=== PATIENT | male | born 1940 | race Caucasian/White ===

== ENCOUNTER 2019-06-08 08:28 | Inpatient (IN) ==
[2019-06-08] MEDS ORDERED: OPTIRAY 320 125ml IV PRN (08:52)
[2019-06-08 08:56] LABS: Basophils # (auto) 0.09 K/uL (0-0.2); Basophils % (auto) 1.2 %; Eosinophils # (auto) 0.44 K/uL (0-0.5); Eosinophils % (auto) 5.9 %; Hematocrit (blood only) 41.9 % (42-52); Hemoglobin 15.2 g/dL (14.0-18.0); Immature Granulocytes # (auto) 0.06 K/uL (0.00-0.02); Immature Granulocytes % (auto) 0.8 %; Lymphocytes # (auto) 2.32 K/uL (1.2-3.4); Lymphocytes % (auto) 30.9 %; Mean Corpuscular Hemoglobin 33.4 pg (25-34); Mean Corpuscular Hgb Conc 36.3 g/dL (32-36); Mean Corpuscular Volume 92.1 fL (80-100); Mean Platelet Volume 10.2 fL (7.4-10.4); Monocytes # (auto) 0.63 K/uL (0.11-0.59); Monocytes % (auto) 8.4 %; Neutrophils # (auto) 3.97 K/uL (1.4-6.5); Neutrophils % (auto) 52.8 %; Platelet Count 286 K/uL (130-400); RDW Coefficient of Variation 12.9 % (11.5-14.5); RDW Standard Deviation 43.8 fL (36.4-46.3); Red Blood Count 4.55 M/uL (4.7-6.1); White Blood Count 7.51 K/uL (4.8-10.8)
--- NOTE | 2019-06-08 08:58 | CT Scan Report ---
CT head/brain wo con CLINICAL HISTORY: Stroke evaluation COMPARISON STUDY: 06/07/2014 TECHNIQUE: Axial CT of the brain is performed from the vertex to the skull base. IV contrast was not administered for this examination. A dose lowering technique was utilized adhering to the principles of ALARA. CT DOSE: FINDINGS: No intra or extra-axial mass lesions are visualized. There is no CT evidence of acute cortical infarc tion. There is no evidence of midline shift. There is no acute hemorrhage. No calvarial fractures ar e visualized. There are patchy white matter hypodensities likely on a small vessel basis. There is no evidence of pathologic ventricular dilatation. There is no evidence of acute sinusitis IMPRESSION: No acute intracranial findings Electronically signed by: Lalo Contreras M.D. 06/08/2019 8:57 AM
[2019-06-08 09:08] LABS: INR 1.1 (0.9-1.1); Partial Thromboplastin Ratio 0.9; Partial Thromboplastin Time 24.5 Seconds (21.0-31.0); Prothrombin Time 10.9 Seconds (9.0-12.0)
[2019-06-08 09:12] LABS: iSTAT Creatinine 1.1 mg/dl (0.6-1.3); iSTAT Ionized Calcium 1.19 mmol/l (1.12-1.32); iSTAT Potassium 3.5 mEq/L (3.3-5.0)
[2019-06-08 09:15] LABS: Alanine Aminotransferase 22 U/L (12-78); Albumin Level 3.8 gm/dl (3.4-5.0); Aspartate Aminotransferase 13 U/L (15-37); BUN Creatinine Ratio 16.1 (10-20); Blood Urea Nitrogen 18 mg/dl (7-18); Calcium 9.3 mg/dl (8.5-10.1); Carbon Dioxide 26 mmol/L (21-32); Chloride 100 mmol/L (98-107); Est GFR (Non-African American) 61.3; Glucose 207 mg/dl (70-99); Potassium 3.4 mmol/L (3.5-5.1); Sodium 134 mmol/L (136-145)
--- NOTE | 2019-06-08 09:16 | CT Scan Report ---
CT ANGIOGRAM OF THE BRAIN; CT ANGIOGRAM OF THE NECK CLINICAL HISTORY: Generalized weakness. COMPARISON STUDY: Unenhanced CT of the brain performed the same day 06/08/2019. CT angiogram of the head and neck dated 06/06/2014. TECHNIQUE: Following the IV administration of 120 of Optiray 320, CT angiogram of the head and neck w as performed from the aortic arch to the vertex. Images are reviewed in the axial, sagittal, and cali nal planes. 3-D MIPS images are created and assessed. IV contrast was administered without complicati on. All measurements were calculated based on NASCET criteria. A dose lowering technique was utilize d adhering to the principles of ALARA. FINDINGS: Brain parenchyma: There is age-related involutional change noting mild to moderate subcortical and pe riventricular microangiopathic disease. There is no hemorrhage, mass effect, or evidence of acute ter ritorial ischemia by CT criteria. There is no evidence of enhancing mass lesion on the angiogram phas e images. The ventricles, sulci, and cisterns are prominent secondary to involutional change. Bansal-wh ite matter differentiation is preserved. No extra-axial fluid collection is seen. Thoracic aorta: There is mild atherosclerotic calcification of the thoracic aorta. Visualized portion s of the thoracic aorta are normal in caliber. The aortic arch demonstrates standard 3-vessel anatomy . Right carotid arterial system: The right common carotid artery is widely patent, as is the right inte rnal carotid artery. Atherosclerotic plaque is noted in the carotid bulb. There is mild stenosis the origin of the right external carotid artery. Left carotid arterial system: The left common carotid artery is widely patent, as are the left compensation intern al and external carotid arteries. There is atherosclerotic calcification of the carotid bulb and the proximal left internal carotid artery. Vertebral arteries: The vertebral arteries are patent bilaterally and codominant. There is mild (less than 50%) stenosis of the proximal left vertebral artery seen on image #111. Subclavian arteries: Widely patent bilaterally. Intracranial vasculature: There is atherosclerotic calcification of the cavernous carotid and vertebr al arteries. The [place] is developmentally complete. The internal carotid arteries are prabhakar nt at the skull base, as are the anterior and middle cerebral arteries bilaterally. The vertebrobasil ar system and posterior cerebral arteries are widely patent. The vertebral arteries are codominant. T here is minimal ectasia of the supraclinoid left internal carotid artery with no aneurysm seen. No de finite aneurysm, high-grade stenosis, or focal vessel cut off seen throughout the intracranial circul ation. Jugular veins: Patent bilaterally. Dural sinuses: Patent. Lung apices: There is biapical scarring. Peribronchial thickening is noted in the upper lobes. Soft tissues: The visualized pharyngeal soft tissues are normal in appearance noting angiographic pha se technique. The oropharyngeal airway appears widely patent. The salivary and thyroid glands are nor mal in appearance. No cervical lymphadenopathy is seen. Skeletal structures: The skeletal structures are osteopenic. The calvarium appears intact. The cervic al spine is maintained noting multilevel spondylosis. No lytic or blastic lesion is seen. Sinuses and mastoids: Osteoma with surrounding mucosal thickening is noted in the right frontal sinus . The remaining paranasal sinuses are clear. The mastoid air cells are well pneumatized. An impacted left maxillary tooth is unchanged from previous. IMPRESSION: 1. There is no hemorrhage, mass effect, or evidence of acute territorial ischemia by CT criteria noti ng angiographic phase technique. 2. Unremarkable CT angiogram of the brain. 3. There is no evidence of significant carotid artery stenosis identified in the neck. 4. 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 Electronically signed by: Dakota Hall M.D. 06/08/2019 9:15 AM
[2019-06-08 09:20] LABS: Alkaline Phosphatase 103 U/L (45-117); Bilirubin,Total 0.7 mg/dl (0.2-1); Globulin 3.8 gm/dl (2.5-4.0); Total Protein 7.6 gm/dl (6.4-8.2); Troponin I < 0.015 ng/ml (0-0.045)
--- NOTE | 2019-06-08 09:27 | XRay Report ---
XR chest 1V portable CLINICAL HISTORY: Acute stroke COMPARISON STUDY: 01/17/2018 FINDINGS: The cardiac and mediastinal contours are normal. There is no evidence of focal pulmonary co nsolidation. There is no evidence of failure. No pleural effusions are visualized.[ IMPRESSION: No active disease in the chest. Electronically signed by: Lalo Contreras M.D. 06/08/2019 9:26 AM
[2019-06-08] MEDS ORDERED: SODIUM CHLORIDE 0.9% 1000ML 1,000 ML IV ONE (09:28)
[2019-06-08] MEDS ORDERED: ASPIRIN 81 MG ECTAB PO STA (10:50)
--- NOTE | 2019-06-08 11:13 | History & Physical Report ---
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 In ED patient was mildly hypertensive with BP 153/91, otherwise hemodynamically stable. He underwent CT scan of head which revealed patchy white matter densities consistent with small vessel disease, but no acute abnormality. CTA of head neck was negative for any hemodynamically significant stenosis. CBC, CMP relatively unremarkable except for mildly low sodium 134, K3.4, hyperglycemia 207 his magnesium, troponin were WNL. Chest x-ray revealed no active disease. Sx mostly resolved except for RUE/RLE weakness observed on exam admit to PCU consult neurology Dr. Vogel obtain MRI w/o contrast echocardiogram fasting lipid panel, A1C PT/OT/ST continue ASA, plavix, Statin - will await neurology recommendations due to ? reema vix failure Stop omeprazole due to contraindication with plavix (2) T2DM (type 2 diabetes mellitus): last A1C 8.5, poor control recommend stricter control due to hx of CVA on lantus 18u at HS implement Lantus/Novolog per protocol allergy to januvia - has been on metformin in past but d/c for unknown reason repeat A1C hospital educator consulted consider re- adding metformin to regimen to obtain stricter control or AC coverage with novolog (3) HTN (hypertension): blood pressure mildly hypertensive in ED hold oral antihypertensives due to stroke work up and permissive HTN hold coreg, losartan (4) HLD (hyperlipidemia): continue statin lipid panel in a.m. (5) History of CVA (cerebrovascular accident): hx of CVA in 01/2013 and 05/2018, R internal capsule no residual deficit except for short term memory loss on ASA, plavix, statin plan as above (6) DVT prophylaxis: SCD/TEDS Disposition: admit to PCU Follow up: PCP Dr. Hooper upon discharge Pt was seen and examined in collaboration with Dr. Sanchez, please see addendum History of Present Illness Chief Complaint: AMS, LUE paresthesias and weakness prior to arrival. 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 and daughter are at bedside. He elicits he woke up around 5 AM and got out of bed and was very confused, "I did not even know the name of my or daughter." He also complained of left upper extremity paresthesias and weakness with associated difficulty with fine motor movements. Symptoms persisted and he proceeded to take trash out to the end of the driveway. He then elicited feeling right upper extremity paresthesias and weakness. Due to symptoms he opted to present to ED. denies any dysarthria or facial droop. He denies any lower extremity weakness. Of significance he was seen recently by PCP on 06/02 secondary to "flulike symptoms," x2 to 3 weeks. He was placed on azithromycin and prednisone taper which he completed. His respiratory symptoms have since resolved. Also mentions recently placed on omeprazole 20mg daily and ranitidine 150mg bid due ot hiccups consistently x 3 days which have now resolved. He denies any fever, chills, sweats, lightheadedness, dizziness, syncope, change in vision, change in hearing, diplopia, chest pain, shortness of breath and palpitations, nausea, vomiting, abdominal pain, change in bowel or urinary habits. In ED patient was mildly hypertensive with BP 153/91, otherwise hemodynamically stable. He underwent CT scan of head which revealed patchy white matter densities consistent with small vessel disease, but no acute abnormality. CTA of head neck was negative for any hemodynamically significant stenosis. CBC, CMP relatively unremarkable except for mildly low sodium 134, K3.4, hyp erglycemia 207 his magnesium, troponin were WNL. Chest x-ray revealed no active disease. Allergies Allergy/AdvReac Type Severity Reaction Status Date / Time cat dander Allergy Intermediate itchy Unverified 06/08/19 09:46 watery eyes horse dander Allergy Intermediate itchy Unverified 06/08/19 09:46 watery eyes latex Allergy Intermediate SKIN PEELS Verified 06/08/19 09:46 adhesive Allergy Unknown "TAKES THE Verified 06/08/19 09:46 SKIN OFF" diazepam [From Valium] AdvReac Severe can't stay Unverified 06/08/19 09:46 awake diphenhydramine AdvReac Intermediate anxiety Verified 06/08/19 09:46 enalapril AdvReac Unknown "MADE ME Verified 06/08/19 09:46 MEAN" SUCRETS Allergy Intermediate "numb all Uncoded 06/08/19 09:46 over" Home Medications Home Medications Medication Instructions Recorded Confirmed Type acetaminophen [Tylenol Extra 500 mg PO Q6H PRN 06/08/19 06/08/19 History Strength] aspirin 81 mg PO QDD 06/08/19 06/08/19 History atorvastatin 40 mg PO QDD 06/08/19 06/08/19 History carvedilol 3.125 mg PO BID 06/08/19 06/08/19 History clopidogrel 75 mg PO QAM 06/08/19 06/08/19 History insulin glargine [Lantus Solostar 18 unit SUBCUT HS 06/08/19 06/08/19 History U-100 Insulin] losartan 25 mg PO QAM 06/08/19 06/08/19 History omeprazole 20 mg PO QAM 06/08/19 06/08/19 History ranitidine HCl 150 mg PO BID 06/08/19 06/08/19 History tamsulosin 0.4 mg PO QAM 06/08/19 06/08/19 History Past Med/Surg History Medical History (Updated 06/08/19 @ 11:11 by Rosa Mcgarry PA-C) Generalized osteoarthrosis History of CVA (cerebrovascular accident) History of kidney stones HLD (hyperlipidemia) HTN (hypertension) Lumbar degenerative disc disease RLS (restless legs syndrome) T2DM (type 2 diabetes mellitus) Surgical History (Updated 06/08/19 @ 11:05 by Rosa Mcgarry PA-C) History of colonoscopy with polypectomy History of cystoscopy History of laryngoscopy Hx of bursectomy Family History Father Myocardial infarction Heart disease Mother Breast cancer Sister Lupus Brother Diabetes Myocardial infarction Coronary heart disease Social History Preferred Language: Azeri Communication Ability: Effective marital status: Current Living Situation: Spouse current occupational status: retired Feels Safe at Home: Yes Smoking Status: Former smoker Hx Alcohol Use: No Hx Substance Use: No Review of Systems Review of Systems: All systems reviewed & are unremarkable except as noted in HPI & below Physical Exam Physical Exam: Constitutional: WD/WN, elderly, male, vitals as above, NAD, sitting up in bed, pleasant but apprehensive, conversing easily Head: Normocephalic, Atraumatic Eyes: PERRL, conjunctivae normal, anicteric sclerae ENMT: external ear and nose normal, oropharynx normal Neck: trachea midline, no thyromegaly normal visual inspection Respiratory: normal respiratory effort, lungs clear to auscultation, no wheeze, rales, rhonchi. Normal insp/exp effort, no accessory muscle use Cardiovascular: RRR, no murmur, no edema Vessels: no JVD or carotid bruit Chest: normal inspection of chest Abdomen: normal bowel sounds, soft, nontender, no hepatosplenomegaly Musculoskeletal: no cyanosis or clubbing, extremities motor strength 5/5 , except RUE 4/5, RLE 4/5 R upper weakness > R lower weakness Skin: no rashes, warm and dry normal turgor Neurologic: PERRL, EOMI, accommodation nl, no face palsy, no dysarthria CN's II-XI intact bilaterally and moves all extremities Psychiatric: A+Ox3, euthymic affect Lymphatic: no cervical or axillary lymphadenopathy : deferred Results & Data Vital Signs (Past 12 Hours) Vital Signs Temp Pulse Pulse Resp BP BP Pulse Ox 06/08/19 09:38 68 16 123/85 96 06/08/19 09:20 73 97 06/08/19 09:15 66 144/87 H 95 06/08/19 09:10 68 95 06/08/19 09:05 69 68 20 152/91 H 152/91 H 95 06/08/19 09:03 72 97 06/08/19 08:30 36.4 C L 84 20 153/91 H 96 Laboratory Results Short CBC 06/08/19 Range/Units 08:47 WBC 7.51 (4.8-10.8) K/uL Hgb 15.2 (14.0-18.0) g/dL Hct 41.9 L (42-52) % Plt Count 286 (130-400) K/uL BMP 06/08/19 08:47 Sodium 134 L Potassium 3.4 L Chloride 100 Carbon Dioxide 26 BUN 18 Creatinine 1.14 Glucose 207 H Calcium 9.3 Cardiac Enzymes 06/08/19 Range/Units 08:47 Troponin I < 0.015 (0-0.045) ng/ml Liver Function 06/08/19 Range/Units 08:47 Total Bilirubin 0.7 (0.2-1) mg/dl AST 13 L (15-37) U/L ALT 22 (12-78) U/L Alkaline Phosphatase 103 (45-117) U/L Albumin 3.8 (3.4-5.0) gm/dl Diagnostic Findings CXR: IMPRESSION: No active disease in the chest. Head CT: FINDINGS: No intra or extra-axial mass lesions are visualized. There is no CT evidence of acute cortical infarction. There is no evidence of midline shift. There is no acute hemorrhage. No calvarial fractures are visualized. There are patchy white matter hypodensities likely on a small vessel basis. There is no evidence of pathologic ventricular dilatation. There is no evidence of acute sinusitis IMPRESSION: No acute intracranial findings Head/Neck CTA: IMPRESSION: 1. There is no hemorrhage, mass effect, or evidence of acute territorial ische nupur by CT criteria noting angiographic phase technique. 2. Unremarkable CT angiogram of the brain. 3. There is no evidence of significant carotid artery stenosis identified in the neck. 4. 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 Code Status & VTE Plan Code Status DNR VTE Prophylaxis Plan VTE Prophylaxis will be ordered: Yes Supervising Physician Co-Signing Physician Notes Patient is a 78-year-old male with history of CVA, diabetes, hyperlipidemia, hypertension and other problems presents with history of sudden onset of right upper extremity numbness associated with weakness which started this morning at 5 AM. Patient states that the right upper extremity numbness and weakness later progressed to left upper extremity as well. He admits to having transient mem ory loss this morning as well. His mentions that he was mumbling words which she could not understand initially. He denies any change in vision, facial deformity, bowel bladder incontinence, headache. He recently completed a course of azithromycin and prednisone for URI. He is currently on aspirin and Plavix for prior CVA. He was started on omeprazole by his PCP for indigestion associated with hiccups. Symptoms completely resolved while in ED. CT head, CTA head and neck showed no significant acute findings. On exam patient is moderately built and nourished, no apparent distress, normocephalic atraumatic, lungs are clear to auscultation, S1-S2, no murmur, abdomen soft nontender, no pedal edema, right upper extremity4/5, Right lower extremity 4/5 weakness. I personally reviewed the labs, imaging studies,EKG. patient is admitted for management of strokelike symptoms. Plan to get MRI brain, echo. Continue aspirin, Plavix, Lipitor. Plan to discontinue omeprazole secondary to possible interaction with Plavix. Recent LDL 71. Last A1c 8.5. Will replace potassium with IV fluids. Agree with holding hypertension medications for now. Neurology consulted. Check Lyme screen. I personally reviewed the record. Patient is interviewed and examined at bedside. Patient's care is coordinated with Rosa Mcgarry PA-C. Please refer to the documentation above for details of patient's presentation and for discussion of other issues.
[2019-06-08 11:53] LABS: Appearance Urine Clear (Clear); Bilirubin Urine Negative (Negative); Blood Urine Negative (Negative); Color Urine Yellow; Glucose Urine UA Negative (Negative); Ketones Urine Negative (Negative); Leukocyte Esterase Urine Negative (Negative); Nitrite Urine Negative (Negative); Protein Urine Negative (Negative); Specific Gravity Urine <= 1.005 (1.000-1.030); Urobilinogen Urine Negative (Negative); pH Urine 5.5 (4.5-7.5)
[2019-06-08 12:32] LABS: Lyme Ab IgG w/WB Rflx Negative (Negative)
[2019-06-08] MEDS ORDERED: ALUMINUM/MAGNESIUM SUSP 30 ML UDC PO PRN (12:42)
[2019-06-08] MEDS ORDERED: ACETAMINOPHEN 325 MG TAB PO PRN (12:42)
[2019-06-08] MEDS ORDERED: ONDANSETRON INJ 2 MG/ML 2 ML VIAL IV PRN (12:42)
[2019-06-08] MEDS ORDERED: MAGNESIUM HYDROXIDE SUSP 30 ML UDC PO PRN (12:42)
[2019-06-08] MEDS ORDERED: DEXTROSE 50% 50 ML SYRINGE IV PRN ×2 (12:42)
[2019-06-08] MEDS ORDERED: GLUCOSE 10 TABS/TUBE PO PRN ×2 (12:42)
[2019-06-08] MEDS ORDERED: GLUCOSE 40% GEL 15 GM TUBE PO PRN ×2 (12:42)
[2019-06-08] MEDS ORDERED: PHARMACIST DISCHARGE MED REC CONSULT PRN (12:42)
[2019-06-08] MEDS ORDERED: POLYETHYLENE (MIRALAX) 17 GM PACK PO PRN (12:42)
[2019-06-08] MEDS ORDERED: CARBOHYDRATES FOR HYPOGLYCEMIA PO PRN ×2 (12:42)
[2019-06-08] MEDS ORDERED: GLUCAGON FOR INJ 1 MG VIAL SQ PRN ×2 (12:42)
[2019-06-08 12:46] LABS: Lyme Ab IgM w/WB Rflx Equivocal (Negative)
[2019-06-08] MEDS ORDERED: LORazepam 0.5 MG TAB PO ONE (13:17)
--- NOTE | 2019-06-08 13:23 | Neurology Consultation ---
Date of Consultation June 08, 2019 Assessment & Plan (1) Encephalopathy: A 78 year old male with Hx of TIA and stroke on dual antiplaltlet therapy, HTN, and IDDM admitted with transient encephalopathy with reported transient B/L upper extremity weakness and difficulty speaking. Symptoms resolved. Neuro examine non focal. SPeech is clear. No aphasia. No weakness noted on my examine. Unclear etiology of spell. Does not sound like a TIA or stroke and hard to localize. Agree with MRI brain w/wo contrast. Would continue home dual antiplatlet therapy. Permissive HTN for now until for now. Other DDx includes TGA although this would not explain his reported upper extremity weakness. 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 LKN was last evening. He woke this morning at 5 AM confused. Stated "I did not even know the name of my or daughter." He also complained of left upper extremity paresthesias and weakness with associated difficulty with fine motor movements. He then elicited feeling right upper extremity paresthesias and weakness. Due to symptoms he opted to present to ED. denies any dysarthria or facial droop. He denies any lower extremity weakness. Patietn reports he was asymptomatic when he went to bed. Denies pain or headache. States he woke confused and could not remember anything. He states his right arm was weak which then went to left arm. He states his speech was garbled. states he heard him talking but could not understand him. Took BP at home and SBP was in the 160's. Denies EtOH. Has had similar symptoms in the past. NO LOC or seizure activity per . He is now back to baseline. Symptoms last for several hours per patient. In ED patient was mildly hypertensive with BP 153/91, otherwise hemodynamically stable. He underwent CT scan of head which revealed patchy white matter densities consistent with small vessel disease, but no acute abnormality. CTA of head neck was negative for any hemodynamically significant stenosis. Allergies Allergy/AdvReac Type Severity Reaction Status Date / Time cat dander Allergy Intermediate itchy Unverified 06/08/19 09:46 watery eyes horse dander Allergy Intermediate itchy Unverified 06/08/19 09:46 watery eyes latex Allergy Intermediate SKIN PEELS Verified 06/08/19 09:46 adhesive Allergy Unknown "TAKES THE Verified 06/08/19 09:46 SKIN OFF" diazepam [From Valium] AdvReac Severe can't stay Unverified 06/08/19 09:46 awake diphenhydramine AdvReac Intermediate anxiety Verified 06/08/19 09:46 enalapril AdvReac Unknown "MADE ME Verified 06/08/19 09:46 MEAN" SUCRETS Allergy Intermediate "numb all Uncoded 06/08/19 09:46 over" Home Medications Home Medications Medication Instructions Recorded Confirmed Type acetaminophen [Tylenol Extra 500 mg PO Q6H PRN 06/08/19 06/08/19 History Strength] aspirin 81 mg PO QDD 06/08/19 06/08/19 History atorvastatin 40 mg PO QDD 06/08/19 06/08/19 History carvedilol 3.125 mg PO BID 06/08/19 06/08/19 History clopidogrel 75 mg PO QAM 06/08/19 06/08/19 History insulin glargine [Lantus Solostar 18 unit SUBCUT HS 06/08/19 06/08/19 History U-100 Insulin] losartan 25 mg PO QAM 06/08/19 06/08/19 History omeprazole 20 mg PO QAM 06/08/19 06/08/19 History ranitidine HCl 150 mg PO BID 06/08/19 06/08/19 History tamsulosin 0.4 mg PO QAM 06/08/19 06/08/19 History Patient History Medical History (Updated 06/08/19 @ 15:43 by Bear Vogel DO) Generalized osteoarthrosis History of CVA (cerebrovascular accident) History of kidney stones HLD (hyperlipidemia) HTN (hypertension) Lumbar degenerative disc disease RLS (restless legs syndrome) T2DM (type 2 diabetes mellitus) Surgical History (Updated 06/08/19 @ 11:05 by Rosa Mcgarry PA-C) History of colonoscopy with polypectomy History of cystoscopy History of laryngoscopy Hx of bursectomy Family History Father Myocardial infarction Heart disease Mother Breast cancer Sister Lupus Brother Diabetes Myocardial infarction Coronary heart disease Social History Preferred Language: Estonian Communication Ability: Effective Club Car Attendant Required: No Beliefs That Will Affect Care: Congregation, Spiritual and Cultural marital status: Current Living Situation: Spouse current occupational status: retired Other Information That Helps Us Care for You: No Feels Safe at Home: Yes Safety Concerns: Feels Safe At This Time Smoking Status: Former smoker Hx Alcohol Use: No Hx Substance Use: No Physical Exam Physical Exam: EXAM: Constitutional: appearance normally developed, well nourished and non-obese Head and Face: normocephalic and atraumatic Eyes: normal lids, normal conjunctiva appearance Neck: supple Respiratory: normal effort Cardiovascular: regular rhythm and normal pulses Abdomen: non distended Skin: no rashes, lesions, or ulcers noted Psychiatric: normal mood and normal affect NEUROLOGIC EXAMINATION: Appearance: no acute distress Orientation: awake, alert and oriented x 3 Mental Status: alert Memory: registration 3/3 and recall 3/3 Attention: normal Knowledge: appropriate Language: no aphasia Speech: no dysarthria Cranial Nerves: CN 2 - no visual defect on confrontation and pupils round, equal, reactive to light CN 3, 4, 6 - extra-ocular movements intact and no nystagmus CN 5 - facial sensation intact CN 7 - no facial asymmetry CN 8 - intact hearing CN 9, 10 - palate symmetric CN 11 - good shoulder shrug CN 12 - tongue midline Gait: stable, no ataxia and can perform tandem walking Coordination: no ataxia with finger to nose testing and heel to soriano testing Sensory: intact and symmetric to pinprick, light touch, vibration and joint position Muscle Tone: normal Muscle exam: Reflexes: 2+ at the knees, no clonus Results & Data Vital Signs (Past 12 Hours) Vital Signs Temp Pulse Pulse Resp BP BP Pulse Ox 06/08/19 12:28 36.7 C 69 16 171/98 H 95 06/08/19 12:01 71 22 96 06/08/19 12:00 68 20 124/73 94 06/08/19 11:50 67 19 95 06/08/19 11:40 67 22 95 06/08/19 11:31 65 20 95 06/08/19 11:30 66 20 134/82 95 06/08/19 11:20 68 25 H 95 06/08/19 11:10 69 18 97 06/08/19 11:00 64 21 119/71 96 06/08/19 10:50 64 20 96 06/08/19 10:40 65 19 06/08/19 10:31 66 17 142/90 H 97 06/08/19 10:30 65 19 96 06/08/19 10:20 63 19 97 06/08/19 10:11 63 23 98 06/08/19 10:01 63 22 97 06/08/19 10:00 63 21 132/89 97 06/08/19 09:50 65 23 98 06/08/19 09:40 63 22 96 06/08/19 09:38 64 68 13 123/85 123/85 98 06/08/19 09:35 66 19 95 06/08/19 09:20 73 97 06/08/19 09:15 66 144/87 H 95 06/08/19 09:10 68 95 06/08/19 09:05 69 68 20 152/91 H 152/91 H 95 06/08/19 09:03 72 97 06/08/19 08:30 36.4 C L 84 20 153/91 H 96 Diagnostic Findings CTA head and neck: 1. There is no hemorrhage, mass effect, or evidence of acute territorial ischemia by CT criteria noting angiographic phase technique.2. Unremarkable CT angiogram of the brain.3. There is no evidence of significant carotid artery stenosis identified in the neck.4. 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
[2019-06-08] MEDS: INSULIN ASPART 100 UNITS/ML 3 ML PEN SC SCH ×3 (13:59→21:06)
--- NOTE | 2019-06-08 14:21 | Emergency Department Note ---
Entered by Mary Jo Onofre acting as a scribe for Yanick Prieto DO History of Present Illness General Chief complaint: Stroke/CVA Symptoms Stated complaint: DIFFICULTY SPEAKING/THINKING Source: patient and family Mode of arrival: wheelchair Limitations: no limitations History of Present Illness Onset (ago): hour(s) 3 Location: head Radiation: non-radiation Pain Consistency: + constant Relieved By: + none Exacerbated By: + none Associated symptoms: + weakness (in right arm and hand) and + other (-change in vision); no chest pain, no headaches, no nausea/vomiting and no shortness of breath Treatments prior to arrival: none The patient is a 78 year old male who presents to the ED with complaints of possible stroke symptoms. He is accompanied by his and daughter. He reports this morning upon waking around 0530, he noticed he had "no memory from the past week". He went to bed around 2100 last night with no issues. He complains of weakness and numbness in his right arm and the fingers on his right hand. The patient admits to a history of DM, HTN and high cholesterol. He did experience a previous stroke that also affected his right side. His family states this morning he "could not get his words out right" and was "mixing up words" and could not remember his daughters names. His states his speech was normal except for mixing up words. The patient denies any headache, change in vision, chest pain, shortness of breath, nausea or vomiting. Home Medications Home Medications Medication Instructions Recorded Confirmed Type acetaminophen [Tylenol Extra 500 mg PO Q6H PRN 06/08/19 06/08/19 History Strength] aspirin 81 mg PO QDD 06/08/19 06/08/19 History atorvastatin 40 mg PO QDD 06/08/19 06/08/19 History carvedilol 3.125 mg PO BID 06/08/19 06/08/19 History clopidogrel 75 mg PO QAM 06/08/19 06/08/19 History insulin glargine [Lantus Solostar 18 unit SUBCUT HS 06/08/19 06/08/19 History U-100 Insulin] losartan 25 mg PO QAM 06/08/19 06/08/19 History omeprazole 20 mg PO QAM 06/08/19 06/08/19 History ranitidine HCl 150 mg PO BID 06/08/19 06/08/19 History tamsulosin 0.4 mg PO QAM 06/08/19 06/08/19 History Allergies Allergy/AdvReac Type Severity Reaction Status Date / Time cat dander Allergy Intermediate itchy Unverified 06/08/19 09:46 watery eyes horse dander Allergy Intermediate itchy Unverified 06/08/19 09:46 watery eyes latex Allergy Intermediate SKIN PEELS Verified 06/08/19 09:46 adhesive Allergy Unknown "TAKES THE Verified 06/08/19 09:46 SKIN OFF" diazepam [From Valium] AdvReac Severe can't stay Unverified 06/08/19 09:46 awake diphenhydramine AdvReac Intermediate anxiety Verified 06/08/19 09:46 enalapril AdvReac Unknown "MADE ME Verified 06/08/19 09:46 MEAN" SUCRETS Allergy Intermediate "numb all Uncoded 06/08/19 09:46 over" Past Med/Surg History Medical History (Updated 06/08/19 @ 11:11 by Rosa Mcgarry PA-C) Generalized osteoarthrosis History of CVA (cerebrovascular accident) History of kidney stones HLD (hyperlipidemia) HTN (hypertension) Lumbar degenerative disc disease RLS (restless legs syndrome) T2DM (type 2 diabetes mellitus) Surgical History (Updated 06/08/19 @ 11:05 by Rosa Mcgarry PA-C) History of colonoscopy with polypectomy History of cystoscopy History of laryngoscopy Hx of bursectomy Family History Father Myocardial infarction Heart disease Mother Breast cancer Sister Lupus Brother Diabetes Myocardial infarction Coronary heart disease Social History Preferred Language: Estonian Communication Ability: Effective Pet Sitter Required: No Beliefs That Will Affect Care: Congregation, Spiritual and Cultural marital status: Current Living Situation: Spouse current occupational status: retired Other Information That Helps Us Care for You: No Feels Safe at Home: Yes Safety Concerns: Feels Safe At This Time Smoking Status: Former smoker Hx Alcohol Use: No Hx Substance Use: No Review of Systems See HPI for pertinent positives & negatives. and A total of 10 systems reviewed and were otherwise negative Physical Exam Vital Signs Vital Signs - 24 hr 06/08/19 08:30 06/08/19 09:03 06/08/19 09:05 Temperature 36.4 C L Temperature Source Oral Pulse Rate 84 72 69 Pulse Rate [Left Finger] 68 Pulse Rate from SpO2 Sensor 72 68 Pulse Rhythm [Left Finger] Regular Pulse Strength [Left Finger] Normal Respiratory Rate 20 20 Respiratory Effort / Characteristics Non-Labored Spontaneous Respiratory Depth Normal Respiratory Pattern Regular Blood Pressure 153/91 H 152/91 H Blood Pressure [Right Arm] 152/91 H Blood Pressure Mean 111 114 Blood Pressure Mean [Right Arm] 111 Blood Pressure Position [Right Arm] Sitting Pulse Oximetry 96 97 95 Oxygen Delivery Method Room Air Room Air Sepsis Recent Fever Within 48 Hours No Sepsis New/Unexplained Change in Mental Status No Sepsis Action Taken by Nursing No Action Required 06/08/19 09:10 06/08/19 09:15 06/08/19 09:20 Temperature Temperature Source Pulse Rate 68 66 73 Pulse Rate [Left Finger] Pulse Rate from SpO2 Sensor 68 67 73 Pulse Rhythm [Left Finger] Pulse Strength [Left Finger] Respiratory Rate Respiratory Effort / Characteristics Respiratory Depth Respiratory Pattern Blood Pressure 144/87 H Blood Pressure [Right Arm] Blood Pressure Mean 112 Blood Pressure Mean [Right Arm] Blood Pressure Position [Right Arm] Pulse Oximetry 95 95 97 Oxygen Delivery Method Sepsis Recent Fever Within 48 Hours Sepsis New/Unexplained Change in Mental Status Sepsis Action Taken by Nursing 06/08/19 09:35 06/08/19 09:38 06/08/19 09:40 Temperature Temperature Source Pulse Rate 66 64 63 Pulse Rate [Left Finger] 68 Pulse Rate from SpO2 Sensor 66 64 63 Pulse Rhythm [Left Finger] Pulse Strength [Left Finger] Respiratory Rate 19 13 22 Respiratory Effort / Characteristics Respiratory Depth Respiratory Pattern Blood Pressure 123/85 Blood Pressure [Right Arm] 123/85 Blood Pressure Mean 91 Blood Pressure Mean [Right Arm] 97 Blood Pressure Position [Right Arm] Pulse Oximetry 95 98 96 Oxygen Delivery Method Room Air Sepsis Recent Fever Within 48 Hours Sepsis New/Unexplained Change in Mental Status Sepsis Action Taken by Nursing 06/08/19 09:50 06/08/19 10:00 06/08/19 10:01 Temperature Temperature Source Pulse Rate 65 63 63 Pulse Rate [Left Finger] Pulse Rate from SpO2 Sensor 65 62 63 Pulse Rhythm [Left Finger] Pulse Strength [Left Finger] Respiratory Rate 23 21 22 Respiratory Effort / Characteristics Respiratory Depth Respiratory Pattern Blood Pressure 132/89 Blood Pressure [Right Arm] Blood Pressure Mean 109 Blood Pressure Mean [Right Arm] Blood Pressure Position [Right Arm] Pulse Oximetry 98 97 97 Oxygen Delivery Method Sepsis Recent Fever Within 48 Hours Sepsis New/Unexplained Change in Mental Status Sepsis Action Taken by Nursing 06/08/19 10:11 06/08/19 10:20 Temperature Temperature Source Pulse Rate 63 63 Pulse Rate [Left Finger] Pulse Rate from SpO2 Sensor 63 63 Pulse Rhythm [Left Finger] Pulse Strength [Left Finger] Respiratory Rate 23 19 Respiratory Effort / Characteristics Respiratory Depth Respiratory Pattern Blood Pressure Blood Pressure [Right Arm] Blood Pressure Mean Blood Pressure Mean [Right Arm] Blood Pressure Position [Right Arm] Pulse Oximetry 98 97 Oxygen Delivery Method Sepsis Recent Fever Within 48 Hours Sepsis New/Unexplained Change in Mental Status Sepsis Action Taken by Nursing GENERAL: Patient is alert, sitting up in bed, anxious, disheveled, non-toxic EYE EXAM: normal conjunctiva, PERRL and EOM's intact OROPHARYNX: no exudate, no erythema, lips, buccal mucosa, and tongue normal and mucous membranes are moist NECK: supple, no nuchal rigidity, no adenopathy, non-tender LUNGS: Clear to auscultation. Normal chest wall mechanics HEART: no murmurs, S1 normal and S2 normal ABDOMEN: abdomen soft, non-tender, normo-active bowel sounds, no masses, no rebound or guarding. BACK: Back is symmetrical on inspection and there is no deformity, no midline tenderness, no CVA tenderness. SKIN: no rashes and no bruising UPPER EXTREMITIES: Left grasp is slightly weaker than right. LOWER EXTREMITIES: No pitting edema. NEURO EXAM: Normal sensorium, cranial nerves II-XII intact, normal speech, no weakness of arms, no weakness of legs. No drift. Finger to nose intact. Gross sensation intact. Course Course ED COURSE: Vital signs were reviewed and showed the patient is hypertensive The patients medical record was reviewed The above diagnostic studies were performed and reviewed. ED treatments and interventions as stated above. 0838: The patient was evaluated in room B12. A complete history and physical examination was performed. 918: I reevaluated the patient. His weakness has gone away. He does complain of some tingling in the left hand. 0921: I discussed the patients case with Dr. Singh, [facility]. The patient is not a TPA candidate. 1015: [facility] The patient will be further evaluated. 1025: Upon reevaluation, the patient is resting comfortably. I discussed my findings with the patient and he understands and agrees with the treatment plan. Based on the patients age, coexisting illnesses, exam and lab findings the decision to treat as an inpatient was made. The patient remained stable while under my care. The patient will be evaluated for further management. Consultations Consultation #1: I discussed the patients case with Dr. Singh, [facility]. The patient is not a TPA candidate. Time: 09:21 Administered Medications Insulin Aspart (Novolog Flexpen) 0 units SC ACHS RICH Stop: 07/08/19 12:41 Last Admin: 06/08/19 13:59 Dose: Not Given Documented by: [id number] Cosigned by: [id number] Discontinued Medications Sodium Chloride (Nss 1000ml) 1,000 mls @ 999 mls/hr IV .Q1H1M ONE Stop: 06/08/19 10:28 Last Infusion: 06/08/19 10:10 Dose: 0 mls/hr Documented by: [id number] Admin: 06/08/19 09:36 Dose: 999 mls/hr Documented by: [id number] Ioversol (Optiray 320 125ml) 120 ml IV ONCE PRN PRN Reason: Interaction Checking Stop: 06/12/19 08:51 Last Admin: 06/08/19 08:53 Dose: 120 ml Documented by: [id number] Medical Decision Making Differential Diagnosis Differential Diagnosis includes but is not limited to dehydration, stroke, anemia, hypoglycemia, hyponatremia, hypernatremia, urinary tract infection, pneumonia, bronchitis, sepsis, gastroenteritis, additional abdominal pathology, metabolic abnormalities and infections. Medical Records Attestation: I reviewed the patient's medical records. Home Medications Current Medication List: was personally reviewed by me Laboratory Data Attestation: I reviewed the patient's lab results. Result diagrams: 06/08/19 08:47 06/08/19 08:47 Lab Results 06/08/19 06/08/19 06/08/19 Range/Units 08:36 08:42 08:47 WBC 7.51 (4.8-10.8) K/uL RBC 4.55 L (4.7-6.1) M/uL Hgb 15.2 (14.0-18.0) g/dL POC Hgb (14.0-18.0) g/dl Hct 41.9 L (42-52) % POC Hct (42-52) % MCV 92.1 (80-100) fL MCH 33.4 (25-34) pg MCHC 36.3 H (32-36) g/dL RDW Std Deviation 43.8 (36.4-46.3) fL RDW Coeff of Catherine 12.9 (11.5-14.5) % Plt Count 286 (130-400) K/uL MPV 10.2 (7.4-10.4) fL Immature Gran % (Auto) 0.8 % Neut % (Auto) 52.8 % Lymph % (Auto) 30.9 % [place] % (Auto) 8.4 % Eos % (Auto) 5.9 % Baso % (Auto) 1.2 % Immature Gran # (Auto) 0.06 H (0.00-0.02) K/uL Neut # (Auto) 3.97 (1.4-6.5) K/uL Lymph # (Auto) 2.32 (1.2-3.4) K/uL [place] # (Auto) 0.63 H (0.11-0.59) K/uL Eos # (Auto) 0.44 (0-0.5) K/uL Baso # (Auto) 0.09 (0-0.2) K/uL PT (9.0-12.0) Seconds INR (0.9-1.1) APTT (21.0-31.0) Seconds PTT Ratio POC Sodium (135-144) mEq/L Sodium (136-145) mmol/L POC Potassium (3.3-5.0) mEq/L Potassium (3.5-5.1) mmol/L POC Chloride (101-112) mEq/L Chloride (98-107) mmol/L Carbon Dioxide (21-32) mmol/L POC Total CO2 (24-31) mEq/l Anion Gap (3-11) POC Anion Gap (16-25) mmol/L POC BUN (7-18) mg/dl BUN (7-18) mg/dl Creatinine (0.6-1.4) mg/dl POC Creatinine (0.6-1.3) mg/dl Est Cr Clr Drug Dosing Est GFR ( Amer) Est GFR (Non-Af Amer) BUN/Creatinine Ratio (10-20) Glucose (70-99) mg/dl POC Glucose 193 H (70-99) POC Glucose (other) (70-99) mg/dl Calcium (8.5-10.1) mg/dl POC Ioniz Calcium Aure (1.12-1.32) mmol/l Magnesium (1.8-2.4) mg/dl Total Bilirubin (0.2-1) mg/dl AST (15-37) U/L ALT (12-78) U/L Alkaline Phosphatase (45-117) U/L Troponin I (0-0.045) ng/ml Total Protein (6.4-8.2) gm/dl Albumin (3.4-5.0) gm/dl Globulin (2.5-4.0) gm/dl Albumin/Globulin Ratio (0.9-2) Urine Color Urine Appearance (Clear) Urine pH (4.5-7.5) Ur Specific [place] (1.000-1.030) Urine Protein (Negative) Urine Glucose (UA) (Negative) Urine Ketones (Negative) Urine Blood (Negative) Urine Nitrite (Negative) Urine Bilirubin (Negative) Urine Urobilinogen (Negative) Ur Leukocyte Esterase (Negative) Lyme Disease IgG Ab Negative (Negative) Lyme Disease IgM Ab Equivocal A (Negative) Blood Type Antibody Screen 06/08/19 06/08/19 06/08/19 Range/Units 08:47 08:47 08:50 WBC (4.8-10.8) K/uL RBC (4.7-6.1) M/uL Hgb (14.0-18.0) g/dL POC Hgb 15.0 (14.0-18.0) g/dl Hct (42-52) % POC Hct 44 (42-52) % MCV (80-100) fL MCH (25-34) pg MCHC (32-36) g/dL RDW Std Deviation (36.4-46.3) fL RDW Coeff of Catherine (11.5-14.5) % Plt Count (130-400) K/uL MPV (7.4-10.4) fL Immature Gran % (Auto) % Neut % (Auto) % Lymph % (Auto) % [place] % (Auto) % Eos % (Auto) % Baso % (Auto) % Immature Gran # (Auto) (0.00-0.02) K/uL Neut # (Auto) (1.4-6.5) K/uL Lymph # (Auto) (1.2-3.4) K/uL [place] # (Auto) (0.11-0.59) K/uL Eos # (Auto) (0-0.5) K/uL Baso # (Auto) (0-0.2) K/uL PT 10.9 (9.0-12.0) Seconds INR 1.1 (0.9-1.1) APTT 24.5 (21.0-31.0) Seconds PTT Ratio 0.9 POC Sodium 135 (135-144) mEq/L Sodium 134 L (136-145) mmol/L POC Potassium 3.5 (3.3-5.0) mEq/L Potassium 3.4 L (3.5-5.1) mmol/L POC Chloride 96 L (101-112) mEq/L Chloride 100 (98-107) mmol/L Carbon Dioxide 26 (21-32) mmol/L POC Total CO2 26 (24-31) mEq/l Anion Gap 8.0 (3-11) POC Anion Gap 18.0 (16-25) mmol/L POC BUN 19 H (7-18) mg/dl BUN 18 (7-18) mg/dl Creatinine 1.14 (0.6-1.4) mg/dl POC Creatinine 1.1 (0.6-1.3) mg/dl Est Cr Clr Drug Dosing Not Reportable Est GFR ( Amer) 71.0 Est GFR (Non-Af Amer) 61.3 BUN/Creatinine Ratio 16.1 (10-20) Glucose 207 H (70-99) mg/dl POC Glucose (70-99) POC Glucose (other) 202 H (70-99) mg/dl Calcium 9.3 (8.5-10.1) mg/dl POC Ioniz Calcium Aure 1.19 (1.12-1.32) mmol/l Magnesium 2.0 (1.8-2.4) mg/dl Total Bilirubin 0.7 (0.2-1) mg/dl AST 13 L (15-37) U/L ALT 22 (12-78) U/L Alkaline Phosphatase 103 (45-117) U/L Troponin I < 0.015 (0-0.045) ng/ml Total Protein 7.6 (6.4-8.2) gm/dl Albumin 3.8 (3.4-5.0) gm/dl Globulin 3.8 (2.5-4.0) gm/dl Albumin/Globulin Ratio 1.0 (0.9-2) Urine Color Urine Appearance (Clear) Urine pH (4.5-7.5) Ur Specific [place] (1.000-1.030) Urine Protein (Negative) Urine Glucose (UA) (Negative) Urine Ketones (Negative) Urine Blood (Negative) Urine Nitrite (Negative) Urine Bilirubin (Negative) Urine Urobilinogen (Negative) Ur Leukocyte Esterase (Negative) Lyme Disease IgG Ab (Negative) Lyme Disease IgM Ab (Negative) Blood Type Antibody Screen 06/08/19 06/08/19 Range/Units 09:02 10:10 WBC (4.8-10.8) K/uL RBC (4.7-6.1) M/uL Hgb (14.0-18.0) g/dL POC Hgb (14.0-18.0) g/dl Hct (42-52) % POC Hct (42-52) % MCV (80-100) fL MCH (25-34) pg MCHC (32-36) g/dL RDW Std Deviation (36.4-46.3) fL RDW Coeff of Catherine (11.5-14.5) % Plt Count (130-400) K/uL MPV (7.4-10.4) fL Immature Gran % (Auto) % Neut % (Auto) % Lymph % (Auto) % [place] % (Auto) % Eos % (Auto) % Baso % (Auto) % Immature Gran # (Auto) (0.00-0.02) K/uL Neut # (Auto) (1.4-6.5) K/uL Lymph # (Auto) (1.2-3.4) K/uL [place] # (Auto) (0.11-0.59) K/uL Eos # (Auto) (0-0.5) K/uL Baso # (Auto) (0-0.2) K/uL PT (9.0-12.0) Seconds INR (0.9-1.1) APTT (21.0-31.0) Seconds PTT Ratio POC Sodium (135-144) mEq/L Sodium (136-145) mmol/L POC Potassium (3.3-5.0) mEq/L Potassium (3.5-5.1) mmol/L POC Chloride (101-112) mEq/L Chloride (98-107) mmol/L Carbon Dioxide (21-32) mmol/L POC Total CO2 (24-31) mEq/l Anion Gap (3-11) POC Anion Gap (16-25) mmol/L POC BUN (7-18) mg/dl BUN (7-18) mg/dl Creatinine (0.6-1.4) mg/dl POC Creatinine (0.6-1.3) mg/dl Est Cr Clr Drug Dosing Est GFR ( Amer) Est GFR (Non-Af Amer) BUN/Creatinine Ratio (10-20) Glucose (70-99) mg/dl POC Glucose (70-99) POC Glucose (other) (70-99) mg/dl Calcium (8.5-10.1) mg/dl POC Ioniz Calcium Aure (1.12-1.32) mmol/l Magnesium (1.8-2.4) mg/dl Total Bilirubin (0.2-1) mg/dl AST (15-37) U/L ALT (12-78) U/L Alkaline Phosphatase (45-117) U/L Troponin I (0-0.045) ng/ml Total Protein (6.4-8.2) gm/dl Albumin (3.4-5.0) gm/dl Globulin (2.5-4.0) gm/dl Albumin/Globulin Ratio (0.9-2) Urine Color Yellow Urine Appearance Clear (Clear) Urine pH 5.5 (4.5-7.5) Ur Specific [place] <= 1.005 (1.000-1.030) Urine Protein Negative (Negative) Urine Glucose (UA) Negative (Negative) Urine Ketones Negative (Negative) Urine Blood Negative (Negative) Urine Nitrite Negative (Negative) Urine Bilirubin Negative (Negative) Urine Urobilinogen Negative (Negative) Ur Leukocyte Esterase Negative (Negative) Lyme Disease IgG Ab (Negative) Lyme Disease IgM Ab (Negative) Blood Type A Positive Antibody Screen NEGATIVE Imaging Data Radiologist's Impression: Radiology results as stated below per my review and the radiologist's interpretation: XR chest 1V portable CLINICAL HISTORY: Acute stroke COMPARISON STUDY: 01/17/2018 FINDINGS: The cardiac and mediastinal contours are normal. There is no evidence of focal pulmonary consolidation. There is no evidence of failure. No pleural effusions are visualized. IMPRESSION: No active disease in the chest. Electronically signed by: Lalo Contreras M.D. 06/08/2019 9:[address] head/brain wo con CLINICAL HISTORY: Stroke evaluation COMPARISON STUDY: 06/07/2014 TECHNIQUE: Axial CT of the brain is performed from the vertex to the skull base. IV contrast was not administered for this examination. A dose lowering technique was utilized adhering to the principles of ALARA. CT DOSE: FINDINGS: No intra or extra-axial mass lesions are visualized. There is no CT evidence of acute cortical infarction. There is no evidence of midline shift. There is no acute hemorrhage. No calvarial fractures are visualized. There are patchy white matter hypodensities likely on a small vessel basis. There is no evidence of pathologic ventricular dilatation. There is no evidence of acute sinusitis IMPRESSION: No acute intracranial findings Electronically signed by: Lalo Contreras M.D. 06/08/2019 8:[address] ANGIOGRAM OF THE BRAIN; CT ANGIOGRAM OF THE NECK CLINICAL HISTORY: Generalized weakness. COMPARISON STUDY: Unenhanced CT of the brain performed the same day 06/08/2019. CT angiogram of the head and neck dated 06/06/2014. TECHNIQUE: Following the IV administration of 120 of Optiray 320, CT angiogram of the head and neck was performed from the aortic arch to the vertex. Images are reviewed in the axial, sagittal, and coronal planes. 3-D MIPS images are created and assessed. IV contrast was administered without complication. All measurements were calculated based on NASCET criteria. A dose lowering technique was utilized adhering to the principles of ALARA. FINDINGS: Brain parenchyma: There is age-related involutional change noting mild to moderate subcortical and periventricular microangiopathic disease. There is no hemorrhage, mass effect, or evidence of acute territorial ischemia by CT criteria. There is no evidence of enhancing mass lesion on the angiogram phase images. The ventricles, sulci, and cisterns are prominent secondary to involutional change. Bansal-white matter differentiation is preserved. No extra- axial fluid collection is seen. Thoracic aorta: There is mild atherosclerotic calcification of the thoracic aorta. Visualized portions of the thoracic aorta are normal in caliber. The aortic arch demonstrates standard 3-vessel anatomy. Right carotid arterial system: The right common carotid artery is widely patent, as is the right internal carotid artery. Atherosclerotic plaque is noted in the carotid bulb. There is mild stenosis the origin of the right external carotid artery. Left carotid arterial system: The left common carotid artery is widely patent, as are the left internal and external carotid arteries. There is atherosclerotic calcification of the carotid bulb and the proximal left internal carotid artery. Vertebral arteries: The vertebral arteries are patent bilaterally and codominant. There is mild (less than 50%) stenosis of the proximal left vertebral artery seen on image #111. Subclavian arteries: Widely patent bilaterally. Intracranial vasculature: There is atherosclerotic calcification of the cavernous carotid and vertebral arteries. The [place] is developmentally complete. The internal carotid arteries are patent at the skull base, as are the anterior and middle cerebral arteries bilaterally. The vertebrobasilar system and posterior cerebral arteries are widely patent. The vertebral arteries are codominant. There is minimal ectasia of the supraclinoid left internal carotid artery with no aneurysm seen. No definite aneurysm, high- grade stenosis, or focal vessel cut off seen throughout the intracranial cir culation. Jugular veins: Patent bilaterally. Dural sinuses: Patent. Lung apices: There is biapical scarring. Peribronchial thickening is noted in the upper lobes. Soft tissues: The visualized pharyngeal soft tissues are normal in appearance noting angiographic phase technique. The oropharyngeal airway appears widely patent. The salivary and thyroid glands are normal in appearance. No cervical lymphadenopathy is seen. Skeletal structures: The skeletal structures are osteopenic. The calvarium appears intact. The cervical spine is maintained noting multilevel spondylosis. No lytic or blastic lesion is seen. Sinuses and mastoids: Osteoma with surrounding mucosal thickening is noted in the right frontal sinus. The remaining paranasal sinuses are clear. The mastoid air cells are well pneumatized. An impacted left maxillary tooth is unchanged from previous. IMPRESSION: 1. There is no hemorrhage, mass effect, or evidence of acute territorial ischemia by CT criteria noting angiographic phase technique. 2. Unremarkable CT angiogram of the brain. 3. There is no evidence of significant carotid artery stenosis identified in the neck. 4. 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 Electronically signed by: Dakota Hall M.D. 06/08/2019 9:[address] ANGIOGRAM OF THE BRAIN; CT ANGIOGRAM OF THE NECK CLINICAL HISTORY: Generalized weakness. COMPARISON STUDY: Unenhanced CT of the brain performed the same day 06/08/2019. CT angiogram of the head and neck dated 06/06/2014. TECHNIQUE: Following the IV administration of 120 of Optiray 320, CT angiogram of the head and neck was performed from the aortic arch to the vertex. Images are reviewed in the axial, sagittal, and coronal planes. 3-D MIPS images are created and assessed. IV contrast was administered without complication. All measurements were calculated based on NASCET criteria. A dose lowering technique was utilized adhering to the principles of ALARA. FINDINGS: Brain parenchyma: There is age-related involutional change noting mild to moderate subcortical and periventricular microangiopathic disease. There is no hemorrhage, mass effect, or evidence of acute territorial ischemia by CT criteria. There is no evidence of enhancing mass lesion on the angiogram phase images. The ventricles, sulci, and cisterns are prominent secondary to involutional change. Bansal-white matter differentiation is preserved. No extra- axial fluid collection is seen. Thoracic aorta: There is mild atherosclerotic calcification of the thoracic aorta. Visualized portions of the thoracic aorta are normal in caliber. The aortic arch demonstrates standard 3-vessel anatomy. Right carotid arterial system: The right common carotid artery is widely patent, as is the right internal carotid artery. Atherosclerotic plaque is noted in the carotid bulb. There is mild stenosis the origin of the right external carotid artery. Left carotid arterial system: The left common carotid artery is widely patent, as are the left internal and external carotid arteries. There is atherosclerotic calcification of the carotid bulb and the proximal left internal carotid artery. Vertebral arteries: The vertebral arteries are patent bilaterally and codominant. There is mild (less than 50%) stenosis of the proximal left vertebral artery seen on image #111. Subclavian arteries: Widely patent bilaterally. Intracranial vasculature: There is atherosclerotic calcification of the cavernous carotid and vertebral arteries. The [place] is developmentally complete. The internal carotid arteries are patent at the skull base, as are the anterior and middle cerebral arteries bilaterally. The vertebrobasilar system and posterior cerebral arteries are widely patent. The vertebral arteries are codominant. There is minimal ectasia of the supraclinoid left internal carotid artery with no aneurysm seen. No definite aneurysm, high- grade stenosis, or focal vessel cut off seen throughout the intracranial circulation. Jugular veins: Patent bilaterally. Dural sinuses: Patent. Lung apices: There is biapical scarring. Peribronchial thickening is noted in the upper lobes. Soft tissues: The visualized pharyngeal soft tissues are normal in appearance noting angiographic phase technique. The oropharyngeal airway appears widely p atent. The salivary and thyroid glands are normal in appearance. No cervical lymphadenopathy is seen. Skeletal structures: The skeletal structures are osteopenic. The calvarium appears intact. The cervical spine is maintained noting multilevel spondylosis. No lytic or blastic lesion is seen. Sinuses and mastoids: Osteoma with surrounding mucosal thickening is noted in the right frontal sinus. The remaining paranasal sinuses are clear. The mastoid air cells are well pneumatized. An impacted left maxillary tooth is unchanged from previous. IMPRESSION: 1. There is no hemorrhage, mass effect, or evidence of acute territorial ischemia by CT criteria noting angiographic phase technique. 2. Unremarkable CT angiogram of the brain. 3. There is no evidence of significant carotid artery stenosis identified in the neck. 4. 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 Electronically signed by: Dakota Hall M.D. 06/08/2019 9:15 AM ECG Data Attestation: I personally reviewed and interpreted this ECG as follows: Indication: + weakness Rate (beats per minute): 74 Rhythm: + sinus rhythm ECG [place]: + Normal ECG Findings: + Q waves (Inferior); no PVCs Blood Pressure Blood Pressure Findings: Elevated blood pressure Blood Pressure Disposition: further management by hospitalist KATELYNN Vickers Patient is a 78-year-old male who presents the ER for weakness of his right upper extremity associated with confusion. Patient went to bed last night at 9 PM and woke up this morning at 5 AM. On my evaluation he had may be faint weakness of his left upper extremity. IV was established blood work was obtained and patient was taken to CAT scan as a stroke alert was called. CTA of the head and neck along with CT of the head was negative. The weakness resolved when he returned back to the room and then he had paresthesias of the left upper extremity. Patient was hypertensive. Patient does take Plavix. Labs showed no significant leukocytosis or anemia. INR was unremarkable. BMP with mild hypokalemia. LFTs bilirubin was unremarkable. Glucose was slightly elevated. LFTs bilirubin and troponin was negative. UA was negative. Discussed with the tele-stroke notes that he is not interventional candidate and would not be a TPA candidate which I agreed with as well. Patient was discussed with the hospitalist and they were updated bedside and admitted for further work-up. Impression & Plan TIA (transient ischemic attack), Altered mental status, Paresthesia, Right arm weakness Discharge Plan Visit Data *Final* Discharge Date/Time: 06/08/19 12:04 Chief Complaint: Stroke/CVA Symptoms Stated Complaint: DIFFICULTY SPEAKING/THINKING ED Provider: Yanick Prieto Discharge Problem: TIA (transient ischemic attack), Altered mental status, Paresthesia, Right arm weakness Patient Disposition: Admitted As Inpatient Discharge Instructions Interventions: ED Discharge Assessment Last Done: 06/08/19 12:04 The scribe's documentation has been prepared under my direction and personally reviewed by me in its entirety. I confirm that the note above accurately reflects all work, treatment, procedures, and medical decision making performed by me.
[2019-06-08] MEDS: NSS + 20MEQ KCL 20 MEQ/1,000 ML BAG IV SCH (14:25)
[2019-06-08] MEDS ORDERED: ASPIRIN 81 MG ECTAB PO SCH (16:30)
[2019-06-08] MEDS ORDERED: ATORVASTATIN 40 MG TAB PO SCH (16:30)
[2019-06-08] MEDS ORDERED: LORazepam 0.5 MG TAB ONE (20:03)
--- NOTE | 2019-06-08 20:36 | Magnetic Resonance Report ---
MR brain wo con HISTORY: Mental status change CVA r/o TECHNIQUE: Multiplanar multisequence MRI of the brain was performed without the use of contrast. COMPARISON STUDY: None. FINDINGS: There are no areas of restricted diffusion to suggest acute infarction. The midline structu res are intact. The paranasal sinuses are clear. The mastoid air cells are clear. The ventricles and sulci are within normal limits for age. There is no mass, hematoma, midline shift. The major vascular flow-voids at the skull base are well maintained. There are age-related degenerative chronic small vessel change throughout both cerebral hemispheres a s well as generalized moderate atrophy. IMPRESSION: 1. No acute intracranial abnormality. 2. Moderate chronic small vessel change throughout both cerebral hemispheres with findings of moderat e generalized atrophy The above report was generated using voice recognition software. It may contain grammatical, syntax or spelling errors. Electronically signed by: Luke Carty M.D. 06/08/2019 8:35 PM
[2019-06-08] MEDS: INSULIN GLARGINE SOLOSTAR 100 UNITS/ML 3 ML PEN SC SCH (21:06)
[2019-06-09] MEDS: NSS + 20MEQ KCL 20 MEQ/1,000 ML BAG IV SCH (02:23)
[2019-06-09 07:22] LABS: Basophils # (auto) 0.07 K/uL (0-0.2); Basophils % (auto) 0.8 %; Eosinophils # (auto) 0.37 K/uL (0-0.5); Eosinophils % (auto) 4.4 %; Hematocrit (blood only) 35.8 % (42-52); Hemoglobin 12.4 g/dL (14.0-18.0); Immature Granulocytes # (auto) 0.02 K/uL (0.00-0.02); Immature Granulocytes % (auto) 0.2 %; Lymphocytes # (auto) 2.31 K/uL (1.2-3.4); Lymphocytes % (auto) 27.7 %; Mean Corpuscular Hemoglobin 32.5 pg (25-34); Mean Corpuscular Hgb Conc 34.6 g/dL (32-36); Mean Corpuscular Volume 93.7 fL (80-100); Mean Platelet Volume 9.9 fL (7.4-10.4); Monocytes # (auto) 0.72 K/uL (0.11-0.59); Monocytes % (auto) 8.6 %; Neutrophils # (auto) 4.84 K/uL (1.4-6.5); Neutrophils % (auto) 58.3 %; Platelet Count 249 K/uL (130-400); RDW Coefficient of Variation 12.8 % (11.5-14.5); RDW Standard Deviation 43.9 fL (36.4-46.3); Red Blood Count 3.82 M/uL (4.7-6.1); White Blood Count 8.33 K/uL (4.8-10.8)
[2019-06-09 07:55] LABS: BUN Creatinine Ratio 14.4 (10-20); Calcium 8.5 mg/dl (8.5-10.1); Creatinine Clr Calc Pharmacy 58.3 ml/min; Est GFR (African American) 82.2; Est GFR (Non-African American) 70.9; Potassium 3.7 mmol/L (3.5-5.1)
[2019-06-09] MEDS: INSULIN GLARGINE SOLOSTAR 100 UNITS/ML 3 ML PEN SC SCH (08:37)
[2019-06-09] MEDS: INSULIN ASPART 100 UNITS/ML 3 ML PEN SC SCH ×2 (08:38→13:29)
[2019-06-09] MEDS ORDERED: CLOPIDOGREL BISULFATE 75 MG TAB PO SCH (09:00)
[2019-06-09] MEDS ORDERED: TAMSULOSIN HCL 0.4 MG CAP PO SCH (09:00)
[2019-06-09] MEDS ORDERED: STROKE PATIENT DISCHARGE PRN (13:48)
--- NOTE | 2019-06-09 13:56 | Pharmacy Report ---
Pharmacist Stroke Counseling - Date of Service June 09, 2019 - Scope: Pharmacy has been consulted to provide medication discharge counseling for this patient admitted with transient ischemic attack as per the Pharmacist Discharge Counseling for Stroke Patients Protocol. - Medications on Discharge: Home Medications Medication Instructions Recorded Confirmed Lantus Solostar U-100 Insulin 18 unit SUBCUT HS 06/08/19 06/08/19 acetaminophen [Tylenol Extra 500 mg PO Q6H PRN 06/08/19 06/08/19 Strength] aspirin 81 mg PO QDD 06/08/19 06/08/19 atorvastatin 40 mg PO QDD 06/08/19 06/08/19 carvedilol 3.125 mg PO BID 06/08/19 06/08/19 clopidogrel 75 mg PO QAM 06/08/19 06/08/19 losartan 25 mg PO QAM 06/08/19 06/08/19 ranitidine HCl 150 mg PO BID 06/08/19 06/08/19 tamsulosin 0.4 mg PO QAM 06/08/19 06/08/19 New Rx's Medication Instructions Recorded doxycycline hyclate 100 mg PO BID 14 Days #28 cap 06/09/19 - Action: The above medications, specifically ones for stroke prophylaxis, have been reviewed in detail with the patient his prior to discharge. This includes indication, common adverse reactions, drug interactions, and medication administration. Medication counseling has been employed using the teach-back method to ensure understanding. - Outcome: The patient and his have demonstrated understanding of the medications. Please note, they are aware that the pharmacist will call them within 72 hours post-discharge to confirm that the appropriate medications are being taken and answer any further medication related questions the patient might have at that time. Contact information Individual to be contacted: keith Child Relationship to patient (if applicable): Phone number: [phone] Best time to call: anytime - okay to leave message Additional comments: -patient has been on Aspirin, Plavix, and Lipitor for long time. No problems. -reviewed reason for discontinuation of Prilosec; instructed that other med are available such as Zantac. -reviewed precautions with doxycycline. -notified patient we will call Thursday; ask for Danyell. Thank you for allowing pharmacy to be involved in the care of this patient. Please call [phone] or [phone] with any additional questions
--- NOTE | 2019-06-09 13:59 | Discharge Summary ---
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 and daughter are at bedside. He elicits he woke up around 5 AM and got out of bed and was very confused, "I did not even know the name of my or daughter." He also complained of left upper extremity paresthesias and weakness with associated difficulty with fine motor movements. Symptoms persisted and he proceeded to take trash out to the end of the driveway. He then elicited feeling right upper extremity paresthesias and weakness. Due to symptoms he opted to present to ED. denies any dysarthria or facial droop. He denies any lower extremity weakness. Of significance he was seen recently by PCP on 06/02 secondary to "flulike symptoms," x2 to 3 weeks. He was placed on azithromycin and prednisone taper which he completed. His respiratory symptoms have since resolved. Also mentions recently placed on omeprazole 20mg daily and ranitidine 150mg bid due ot hiccups consistently x 3 days which have now resolved. He denies any fever, chills, sweats, lightheadedness, dizziness, syncope, change in vision, change in hearing, diplopia, chest pain, shortness of breath and palpitations, nausea, vomiting, abdominal pain, change in bowel or urinary habits. In ED patient was mildly hypertensive with BP 153/91, otherwise hemodynamically stable. He underwent CT scan of head which revealed patchy white matter densities consistent with small vessel disease, but no acute abnormality. CTA of head neck was negative for any hemodynamically significant stenosis. CBC, CMP relatively unremarkable except for mildly low sodium 134, K3.4, hyperglycemia 207 his magnesium, troponin were WNL. Chest x-ray revealed no active disease. Admission Exam Per Admitting Provider Constitutional: WD/WN, elderly, male, vitals as above, NAD, sitting up in bed, pleasant but apprehensive, conversing easily Head: Normocephalic, Atraumatic Eyes: PERRL, conjunctivae normal, anicteric sclerae ENMT: external ear and nose normal, oropharynx normal Neck: trachea midline, no thyromegaly normal visual inspection Respiratory: normal respiratory effort, lungs clear to auscultation, no wheeze, rales, rhonchi. Normal insp/exp effort, no accessory muscle use Cardiovascular: RRR, no murmur, no edema Vessels: no JVD or carotid bruit Chest: normal inspection of chest Abdomen: normal bowel sounds, soft, nontender, no hepatosplenomegaly Musculoskeletal: no cyanosis or clubbing, extremities motor strength 5/5 , except RUE 4/5, RLE 4/5 R upper weakness > R lower weakness Skin: no rashes, warm and dry normal turgor Neurologic: PERRL, EOMI, accommodation nl, no face palsy, no dysarthria CN's II-XI intact bilaterally and moves all extremities Psychiatric: A+Ox3, euthymic affect Lymphatic: no cervical or axillary lymphadenopathy : deferred Principal Diagnosis Encephalopathy Stroke like symptoms Possible Lyme infection Discharge Exam General: Well nourished, well hydrated, average body habitus, no acute distress and not ill appearing Eyes: PERRL, conjunctivae normal, not pale, anicteric sclerae, EOM intact bilaterally ENMT: External ear and nose normal, oropharynx normal Neck: Normal visual inspection, no tracheal deviation, no swelling noted Respiratory: Normal respiratory effort, no respiratory distress, lungs clear to auscultation, no crackles and no wheezes Cardiovascular: Pulse is RRR. Heart Sounds: normal S1 and normal S2; no murmurs. Vessels: normal peripheral pulses Extremities: no pedal edema Chest (Breasts): Chest: normal inspection of chest Gastrointestinal (Abdomen): Abdomen is not distended, soft, non-tender to palpation, no guarding, no palpable hepatosplenomegaly, normal bowel sounds Musculoskeletal: No cyanosis or clubbing, all extremities motor strength 5/5 Skin: No rash noted on gross inspection, No ulcers noted Neurologic: Alert and oriented x 3, No focal weakness, sensation grossly intact Psychiatric: Alert and oriented x 3, euthymic affect, no depressed af fect Lymphatic: No cervical and axillary lymphadenopathy Discharge Data Allergies Allergy/AdvReac Type Severity Reaction Status Date / Time cat dander Allergy Intermediate itchy Unverified 06/08/19 09:46 watery eyes horse dander Allergy Intermediate itchy Unverified 06/08/19 09:46 watery eyes latex Allergy Intermediate SKIN PEELS Verified 06/08/19 09:46 adhesive Allergy Unknown "TAKES THE Verified 06/08/19 09:46 SKIN OFF" diazepam [From Valium] AdvReac Severe can't stay Unverified 06/08/19 09:46 awake diphenhydramine AdvReac Intermediate anxiety Verified 06/08/19 09:46 enalapril AdvReac Unknown "MADE ME Verified 06/08/19 09:46 MEAN" SUCRETS Allergy Intermediate "numb all Uncoded 06/08/19 09:46 over" Consultations 06/08/19 10:12 ED Decision to Admit Stat 06/08/19 10:35 Consult Neurology Routine 06/08/19 12:42 Consult Case Management - Discharge Planning Routine Ordered Studies 06/08/19 08:44 CT angio head w con Stat CT angio neck with con Stat 1. There is no hemorrhage, mass effect, or evidence of acute territorial ischemia by CT criteria noting angiographic phase technique. 2. Unremarkable CT angiogram of the brain. 3. There is no evidence of significant carotid artery stenosis identified in the neck. 4. There is mild stenosis of the proximal left vertebral artery CT head/brain wo con Stat No acute intracranial findings 06/08/19 10:35 MR brain wo con Routine 1. No acute intracranial abnormality. 2. 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 In ED patient was mildly hypertensive with BP 153/91, otherwise hemodynamically stable. CT, CTA and MRI unremarkable for acute stroke as reported above CBC, CMP relatively unremarkable except for mildly low sodium 134, K3.4, hyperglycemia 207 his magnesium, troponin were WNL. Chest x-ray revealed no active disease. Other work up was unremarkable including 2DEcho, except for Lyme IgM that resulted as equivocal. Patient does report history of lyme infection a while ago, tick bites over the past couple of months. Today, patient has no complaints and all symptoms had resolved. Discussed with patient, and children who were at bedside about all the findings. Will discharge patient on doxycycline for possible Lyme infection. Advised to follow up Western blot pending and antibiotic may be discontinued if negative. Patient is to follow up with his PCP and Neurologist Discussed plan with Bear Maharaj (3) T2DM (type 2 diabetes mellitus): Last A1C reported 8.5, poor control Per family blood glucose is usually 120-130 at home Will discharge on home dose of insulin regimen A1c ordered for today still pending. Advised patient to follow up result of that with PCP May need stricter glycemic control if A1c is still poorly controlled (4) HTN (hypertension): Blood pressure mildly hypertensive in ED. Now well controlled. Resume home antihypertensives on discharge (5) HLD (hyperlipidemia): Continue statin (6) History of CVA (cerebrovascular accident): Hx of CVA in 01/2013 and 05/2018, R internal capsule No residual deficit except for short term memory loss Continue ASA, plavix, statin Total Time Total Time Spent Total Time Spent (In Minutes): 35 Total Time Includes: Examination of the Patient, Discharge Planning, Medication Reconciliation and Communication With Other Providers Discharge Plan Discharge Items Patient Disposition: Home - Self-Care Reason For Visit: Stroke like symptoms Discharge Diagnosis: Encephalopathy Possible lyme infection Condition on Discharge: Good Activity: Resume your previous activity Non-emergency contact: Primary Care Provider and Neurologist Call non-emergency contact if: you have any medication questions and your symptoms worsen Follow-up/Referrals: Matt Hooper MD [Primary Care Provider] - Diet: Carb Consistent or DM2 and Heart Healthy Addtl Attending Provider Instructions: Mr. Welch. You came to the hospital with complaints of confusion, Weakness in right hand and numbness in both hands. You had extensive evaluation with CT scans and MRI which did not show any new stroke. Your symptoms completely resolved. You were also evaluated by the neurologist. Most of your blood work were grossly unremarkable except for equivocal result on the Lyme IgM antibody test. Due to your reported history of previous lyme disease in the past, reported tick bites and the equivocal result, will start treatment for possible lyme disease with doxycycline. The confirmatory results are still pending. Please follow up the results with your Primary doctor. Antibiotic may be discontinued if tests return negative. Please follow up with Neurologist outpatient. Continue to take your aspirin and plavix. It was a pleasure taking care of you Pending Studies at Discharge: Yes Studies:: Lyme panel Stand-Alone Forms: Medications to Prevent Stroke, My [facility], Smoking Cessation Medications and DC Order Prescriptions: New doxycycline hyclate 100 mg capsule 100 mg PO BID 14 Days Qty: 28 RF: 0 Continued atorvastatin 40 mg tablet 40 mg PO QDD RF: 0 clopidogrel 75 mg tablet 75 mg PO QAM RF: 0 aspirin 81 mg Tablet,Delayed Release (Dr/Ec) 81 mg PO QDD RF: 0 carvedilol 3.125 mg tablet 3.125 mg PO BID RF: 0 tamsulosin 0.4 mg capsule 0.4 mg PO QAM RF: 0 ranitidine HCl 150 mg tablet 150 mg PO BID RF: 0 losartan 25 mg tablet 25 mg PO QAM RF: 0 Lantus Solostar U-100 Insulin 100 unit/mL (3 mL) insulin pen 18 unit SUBCUT HS RF: 0 acetaminophen [Tylenol Extra Strength] 500 mg Tablet 500 mg PO Q6H PRN (Reason: Pain) RF: 0 Discontinued omeprazole 20 mg capsule,delayed release(DR/EC) 20 mg PO QAM RF: 0 Discharge Orders: Discharge Order (Routine); Ordered 06/09/19 Ordered By: Whitney Campbell Admission Data Admit Date/Time: 06/08/19 10:29 Attending Provider: Whitney Campbell I. Admit Provider: Artemio Sanchez Primary Care Provider: Matt Hooper Other Providers: Bear Vogel ; Artemio Sanchez Other Interventions: Discharge Summary Assessment (RN) Last Done: 06/09/19 13:41 DC Date/Time DO NOT enter until pt leaves facility: 06/09/19 14:15
[2019-06-09] MEDS ORDERED: ASPIRIN 81 MG ECTAB PO SCH (16:30)
[2019-06-10 07:01] LABS: Estimated Average Glucose 203 mg/dl; Hemoglobin A1C 8.7 % (4.5-5.6)
--- NOTE | 2019-06-13 10:50 | Pharmacy Report ---
Pharmacist Post D/C Phone Note - Phone Note: Date of phone call: June 13, 2019. Individual with whom pharmacist spoke to: MIAN Jose D CHOWDHURY The following questions were reviewed during the phone call with responses listed below each: Can you tell me the medications that you are currently taking as well as when and how you take each medication? -See Table Below When have you missed any doses of your medications? - No missed doses What side effects are you having from your medications, specifically, the new medications you were started on? - Upset stomach with AM dose of doxycycline - recommended taking with breakfast to decrease GI upset. What questions do you have about your medications? - None What problems are you having obtaining your medications? - None When is your next appointment with your primary care doctor? - 2 pm today Additional comments: - No other complaints or problems reported As per the Pharmacist Discharge Counseling for Stroke Patients Protocol, this phone call has been completed. Thank you for allowing us to be involved in the care of this patient. - Home Medications: Home Medications Medication Instructions Recorded Confirmed Lantus Solostar U-100 Insulin 18 unit SUBCUT HS 06/08/19 06/08/19 acetaminophen [Tylenol Extra 500 mg PO Q6H PRN 06/08/19 06/08/19 Strength] aspirin 81 mg PO QDD 06/08/19 06/08/19 atorvastatin 40 mg PO QDD 06/08/19 06/08/19 carvedilol 3.125 mg PO BID 06/08/19 06/08/19 clopidogrel 75 mg PO QAM 06/08/19 06/08/19 losartan 25 mg PO QAM 06/08/19 06/08/19 ranitidine HCl 150 mg PO BID 06/08/19 06/08/19 tamsulosin 0.4 mg PO QAM 06/08/19 06/08/19 New Rx's Medication Instructions Recorded doxycycline hyclate 100 mg PO BID 14 Days #28 cap 06/09/19
[2019-06-15 12:32] LABS: Lyme Antibodies, WB IgG NEGATIVE
[2019-06-15 12:33] LABS: 18KDIGG Band Non-Reactive; 23KDIGG Band Non-Reactive; 23KDIGM Band REACTIVE; 28KDIGG Band Non-Reactive; 30KDIGG Band Non-Reactive; 39KDIGG Band Non-Reactive; 39KDIGM Band Non-Reactive; 41KDIGG Band REACTIVE; 45KDIGG Band Non-Reactive; 58KDIGG Band REACTIVE; 66KDIGG Band Non-Reactive; 93KDIGG Band Non-Reactive; Lyme Antibodies, WB IgM NEGATIVE
[2019-06-15 12:34] LABS: 41KDIGM Band Non-Reactive
== END 2019-06-09 14:15 | disposition home or self-care (01) | DRG 71 ==
LOC: ED 08:28 → SUATTDRO 10:29 → 2E 10:29

== ENCOUNTER 2020-03-23 20:45 | Inpatient (IN) ==
[2020-03-23] MEDS ORDERED: ONDANSETRON INJ 2 MG/ML 2 ML VIAL IV STA (21:19)
--- NOTE | 2020-03-23 21:19 | Emergency Department Note ---
History of Present Illness General Chief complaint: TIA Symptoms Stated complaint: vomiting, trouble walking, slurred speech,weakness Time Seen by Provider: 03/23/20 20:57 Source: patient Mode of arrival: ambulatory Limitations: no limitations History of Present Illness Provider complaint: Confusion, vomiting Onset (ago): hour(s) 7 Maximum Pain Intensity: 0 Current Pain Intensity: 0 This is a 79-year-old male brought in from home by his after confusion that began around 2:00 this afternoon and persistent vomiting. She states patient seemed fine earlier in the day, and she began to notice around 2 that he seemed slightly confused when she would ask him questions. Patient then began to have multiple episodes of vomiting. She denied noticing any slurred speech, facial droop, or weakness of one side. She states he did check his blood sugar earlier in the day and it was 140. States her been no changes in his medications, and t hey have not been around anyone who has been sick. She states the only times he has previously been confused like this has been with his 2 prior TIAs as well as when he has been septic. Patient at bedside denies headaches, abdominal pain, does admit to feeling nauseated. Patient states he vomited 5-6 times. Patient denies any diarrhea or trouble urinating. Patient denies any potential food po isoning. Patient denies noting any blood in the vomit. Pt seen during a time of high acuity and national emergency pandemic while wearing PPE. Home Medications Home Medications Medication Instructions Recorded Confirmed Type acetaminophen [Tylenol Extra 500 mg PO Q6H PRN 06/08/19 03/23/20 History Strength] aspirin 81 mg PO QDD 06/08/19 03/23/20 History atorvastatin 40 mg PO QDD 06/08/19 03/23/20 History carvedilol 3.125 mg PO BID 06/08/19 03/23/20 History clopidogrel 75 mg PO QAM 06/08/19 03/23/20 History losartan 25 mg PO QAM 06/08/19 03/23/20 History tamsulosin 0.4 mg PO QAM 06/08/19 03/23/20 History blood sugar diagnostic #10 ea 08/08/19 01/10/20 History blood sugar diagnostic ea 08/08/19 01/10/20 History duloxetine 20 mg capsule,delayed 20 mg PO DAILY cap 08/08/19 03/23/20 History release lancets 33 gauge #100 ea 08/08/19 01/10/20 History pen needle, diabetic 32 gauge x #100 ea 09/15/19 01/10/20 Rx 5/32" Lantus Solostar U-100 Insulin 18 - 20 unit SUBCUT HS 03/23/20 03/23/20 History walker #1 ea 03/24/20 Rx Allergies Allergy/AdvReac Type Severity Reaction Status Date / Time cat dander Allergy Intermediate itchy Unverified 03/23/20 22:04 watery eyes horse dander Allergy Intermediate itchy Unverified 03/23/20 22:04 watery eyes latex Allergy Intermediate SKIN PEELS Verified 03/23/20 22:04 adhesive Allergy Unknown "TAKES THE Verified 03/23/20 22:04 SKIN OFF" enalaprilat [From Vasotec] Allergy Unknown Verified 03/23/20 22:04 sitagliptin [From Januvia] Allergy Unknown Verified 03/23/20 22:04 diazepam [From Valium] AdvReac Severe can't stay Unverified 03/23/20 22:04 awake diphenhydramine AdvReac Intermediate anxiety Verified 03/23/20 22:04 enalapril AdvReac Unknown "MADE ME Verified 03/23/20 22:04 MEAN" SUCRETS Allergy Intermediate "numb all Uncoded 03/23/20 22:04 over" meclizine AdvReac Unknown Unknown Uncoded 03/23/20 22:04 Multi-Vitamin Oral Tablet AdvReac Unknown Unknown Uncoded 03/23/20 22:04 Zocor TABS AdvReac Unknown Unknown Uncoded 03/23/20 22:04 Past Med/Surg History Medical History Generalized osteoarthrosis History of CVA (cerebrovascular accident) History of kidney stones HLD (hyperlipidemia) HTN (hypertension) Lumbar degenerative disc disease RLS (restless legs syndrome) T2DM (type 2 diabetes mellitus) Surgical History History of colonoscopy with polypectomy History of cystoscopy History of laryngoscopy Hx of bursectomy Family History Father Myocardial infarction Heart disease Mother Breast cancer Sister Lupus Brother Diabetes Myocardial infarction Coronary heart disease Social History Smoking Status: Former smoker Second Hand Exposure: No; Do You Dip or Chew Tobacco: No; Hx Alcohol Use: No Hx Substance Use: No Preferred Language: Egyptian 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 and A total of 10 systems reviewed and were otherwise negative Physical Exam Vital Signs Vital Signs - 24 hr 03/23/20 20:57 03/23/20 21:00 03/23/20 21:08 Temperature 38.0 C H Temperature Source Oral Pulse Rate 122 H 108 H 110 H Pulse Rate from SpO2 Sensor 109 H 110 H Pulse Rhythm Respiratory Rate 32 H 28 H 32 H Respiratory Effort / Characteristics Non-Labored Spontaneous Respiratory Depth Normal Respiratory Pattern Regular Blood Pressure 187/106 H 181/99 H Blood Pressure Mean 133 127 Pulse Oximetry 94 94 94 Oxygen Delivery Method Room Air Sepsis Recent Fever Within 48 Hours No Sepsis New/Unexplained Change in Mental Status N/A Sepsis Action Taken by Nursing Physician Notified 03/23/20 21:15 03/23/20 21:16 03/23/20 21:30 Temperature Temperature Source Pulse Rate 108 H 107 H 103 H Pulse Rate from SpO2 Sensor 109 H 108 H 109 H Pulse Rhythm Regular Respiratory Rate 19 22 20 Respiratory Effort / Characteristics Non-Labored Respiratory Depth Respiratory Pattern Blood Pressure 172/106 H Blood Pressure Mean 149 Pulse Oximetry 91 94 92 Oxygen Delivery Method Room Air Sepsis Recent Fever Within 48 Hours Sepsis New/Unexplained Change in Mental Status Sepsis Action Taken by Nursing 03/23/20 21:31 03/23/20 21:32 03/23/20 21:46 Temperature Temperature Source Pulse Rate 104 H 102 H Pulse Rate from SpO2 Sensor 104 H 101 H Pulse Rhythm Respiratory Rate 16 26 H 16 Respiratory Effort / Characteristics Non-Labored Respiratory Depth Respiratory Pattern Blood Pressure 119/105 H Blood Pressure Mean 109 Pulse Oximetry 93 93 94 Oxygen Delivery Method Room Air Sepsis Recent Fever Within 48 Hours Sepsis New/Unexplained Change in Mental Status Sepsis Action Taken by Nursing 03/23/20 22:01 03/23/20 22:08 03/23/20 22:15 Temperature Temperature Source Pulse Rate 98 H 96 H 96 H Pulse Rate from SpO2 Sensor 97 H 96 H 96 H Pulse Rhythm Respiratory Rate 22 22 23 Respiratory Effort / Characteristics Respiratory Depth Respiratory Pattern Blood Pressure 159/90 H 160/95 H Blood Pressure Mean 102 102 Pulse Oximetry 94 95 94 Oxygen Delivery Method Sepsis Recent Fever Within 48 Hours Sepsis New/Unexplained Change in Mental Status Sepsis Action Taken by Nursing 03/23/20 22:16 03/23/20 22:30 03/23/20 22:31 Temperature Temperature Source Pulse Rate 97 H 91 H 91 H Pulse Rate from SpO2 Sensor 96 H 91 H 91 H Pulse Rhythm Respiratory Rate 23 17 21 Respiratory Effort / Characteristics Non-Labored Non-Labored Respiratory Depth Respiratory Pattern Blood Pressure 146/86 H Blood Pressure Mean 111 Pulse Oximetry 93 95 94 Oxygen Delivery Method Room Air Room Air Sepsis Recent Fever Within 48 Hours Sepsis New/Unexplained Change in Mental Status Sepsis Action Taken by Nursing 03/23/20 22:41 Temperature 37.2 C Temperature Source Oral Pulse Rate Pulse Rate from SpO2 Sensor Pulse Rhythm Respiratory Rate Respiratory Effort / Characteristics Respiratory Depth Respiratory Pattern Blood Pressure Blood Pressure Mean Pulse Oximetry Oxygen Delivery Method Sepsis Recent Fever Within 48 Hours Sepsis New/Unexplained Change in Mental Status Sepsis Action Taken by Nursing GENERAL: alert, ill appearing, well nourished, mild distress, non-toxic EYE EXAM: normal conjunctiva, PERRL and EOM's grossly intact OROPHARYNX: no exudate, no erythema, lips, buccal mucosa, and tongue normal and mucous membranes are moist NECK: supple, no nuchal rigidity, no adenopathy, non-tender LUNGS: Clear to auscultation. Normal chest wall mechanics, no w/r/r HEART: no murmurs, S1 normal and S2 normal ABDOMEN: abdomen soft, non-tender, normo-active bowel sounds, no masses, no rebound or guarding. BACK: Back is symmetrical on inspection and there is no deformity, no midline tenderness, no CVA tenderness. SKIN: no rashes and no bruising UPPER EXTREMITIES: upper extremities are grossly normal. FROM, nml pulses b/l. LOWER EXTREMITIES: No pitting edema. FROM, nml pulses b/l. NEURO EXAM: Pt confused to place/date/time, cranial nerves II-XII grossly intact, normal speech, no facial droop, no gross weakness of arms, no gross weakness of legs. Gross sensation intact. No obvious ataxia, patient had did have some difficulty with [id number] testing. Course Course 2119: Vital signs stable, patient uncomfortable appearing. 5: Patient asking to sip water. If passes dysphagia screen, will allow. 2255: Patient and updated on all results at bedside. Patient's vitals are improved, patient now afebrile, no longer tachycardic or tachypneic. Discussed with them additional inpatient evaluation and they were in agreement. 230: Case discussed with Dr. Dumont. Administered Medications Discontinued Medications Aspirin (Aspirin 81 Mg Ectab) 81 mg PO QDD RICH Stop: 04/23/20 16:29 Last Admin: 03/24/20 16:43 Dose: 81 mg Documented by: [id number] Atorvastatin Calcium (Atorvastatin 40 Mg Tab) 40 mg PO QDD RICH Stop: 04/23/20 16:29 Last Admin: 03/24/20 16:43 Dose: 40 mg Documented by: [id number] Carvedilol (Carvedilol 3.125 Mg Tab) 3.125 mg PO BID RICH Stop: 04/23/20 08:59 Last Admin: 03/24/20 08:56 Dose: 3.125 mg Documented by: [id number] Clopidogrel Bisulfate (Clopidogrel Bisulfate 75 Mg Tab) 75 mg PO QAM RICH Stop: 04/23/20 08:59 Last Admin: 03/24/20 08:57 Dose: 75 mg Documented by: [id number] Doxycycline Hyclate (Doxycycline Hyclate 100 Mg Cap) 100 mg PO BID RICH Stop: 03/31/20 08:59 Last Admin: 03/24/20 08:57 Dose: 100 mg Documented by: [id number] Duloxetine HCl (Duloxetine Hcl 20 Mg Cap) 20 mg PO DAILY RICH Stop: 04/23/20 08:59 Last Admin: 03/24/20 08:57 Dose: 20 mg Documented by: [id number] Enoxaparin Sodium (Enoxaparin Inj 30 Mg/0.3 Ml Syr) 30 mg SQ QAM RICH Stop: 04/23/20 08:59 Last Admin: 03/24/20 08:55 Dose: 30 mg Documented by: [id number] Sodium Chloride (Nss 1000ml) 1,000 mls @ 999 mls/hr IV .Q1H1M RICH Stop: 03/23/20 22:30 Last Infusion: 03/23/20 22:36 Dose: 0 mls/hr Documented by: [id number] Admin: 03/23/20 21:25 Dose: 999 mls/hr Documented by: [id number] Acetaminophen (Ofirmev) 1,000 mg in 100 mls @ 400 mls/hr IV NOW STA Stop: 03/23/20 22:19 Last Infusion: 03/23/20 22:36 Dose: 0 mls/hr Documented by: [id number] Admin: 03/23/20 22:19 Dose: 400 mls/hr Documented by: [id number] Sodium Chloride (Nss 1000ml) 1,000 mls @ 999 mls/hr IV .Q1H1M ONE Stop: 03/23/20 23:05 Last Infusion: 03/24/20 00:05 Dose: 0 mls/hr Documented by: [id number] Admin: 03/23/20 23:06 Dose: 999 mls/hr Documented by: [id number] Piperacillin Sod/Tazobactam Sod (Zosyn) 4.5 gm in 120 mls @ 240 mls/hr IV NOW ONE Stop: 03/23/20 22:34 Last Infusion: 03/23/20 23:06 Dose: 0 mls/hr Documented by: [id number] Admin: 03/23/20 22:34 Dose: 240 mls/hr Documented by: [id number] Doxycycline Hyclate 100 mg/ (Dextrose) 110 mls @ 50 mls/hr IV NOW STA Stop: 03/24/20 02:06 Last Infusion: 03/24/20 02:30 Dose: 0 mls/hr Documented by: [id number] Admin: 03/24/20 00:21 Dose: 50 mls/hr Documented by: [id number] Sodium Chloride (Nss 1000ml) 1,000 mls @ 200 mls/hr IV .Q5H ONE Stop: 03/24/20 04:55 Last Infusion: 03/24/20 03:56 Dose: 0 mls/hr Documented by: [id number] Admin: 03/24/20 00:21 Dose: 200 mls/hr Documented by: [id number] Magnesium Sulfate/Dextrose (Magnesium Sulfate / D5w) 1 gm in 100 mls @ 50 mls/hr IV ONE ONE Stop: 03/24/20 03:45 Last Infusion: 03/24/20 03:55 Dose: 0 mls/hr Documented by: [id number] Admin: 03/24/20 02:07 Dose: 50 mls/hr Documented by: [id number] Sodium Chloride (Nss 1000ml) 1,000 mls @ 200 mls/hr IV .Q5H RICH Stop: 04/23/20 04:59 Last Infusion: 03/24/20 09:06 Dose: 0 mls/hr Documented by: [id number] Admin: 03/24/20 04:52 Dose: 200 mls/hr Documented by: [id number] Sodium Chloride (Nss 1000ml) 1,000 mls @ 80 mls/hr IV .[id number] ONE Stop: 03/24/20 19:59 Last Infusion: 03/24/20 13:09 Dose: 0 mls/hr Documented by: [id number] Admin: 03/24/20 09:05 Dose: 80 mls/hr Documented by: [id number] Insulin Aspart (Insulin Aspart 100 Units/Ml 3 Ml Pen) 0 units SC ACHS RICH Stop: 04/23/20 04:29 Last Admin: 03/24/20 17:00 Dose: 3 units Documented by: [id number] Cosigned by: [id number] Admin: 03/24/20 13:13 Dose: 2 units Documented by: [id number] Cosigned by: [id number] Admin: 03/24/20 08:38 Dose: Not Given Documented by: [id number] Cosigned by: [id number] Admin: 03/24/20 04:49 Dose: 1 units Documented by: [id number] Cosigned by: [id number] Insulin Glargine (Insulin Glargine Solostar 100 Units/Ml 3 Ml Pen) 5 units SC NOW STA Stop: 03/24/20 04:23 Last Admin: 03/24/20 04:50 Dose: 5 units Documented by: [id number] Cosigned by: [id number] Insulin Glargine (Insulin Glargine Solostar 100 Units/Ml 3 Ml Pen) 5 units SC BID RICH Stop: 04/23/20 08:59 Last Admin: 03/24/20 08:55 Dose: 5 units Documented by: [id number] Cosigned by: [id number] Ioversol (Optiray 320 125ml) 120 ml IV ONCE ONE Stop: 03/24/20 13:48 Last Admin: 03/24/20 13:48 Dose: 120 ml Documented by: [id number] Losartan Potassium (Losartan Potassium 25 Mg Tab) [facility] [place] Stop: 04/23/20 08:59 Last Admin: 03/24/20 08:56 Dose: 25 mg Documented by: [id number] Ondansetron HCl (Ondansetron Inj 2 Mg/Ml 2 Ml Vial) 4 mg IV NOW STA Stop: 03/23/20 21:20 Last Admin: 03/23/20 21:24 Dose: 4 mg Documented by: [id number] Tamsulosin HCl (Tamsulosin Hcl 0.4 Mg Cap) 0.4 mg PO [facility] Stop: 04/23/20 08:59 Last Admin: 03/24/20 08:57 Dose: 0.4 mg Documented by: [id number] Critical Care Time Critical Care Time: Yes Total Critical Care Time: 49 Critical care of 49 min performed to assess and manage high likelihood of life- threatening sepsis, involving labs and imaging performed with assessment to evaluate sepsis and altered mental status diagnosis with frequent reassessment. This time includes bedside time, treatment discussions with patient/family/consultants, documentation time and excludes procedure time. Medical Decision Making Differential Diagnosis Differential diagnoses includes but is not limited to toxic, metabolic, infectious, traumatic, cardiac, neurologic, hematologic, psychiatric and inflammatory etiologies. Medical Records Attestation: I reviewed the patient's medical records. Home Medications Current Medication List: was personally reviewed by me Laboratory Data Attestation: I reviewed the patient's lab results. Result diagrams: 03/24/20 06:09 03/24/20 06:09 Lab Results 03/23/20 03/23/20 03/23/20 Range/Units 21:00 21:00 21:00 WBC 17.00 H (4.8-10.8) K/uL RBC 4.39 L (4.7-6.1) M/uL Hgb 14.2 (14.0-18.0) g/dL Hct 41.0 L (42-52) % MCV 93.4 (80-100) fL MCH 32.3 (25-34) pg MCHC 34.6 (32-36) g/dL RDW Std Deviation 43.0 (36.4-46.3) fL RDW Coeff of Catherine 12.6 (11.5-14.5) % Plt Count 274 (130-400) K/uL MPV 10.3 (7.4-10.4) fL Immature Gran % (Auto) 0.2 % Neut % (Auto) 87.0 % Lymph % (Auto) 9.5 % [place] % (Auto) 2.9 % Eos % (Auto) 0.1 % Baso % (Auto) 0.3 % Neut # (Auto) 14.78 H (1.4-6.5) K/uL Lymph # (Auto) 1.61 (1.2-3.4) K/uL [place] # (Auto) 0.50 (0.11-0.59) K/uL Eos # (Auto) 0.02 (0-0.5) K/uL Baso # (Auto) 0.05 (0-0.2) K/uL Immature Gran # (Auto) 0.04 H (0.00-0.02) K/uL PT 11.4 (9.0-12.0) Seconds INR 1.1 (0.9-1.1) APTT 23.1 (21.0-31.0) Seconds PTT Ratio 0.8 ABG pH (7.35-7.45) ABG pCO2 (35-46) mmHg ABG pO2 (80-95) mmHg ABG HCO3 (19-24) mmol/L ABG O2 Saturation (90-95) % ABG Base Excess (-9-1.8) mEq/L Dany Test (Pos) Barometric Pressure mm/Hg Oxygen Given Sodium 136 (136-145) mmol/L Potassium 4.1 (3.5-5.1) mmol/L Chloride 101 (98-107) mmol/L Carbon Dioxide 24 (21-32) mmol/L Anion Gap 11.0 (3-11) BUN 15 (7-18) mg/dl Creatinine 1.23 (0.6-1.4) mg/dl Est Cr Clr Drug Dosing 45.5 ml/min Est GFR ( Amer) 64.3 Est GFR (Non-Af Amer) 55.5 BUN/Creatinine Ratio 12.0 (10-20) Glucose 204 H (70-99) mg/dl POC Glucose (70-99) mg/dl Lactate (0.4-2.0) mmol/L Calcium 9.9 (8.5-10.1) mg/dl Magnesium 1.8 (1.8-2.4) mg/dl Total Bilirubin 0.7 (0.2-1) mg/dl AST 16 (15-37) U/L ALT 23 (12-78) U/L Alkaline Phosphatase 89 (45-117) U/L Troponin I < 0.015 (0-0.045) ng/ml Total Protein 8.1 (6.4-8.2) gm/dl Albumin 4.4 (3.4-5.0) gm/dl Globulin 3.7 (2.5-4.0) gm/dl Albumin/Globulin Ratio 1.2 (0.9-2) Lipase 84 (73-393) U/L Procalcitonin (0-0.5) ng/ml COVID-19 Eval Order COVID-19 PCR (Negative) 03/23/20 03/23/20 03/23/20 Range/Units 21:00 21:07 21:25 WBC (4.8-10.8) K/uL RBC (4.7-6.1) M/uL Hgb (14.0-18.0) g/dL Hct (42-52) % MCV (80-100) fL MCH (25-34) pg MCHC (32-36) g/dL RDW Std Deviation (36.4-46.3) fL RDW Coeff of Catherine (11.5-14.5) % Plt Count (130-400) K/uL MPV (7.4-10.4) fL Immature Gran % (Auto) % Neut % (Auto) % Lymph % (Auto) % [place] % (Auto) % Eos % (Auto) % Baso % (Auto) % Neut # (Auto) (1.4-6.5) K/uL Lymph # (Auto) (1.2-3.4) K/uL [place] # (Auto) (0.11-0.59) K/uL Eos # (Auto) (0-0.5) K/uL Baso # (Auto) (0-0.2) K/uL Immature Gran # (Auto) (0.00-0.02) K/uL PT (9.0-12.0) Seconds INR (0.9-1.1) APTT (21.0-31.0) Seconds PTT Ratio ABG pH (7.35-7.45) ABG pCO2 (35-46) mmHg ABG pO2 (80-95) mmHg ABG HCO3 (19-24) mmol/L ABG O2 Saturation (90-95) % ABG Base Excess (-9-1.8) mEq/L Dany Test (Pos) Barometric Pressure mm/Hg Oxygen Given Sodium (136-145) mmol/L Potassium (3.5-5.1) mmol/L Chloride (98-107) mmol/L Carbon Dioxide (21-32) mmol/L Anion Gap (3-11) BUN (7-18) mg/dl Creatinine (0.6-1.4) mg/dl Est Cr Clr Drug Dosing ml/min Est GFR ( Amer) Est GFR (Non-Af Amer) BUN/Creatinine Ratio (10-20) Glucose (70-99) mg/dl POC Glucose 193 H (70-99) mg/dl Lactate 2.7 H* (0.4-2.0) mmol/L Calcium (8.5-10.1) mg/dl Magnesium (1.8-2.4) mg/dl Total Bilirubin (0.2-1) mg/dl AST (15-37) U/L ALT (12-78) U/L Alkaline Phosphatase (45-117) U/L Troponin I (0-0.045) ng/ml Total Protein (6.4-8.2) gm/dl Albumin (3.4-5.0) gm/dl Globulin (2.5-4.0) gm/dl Albumin/Globulin Ratio (0.9-2) Lipase (73-393) U/L Procalcitonin < 0.05 (0-0.5) ng/ml COVID-19 Eval Order COVID-19 PCR (Negative) 03/23/20 03/23/20 03/23/20 Range/Units 21:25 23:40 23:40 WBC (4.8-10.8) K/uL RBC (4.7-6.1) M/uL Hgb (14.0-18.0) g/dL Hct (42-52) % MCV (80-100) fL MCH (25-34) pg MCHC (32-36) g/dL RDW Std Deviation (36.4-46.3) fL RDW Coeff of Catherine (11.5-14.5) % Plt Count (130-400) K/uL MPV (7.4-10.4) fL Immature Gran % (Auto) % Neut % (Auto) % Lymph % (Auto) % [place] % (Auto) % Eos % (Auto) % Baso % (Auto) % Neut # (Auto) (1.4-6.5) K/uL Lymph # (Auto) (1.2-3.4) K/uL [place] # (Auto) (0.11-0.59) K/uL Eos # (Auto) (0-0.5) K/uL Baso # (Auto) (0-0.2) K/uL Immature Gran # (Auto) (0.00-0.02) K/uL PT (9.0-12.0) Seconds INR (0.9-1.1) APTT (21.0-31.0) Seconds PTT Ratio ABG pH 7.45 (7.35-7.45) ABG pCO2 34 L (35-46) mmHg ABG pO2 70 L (80-95) mmHg ABG HCO3 23 (19-24) mmol/L ABG O2 Saturation 94.2 (90-95) % ABG Base Excess -0.5 (-9-1.8) mEq/L Dany Test POS (Pos) Barometric Pressure 738.5 mm/Hg Oxygen Given ROOM AIR Sodium (136-145) mmol/L Potassium (3.5-5.1) mmol/L Chloride (98-107) mmol/L Carbon Dioxide (21-32) mmol/L Anion Gap (3-11) BUN (7-18) mg/dl Creatinine (0.6-1.4) mg/dl Est Cr Clr Drug Dosing ml/min Est GFR ( Amer) Est GFR (Non-Af Amer) BUN/Creatinine Ratio (10-20) Glucose (70-99) mg/dl POC Glucose (70-99) mg/dl Lactate (0.4-2.0) mmol/L Calcium (8.5-10.1) mg/dl Magnesium (1.8-2.4) mg/dl Total Bilirubin (0.2-1) mg/dl AST (15-37) U/L ALT (12-78) U/L Alkaline Phosphatase (45-117) U/L Troponin I (0-0.045) ng/ml Total Protein (6.4-8.2) gm/dl Albumin (3.4-5.0) gm/dl Globulin (2.5-4.0) gm/dl Albumin/Globulin Ratio (0.9-2) Lipase (73-393) U/L Procalcitonin (0-0.5) ng/ml COVID-19 Eval Order Covid19 Done at [facility] COVID-19 PCR NEGATIVE (Negative) Imaging Data My Impression: X-ray: I interpreted the following studies. Chest: A single view study of the chest was reviewed and was negative for cardiomegaly, focal infiltrate, effusion, pulmonary edema, or wide mediastinum. Radiologist's Impression: CT head: Compared to 06/08/2019. Motion artifact. No definite acute intracranial process. Radiologist: Lianne Sethi MD CT abdomen and pelvis without contrast: Moderate stool in the rectum. Scattered colonic diverticula. Areas of mild bowel wall thickening or underdistention. Correlate clinically regarding enterocolitis. Cholelithiasis. Left nephrolithiasis. No hydronephrosis or ur eteral stone. Small fat-containing umbilical hernia. Small hiatal hernia. Mild basilar atelectatic changes. Radiologist: Lianne Sethi MD ECG Data Attestation: I personally reviewed and interpreted this ECG as follows: Indication: + nausea Rate (beats per minute): 113 Rhythm: + normal sinus ECG Intervals/blocks: + Normal QRS and + Normal QT ECG A[place]: + Left axis deviation ECG Findings: + Q waves (III, aVF) Blood Pressure Blood Pressure Findings: Elevated blood pressure MDM Narrative Patient ill-appearing on presentation here and confused to recent events. P atient evaluated for possible sepsis given his temperature was 38, he was tachycardic and tachypneic. Labs are drawn and sent including blood cultures and lactic acid, IV fluids started, patient given medication for nausea. Patient had no focal neuro deficits, had slight difficulty with [id number] testing. Patient sent for CT imaging of the head as well as the abdomen and pelvis given the GI symptoms. was initially primary historian at bedside, and she was kept up-to-date on all results. Patient began to improve here slowly with treatment of the fever and rehydration. Given concern for occult evolving sepsis, case discussed with hospitalist for additional inpatient management. Patient is a diabetic, and was mildly hyperglycemic, no evidence of DKA or HHNK. No evidence of significant acidemia. Patient was found to have an elevated lactic acid level, although negative pro calcitonin. At time of my discussion with the hospitalist, patient's urinalysis was still pending. An order was placed for continuous cardiac monitoring. The monitor shows a rate of 112 with sinus tachycardia rhythm. Impression & Plan Sepsis, Nausea & vomiting, Altered mental status Discharge Plan Visit Data Chief Complaint: TIA Symptoms Stated Complaint: vomiting, trouble walking, slurred speech,weakness ED Provider: Daisy Maria Discharge Problem: Sepsis, Nausea & vomiting, Altered mental status Patient Disposition: Admitted As Inpatient Condition: Good Discharge Instructions Interventions: ED Discharge Assessment Last Done: 03/24/20 02:54 Discharge Problem: Sepsis Qualifiers: Sepsis type: sepsis due to unspecified organism Sepsis acute organ dysfunction status: with acute organ dysfunction Severe sepsis acute organ dysfunction type: encephalopathy Severe sepsis shock status: without septic shock Qualified Code(s): A41.9 - Sepsis, unspecified organism Nausea & vomiting Qualifiers: Vomiting type: unspecified Vomiting Intractability: non-intractable Qualified Code(s): R11.2 - Nausea with vomiting, unspecified Altered mental status Qualifiers: Altered mental status type: unspecified Qualified Code(s): R41.82 - Altered mental status, unspecified
[2020-03-23 21:25] LABS: Basophils # (auto) 0.05 K/uL (0-0.2); Basophils % (auto) 0.3 %; Eosinophils # (auto) 0.02 K/uL (0-0.5); Eosinophils % (auto) 0.1 %; Hemoglobin 14.2 g/dL (14.0-18.0); Immature Granulocytes # (auto) 0.04 K/uL (0.00-0.02); Immature Granulocytes % (auto) 0.2 %; Lymphocytes # (auto) 1.61 K/uL (1.2-3.4); Lymphocytes % (auto) 9.5 %; Mean Corpuscular Hemoglobin 32.3 pg (25-34); Mean Corpuscular Hgb Conc 34.6 g/dL (32-36); Mean Corpuscular Volume 93.4 fL (80-100); Mean Platelet Volume 10.3 fL (7.4-10.4); Monocytes % (auto) 2.9 %; Neutrophils # (auto) 14.78 K/uL (1.4-6.5); Platelet Count 274 K/uL (130-400); RDW Coefficient of Variation 12.6 % (11.5-14.5); Red Blood Count 4.39 M/uL (4.7-6.1)
[2020-03-23] MEDS ORDERED: SODIUM CHLORIDE 0.9% 1000ML 1,000 ML IV SCH (21:30)
[2020-03-23 21:33] LABS: Alanine Aminotransferase 23 U/L (12-78); Albumin Level 4.4 gm/dl (3.4-5.0); Aspartate Aminotransferase 16 U/L (15-37); Blood Urea Nitrogen 15 mg/dl (7-18); Calcium 9.9 mg/dl (8.5-10.1); Carbon Dioxide 24 mmol/L (21-32); Chloride 101 mmol/L (98-107); Creatinine Clr Calc Pharmacy 45.5 ml/min; Est GFR (African American) 64.3; Est GFR (Non-African American) 55.5; Glucose 204 mg/dl (70-99); Magnesium 1.8 mg/dl (1.8-2.4); Potassium 4.1 mmol/L (3.5-5.1); Sodium 136 mmol/L (136-145)
[2020-03-23 21:37] LABS: Albumin Globulin Ratio 1.2 (0.9-2); Alkaline Phosphatase 89 U/L (45-117); Bilirubin,Total 0.7 mg/dl (0.2-1); Globulin 3.7 gm/dl (2.5-4.0); Total Protein 8.1 gm/dl (6.4-8.2); Troponin I < 0.015 ng/ml (0-0.045)
[2020-03-23 21:39] LABS: INR 1.1 (0.9-1.1); Partial Thromboplastin Ratio 0.8; Partial Thromboplastin Time 23.1 Seconds (21.0-31.0); Prothrombin Time 11.4 Seconds (9.0-12.0)
[2020-03-23 21:42] LABS: Base Excess ABG -0.5 mEq/L (-9-1.8); HCO3 ABG 23 mmol/L (19-24); Oxygen Saturation ABG 94.2 % (90-95); PCO2 ABG 34 mmHg (35-46); PO2 ABG 70 mmHg (80-95); pH ABG 7.45 (7.35-7.45)
[2020-03-23 21:45] LABS: Allen Test POS (Pos)
[2020-03-23] MEDS ORDERED: ACETAMINOPHEN 1,000 MG/100 ML VIAL IV STA (22:05)
[2020-03-23] MEDS ORDERED: SODIUM CHLORIDE 0.9% 1000ML 1,000 ML IV ONE ×2 (22:05→23:56)
[2020-03-23] MEDS ORDERED: PIPERACILLIN/TAZOBACTAM 4.5 GM/120 ML BAG IV ONE (22:05)
[2020-03-23] MEDS ORDERED: PIPERACILL/TAZOBAC CONSULT ACTIVE PRN (22:05)
[2020-03-23] MEDS ORDERED: DOXYCYCLINE HYCLATE 100 MG in DEXTROSE 5% 100 ML IV STA (23:55)
--- NOTE | 2020-03-24 | History & Physical Report ---
Date of Service March 24, 2020 Assessment & Plan (1) Severe sepsis: SIRS plus lactic acid elevation plus encephalopathy Secondary to complicated bronchitis hx CVA as per records hypertension, slightly elevated hyperlipidemia, on statin Rx DM2 insulin requiring, suboptimal control as of recent outpatient hemoglobin A1c of 8.13 January 2020 past tobacco abuse Medical telemetry Cultures, Doxycycline IVF, follow lactic acid Basal insulin adjusted for clear liquid diet for now, ISS BG goal [id number], carb count coverage PT OT eval DVT prophylaxis. Lovenox subcu DNR as per patient's prior wishes as per /POA, Ms. Jennifer Welch. She requests updates from providers thru [id number] 03/20 [id number]. Text document was generated using [employer] voice recognition software. It may contain grammatical or spelling errors. Kindly contact undersigned for clarification of any documentation item in question. History of Present Illness Chief Complaint: Confusion, vomiting as per records Primary Care Provider: Matt Hooper MD History obtained from patient, family, and records. Patient is a fair historian. Medical history significant for CVA, hypertension, hyperlipidemia, DM2 insulin requiring, BPH, past tobacco abuse Last confinement May 2019 for encephalopathy and strokelike symptoms. 3 days ago patient noted cough symptoms productive of junky sputum without chest pain and S OB. No known recent COVID-19 contacts. Denies aspiration. Poor appetite. Yesterday, patient noted by to be confused. Patient subsequently had multiple episodes of vomiting without abdominal pain. No unusual bowel movement. Patient denies dysuria. At the ER, patient received Zosyn for sepsis. MEDICAL HISTORY: As above. SURGERIES: 1. Had bladder stone removal. 2. Laryngeal polyp removal. 3. Knee surgery. FAMILY HISTORY: Heart disease, stroke, SLE. PERSONAL SOCIAL HISTORY: Remote tobacco abuse. No EtOH intake, retired from [employer] work. Allergies Allergy/AdvReac Type Severity Reaction Status Date / Time cat dander Allergy Intermediate itchy Unverified 03/23/20 22:04 watery eyes horse dander Allergy Intermediate itchy Unverified 03/23/20 22:04 watery eyes latex Allergy Intermediate SKIN PEELS Verified 03/23/20 22:04 adhesive Allergy Unknown "TAKES THE Verified 03/23/20 22:04 SKIN OFF" enalaprilat [From Vasotec] Allergy Unknown Verified 03/23/20 22:04 sitagliptin [From Januvia] Allergy Unknown Verified 03/23/20 22:04 diazepam [From Valium] AdvReac Severe can't stay Unverified 03/23/20 22:04 awake diphenhydramine AdvReac Intermediate anxiety Verified 03/23/20 22:04 enalapril AdvReac Unknown "MADE ME Verified 03/23/20 22:04 MEAN" SUCRETS Allergy Intermediate "numb all Uncoded 03/23/20 22:04 over" meclizine AdvReac Unknown Unknown Uncoded 03/23/20 22:04 Multi-Vitamin Oral Tablet AdvReac Unknown Unknown Uncoded 03/23/20 22:04 Zocor TABS AdvReac Unknown Unknown Uncoded 03/23/20 22:04 Home Medications Home Medications Medication Instructions Recorded Confirmed Type acetaminophen [Tylenol Extra 500 mg PO Q6H PRN 06/08/19 03/23/20 History Strength] aspirin 81 mg PO QDD 06/08/19 03/23/20 History atorvastatin 40 mg PO QDD 06/08/19 03/23/20 History carvedilol 3.125 mg PO BID 06/08/19 03/23/20 History clopidogrel 75 mg PO QAM 06/08/19 03/23/20 History losartan 25 mg PO QAM 06/08/19 03/23/20 History tamsulosin 0.4 mg PO QAM 06/08/19 03/23/20 History blood sugar diagnostic #10 ea 08/08/19 01/10/20 History blood sugar diagnostic ea 08/08/19 01/10/20 History duloxetine 20 mg capsule,delayed 20 mg PO DAILY cap 08/08/19 03/23/20 History release lancets 33 gauge #100 ea 08/08/19 01/10/20 History pen needle, diabetic 32 gauge x #100 ea 09/15/19 01/10/20 Rx 5/32" insulin glargine [Lantus Solostar 18 - 20 unit SUBCUT HS 03/23/20 03/23/20 History U-100 Insulin] Past Med/Surg History Medical History Generalized osteoarthrosis History of CVA (cerebrovascular accident) History of kidney stones HLD (hyperlipidemia) HTN (hypertension) Lumbar degenerative disc disease RLS (restless legs syndrome) T2DM (type 2 diabetes mellitus) Surgical History History of colonoscopy with polypectomy History of cystoscopy History of laryngoscopy Hx of bursectomy Family History Father Myocardial infarction Heart disease Mother Breast cancer Sister Lupus Brother Diabetes Myocardial infarction Coronary heart disease Social History Smoking Status: Former smoker Second Hand Exposure: No; Do You Dip or Chew Tobacco: No; Hx Alcohol Use: No Hx Substance Use: No Preferred Language: Romanian Communication Ability: Effective Area Field Manager Required: No Beliefs That Will Affect Care: None marital status: Current Living Situation: Spouse current occupational status: retired Other Information That Helps Us Care for You: No Feels Safe at Home: Yes Safety Concerns: Feels Safe At This Time Review of Systems Review of Systems: As per HPI, all 10 systems reviewed, all other ROS negative Physical Exam Physical Exam: GENERAL: uncomfortable, oriented to year, no respiratory distress, covered in blankets SKIN: Normal color, warm HEENT: [place] palpebral conjunctivae, no ptosis, dry buccal mucosa NECK : Supple, no tenderness CHEST : Decreased breath sounds, occasional expiratory wheezes, no tenderness HEART : RRR, no obvious murmurs ABDOMEN: Some distention, nontender EXTREMITIES : No LE swelling/tenderness, no other conspicuous deformities noted NEUROLOGIC : Oriented to year, no facial asymmetry, no other gross focality Results & Data Results & Data ([facility]) Vital Signs (Past 12 Hours) Vital Signs Temp Pulse Pulse Resp BP BP Pulse Ox 03/23/20 23:26 86 20 121/62 95 03/23/20 22:41 37.2 C 03/23/20 22:31 91 H 21 94 03/23/20 22:30 91 H 17 146/86 H 95 03/23/20 22:16 97 H 23 93 03/23/20 22:15 96 H 23 160/95 H 94 03/23/20 22:08 96 H 22 159/90 H 95 03/23/20 22:01 98 H 22 94 03/23/20 21:46 16 94 03/23/20 21:32 102 H 26 H 93 03/23/20 21:31 104 H 16 119/105 H 93 03/23/20 21:30 103 H 20 92 03/23/20 21:16 107 H 22 94 03/23/20 21:15 108 H 19 172/106 H 91 03/23/20 21:08 110 H 32 H 94 03/23/20 21:00 108 H 28 H 181/99 H 94 03/23/20 20:57 38.0 C H 122 H 32 H 187/106 H 94 Laboratory Results Laboratory Results WBC 17.00 K/uL (4.8-10.8) H 03/23/20 21:00 RBC 4.39 M/uL (4.7-6.1) L 03/23/20 21:00 Hgb 14.2 g/dL (14.0-18.0) 03/23/20 21:00 Hct 41.0 % (42-52) L 03/23/20 21:00 MCV 93.4 fL (80-100) 03/23/20 21:00 MCH 32.3 pg (25-34) 03/23/20 21:00 MCHC 34.6 g/dL (32-36) 03/23/20 21:00 RDW Std Deviation 43.0 fL (36.4-46.3) 03/23/20 21:00 RDW Coeff of Catherine 12.6 % (11.5-14.5) 03/23/20 21:00 Plt Count 274 K/uL (130-400) 03/23/20 21:00 MPV 10.3 fL (7.4-10.4) 03/23/20 21:00 Immature Gran % (Auto) 0.2 % 03/23/20 21:00 Neut % (Auto) 87.0 % 03/23/20 21:00 Lymph % (Auto) 9.5 % 03/23/20 21:00 Wood % (Auto) 2.9 % 03/23/20 21:00 Eos % (Auto) 0.1 % 03/23/20 21:00 Baso % (Auto) 0.3 % 03/23/20 21:00 Neut # (Auto) 14.78 K/uL (1.4-6.5) H 03/23/20 21:00 Lymph # (Auto) 1.61 K/uL (1.2-3.4) 03/23/20 21:00 Wood # (Auto) 0.50 K/uL (0.11-0.59) 03/23/20 21:00 Eos # (Auto) 0.02 K/uL (0-0.5) 03/23/20 21:00 Baso # (Auto) 0.05 K/uL (0-0.2) 03/23/20 21:00 Immature Gran # (Auto) 0.04 K/uL (0.00-0.02) H 03/23/20 21:00 PT 11.4 Seconds (9.0-12.0) 03/23/20 21:00 INR 1.1 (0.9-1.1) 03/23/20 21:00 APTT 23.1 Seconds (21.0-31.0) 03/23/20 21:00 PTT Ratio 0.8 03/23/20 21:00 ABG pH 7.45 (7.35-7.45) 03/23/20 21:25 ABG pCO2 34 mmHg (35-46) L 03/23/20 21:25 ABG pO2 70 mmHg (80-95) L 03/23/20 21:25 ABG HCO3 23 mmol/L (19-24) 03/23/20 21:25 ABG O2 Saturation 94.2 % (90-95) 03/23/20 21:25 ABG Base Excess -0.5 mEq/L (-9-1.8) 03/23/20 21:25 Dany Test POS (Pos) 03/23/20 21:25 Barometric Pressure 738.5 mm/Hg 03/23/20 21:25 Oxygen Given ROOM AIR 03/23/20 21:25 Sodium 136 mmol/L (136-145) 03/23/20 21:00 Potassium 4.1 mmol/L (3.5-5.1) 03/23/20 21:00 Chloride 101 mmol/L (98-107) 03/23/20 21:00 Carbon Dioxide 24 mmol/L (21-32) 03/23/20 21:00 Anion Gap 11.0 (3-11) 03/23/20 21:00 BUN 15 mg/dl (7-18) 03/23/20 21:00 Creatinine 1.23 mg/dl (0.6-1.4) 03/23/20 21:00 Est Cr Clr Drug Dosing 45.5 ml/min 03/23/20 21:00 Est GFR ( Amer) 64.3 03/23/20 21:00 Est GFR (Non-Af Amer) 55.5 03/23/20 21:00 BUN/Creatinine Ratio 12.0 (10-20) 03/23/20 21:00 Glucose 204 mg/dl (70-99) H 03/23/20 21:00 POC Glucose 193 mg/dl (70-99) H 03/23/20 21:07 Lactate 2.7 mmol/L (0.4-2.0) H* 03/23/20 21:25 Calcium 9.9 mg/dl (8.5-10.1) 03/23/20 21:00 Magnesium 1.8 mg/dl (1.8-2.4) 03/23/20 21:00 Total Bilirubin 0.7 mg/dl (0.2-1) 03/23/20 21:00 AST 16 U/L (15-37) 03/23/20 21:00 ALT 23 U/L (12-78) 03/23/20 21:00 Alkaline Phosphatase 89 U/L (45-117) 03/23/20 21:00 Troponin I < 0.015 ng/ml (0-0.045) 03/23/20 21:00 Total Protein 8.1 gm/dl (6.4-8.2) 03/23/20 21:00 Albumin 4.4 gm/dl (3.4-5.0) 03/23/20 21:00 Globulin 3.7 gm/dl (2.5-4.0) 03/23/20 21:00 Albumin/Globulin Ratio 1.2 (0.9-2) 03/23/20 21:00 Procalcitonin < 0.05 ng/ml (0-0.5) 03/23/20 21:00 COVID-19 Eval Order Covid19 Done at [facility] 03/23/20 23:40 Diagnostic Findings Chest x-ray as per my interpretation no infiltrate CT head initial read: Motion artifact. No definite acute intracranial process CT abdomen pelvis initial read: Moderate stool in the rectum. Scattered colonic diverticula. Mild bowel wall thickening or underdistention. Correlate for enterocolitis. Cholelithiasis. Left nephrolithiasis. Ultrasound gallbladder initial read: Cholelithiasis without cholecystitis EKG as per my interpretation : Rate 115, sinus tachycardia, LAD, LAFB, inferior infarct
[2020-03-24 00:11] LABS: Lipase 84 U/L (73-393)
[2020-03-24] MEDS ORDERED: MAGNESIUM SULFATE / D5W 1 GM/100 ML BAG IV ONE (01:46)
[2020-03-24] MEDS ORDERED: ACETAMINOPHEN 325 MG TAB PO PRN (03:43)
[2020-03-24] MEDS ORDERED: GLUCOSE 10 TABS/TUBE PO PRN (03:43)
[2020-03-24] MEDS ORDERED: GLUCAGON FOR INJ 1 MG VIAL SQ PRN (03:43)
[2020-03-24] MEDS ORDERED: TRAMADOL HCL 50 MG TABLET PO PRN (03:43)
[2020-03-24] MEDS ORDERED: CARBOHYDRATES FOR HYPOGLYCEMIA PO PRN (03:43)
[2020-03-24] MEDS ORDERED: PROMETHAZINE HCL 12.5 MG in SODIUM CHLORIDE 0.9% 50 ML IV PRN (03:43)
[2020-03-24] MEDS ORDERED: DEXTROSE 50% 50 ML SYRINGE IV PRN (03:43)
[2020-03-24] MEDS ORDERED: GLUCOSE 40% GEL 15 GM TUBE PO PRN (03:43)
[2020-03-24] MEDS ORDERED: INSULIN GLARGINE SOLOSTAR 100 UNITS/ML 3 ML PEN SC STA (04:22)
[2020-03-24 04:45] LABS: Appearance Urine Cloudy (Clear); Bacteria Urine Automated Negative (Negative); Bilirubin Urine Negative (Negative); Blood Urine Negative (Negative); Color Urine Yellow; Epithelial Cell Urine Auto 0-5 /lpf (0-5); Glucose Urine UA 1+ (Negative); Ketones Urine Trace (Negative); Leukocyte Esterase Urine Negative (Negative); Nitrite Urine Negative (Negative); Protein Urine Negative (Negative); RBC Urine Automated 0-4 /hpf (0-4); Specific Gravity Urine 1.029 (1.000-1.030); Urobilinogen Urine Negative (Negative)
[2020-03-24] MEDS: INSULIN ASPART 100 UNITS/ML 3 ML PEN SC SCH ×4 (04:49→17:00)
[2020-03-24] MEDS ORDERED: SODIUM CHLORIDE 0.9% 1000ML 1,000 ML IV SCH (05:00)
[2020-03-24 06:17] LABS: Basophils # (auto) 0.03 K/uL (0-0.2); Basophils % (auto) 0.2 %; Eosinophils # (auto) 0.02 K/uL (0-0.5); Eosinophils % (auto) 0.2 %; Hematocrit (blood only) 33.3 % (42-52); Hemoglobin 11.5 g/dL (14.0-18.0); Immature Granulocytes # (auto) 0.01 K/uL (0.00-0.02); Immature Granulocytes % (auto) 0.1 %; Lymphocytes # (auto) 2.34 K/uL (1.2-3.4); Lymphocytes % (auto) 18.2 %; Mean Corpuscular Hemoglobin 32.5 pg (25-34); Mean Corpuscular Hgb Conc 34.5 g/dL (32-36); Mean Corpuscular Volume 94.1 fL (80-100); Mean Platelet Volume 9.9 fL (7.4-10.4); Monocytes # (auto) 0.94 K/uL (0.11-0.59); Monocytes % (auto) 7.3 %; Neutrophils # (auto) 9.55 K/uL (1.4-6.5); Platelet Count 218 K/uL (130-400); RDW Coefficient of Variation 12.7 % (11.5-14.5); RDW Standard Deviation 44.1 fL (36.4-46.3); Red Blood Count 3.54 M/uL (4.7-6.1); White Blood Count 12.89 K/uL (4.8-10.8)
[2020-03-24 06:45] LABS: BUN Creatinine Ratio 12.9 (10-20); Calcium 8.5 mg/dl (8.5-10.1); Creatinine Clr Calc Pharmacy 51.4 ml/min; Est GFR (African American) 74.4; Est GFR (Non-African American) 64.2
--- NOTE | 2020-03-24 07:18 | CT Scan Report ---
CT head/brain wo con CLINICAL HISTORY: Acute change in mental status COMPARISON STUDY: CT scan dated 06/08/2019, MRI the brain dated 06/08/2019 TECHNIQUE: Axial CT of the brain is performed from the vertex to the skull base. IV contrast was not administered for this examination. A dose lowering technique was utilized adhering to the principles of ALARA. CT DOSE: 537.48 mGy.cm FINDINGS: No intra or extra-axial mass lesions are visualized. There is no CT evidence of acute cortical infarc tion. There is no evidence of midline shift. There is no acute hemorrhage. No calvarial fractures ar e visualized. There are patchy white matter hypodensities likely on a small vessel basis. There is mild ventricular dilatation which is likely secondary to volume loss. There is no evidence of acute sinusitis IMPRESSION: No acute intracranial findings ACT 112: Negative or not required by law. Electronically signed by: Lalo Contreras M.D. 03/24/2020 7:17 AM
[2020-03-24] MEDS ORDERED: SODIUM CHLORIDE 0.9% 1000ML 1,000 ML IV ONE (07:30)
--- NOTE | 2020-03-24 07:30 | XRay Report ---
XR chest 1V portable CLINICAL HISTORY: SEPSIS COMPARISON STUDY: Chest radiograph June 08, 2019. FINDINGS: Lung volumes are normal. Lungs are clear. There is no pneumothorax or pleural effusion. Car diac size is normal. Mediastinal contours are normal. There is no evidence for pulmonary edema. IMPRESSION: No acute cardiopulmonary findings. ACT 112: Negative or not required by law. Electronically signed by: Twin Serna M.D. 03/24/2020 7:29 AM
--- NOTE | 2020-03-24 07:52 | CT Scan Report ---
CT OF THE ABDOMEN AND PELVIS WITHOUT CONTRAST CLINICAL HISTORY: Nausea and vomiting. COMPARISON STUDY: KUB July 31, 2019. TECHNIQUE: Axial images of the abdomen and pelvis were obtained without IV contrast. Images were revi ewed in the axial, sagittal, and coronal planes. Automated exposure control was utilized for the erika dy. A dose lowering technique was utilized adhering to the principles of ALARA. FINDINGS: No pneumatosis, free air or portal venous gas is present. Note is made of a 2 mm calculus w ithin the lower pole of the left kidney. There are no ureteral calculi. There is no hydronephrosis. T here are gallstones within the gallbladder. The gallbladder is not distended. Evaluation of the abdom en and pelvis is suboptimal on this unenhanced exam. The liver, spleen, adrenal glands and pancreas a re unremarkable. There is no peripancreatic infiltration. The appendix is unremarkable. A few colonic diverticula are noted without evidence for acute diverticulitis. There is no evidence for a bowel ob struction. There is no lymphadenopathy. There are no suspicious osseous lesions. IMPRESSION: 1. 2 mm left renal calculus. No ureteral calculi or hydronephrosis. 2. Cholelithiasis. No evidence for acute cholecystitis. 3. No bowel obstruction. ACT 112: Negative or not required by law. Electronically signed by: Twin Serna M.D. 03/24/2020 7:51 AM
--- NOTE | 2020-03-24 08:18 | Ultrasound Report ---
Biliary ultrasound CLINICAL HISTORY: vomiting COMPARISON STUDY: CT scan dated 03/23/2020 FINDINGS: The pancreas appears normal as visualized. No focal hepatic masses are visualized. There ar e multiple gallstones. There is no gallbladder wall thickening and no evidence of pericholecystic flu id. The technologist reports a negative sonographic Deras sign. There is no ductal dilatation. The c ommon bile duct measures 4 mm. There is no right-sided hydronephrosis. IMPRESSION: Cholelithiasis. No evidence of ductal dilatation. ACT 112: Negative or not required by law. Electronically signed by: Lalo Contreras M.D. 03/24/2020 8:17 AM
[2020-03-24] MEDS ORDERED: INSULIN GLARGINE SOLOSTAR 100 UNITS/ML 3 ML PEN SC SCH (09:00)
[2020-03-24] MEDS ORDERED: TAMSULOSIN HCL 0.4 MG CAP PO SCH (09:00)
[2020-03-24] MEDS ORDERED: carvediloL 3.125 MG TAB PO SCH (09:00)
[2020-03-24] MEDS ORDERED: DOXYCYCLINE HYCLATE 100 MG CAP PO SCH (09:00)
[2020-03-24] MEDS ORDERED: LOSARTAN POTASSIUM 25 MG TAB PO SCH (09:00)
[2020-03-24] MEDS ORDERED: ENOXAPARIN INJ 30 MG/0.3 ML SYR SQ SCH (09:00)
[2020-03-24] MEDS ORDERED: DULOXETINE HCL 20 MG CAP PO SCH (09:00)
[2020-03-24] MEDS ORDERED: CLOPIDOGREL BISULFATE 75 MG TAB PO SCH (09:00)
--- NOTE | 2020-03-24 10:16 | Electrocardiogram Report ---
Test Reason : Blood Pressure : / mmHG Vent. Rate : 113 BPM Atrial Rate : 113 BPM P-R Int : 184 ms QRS Dur : 078 ms QT Int : 312 ms P-R-T Axes : 051 -42 057 degrees QTc Int : 427 ms Sinus tachycardia Left axis deviation Inferior infarct (cited on or before 12-AUG-2012) Abnormal ECG When compared with ECG of 09-JUN-2019 07:37, Vent. rate has increased BY 38 BPM Confirmed by Roscoe Cooper ([id number]) on 03/24/2020 10:16:01 AM Referred By: REFERRED SELF Confirmed By:Roscoe Cooper
[2020-03-24] MEDS ORDERED: PHARMACIST DISCHARGE MED REC CONSULT PRN (12:13)
--- NOTE | 2020-03-24 12:27 | Hospitalist Progress Note ---
Date of Service March 24, 2020 Assessment & Plan (1) Stroke-like symptoms: Clinical picture is concerning for TIA with quick onset of nausea, vomiting and word salad resolved within 24 hours including confusion and headache. Has a h/o stroke in the past with no residual deficits. He does have recent issues with ambulation and multiple falls at home. No numbess of feet. Had an echo in May 2019 with no evidence of interatrial shunt-will not repeat. He has been eating without difficulty so will not consult speech. PT/OT and Neuro consulted. Pt refuses MRI so will repeat CT with vascular imaging today. Exam reveals no focal deficit. Cont ASA, Plavix and Lip 40 per current home regimen. Now is eating with all prior symptoms resolved. WBC likely 2/2 inflammation and is improved. The patient was not septic from infection. (2) Encephalopathy: resolved overnight (3) History of CVA (cerebrovascular accident): cont medical management as above. (4) Controlled type 2 diabetes mellitus, with long-term current use of insulin: cont basal bolus while hospitalized. At inpatient goal. (5) RLS (restless legs syndrome): No medication used. Follow-up with PCP. (6) HTN (hypertension): At goal on small dose Losartan. Permissive Hypertension is allowed at this point. (7) DVT prophylaxis: Lovenox DNR Dispo-likely to home later today after full workup and Neuro recommendations. [facility] Admission and Anticipated Discharge Date Admission Date: March 24, 2020 Subjective 79 yo M with h/o CVA and no h/o afib or other heart issues, with no residual deficits from CVA previously reported to ER last night with confusion. Per and daughter, he was very tired and slept in yesterday morning. He then took an additional nap and awoke not feeling well. This was when he began with nausea and vomiting, followed by difficulty speaking for approx 30 minutes (pt remembers this) and confusion until he was on the floor last night. He had no fevers or chills, denied any respiratory symptoms, no abdominal pain, changes in bowels, no chest pain, SOB, an dno other stroke symptoms including no visual changes, difficulty moving arms or legs, numbness, facial droop. He did have a headache, however, and reported multiple frequent falls in recent months and doesn't have a good understanding why this is happening. He was seen by neurology a couple of weeks ago for this and she reports that it was his blood sugar. This morning he feels better, he is mentating clearly, he has no neuro deficit on exam, however, gait was slightly off initially when he tried to walk, but then he recovered. He requests solid food. Denies pain. Reviewed labs and studies with both and daughter. Review of Systems Review of Systems: All systems reviewed & are unremarkable except as noted in Subjective Physical Exam Physical Exam: CONSTITUTIONAL: WNWD, vitals as above, generally well-appea ring EYES: EOMI bilaterally, PERRL, normal conjunctivae, no scleral icterus ENT: external ear and nose normal, oropharynx clear RESPIRATORY: clear to auscultation bilaterally, no crackles, rales or wheezes, normal respiratory effort CARDIOVASCULAR: regular rate and rhythm, S1 and 2 heard without murmurs, gallops or rubs, no JVD, no peripheral edema CHEST: inspection of chest was normal GASTROINTESTINAL: soft, nontender, nondistended MUSCULOSKELETAL: strength 5/5 throughout, head is normocephalic and atraumatic SKIN: warm and dry NEUROLOGIC: patellar DTRs could not elicit, BR DTR was 2+ bilat. PERRL, EOMI, no facial palsy, no dysarthria. Touch, pain and proprioception normal. CN 2-12 intact, no sensory deficit, normal cognition, normal speech, no tremor PSYCHIATRIC: alert cooperative and oriented to person, place and time. Euthymic mood, makes good eye contact, language grossly intact Results & Data Results & Data ([facility]) Vital Signs (Past 12 Hours) Vital Signs Temp Pulse Pulse Resp BP Pulse Ox 03/24/20 11:25 36.4 C L 71 18 111/71 95 03/24/20 07:42 36.7 C 87 18 117/71 93 03/24/20 07:30 73 03/24/20 03:58 37.1 C 76 82 16 157/78 H 93 03/24/20 02:45 86 20 138/79 96 03/24/20 01:47 37.1 C 03/24/20 01:46 81 20 118/63 93 03/24/20 00:54 84 20 123/67 93 Laboratory Results Short CBC 09/11/20 09/12/20 Range/Units 21:00 06:09 WBC 17.00 H 12.89 H (4.8-10.8) K/uL Hgb 14.2 11.5 L (14.0-18.0) g/dL Hct 41.0 L 33.3 L (42-52) % Plt Count 274 218 (130-400) K/uL BMP 03/23/20 03/24/20 21:00 06:09 Sodium 136 137 Potassium 4.1 4.0 Chloride 101 105 Carbon Dioxide 24 24 BUN 15 14 Creatinine 1.23 1.09 Glucose 204 H 137 H Calcium 9.9 8.5 Cardiac Enzymes 03/23/20 Range/Units 21:00 Troponin I < 0.015 (0-0.045) ng/ml Liver Function 03/23/20 Range/Units 21:00 Total Bilirubin 0.7 (0.2-1) mg/dl AST 16 (15-37) U/L ALT 23 (12-78) U/L Alkaline Phosphatase 89 (45-117) U/L Albumin 4.4 (3.4-5.0) gm/dl Urine 03/24/20 Range/Units Unknown Urine Color Yellow Urine Appearance Cloudy A (Clear) Urine pH 5.0 (4.5-7.5) Ur Specific [place] 1.029 (1.000-1.030) Urine Protein Negative (Negative) Urine Glucose (UA) 1+ H (Negative) Diagnostic Findings Biliary ultrasound CLINICAL HISTORY: vomiting COMPARISON STUDY: CT scan dated 03/23/2020 FINDINGS: The pancreas appears normal as visualized. No focal hepatic masses are visualized. There are multiple gallstones. There is no gallbladder wall thickening and no evidence of pericholecystic fluid. The technologist reports a negative sonographic Deras sign. There is no ductal dilatation. The common bile duct measures 4 mm. There is no right-sided hydronephrosis. IMPRESSION: Cholelithiasis. No evidence of ductal dilatation. CT head/brain wo con CLINICAL HISTORY: Acute change in mental status COMPARISON STUDY: CT scan dated 06/08/2019, MRI the brain dated 06/08/2019 TECHNIQUE: Axial CT of the brain is performed from the vertex to the skull base. IV contrast was not administered for this examination. A dose lowering technique was utilized adhering to the principles of ALARA. CT DOSE: 537.48 mGy.cm FINDINGS: No intra or extra-axial mass lesions are visualized. There is no CT evidence of acute cortical infarction. There is no evidence of midline shift. There is no acute hemorrhage. No calvarial fractures are visualized. There are patchy white matter hypodensities likely on a small vessel basis. There is mild ventricular dilatation which is likely secondary to volume loss. There is no evidence of acute sinusitis IMPRESSION: No acute intracranial findings XR chest 1V portable CLINICAL HISTORY: SEPSIS COMPARISON STUDY: Chest radiograph June 08, 2019. FINDINGS: Lung volumes are normal. Lungs are clear. There is no pneumothorax or pleural effusion. Cardiac size is normal. Mediastinal contours are normal. There is no evidence for pulmonary edema. CT OF THE ABDOMEN AND PELVIS WITHOUT CONTRAST CLINICAL HISTORY: Nausea and vomiting. COMPARISON STUDY: KUB July 31, 2019. TECHNIQUE: Axial images of the abdomen and pelvis were obtained without IV contrast. Images were reviewed in the axial, sagittal, and coronal planes. Automated exposure control was utilized for the study. A dose lowering technique was utilized adhering to the principles of ALARA. FINDINGS: No pneumatosis, free air or portal venous gas is present. Note is made of a 2 mm calculus within the lower pole of the left kidney. There are no ureteral calculi. There is no hydronephrosis. There are gallstones within the gallbladder. The gallbladder is not distended. Evaluation of the abdomen and pelvis is suboptimal on this unenhanced exam. The liver, spleen, adrenal glands and pancreas are unremarkable. There is no peripancreatic infiltration. The appendix is unremarkable. A few colonic diverticula are noted without evidence for acute diverticulitis. There is no evidence for a bowel obstruction. There is no lymphadenopathy. There are no suspicious osseous lesions. IMPRESSION: 1. 2 mm left renal calculus. No ureteral calculi or hydronephrosis. 2. Cholelithiasis. No evidence for acute cholecystitis. 3. No bowel obstruction. Medications Administered Current Inpatient Medications Acetaminophen (Acetaminophen 325 Mg Tab) 650 mg PO Q4H PRN PRN Reason: Pain or Fever Stop: 04/23/20 03:42 Aspirin (Aspirin 81 Mg Ectab) 81 mg PO QDD [facility] Stop: 04/23/20 16:29 Atorvastatin Calcium (Atorvastatin 40 Mg Tab) 40 mg PO QDD [facility] Stop: 04/23/20 16:29 Carvedilol (Carvedilol 3.125 Mg Tab) 3.125 mg PO BID [facility] Stop: 04/23/20 08:59 Last Admin: 03/24/20 08:56 Dose: 3.125 mg Documented by: Clopidogrel Bisulfate (Clopidogrel Bisulfate 75 Mg Tab) 75 mg PO QAM [facility] Stop: 04/23/20 08:59 Last Admin: 03/24/20 08:57 Dose: 75 mg Documented by: Dextrose (Dextrose 50% 50 Ml Syringe) 25 - 50 ml IV UD PRN; Protocol PRN Reason: Hypoglycemia Protocol Stop: 04/23/20 03:42 Duloxetine HCl (Duloxetine Hcl 20 Mg Cap) 20 mg PO DAILY [facility] Stop: 04/23/20 08:59 Last Admin: 03/24/20 08:57 Dose: 20 mg Documented by: Enoxaparin Sodium (Enoxaparin Inj 30 Mg/0.3 Ml Syr) 30 mg SQ QAM [facility] Stop: 04/23/20 08:59 Last Admin: 03/24/20 08:55 Dose: 30 mg Documented by: Glucagon (Glucagon For Inj 1 Mg Vial) 1 mg SQ UD PRN; Protocol PRN Reason: Hypoglycemia Protocol Stop: 04/23/20 03:42 Glucose (Glucose 10 Tabs/Tube) 4 - 8 tabs PO UD PRN; Protocol PRN Reason: Hypoglycemia Protocol Stop: 04/23/20 03:42 Glucose (Glucose 40% Gel 15 Gm Tube) 15 - 30 gm PO UD PRN; Protocol PRN Reason: Hypoglycemia Protocol Stop: 04/23/20 03:42 Promethazine HCl 12.5 mg/ (Sodium Chloride) 50.5 mls @ 202 mls/hr IV Q6H PRN PRN Reason: Nausea And Vomiting Stop: 04/23/20 03:42 Insulin Aspart (Insulin Aspart 100 Units/Ml 3 Ml Pen) 0 units SC ACHS [facility] Stop: 04/23/20 04:29 Last Admin: 03/24/20 08:38 Dose: Not Given Documented by: Insulin Glargine (Insulin Glargine Solostar 100 Units/Ml 3 Ml Pen) 5 units SC BID [facility] Stop: 04/23/20 08:59 Last Admin: 03/24/20 08:55 Dose: 5 units Documented by: Losartan Potassium (Losartan Potassium 25 Mg Tab) 25 mg PO QAM [facility] Stop: 04/23/20 08:59 Last Admin: 03/24/20 08:56 Dose: 25 mg Documented by: Miscellaneous (Carbohydrates For Hypoglycemia ) 15 - 30 gm PO UD PRN PRN Reason: Hypoglycemia Protocol Stop: 04/23/20 03:42 Miscellaneous Information (Pharmacist Discharge Med Rec Consult) 1 ea N/A UD PRN PRN Reason: Consult Stop: 04/23/20 12:12 Tamsulosin HCl (Tamsulosin Hcl 0.4 Mg Cap) [facility] Stop: 04/23/20 08:59 Last Admin: 03/24/20 08:57 Dose: 0.4 mg Documented by: Tramadol HCl (Tramadol Hcl 50 Mg Tablet) 25 mg PO Q4H PRN PRN Reason: Pain Stop: 04/23/20 03:42 ECG Additional Comments: ST 113
[2020-03-24] MEDS ORDERED: OPTIRAY 320 125ml IV ONE (13:47)
--- NOTE | 2020-03-24 14:03 | CT Scan Report ---
CT head/brain wo con CLINICAL HISTORY: Progressive stroke symptoms COMPARISON STUDY: 03/23/2020 TECHNIQUE: Axial CT of the brain is performed from the vertex to the skull base. IV contrast was not administered for this examination. A dose lowering technique was utilized adhering to the principles of ALARA. CT DOSE: FINDINGS: No intra or extra-axial mass lesions are visualized. There is no CT evidence of acute cortical infarc tion. There is no evidence of midline shift. There is no acute hemorrhage. No calvarial fractures ar e visualized. There are patchy white matter hypodensities likely on a small vessel basis. There is no evidence of pathologic ventricular dilatation. There is no evidence of acute sinusitis. There is a stable partially calcified density within the fro ntal sinus. IMPRESSION: No acute intracranial findings ACT 112: Negative or not required by law. Electronically signed by: Lalo Contreras M.D. 03/24/2020 2:02 PM
--- NOTE | 2020-03-24 14:11 | CT Scan Report ---
CT angio neck with con CLINICAL HISTORY: Strokelike symptoms COMPARISON STUDY: 06/08/2019 TECHNIQUE: CT angiography was performed from the aortic arch to the skull base. MIP imaging was perfo rmed. The patient was scanned in a dynamic helical fashion during intravenous administration of 120 c c of Optiray 320. A dose lowering technique was utilized adhering to the principles of ALARA. CT DOSE: 1186.92 mGy.cm Technique: CT angiogram of the carotid and vertebral arteries was obtained using intravenous contrast and 3-D reconstruction. NASCET criteria was utilized. Findings: The right carotid revealed no evidence of aneurysm and no evidence of dissection. There is no evidenc e of hemodynamic significant stenosis. The left carotid revealed no evidence of hemodynamic significant stenosis. There is no evidence of an eurysm. There is no evidence of dissection. There is a stable proximal left vertebral artery stenosis. There is no evidence of significant right vertebral artery stenosis. IMPRESSION: 1. No evidence of hemodynamically significant internal carotid artery stenosis 2. 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 Electronically signed by: Lalo Contreras M.D. 03/24/2020 2:09 PM
--- NOTE | 2020-03-24 14:14 | CT Scan Report ---
CT angio head w con CLINICAL HISTORY: Acute stroke like symptoms TECHNIQUE: CT angiography of the head was performed in a dynamic helical fashion during intravenous a dministration of 120 cc of Optiray 320. MIP imaging was performed. A dose lowering technique was util ized adhering to the principles of ALARA. CT DOSE: COMPARISON STUDY: 06/08/2019 FINDINGS: There are no lesion suspicious for aneurysm. There are no major intracranial branch occlusi ons. The dural venous sinuses appear patent. IMPRESSION: Unremarkable CT angiography of the brain ACT 112: Negative or not required by law. Electronically signed by: Lalo Contreras M.D. 03/24/2020 2:12 PM
[2020-03-24 14:46] LABS: Lyme Ab IgG w/WB Rflx Negative (Negative); Lyme Ab IgM w/WB Rflx Negative (Negative)
--- NOTE | 2020-03-24 15:01 | Discharge Summary ---
Date of Service March 24, 2020 Admission HPI Per Admitting Provider History obtained from patient, family, and records. Patient is a fair historian. Medical history significant for CVA, hypertension, hyperlipidemia, DM2 insulin requiring, BPH, past tobacco abuse Last confinement May 2019 for encephalopathy and strokelike symptoms. 3 days ago patient noted cough symptoms productive of junky sputum without chest pain and S OB. No known recent COVID-19 contacts. Denies aspiration. Poor appetite. Yesterday, patient noted by to be confused. Patient subsequently had multiple episodes of vomiting without abdominal pain. No unusual bowel movement. Patient denies dysuria. At the ER, patient received Zosyn for sepsis. MEDICAL HISTORY: As above. SURGERIES: 1. Had bladder stone removal. 2. Laryngeal polyp removal. 3. Knee surgery. FAMILY HISTORY: Heart disease, stroke, SLE. PERSONAL SOCIAL HISTORY: Remote tobacco abuse. No EtOH intake, retired from [employer] work. Admission Exam Per Admitting Provider GENERAL: uncomfortable, oriented to year, no respiratory distress, covered in blankets SKIN: Normal color, warm HEENT: [place] palpebral conjunctivae, no ptosis, dry buccal mucosa NECK : Supple, no tenderness CHEST : Decreased breath sounds, occasional expiratory wheezes, no tenderness HEART : RRR, no obvious murmurs ABDOMEN: Some distention, nontender EXTREMITIES : No LE swelling/tenderness, no other conspicuous deformities noted NEUROLOGIC : Oriented to year, no facial asymmetry, no other gross focality Principal Diagnosis nausea and vomiting possibly 2/2 viral acute gastritis metabolic encephalopathy-resolved Discharge Exam CONSTITUTIONAL: WNWD, vitals as above, generally well-appearing EYES: EOMI bilaterally, PERRL, normal conjunctivae, no scleral icterus ENT: external ear and nose normal, oropharynx clear RESPIRATORY: clear to auscultation bilaterally, no crackles, rales or wheezes, normal respiratory effort CARDIOVASCULAR: regular rate and rhythm, S1 and 2 heard without murmurs, gallops or rubs, no JVD, no peripheral edema CHEST: inspection of chest was normal GASTROINTESTINAL: soft, nontender, nondistended MUSCULOSKELETAL: strength 5/5 throughout, head is normocephalic and atraumatic SKIN: warm and dry NEUROLOGIC: patellar DTRs could not elicit, BR DTR was 2+ bilat. PERRL, EOMI, no facial palsy, no dysarthria. Touch, pain and proprioception normal. CN 2-12 intact, no sensory deficit, normal cognition, normal speech, no tremor PSYCHIATRIC: alert cooperative and oriented to person, place and time. Euthymic mood, makes good eye contact, language grossly intact Discharge Data Allergies Allergy/AdvReac Type Severity Reaction Status Date / Time cat dander Allergy Intermediate itchy Unverified 03/23/20 22:04 watery eyes horse dander Allergy Intermediate itchy Unverified 03/23/20 22:04 watery eyes latex Allergy Intermediate SKIN PEELS Verified 03/23/20 22:04 adhesive Allergy Unknown "TAKES THE Verified 03/23/20 22:04 SKIN OFF" enalaprilat [From Vasotec] Allergy Unknown Verified 03/23/20 22:04 sitagliptin [From Januvia] Allergy Unknown Verified 03/23/20 22:04 diazepam [From Valium] AdvReac Severe can't stay Unverified 03/23/20 22:04 awake diphenhydramine AdvReac Intermediate anxiety Verified 03/23/20 22:04 enalapril AdvReac Unknown "MADE ME Verified 03/23/20 22:04 MEAN" SUCRETS Allergy Intermediate "numb all Uncoded 03/23/20 22:04 over" meclizine AdvReac Unknown Unknown Uncoded 03/23/20 22:04 Multi-Vitamin Oral Tablet AdvReac Unknown Unknown Uncoded 03/23/20 22:04 Zocor TABS AdvReac Unknown Unknown Uncoded 03/23/20 22:04 Consultations 03/23/20 23:04 ED Decision to Admit Stat 03/24/20 12:10 Consult Neurology Routine 03/24/20 12:13 Consult Case Management - Discharge Planning Routine Ordered Studies 03/23/20 21:16 CT abd pelvis wo con Urgent CT head/brain wo con Urgent 03/24/20 00:53 US gallbladder Urgent 03/24/20 12:30 CT angio head w con Urgent CT angio neck with con Urgent CT head/brain wo con Urgent Hospital Course (1) Gastritis: (2) Metabolic encephalopathy: Clinical picture was initially concerning for TIA with quick onset nausea vomiting and expressive symptoms yesterday including confusion and headache. However, work-up including CT of the head and neck with and without contrast was negative for acute stroke. He is already on aspirin, Plavix and Lipitor 40 mg daily. Neurology was consulted and feels this was not consistent with a TIA and more so of a viral gastritis. At this point he is neurologically intact with no focal deficits, he is mentating and ambulating normally, and his nausea vomiting has resolved and he is eating solid food without issue. His confusion resolved and was likely a metabolic encephalopathy secondary to and the acute illness. He reported having tomato sandwiches in the night before having a [employer] frozen dinner. He also reported not being around anyone he knew to be sick, so the viral gastroenteritis was likely picked up in the community somewhere but this is uncertain. At time of discharge he was hemodynamically stable and afebrile and tolerating p.o. He was mentating and ambulating at baseline and stable for discharge to home. Of note his reports recurrent falls at home of unclear etiology. He was given a relating walker at discharge and advised to follow-up with primary care within a week. Total Time Total Time Spent Total Time Spent (In Minutes): 60 Total Time Includes: Examination of the Patient, Discharge Planning, Medication Reconciliation and Communication With Other Providers Discharge Plan Discharge Items Patient Disposition: Home - Self-Care Reason For Visit: ENCEPHALOPTHYM DC ISOL, COVID NEG Discharge Diagnosis: nausea and vomiting possibly 2/2 viral acute gastritis metabolic encephalopathy-resolved Condition on Discharge: Good Activity: Resume your previous activity Non-emergency contact: Primary Care Provider Call non-emergency contact if: you have any medication questions and your symptoms worsen Follow-up/Referrals: Matt Hooper MD [Primary Care Provider] - Diet: Carb Consistent or DM2 Addtl Attending Provider Instructions: Please take all medications as instructed on discharge list below. Per the neurologist who saw you in the hospital you did not have a mini stroke. It is more likely your symptoms may be explained by an acute gastritis. These are self-limited situations and should not return. It is recommended that you follow-up with your primary care doctor within 1 week of discharge to ensure you are still doing well since being home and that symptoms have not returned. It was a pleasure taking care of you! Please call if you have any questions or problems. You can reach a [facility] hospitalist on duty at [facility] 24 hours a day by calling [phone]. Take care of yourself. Azalia Shaver, DO [facility] Hospitalist Pending Studies at Discharge: No Stand-Alone Forms: [facility] Medications and DC Order Prescriptions: New (DME) walker Misc See Rx Instructions .ROUTE .MEDSUPPLY Qty: 1 RF: 0 Continued (DME) pen needle, diabetic [BD Ultra-Fine Shelbie Pen Needle] 32 gauge x 5/32" needle See Rx Instructions .ROUTE .MEDSUPPLY Qty: 100 RF: 3 (DME) OneTouch Verio test strips Strip See Rx Instructions [id number] .MEDSUPPLY RF: 0 duloxetine 20 mg capsule,delayed release(DR/EC) 20 mg PO DAILY RF: 0 (DME) lancets [OneTouch Delica Lancets] 33 gauge misc See Rx Instructions .ROUTE .MEDSUPPLY Qty: 100 RF: 0 (DME) OneTouch Verio test strips Strip See Rx Instructions .ROUTE .MEDSUPPLY Qty: 10 RF: 0 atorvastatin 40 mg tablet 40 mg PO QDD RF: 0 clopidogrel 75 mg tablet 75 mg PO QAM RF: 0 aspirin 81 mg Tablet,Delayed Release (Dr/Ec) 81 mg PO QDD RF: 0 carvedilol 3.125 mg tablet 3.125 mg PO BID RF: 0 tamsulosin 0.4 mg capsule 0.4 mg PO QAM RF: 0 losartan 25 mg tablet 25 mg PO QAM RF: 0 acetaminophen [Tylenol Extra Strength] 500 mg Tablet 500 mg PO Q6H PRN (Reason: Pain) RF: 0 Lantus Solostar U-100 Insulin 100 unit/mL (3 mL) insulin pen 18 - 20 unit SUBCUT HS RF: 0 Discharge Orders: Discharge Order (Routine); Ordered 03/24/20 Ordered By: Azalia Shaver Admission Data Admit Date/Time: 03/24/20 00:53 Attending Provider: Azalia Shaver Admit Provider: Christian Valdovinos Primary Care Provider: Matt Hooper Other Providers: Christian Valdovinos ; Bear Vogel
--- NOTE | 2020-03-24 15:45 | Consultation Report ---
DATE OF CONSULTATION: 03/24/2020 CHIEF COMPLAINT: Encephalopathy. HISTORY OF PRESENT ILLNESS: A 79-year-old male who presented to the ER last evening from home for persistent vomiting. He was brought to the Emergency Department by his . Per information from his , the patient was noted to be normal or seem fine during the day and then around mid afternoon, he seems slightly confused when asked several questions. He then began vomiting with multiple episodes. There was no noticed facial droop. There was no slurred speech. There was no focal weakness. His blood sugar was checked at home and was noted to be in the 140s. There was no reported medication changes. He does have a history of prior transient ischemic attack as well as a history of prior episode of septic shock. The patient was admitted from the Emergency Department for presumed sepsis secondary to the complicated bronchitis. His lactic acid level was elevated in the setting of an encephalopathy. Neurology was consulted the following morning for concern for possible transient ischemic attack. ALLERGIES: CAT DANDER, HORSE DANDER, LATEX, ADHESIVE TAPE, VASOTEC, JANUVIA, VALIUM, DIPHENHYDRAMINE, ENALAPRIL. HOME MEDICATIONS: Aspirin 81 mg daily, atorvastatin 40 mg daily, carvedilol 3.125 mg twice daily, Plavix 75 mg daily, losartan 25 mg daily, duloxetine 20 mg daily, insulin, Lantus, Tylenol as needed. PAST MEDICAL HISTORY: Cerebrovascular accident, hypertension, hyperlipidemia, type 2 diabetes, benign prostatic hypertrophy, former tobacco abuse. PAST SURGICAL HISTORY: Bladder stone removal, laryngeal polyp removal, knee surgery. FAMILY HISTORY: Heart disease, stroke, lupus. SOCIAL HISTORY: He is a former smoker. He denies any alcohol. He is retired from [employer] work. He lives with his . REVIEW OF SYSTEMS: As per HPI, all 10 review of systems was reviewed and was negative except for confusion and vomiting. PHYSICAL EXAMINATION: VITAL SIGNS: Blood pressure 111/71 mmHg, pulse is 71, respiratory rate is 18, temperature is 36.4, O2 sats 95% on room air. GENERAL: The patient appears normally developed in no distress, appears stated age. HEENT: His head is normocephalic and atraumatic. He has normal eye lids, normal conjunctivae. NECK: Supple. His respiratory effort is nonlabored. HEART: Shows normal pulses. ABDOMEN: Nondistended. SKIN: There are no rashes or lesions noted. Normal mood and affect. He appears in no acute distress. NEUROLOGIC: He is awake, alert and oriented to person, place and time. His attention is normal. His knowledge is appropriate. His comprehension is intact and he is able to repeat. Speech is clear. No visual defect on confrontation and pupils are round and equal. His face is symmetric. Facial sensation is intact. Hearing is intact. Palate is symmetric. Shoulder shrug is good. Tongue is midline. Gait examination was deferred. No ataxia with [id number] testing. No tremor or myoclonic jerks. Sensation is intact to light touch. Muscle tone is normal. Muscle exam is 5/5 throughout. Reflexes, toes are downgoing, Yariel sign is negative bilaterally. No ankle clonus. DIAGNOSTIC TESTING AND LABORATORY VALUES: WBC is 17.00, hemoglobin is 14.2, platelet count is 274. INR is 1.1. Sodium is 137, potassium 4.0, chloride is 105, BUN is 14, creatinine is 1.09, blood glucose is 225. Lactate is elevated at 2.4. Ammonia is 25. Procalcitonin is negative. Liver enzymes are normal. Urinalysis shows cloudy fluid 1+ glucose, trace ketones, negative bacteria. Gallbladder ultrasound showed cholelithiasis. No evidence of ductal dilatation. Head CT noncontrast showed no acute intracranial finding. There are patchy white matter hypodensities likely on a small vessel basis. There is mild ventricular dilatation, which is likely secondary to volume loss. Chest x-ray showed no acute cardiopulmonary findings. CT abdomen and pelvis showed 2 mm left renal calculus. No ureteral calculi or hydronephrosis. Cholelithiasis with no evidence of acute cholecystitis. There is no bowel obstruction. ASSESSMENT AND PLAN: A 79-year-old male admitted with acute onset encephalopathy and vomiting. Overall, he remains unclear what caused this intermittent confusion and vomiting. However, the semiology of the event is largely devoid of features to suggest that this was a transient ischemic attack. I would recommend to continue current home aspirin and Plavix as well his home dose of Lipitor. Agree with obtaining CTA head and neck as well as a transthoracic echocardiogram. Certainly on the differential diagnosis remains a possible viral gastroenteritis, which would be supported by the quick resolution of symptoms within 24 hours. I do not believe the patient needs to follow up with neurology at this time. He should be able to follow up with his primary care provider after discharge. Please do not hesitate to contact me with any additional questions or concerns.
[2020-03-24] MEDS ORDERED: ASPIRIN 81 MG ECTAB PO SCH (16:30)
[2020-03-24] MEDS ORDERED: ATORVASTATIN 40 MG TAB PO SCH (16:30)
== END 2020-03-24 17:30 | disposition home or self-care (01) | DRG 391 ==
LOC: ED 20:45 → 2W 03-24 00:53

== ENCOUNTER 2021-05-05 13:17 | Observation (INO) ==
[2021-05-05] MEDS ORDERED: SODIUM CHLORIDE 0.9% 1000ML 1,000 ML IV ONE (13:35)
[2021-05-05] MEDS ORDERED: ASPIRIN 81 MG CHEW PO STA (13:35)
--- NOTE | 2021-05-05 13:38 | Emergency Department Note ---
Impression & Plan Elevated troponin, Left-sided chest pain ED Provider Note Name: MIAN CHOWDHURY Age: 80 Sex: M Arrives Via: Walk-In Informant: Patient ED Provider: Raymond Handy MD Chief Complaint: chest pain Impression: See Impressions Above Medical Decision Makin yr old pleasant male with extensive PMH though no history of CAD/stenting arrives after episode left chest pain this morning now resolved. Appears well other than a bit anxious at this time. EKG without acute ischemia though does have some nonspecific lateral ST depressions. Labs reveal elevated Trop. He was given 324mg PO ASA initially. Reviewed with hospitalist and we discussed starting heparin and they will manage. Patient stable throughout and comfortable with this plan. Prior Medical Record and Triage/Nursing Notes reviewed by Me Additional history obtained from chart Differentials:Cardiac ischemia, aortic dissection, pulmonary embolism, pneumo thorax, pneumonia, pericarditis, myocarditis, esophageal rupture, GERD, cholecystitis, pancreatitis, musculoskeletal, as well as other pathologies. Vital Signs: reviewed and remarkable for no significant abnormalities Interventions: ASA 324mg PO Labs:Reviewed and remarkable for elevated troponin Imaging:X ray results are stated below per my interpretation: Chest: 1 view: No infiltrate, no effusion, normal cardiac border. EKG:Per My Interpretation: Indication Chest Pain: NSR 94 bpm, qtc [address] Depressions. No Ectopy. No Ischemia. Compared to EKG 08/30/20, no significant changes. Cardiac/Tele Monitoring: Cardiac Monitoring: An Order was placed for continuous cardiac monitoring. The monitor shows a rate of 80 with a normal sinus rhythm. Consults:Katy Hospitalist Plan: Disposition:Hospitalization. Condition: Good History of Present Illness:80 yr old male arrives for evaluation of chest pain. Patient notes chronic body aches, fatigues, and weakness. This afternoon he had an episode of acute left chest pain. Associated with shortness of breath, fatigue, lightheadedness. Symptoms have now resolved. No palpitations, nausea, vomiting, nor other symptoms. Denies previous cardiac issues nor symptoms like this previously. No history CAD nor stenting. Denies medications prior to arrival. Nothing made better nor worse. States he just feels very ill. ROS: See above HPI for pertinent positives & negatives. A total of 10 systems reviewed and were otherwise negative. Past Medical History:HRN, HLP, DMII, GERD, see below Past Surgical History:See Below Family History:See Below Social History:See Below Home Medications:See Below Allergies:See Below Vitals:Blood Pressure: 118/79, Pulse 106, RR 20, T 36.0C, O2 95% on RA Physical Exam: GENERAL: Patient is anxious appearing and in no acute distress. EYES: No scleral icterus, unremarkable pupils. ENT: Mucous membranes moist, no nasal congestion. NECK: No masses appreciated, nomeningismus, trachea is midline. RESPIRATORY: No dyspnea. Clear to auscultation and equal bilaterally. No wheeze, no rhonchi. CARDIOVASCULAR: Regular rate and rhythm.No murmurs, rubs, gallops appreciated. GASTROINTESTINAL: Abdomen soft, non-tender, no peritonitis.Bowel sounds positive.No masses appreciated. BACK: No midline tenderness, no CVA tenderness EXTREMITIES: Normal motion all extremities, no cyanosis, no edema. NEUROLOGIC: Alert and oriented, no acute motor or sensory deficits, no focal weakness, cranial nerves grossly intact. SKIN: No rash, no jaundice, no diaphoresis. PSYCH: Appropriate GCS: 15 ED Course: Times/Reassessments: stable, no further chest pain, comfortable with hospitalization. Notes history urinary bleeding but no recent. Denies GI bleeds, ulcers, head injury, head bleed, etc. Raymond Handy MD Past Med/Surg History Medical History (Updated 05/05/21 @ 16:49 by Raymond Handy MD) Altered mental status Controlled type 2 diabetes mellitus, with long-term current use of insulin Elevated PSA Gastritis Generalized osteoarthrosis History of CVA (cerebrovascular accident) History of kidney stones HLD (hyperlipidemia) HTN (hypertension) Lumbar degenerative disc disease Metabolic encephalopathy Personal history of urinary calculi (01/27/13) Right arm weakness RLS (restless legs syndrome) Severe sepsis T2DM (type 2 diabetes mellitus) Uncontrolled type 2 diabetes mellitus, with long-term current use of insulin Surgical History H/O prostate biopsy History of colonoscopy with polypectomy History of cystoscopy History of laryngoscopy Hx of bursectomy Family History Father Myocardial infarction Heart disease Mother Breast cancer Sister Lupus Brother Diabetes Myocardial infarction Coronary heart disease Brother Cancer Bladder Social History Smoking Status: Never smoker Number of Years Since Quit: 40; Second Hand Exposure: No; Hx Alcohol Use: No Hx Substance Use: No Preferred Language: Ecuadorean Communication Ability: Effective Visual Impairment: No Limitations Hearing Ability: Normal Registered Nurse Supervisor Required: No Beliefs That Will Affect Care: None marital status: Current Living Situation: Spouse current occupational status: retired Feels Safe at Home: Yes during the past year weight has: remained stable Physical Activity Frequency: 3-4 Times per Week Assistive Devices: Cane, Denture - Upper, Denture - Lower, Glasses and Walker Allergies Allergies Allergy/AdvReac Type Severity Reaction Status Date / Time cat dander Allergy Intermediate itchy Verified 05/05/21 14:24 watery eyes horse dander Allergy Intermediate itchy Verified 05/05/21 14:24 watery eyes latex Allergy Intermediate SKIN PEELS Verified 05/05/21 14:24 adhesive Allergy Unknown "TAKES THE Verified 05/05/21 14:24 SKIN OFF" enalaprilat [From Vasotec] Allergy Unknown Verified 05/05/21 14:24 sitagliptin [From Januvia] Allergy Unknown Verified 05/05/21 14:24 diazepam [From Valium] AdvReac Severe can't stay Verified 05/05/21 14:24 awake diphenhydramine AdvReac Intermediate anxiety Verified 05/05/21 14:24 enalapril AdvReac Unknown "MADE ME Verified 05/05/21 14:24 MEAN" SUCRETS Allergy Intermediate "numb all Uncoded 05/05/21 14:24 over" meclizine AdvReac Unknown Unknown Uncoded 05/05/21 14:24 Multi-Vitamin Oral Tablet AdvReac Unknown Unknown Uncoded 05/05/21 14:24 Zocor TABS AdvReac Unknown Unknown Uncoded 05/05/21 14:24 Home Meds Home Medications Medication Instructions Recorded Confirmed acetaminophen 500 mg tablet 500 mg PO Q6H PRN 06/08/19 05/05/21 (Tylenol Extra Strength) aspirin 81 mg tablet,delayed 81 mg PO QDD 06/08/19 05/05/21 release atorvastatin 40 mg tablet 40 mg PO QDD 06/08/19 05/05/21 carvedilol 3.125 mg tablet (Coreg) 3.125 mg PO BID 06/08/19 05/05/21 clopidogrel 75 mg tablet 75 mg PO QAM 06/08/19 05/05/21 losartan 25 mg tablet 25 mg PO QAM 06/08/19 05/05/21 tamsulosin 0.4 mg capsule 0.4 mg PO QAM 06/08/19 05/05/21 insulin NPH-regular 70-30 U-100 24 unit SUBCUT QAM ml 04/10/21 05/05/21 insulin 100 unit/mL subcutaneous pen (Novolin 70-30 FlexPen U-100 Insulin) pantoprazole 20 mg tablet,delayed 20 mg PO DAILY 04/10/21 05/05/21 release insulin NPH-regular 70-30 U-100 18 unit SUBCUT QDD 05/05/21 05/05/21 insulin 100 unit/mL subcutaneous pen (Novolin 70-30 FlexPen U-100 Insulin) Previous Rx's Medication Instructions Recorded walker #1 ea 03/24/20 blood sugar diagnostic (OneTouch #100 ea 06/15/20 Verio test strips) blood sugar diagnostic (OneTouch #100 ea 06/15/20 Verio test strips) lancets 33 gauge (OneTouch Delica #100 ea 06/15/20 Lancets) pen needle, diabetic 32 gauge x #200 ea 08/06/20 5/32" (BD Ultra-Fine Shelbie Pen Needle) Results & Data (ED) Vital Signs Vital Signs - 24 hr 05/05/21 13:22 05/05/21 13:42 05/05/21 13:45 Temperature 36.0 C L Temperature Source Temporal Artery Scan Pulse Rate 106 H 98 H Pulse Rate from SpO2 Sensor 94 H Respiratory Rate 20 17 Respiratory Effort / Characteristics Non-Labored Respiratory Depth Normal Respiratory Pattern Regular Blood Pressure 118/79 Blood Pressure Mean 92 Pulse Oximetry 95 96 Oxygen Delivery Method Room Air Room Air Sepsis Recent Fever Within 48 Hours No Sepsis New/Unexplained Change in Mental Status No Sepsis Action Taken by Nursing No Action Required Oxygen Flow Rate - Titration 96 05/05/21 14:00 05/05/21 14:30 05/05/21 15:10 Temperature Temperature Source Pulse Rate 90 78 Pulse Rate from SpO2 Sensor 89 80 75 Respiratory Rate 23 21 Respiratory Effort / Characteristics Respiratory Depth Respiratory Pattern Blood Pressure 121/104 H Blood Pressure Mean 109 Pulse Oximetry 96 97 97 Oxygen Delivery Method Room Air Sepsis Recent Fever Within 48 Hours Sepsis New/Unexplained Change in Mental Status Sepsis Action Taken by Nursing Oxygen Flow Rate - Titration Laboratory Data Result diagrams: 05/05/21 13:35 05/05/21 13:35 Lab Results 05/05/21 05/05/21 05/05/21 Range/Units 13:35 13:35 13:35 WBC 7.49 (4.8-10.8) K/uL RBC 4.65 L (4.7-6.1) M/uL Hgb 14.6 (14.0-18.0) g/dL Hct 41.8 L (42-52) % MCV 89.9 (80-100) fL MCH 31.4 (25-34) pg MCHC 34.9 (32-36) g/dL RDW Std Deviation 41.8 (36.4-46.3) fL RDW Coeff of Catherine 12.7 (11.5-14.5) % Plt Count 260 (130-400) K/uL MPV 10.0 (7.4-10.4) fL Immature Gran % (Auto) 0.1 % Neut % (Auto) 59.2 % Lymph % (Auto) 28.4 % Iron % (Auto) 8.1 % Eos % (Auto) 3.3 % Baso % (Auto) 0.9 % Neut # (Auto) 4.42 (1.4-6.5) K/uL Lymph # (Auto) 2.13 (1.2-3.4) K/uL Iron # (Auto) 0.61 H (0.11-0.59) K/uL Eos # (Auto) 0.25 (0-0.5) K/uL Baso # (Auto) 0.07 (0-0.2) K/uL Immature Gran # (Auto) 0.01 (0.00-0.02) K/uL PT 10.6 (9.0-12.0) Seconds INR 1.0 (0.9-1.1) D-Dimer 400 (0-500) ug/L FEU Sodium 135 L (136-145) mmol/L Potassium 4.1 (3.5-5.1) mmol/L Chloride 101 (98-107) mmol/L Carbon Dioxide 26 (21-32) mmol/L Anion Gap 8.0 (3-11) BUN 15 (7-18) mg/dl Creatinine 1.30 (0.6-1.4) mg/dl Est Cr Clr Drug Dosing 43.6 ml/min Est GFR ( Amer) 59.7 ml/min Est GFR (Non-Af Amer) 51.5 ml/min BUN/Creatinine Ratio 11.5 (10-20) Glucose 141 H (70-99) mg/dl Calcium 9.9 (8.5-10.1) mg/dl Magnesium 2.2 (1.8-2.4) mg/dl Total Bilirubin 0.4 (0.2-1) mg/dl Direct Bilirubin < 0.1 (0-0.2) mg/dl AST 19 (15-37) U/L ALT 22 (12-78) U/L Alkaline Phosphatase 91 (45-117) U/L Troponin I 0.128 H* (0-0.045) ng/ml Total Protein 8.1 (6.4-8.2) gm/dl Albumin 4.1 (3.4-5.0) gm/dl Lipase 136 (73-393) U/L COVID-19 Eval Order SARS-CoV-2 (PCR) (Negative) 05/05/21 05/05/21 Range/Units 13:58 13:58 WBC (4.8-10.8) K/uL RBC (4.7-6.1) M/uL Hgb (14.0-18.0) g/dL Hct (42-52) % MCV (80-100) fL MCH (25-34) pg MCHC (32-36) g/dL RDW Std Deviation (36.4-46.3) fL RDW Coeff of Catherine (11.5-14.5) % Plt Count (130-400) K/uL MPV (7.4-10.4) fL Immature Gran % (Auto) % Neut % (Auto) % Lymph % (Auto) % Iron % (Auto) % Eos % (Auto) % Baso % (Auto) % Neut # (Auto) (1.4-6.5) K/uL Lymph # (Auto) (1.2-3.4) K/uL Iron # (Auto) (0.11-0.59) K/uL Eos # (Auto) (0-0.5) K/uL Baso # (Auto) (0-0.2) K/uL Immature Gran # (Auto) (0.00-0.02) K/uL PT (9.0-12.0) Seconds INR (0.9-1.1) D-Dimer (0-500) ug/L FEU Sodium (136-145) mmol/L Potassium (3.5-5.1) mmol/L Chloride (98-107) mmol/L Carbon Dioxide (21-32) mmol/L Anion Gap (3-11) BUN (7-18) mg/dl Creatinine (0.6-1.4) mg/dl Est Cr Clr Drug Dosing ml/min Est GFR ( Amer) ml/min Est GFR (Non-Af Amer) ml/min BUN/Creatinine Ratio (10-20) Glucose (70-99) mg/dl Calcium (8.5-10.1) mg/dl Magnesium (1.8-2.4) mg/dl Total Bilirubin (0.2-1) mg/dl Direct Bilirubin (0-0.2) mg/dl AST (15-37) U/L ALT (12-78) U/L Alkaline Phosphatase (45-117) U/L Troponin I (0-0.045) ng/ml Total Protein (6.4-8.2) gm/dl Albumin (3.4-5.0) gm/dl Lipase (73-393) U/L COVID-19 Eval Order Covid19 at [facility] SARS-CoV-2 (PCR) NEGATIVE (Negative) Administered Medications Discontinued Medications Aspirin (Aspirin 81 Mg Chew) 324 mg PO NOW STA Stop: 05/05/21 13:36 Last Admin: 05/05/21 13:54 Dose: 324 mg Documented by: [id number] Sodium Chloride (Nss 1000ml) 1,000 mls @ 999 mls/hr IV .Q1H1M ONE Stop: 05/05/21 14:35 Last Infusion: 05/05/21 14:55 Dose: 0 mls/hr Documented by: [id number] Admin: 05/05/21 13:54 Dose: 999 mls/hr Documented by: [id number] Imaging Data Radiologist's Impression: Chest X-Ray 05/05/21 13:36 XR chest 1V portable CLINICAL HISTORY: left chest pain TECHNIQUE: Single frontal radiograph of the chest was obtained. Comparison: None available at the time of this dictation. FINDINGS: No lines and tubes are seen. The cardiomediastinal silhouette is normal. The lungs are clear. No evidence of pleural effusion or pneumothorax. IMPRESSION: No acute chest disease. ACT 112: Negative or not required by law. Electronically signed by: Jed Marina M.D. 05/05/2021 2:[address] 05/05/21 15:55 CT head/brain wo con CLINICAL HISTORY: numbness to L arm/leg Technique: Contiguous axial CT images of the head were acquired from the base of the skull to the vertex without intravenous contrast administration. Images were viewed in brain, subdural and bone windows. Automated dose lowering techniques and/or adjustment according to patient size were utilized for this exam. Comparison: Comparison is made to CTA head and neck 03/24/2020 Findings: Areas of decreased attenuation are present in the periventricular and subcortical white matter bilaterally consistent with small vessel ischemic disease. Generalized cerebral atrophy with commensurate enlargement of the ventricles, sulci, and cisterns is also present. There is no acute intracranial hemorrhage or evidence of acute territorial infarction. No shift of the midline structures, mass effect, or extra-axial abnormalities are shown. Atherosclerotic calcifications are present in the intracranial segments of the internal carotid arteries. Hypodensity in the right internal capsule is unchanged from prior exam and may represent old lacunar infarct. Imaged portions of the paranasal sinuses and mastoid air cells are clear. The orbits appear normal. There are no acute fractures of the calvaria or scalp swelling. Impression: No acute intracranial hemorrhage, evidence of acute territorial infarction, or other acute intracranial disease process. ACT 112: Negative or not required by law. Electronically signed by: Jed Marina M.D. 05/05/2021 4:17 PM Discharge Plan Visit Data Chief Complaint: Chest Pain Stated Complaint: CHEST PAIN/RAPID HEART RATE ED Provider: Raymond Handy Discharge Problem: Elevated troponin, Left-sided chest pain Forms Stand Alone Forms: [employer] Prescriptions Prescriptions: No Action pantoprazole 20 mg tablet,delayed release (DR/EC) 20 mg PO DAILY RF: 0 Novolin 70-30 FlexPen U-100 100 unit/mL (70-30) insulin pen 24 unit subcut QAM RF: 0 (DME) OneTouch Verio test strips Strip See Rx Instructions .ROUTE .MEDSUPPLY Qty: 100 RF: 3 (DME) OneTouch Verio test strips Strip See Rx Instructions [id number] .MEDSUPPLY Qty: 100 RF: 3 (DME) lancets [OneTouch Delica Lancets] 33 gauge misc See Rx Instructions .ROUTE .MEDSUPPLY Qty: 100 RF: 3 (DME) pen needle, diabetic [BD Ultra-Fine Shelbie Pen Needle] 32 gauge x 5/32" needle See Rx Instructions .ROUTE .MEDSUPPLY Qty: 200 RF: 3 atorvastatin 40 mg tablet 40 mg PO QDD RF: 0 clopidogrel 75 mg tablet 75 mg PO QAM RF: 0 aspirin 81 mg Tablet,Delayed Release (Dr/Ec) 81 mg PO QDD RF: 0 carvedilol [Coreg] 3.125 mg tablet 3.125 mg PO BID RF: 0 tamsulosin 0.4 mg capsule 0.4 mg PO QAM RF: 0 losartan 25 mg tablet 25 mg PO QAM RF: 0 acetaminophen [Tylenol Extra Strength] 500 mg Tablet 500 mg PO Q6H PRN (Reason: Pain) RF: 0 (DME) walker Misc See Rx Instructions .ROUTE .MEDSUPPLY Qty: 1 RF: 0 Novolin 70-30 FlexPen U-100 100 unit/mL (70-30) insulin pen 18 unit SUBCUT QDD RF: 0 Referrals Referrals: Matt Hooper MD [Primary Care Provider] -
[2021-05-05 13:46] LABS: Basophils # (auto) 0.07 K/uL (0-0.2); Basophils % (auto) 0.9 %; Eosinophils # (auto) 0.25 K/uL (0-0.5); Eosinophils % (auto) 3.3 %; Hematocrit (blood only) 41.8 % (42-52); Hemoglobin 14.6 g/dL (14.0-18.0); Immature Granulocytes # (auto) 0.01 K/uL (0.00-0.02); Immature Granulocytes % (auto) 0.1 %; Lymphocytes # (auto) 2.13 K/uL (1.2-3.4); Lymphocytes % (auto) 28.4 %; Mean Corpuscular Hemoglobin 31.4 pg (25-34); Mean Corpuscular Hgb Conc 34.9 g/dL (32-36); Mean Corpuscular Volume 89.9 fL (80-100); Monocytes # (auto) 0.61 K/uL (0.11-0.59); Monocytes % (auto) 8.1 %; Neutrophils # (auto) 4.42 K/uL (1.4-6.5); Neutrophils % (auto) 59.2 %; Platelet Count 260 K/uL (130-400); RDW Coefficient of Variation 12.7 % (11.5-14.5); RDW Standard Deviation 41.8 fL (36.4-46.3); Red Blood Count 4.65 M/uL (4.7-6.1); White Blood Count 7.49 K/uL (4.8-10.8)
[2021-05-05 14:02] LABS: D Dimer 400 ug/L FEU (0-500); Prothrombin Time 10.6 Seconds (9.0-12.0)
[2021-05-05 14:10] LABS: Alanine Aminotransferase 22 U/L (12-78); Albumin Level 4.1 gm/dl (3.4-5.0); Aspartate Aminotransferase 19 U/L (15-37); BUN Creatinine Ratio 11.5 (10-20); Bilirubin Direct < 0.1 mg/dl (0-0.2); Blood Urea Nitrogen 15 mg/dl (7-18); Calcium 9.9 mg/dl (8.5-10.1); Carbon Dioxide 26 mmol/L (21-32); Chloride 101 mmol/L (98-107); Creatinine Clr Calc Pharmacy 43.6 ml/min; Est GFR (African American) 59.7 ml/min; Est GFR (Non-African American) 51.5 ml/min; Glucose 141 mg/dl (70-99); Lipase 136 U/L (73-393); Magnesium 2.2 mg/dl (1.8-2.4); Potassium 4.1 mmol/L (3.5-5.1); Sodium 135 mmol/L (136-145)
[2021-05-05 14:18] LABS: Alkaline Phosphatase 91 U/L (45-117); Bilirubin,Total 0.4 mg/dl (0.2-1); Total Protein 8.1 gm/dl (6.4-8.2); Troponin I 0.128 ng/ml (0-0.045)
--- NOTE | 2021-05-05 14:27 | XRay Report ---
XR chest 1V portable CLINICAL HISTORY: left chest pain TECHNIQUE: Single frontal radiograph of the chest was obtained. Comparison: None available at the time of this dictation. FINDINGS: No lines and tubes are seen. The cardiomediastinal silhouette is normal. The lungs are clear. No evid ence of pleural effusion or pneumothorax. IMPRESSION: No acute chest disease. ACT 112: Negative or not required by law. Electronically signed by: Jed Marina M.D. 05/05/2021 2:26 PM
--- NOTE | 2021-05-05 15:26 | History & Physical Report ---
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 Chest pain Lightheadedness Symptoms occurred for approximately 1 hour, he felt left-sided substernal chest pain that radiated to left shoulder with associated left arm and left leg numbness and feeling as if he could, "pass out." at bedside admits to checking blood pressure which was systolically in the 90s and heart rate read in the 160s. He felt as if his heart was racing. Trop 0.128, ecg unchanged. Sx resolved on arrival. ddx: Arrhythmia including SVT, PAT, PAF, ACS Admit to telemetry, monitor for arrhythmia Consult cardiology, no prior history of CAD or CA Obtain echocardiogram Cycle troponin, repeat EKG N.p.o. after midnight in event procedure warranted Fasting lipid panel, A1c in a.m. 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 NovoLog, NPH per protocol HTN Continue Coreg and losartan Monitor HLD Statin Prostate cancer New diagnosis, to undergo radiation therapy and brachytherapy Has not yet started treatment Dispo: PCU, likely discharge in 1 to 2 days pending course PCP: Sandie DNR/DNI discussed with patient and at bedside Patient was seen and examined in collaboration with Dr. Sanchez, please see addendum History of Present Illness Chief Complaint: Chest pain x 1 hour [employer]. 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 He describes symptoms of substernal chest pain and pressure with associated lightheaded and numbness and heaviness to L arm and L leg. When sx started he was supervising his son as he was moving their washer/dryer to first floor. He felt as if he could, "black out." Pain described as a heaviness and lasted approximately 1 hour. Sx have completely resolved w/o treatment. He has associated SOB but no sweating. at bedside states his pulse was 160 and felt his BP was low, 98/78. He felt his heart was racing. This was chest pain was not radiating to L neck or back. He denies and nausea or vomiting. Has never had anything similar in the past. He denies hx of CAD or CA. Denies recent illness, n/v/d, abdominal pain. He felt hot and cold yesterday but no documented fever. Denies syncope, ANTHONY, cough, URI sx, hemoptysis, weakness to extremities. He does have chronic L sided weakness from prior CVA. Admits to being compliant with medications. In ED patient remained hemodynamically stable. His CBC and CMP was generally unremarkable but he did have elevated troponin at 0.128. His EKG revealed normal sinus rhythm with sinus arrhythmia and a rate of 94 bpm. No significant change was found. Inferior infarct cited on or before 08/12/2012. He received full dose aspirin in ED. He was asymptomatic while in ED. He also received IVF. is at bedside. Allergies Allergy/AdvReac Type Severity Reaction Status Date / Time cat dander Allergy Intermediate itchy Verified 05/05/21 14:24 watery eyes horse dander Allergy Intermediate itchy Verified 05/05/21 14:24 watery eyes latex Allergy Intermediate SKIN PEELS Verified 05/05/21 14:24 adhesive Allergy Unknown "TAKES THE Verified 05/05/21 14:24 SKIN OFF" enalaprilat [From Vasotec] Allergy Unknown Verified 05/05/21 14:24 sitagliptin [From Januvia] Allergy Unknown Verified 05/05/21 14:24 diazepam [From Valium] AdvReac Severe can't stay Verified 05/05/21 14:24 awake diphenhydramine AdvReac Intermediate anxiety Verified 05/05/21 14:24 enalapril AdvReac Unknown "MADE ME Verified 05/05/21 14:24 MEAN" SUCRETS Allergy Intermediate "numb all Uncoded 05/05/21 14:24 over" meclizine AdvReac Unknown Unknown Uncoded 05/05/21 14:24 Multi-Vitamin Oral Tablet AdvReac Unknown Unknown Uncoded 05/05/21 14:24 Zocor TABS AdvReac Unknown Unknown Uncoded 05/05/21 14:24 Home Medications Medication Instructions Recorded Confirmed Type acetaminophen 500 mg tablet 500 mg PO Q6H PRN 06/08/19 05/05/21 History (Tylenol Extra Strength) aspirin 81 mg tablet,delayed 81 mg PO QDD 06/08/19 05/05/21 History release atorvastatin 40 mg tablet 40 mg PO QDD 06/08/19 05/05/21 History carvedilol 3.125 mg tablet (Coreg) 3.125 mg PO BID 06/08/19 05/05/21 History clopidogrel 75 mg tablet 75 mg PO QAM 06/08/19 05/05/21 History losartan 25 mg tablet 25 mg PO QAM 06/08/19 05/05/21 History tamsulosin 0.4 mg capsule 0.4 mg PO QAM 06/08/19 05/05/21 History walker #1 ea 03/24/20 04/10/21 Rx blood sugar diagnostic (OneTouch #100 ea 06/15/20 04/10/21 Rx Verio test strips) blood sugar diagnostic (OneTouch #100 ea 06/15/20 04/10/21 Rx Verio test strips) lancets 33 gauge (OneTouch Delica #100 ea 06/15/20 04/10/21 Rx Lancets) pen needle, diabetic 32 gauge x #200 ea 08/06/20 04/10/21 Rx 5/32" (BD Ultra-Fine Shelbie Pen Needle) insulin NPH-regular 70-30 U-100 24 unit SUBCUT QAM ml 04/10/21 05/05/21 History insulin 100 unit/mL subcutaneous pen (Novolin 70-30 FlexPen U-100 Insulin) pantoprazole 20 mg tablet,delayed 20 mg PO DAILY 04/10/21 05/05/21 History release insulin NPH-regular 70-30 U-100 18 unit SUBCUT QDD 05/05/21 05/05/21 History insulin 100 unit/mL subcutaneous pen (Novolin 70-30 FlexPen U-100 Insulin) Past Med/Surg History Medical History (Updated 05/05/21 @ 16:49 by Raymond Handy MD) Altered mental status Controlled type 2 diabetes mellitus, with long-term current use of insulin Elevated PSA Gastritis Generalized osteoarthrosis History of CVA (cerebrovascular accident) History of kidney stones HLD (hyperlipidemia) HTN (hypertension) Lumbar degenerative disc disease Metabolic encephalopathy Personal history of urinary calculi (01/27/13) Right arm weakness RLS (restless legs syndrome) Severe sepsis T2DM (type 2 diabetes mellitus) Uncontrolled type 2 diabetes mellitus, with long-term current use of insulin Surgical History H/O prostate biopsy History of colonoscopy with polypectomy History of cystoscopy History of laryngoscopy Hx of bursectomy Family History Father Myocardial infarction Heart disease Mother Breast cancer Sister Lupus Brother Diabetes Myocardial infarction Coronary heart disease Brother Cancer Bladder Social History Smoking Status: Never smoker Number of Years Since Quit: 40; Second Hand Exposure: No; Hx Alcohol Use: No Hx Substance Use: No Preferred Language: [place] Communication Ability: Effective Visual Impairment: No Limitations Hearing Ability: Normal [place] Required: No Beliefs That Will Affect Care: None marital status: Current Living Situation: Spouse current occupational status: retired Feels Safe at Home: Yes during the past year weight has: remained stable Physical Activity Frequency: 3-4 Times per Week Assistive Devices: Cane, Denture - Upper, Denture - Lower, Glasses and Walker Review of Systems Review of Systems: All systems reviewed & are unremarkable except as noted in HPI & below Physical Exam Physical Exam: Constitutional: WD/WN, vitals as above, NAD, sitting up in bed, pleasant, conversing easily Head: Normocephalic, Atraumatic Eyes: PERRL, conjunctivae normal, anicteric sclerae ENMT: external ear and nose normal, oropharynx normal Neck: trachea midline, no thyromegaly normal visual inspection Respiratory: normal respiratory effort, lungs clear to auscultation, no wheeze, rales, rhonchi. Normal insp/exp effort, no accessory muscle use Cardiovascular: RRR, no murmur, no edema Vessels: no JVD or carotid bruit Chest: normal inspection of chest Abdomen: normal bowel sounds, soft, nontender, no hepatosplenomegaly Musculoskeletal: no cyanosis or clubbing, extremities motor strength 4/5 on left, 5/5 on right Skin: no rashes, warm and dry normal turgor Neurologic: PERRL, EOMI, accommodation nl, no face palsy, no dysarthria CN's II-XI intact bilaterally and moves all extremities Psychiatric: A+Ox3, euthymic affect Lymphatic: no cervical or axillary lymphadenopathy : deferred Results & Data Results & Data ([facility]) Vital Signs (Past 12 Hours) Vital Signs Temp Pulse Resp BP Pulse Ox 05/05/21 15:10 121/104 H 97 05/05/21 14:30 78 21 97 05/05/21 14:00 90 23 96 05/05/21 13:42 98 H 17 96 05/05/21 13:22 36.0 C L 106 H 20 118/79 95 Diagnostic Findings Chest X-Ray 05/05/21 13:36 XR chest 1V portable CLINICAL HISTORY: left chest pain TECHNIQUE: Single frontal radiograph of the chest was obtained. Comparison: None available at the time of this dictation. FINDINGS: No lines and tubes are seen. The cardiomediastinal silhouette is normal. The lungs are clear. No evidence of pleural effusion or pneumothorax. IMPRESSION: No acute chest disease. ACT 112: Negative or not required by law. Electronically signed by: Jed Marina M.D. 05/05/2021 2:26 PM Medications Administered Medication List Discontinued Medications Aspirin (Aspirin 81 Mg Chew) 324 mg PO NOW STA Stop: 05/05/21 13:36 Last Admin: 05/05/21 13:54 Dose: 324 mg Documented by: [id number] Sodium Chloride (Nss 1000ml) 1,000 mls @ 999 mls/hr IV .Q1H1M ONE Stop: 05/05/21 14:35 Last Infusion: 05/05/21 14:55 Dose: 0 mls/hr Documented by: [id number] Admin: 05/05/21 13:54 Dose: 999 mls/hr Documented by: [id number] ECG Rate (beats per minute): 94 Rhythm: sinus with SA COVID-19 Results Results COVID-19 Adm Lab Results: RBC 4.65 M/uL (4.7-6.1) L 05/05/21 WBC 7.49 K/uL (4.8-10.8) 05/05/21 Hgb 14.6 g/dL (14.0-18.0) 05/05/21 Hct 41.8 % (42-52) L 05/05/21 Plt Count 260 K/uL (130-400) 05/05/21 Neutrophils (%) (Auto) 59.2 % 05/05/21 Lymphocytes (%) (Auto) 28.4 % 05/05/21 Monocytes # (Auto) 0.61 K/uL (0.11-0.59) H 05/05/21 Eosinophils # (Auto) 0.25 K/uL (0-0.5) 05/05/21 Immature Granulocyte % (Auto) 0.1 % 05/05/21 Neutrophils # (Auto) 4.42 K/uL (1.4-6.5) 05/05/21 Lymphocytes # (Auto) 2.13 K/uL (1.2-3.4) 05/05/21 Monocytes # (Auto) 0.61 K/uL (0.11-0.59) H 05/05/21 Eosinophils # (Auto) 0.25 K/uL (0-0.5) 05/05/21 Basophils # (Auto) 0.07 K/uL (0-0.2) 05/05/21 Immature Granulocyte # (Auto) 0.01 K/uL (0.00-0.02) 05/05/21 Na 135 mmol/L (136-145) L 05/05/21 K 4.1 mmol/L (3.5-5.1) 05/05/21 Cl 101 mmol/L (98-107) 05/05/21 CO2 26 mmol/L (21-32) 05/05/21 Anion Gap 8.0 (3-11) 05/05/21 BUN 15 mg/dl (7-18) 05/05/21 Creatinine 1.30 mg/dl (0.6-1.4) 05/05/21 BUN/Creatinine Ratio 11.5 (10-20) 05/05/21 Glucose Level 141 mg/dl (70-99) H 05/05/21 Ca 9.9 mg/dl (8.5-10.1) 05/05/21 Total Bilirubin 0.4 mg/dl (0.2-1) 05/05/21 Direct Bilirubin < 0.1 mg/dl (0-0.2) 05/05/21 AST/SGOT 19 U/L (15-37) 05/05/21 ALT/SGPT 22 U/L (12-78) 05/05/21 Alkaline Phosphatase 91 U/L (45-117) 05/05/21 Total Protein 8.1 gm/dl (6.4-8.2) 05/05/21 Albumin 4.1 gm/dl (3.4-5.0) 05/05/21 Troponin I 0.128 ng/ml (0-0.045) H* 05/05/21 D-Dimer 400 ug/L FEU (0-500) 05/05/21 INR 1.0 (0.9-1.1) 05/05/21 COVID-19 PCR NEGATIVE (Negative) 05/05/21 Chest X-Ray 05/05/21 Code Status & VTE Plan Code Status FULL CODE VTE Prophylaxis Plan VTE Prophylaxis will be ordered: Yes Supervising Physician Co-Signing Physician Notes Patient is a 80-year-old male with history of diabetes mellitus, HTN, CVA and other medical problems presents with history of retrosternal/left-sided pressure-like chest pain, started at rest, lasted for about 1 hour. Reports associated dizziness, left-sided heaviness, shortness of breath. Family states that he was found to have high heart rate in 160s and blood pressure systolic in the 90s when checked at home. Patient admits to have palpitations at the time as well. Please review HPI for complete details of presentation. Initial troponin elevated at 0.12. EKG showed no acute changes. Chest x-ray showed no acute chest disease. On exam patient is well-built and nourished, no apparent distress, normocephalic atraumatic, lungs are clear to auscultation, decreased breath sounds, S1-S2, no murmur, no pedal edema, abdomen soft, nontender, normal bowel sounds, alert, awake, oriented, left lower extremity 4 x 5. Otherwise grossly no focal deficits. Patient is admitted for management of chest pain rule out ACS. Trend cardiac enzymes, check resting echo. N.p.o. after midnight. Agree with continuing aspirin, Plavix, statin. Update lipid panel, A1c. May need Zio patch monitor as outpatient. Cardiology consulted for possible stress test tomorrow. I personally reviewed the record. Patient is interviewed and examined at bedside. Patient's care is coordinated with Rosa Saini PA-C. Please refer to the documentation above for details of patient's presentation and for discussion of other issues.
--- NOTE | 2021-05-05 16:18 | CT Scan Report ---
CT head/brain wo con CLINICAL HISTORY: numbness to L arm/leg Technique: Contiguous axial CT images of the head were acquired from the base of the skull to the adriana ken without intravenous contrast administration. Images were viewed in brain, subdural and bone [facility]. Automated dose lowering techniques and/or adjustment according to patient size were utilized for this exam. Comparison: Comparison is made to CTA head and neck 03/24/2020 Findings: Areas of decreased attenuation are present in the periventricular and subcortical white matter bilate rally consistent with small vessel ischemic disease. Generalized cerebral atrophy with commensurate e nlargement of the ventricles, sulci, and cisterns is also present. There is no acute intracranial hem orrhage or evidence of acute territorial infarction. No shift of the midline structures, mass effect, or extra-axial abnormalities are shown. Atherosclerotic calcifications are present in the intracran ial segments of the internal carotid arteries. Hypodensity in the right internal capsule is unchanged from prior exam and may represent old lacunar infarct. Imaged portions of the paranasal sinuses and mastoid air cells are clear. The orbits appear normal. There are no acute fractures of the calvaria or scalp swelling. Impression: No acute intracranial hemorrhage, evidence of acute territorial infarction, or other acute intracrani al disease process. ACT 112: Negative or not required by law. Electronically signed by: Jed Marina M.D. 05/05/2021 4:17 PM
[2021-05-05 17:11] LABS: Appearance Urine Clear (Clear); Bilirubin Urine Negative (Negative); Blood Urine Negative (Negative); Color Urine Yellow; Glucose Urine UA Negative (Negative); Ketones Urine Negative (Negative); Leukocyte Esterase Urine Negative (Negative); Nitrite Urine Negative (Negative); Protein Urine Negative (Negative); Specific Gravity Urine 1.009 (1.000-1.030); Urobilinogen Urine Negative (Negative); pH Urine 6.5 (4.5-7.5)
[2021-05-05] MEDS ORDERED: POLYETHYLENE (MIRALAX) 17 GM PACK PO PRN (18:50)
[2021-05-05] MEDS ORDERED: ONDANSETRON INJ 2 MG/ML 2 ML VIAL IV PRN (18:50)
[2021-05-05] MEDS ORDERED: NITROGLYCERIN SL 0.4 MG/TAB TAB SL PRN (18:50)
[2021-05-05] MEDS ORDERED: CARBOHYDRATES FOR HYPOGLYCEMIA PO PRN (18:50)
[2021-05-05] MEDS ORDERED: GLUCAGON FOR INJ 1 MG VIAL SQ PRN (18:50)
[2021-05-05] MEDS ORDERED: GLUCOSE 40% GEL 15 GM TUBE PO PRN (18:50)
[2021-05-05] MEDS ORDERED: GLUCOSE 10 TABS/TUBE PO PRN (18:50)
[2021-05-05] MEDS ORDERED: ACETAMINOPHEN 325 MG TAB PO PRN (18:50)
[2021-05-05] MEDS ORDERED: DEXTROSE 50% 50 ML SYRINGE IV PRN (18:50)
[2021-05-05] MEDS: INSULIN ASPART 100 UNITS/ML 3 ML PEN SC SCH ×2 (20:04→20:05)
[2021-05-05] MEDS: INSULIN HUMAN NPH SC SCH (20:04)
[2021-05-05] MEDS: ATORVASTATIN 40 MG TAB PO SCH (20:15)
[2021-05-05] MEDS: ASPIRIN 81 MG ECTAB PO SCH (20:15)
[2021-05-05] MEDS: HEPARIN SOD 5,000 UNIT/0.5 ML VIAL SQ SCH (20:16)
[2021-05-05] MEDS: carvediloL 3.125 MG TAB PO SCH (20:16)
[2021-05-06] MEDS: HEPARIN SOD 5,000 UNIT/0.5 ML VIAL SQ SCH (05:50)
[2021-05-06] MEDS ORDERED: Nursing to Pharmacy Communication SCH (06:00)
[2021-05-06] MEDS: INSULIN HUMAN NPH SC SCH ×2 (06:25→21:47)
[2021-05-06] MEDS: INSULIN ASPART 100 UNITS/ML 3 ML PEN SC SCH ×4 (06:25→23:39)
[2021-05-06 07:43] LABS: Hematocrit (blood only) 37.2 % (42-52); Mean Corpuscular Hemoglobin 31.3 pg (25-34); Mean Corpuscular Hgb Conc 34.9 g/dL (32-36); Mean Corpuscular Volume 89.4 fL (80-100); Mean Platelet Volume 9.9 fL (7.4-10.4); Platelet Count 219 K/uL (130-400); RDW Standard Deviation 42.3 fL (36.4-46.3); Red Blood Count 4.16 M/uL (4.7-6.1); White Blood Count 7.82 K/uL (4.8-10.8)
[2021-05-06] MEDS ORDERED: Heparin IV Adult Wt-Based Standard *NO* Bolus Protocol IV SCH (07:45)
[2021-05-06] MEDS: LOSARTAN POTASSIUM 25 MG TAB PO SCH (08:08)
[2021-05-06] MEDS: TAMSULOSIN HCL 0.4 MG CAP PO SCH (08:08)
[2021-05-06] MEDS: carvediloL 3.125 MG TAB PO SCH (08:08)
[2021-05-06] MEDS: CLOPIDOGREL BISULFATE 75 MG TAB PO SCH (08:08)
[2021-05-06] MEDS: HEPARIN SODIUM/DEXTROSE 25,000 UNITS/500 ML BAG IV SCH (08:09)
[2021-05-06 08:19] LABS: Calcium 8.9 mg/dl (8.5-10.1); Creatinine Clr Calc Pharmacy 45.6 ml/min; Est GFR (Non-African American) 53.5 ml/min; Magnesium 2.2 mg/dl (1.8-2.4); Potassium 3.9 mmol/L (3.5-5.1)
[2021-05-06 08:34] LABS: Thyroid Stimulating Hormone 1.44 uIu/ml (0.300-4.500); Troponin I 0.558 ng/ml (0-0.045)
[2021-05-06 08:35] LABS: Estimated Average Glucose 157 mg/dl; Hemoglobin A1C 7.1 % (4.5-5.6)
--- NOTE | 2021-05-06 10:17 | Hospitalist Progress Note ---
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 Chest pain Lightheadedness Symptoms occurred for approximately 1 hour, he felt left-sided substernal chest pain that radiated to left shoulder with associated left arm and left leg numbness and feeling as if he could, "pass out." at bedside admits to checking blood pressure which was systolically in the 90s and heart rate read in the 160s. He felt as if his heart was racing. Trop 0.128, ecg unchanged. Sx resolved on arrival. ddx: Arrhythmia including SVT, PAT, PAF, ACS Admit to telemetry, monitor for arrhythmia Consult cardiology, no prior history of CAD or NH Echo: EF 55 to 60%, grade 1 diastolic dysfunction, moderate aortic regurg, aortic valve sclerosis, no regional wall motion abnormality Troponin: 0.128, 1.12, 0.558 IV heparin no bolus initiated this morning Cardiology recommend stress testing A1c 7.1 Triglyceride 174, total cholesterol 134, LDL 68, HDL 33 Continue ASA, Plavix Telemetry revealed normal sinus rhythm in the 60s consider ZIO patch as outpt if hospital course unremarkable Keep K >4, Mag > 2, give 20meq KCL po x1 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 HTN Blood pressure mildly elevated this morning, 153/73, 139/79 on Coreg and losartan as outpt cardiology increasing coreg to 6.25 bid Monitor HLD Statin Hypertriglyceridemia Triglycerides 174, recommend dietary modifications Consider fish oil at discharge Prostate cancer New diagnosis, to undergo radiation therapy and brachytherapy Has not yet started treatment dvt ppx: D/C SQ heparin, placed on IV heparin Dispo: PCU, awaiting cardiology evaluation, discharged home when able PCP: Sandie DNR/DNI discussed with patient and at bedside Patient was seen and examined in collaboration with Dr. Preston, please see addendum Admission and Anticipated Discharge Date Admission Date: May 05, 2021 Supervising Physician Co-Signing Physician Notes Attending addendum: The patient was seen and examined in telemetry unit He denies any chest pain, palpitation or shortness of breath His second troponin was elevated more than 1 and he was started with intravenous heparin He will have nuclear stress test this afternoon as ordered by the landscape crew leader He denies any other symptoms On examination Sitting at the edge of the bed without any acute distress Hemodynamically stable Chestclear to auscultate bilaterally HeartS1-S2, regular with a 2/6 ESM over aortic area Abdomenbenign Extremitiesno edema His EKG, imaging studies and labs reviewed Chest pain with increased troponin likely secondary to arrhythmias Intravenous heparin initiated and cardiology has been consulted No evidence of ACS We will have nuclear stress testing and if unremarkable can be sent home Agree with assessment and plan as outlined above by Rosa Saini PA-C Subjective Patient was seen and examined in room 239-3. Follow-up of chest pain and elevated troponin. "I feel great." He states he did not sleep well due to roommate playing, "farm noises." He otherwise feels well and denies any recurrence of chest pain or palpitations. He denies any fever, chills, sweats, lightheadedness, dizziness, chest pain, shortness with, cough, nausea, vomiting, abdominal pain. He further denies numbness to his left arm and leg or weakness. Review of Systems Review of Systems: All systems reviewed & are unremarkable except as noted in HPI & below Physical Exam Physical Exam: Gen: WD/WN, male, NAD, A&O x3 HEENT: Normocephalic, atraumatic, conjunctivae moist, sclerae anicteric, mucous membranes moist. Lung: Clear to Auscultation bilaterally, no wheezes/rales/rhonchi Heart: Regular rate, regular rhythm, no murmurs, rubs, or gallops Abdomen: Soft, NT, ND +BS x 4 Extremities: No edema Skin: Warm, no rash, negative turgor. Results & Data Results & Data ([facility]) Vital Signs (Past 12 Hours) Vital Signs Temp Pulse Pulse Resp BP Pulse Ox 05/06/21 07:25 36.4 C L 65 17 153/73 H 93 05/06/21 04:20 69 05/06/21 04:12 36.6 C 66 16 122/82 95 05/05/21 22:19 36.6 C 67 17 137/80 95 Laboratory Results Short CBC 05/05/21 05/06/21 Range/Units 13:35 07:15 WBC 7.49 7.82 (4.8-10.8) K/uL Hgb 14.6 13.0 L (14.0-18.0) g/dL Hct 41.8 L 37.2 L (42-52) % Plt Count 260 219 (130-400) K/uL BMP 05/05/21 05/06/21 13:35 07:15 Sodium 135 L 137 Potassium 4.1 3.9 Chloride 101 106 Carbon Dioxide 26 25 BUN 15 18 Creatinine 1.30 1.26 Glucose 141 H 105 H Calcium 9.9 8.9 Cardiac Enzymes 05/05/21 05/05/21 05/06/21 Range/Units 13:35 21:05 07:15 Troponin I 0.128 H* 1.120 H* 0.558 H* (0-0.045) ng/ml Liver Function 05/05/21 Range/Units 13:35 Total Bilirubin 0.4 (0.2-1) mg/dl Direct Bilirubin < 0.1 (0-0.2) mg/dl AST 19 (15-37) U/L ALT 22 (12-78) U/L Alkaline Phosphatase 91 (45-117) U/L Albumin 4.1 (3.4-5.0) gm/dl Urine 05/05/21 Range/Units 15:12 Urine Color Yellow Urine Appearance Clear (Clear) Urine pH 6.5 (4.5-7.5) Ur Specific [place] 1.009 (1.000-1.030) Urine Protein Negative (Negative) Urine Glucose (UA) Negative (Negative) Diagnostic Findings Head CT 05/05/21 15:55 CT head/brain wo con CLINICAL HISTORY: numbness to L arm/leg Technique: Contiguous axial CT images of the head were acquired from the base of the skull to the vertex without intravenous contrast administration. Images were viewed in brain, subdural and bone windows. Automated dose lowering techniques and/or adjustment according to patient size were utilized for this exam. Comparison: Comparison is made to CTA head and neck 03/24/2020 Findings: Areas of decreased attenuation are present in the periventricular and subcortical white matter bilaterally consistent with small vessel ischemic disease. Generalized cerebral atrophy with commensurate enlargement of the ventricles, sulci, and cisterns is also present. There is no acute intracranial hemorrhage or evidence of acute territorial infarction. No shift of the midline structures, mass effect, or extra-axial abnormalities are shown. Atherosclerotic calcifications are present in the intracranial segments of the internal carotid arteries. Hypodensity in the right internal capsule is unchanged from prior exam and may represent old lacunar infarct. Imaged portions of the paranasal sinuses and mastoid air cells are clear. The orbits appear normal. There are no acute fractures of the calvaria or scalp swelling. Impression: No acute intracranial hemorrhage, evidence of acute territorial infarction, or other acute intracranial disease process. ACT 112: Negative or not required by law. Electronically signed by: Jed Marina M.D. 05/05/2021 4:17 PM Medications Administered Current Inpatient Medications Acetaminophen (Acetaminophen 325 Mg Tab) 650 mg PO Q4H PRN PRN Reason: Pain or Fever Stop: 06/04/21 18:49 Aspirin (Aspirin 81 Mg Ectab) 81 mg PO QDD RICH Stop: 06/04/21 18:49 Last Admin: 05/05/21 20:15 Dose: 81 mg Documented by: Atorvastatin Calcium (Atorvastatin 40 Mg Tab) 40 mg PO QDD RICH Stop: 06/04/21 18:49 Last Admin: 05/05/21 20:15 Dose: 40 mg Documented by: Carvedilol (Carvedilol 3.125 Mg Tab) 3.125 mg PO BID RICH Stop: 06/04/21 20:59 Last Admin: 05/06/21 08:08 Dose: 3.125 mg Documented by: Clopidogrel Bisulfate (Clopidogrel Bisulfate 75 Mg Tab) 75 mg PO QAM RICH Stop: 06/05/21 08:59 Last Admin: 05/06/21 08:08 Dose: 75 mg Documented by: Dextrose (Dextrose 50% 50 Ml Syringe) 25 - 50 ml IV UD PRN; Protocol PRN Reason: Hypoglycemia Protocol Stop: 06/04/21 18:49 Glucagon (Glucagon For Inj 1 Mg Vial) 1 mg SQ UD PRN; Protocol PRN Reason: Hypoglycemia Protocol Stop: 06/04/21 18:49 Glucose (Glucose 10 Tabs/Tube) 4 - 8 tabs PO UD PRN; Protocol PRN Reason: Hypoglycemia Protocol Stop: 06/04/21 18:49 Glucose (Glucose 40% Gel 15 Gm Tube) 15 - 30 gm PO UD PRN; Protocol PRN Reason: Hypoglycemia Protocol Stop: 06/04/21 18:49 Heparin Sodium/Dextrose (Heparin Sodium/Dextrose) 25,000 units in 500 mls @ 25 mls/hr IV .Q20H RICH; Protocol Stop: 06/05/21 07:59 Last Admin: 05/06/21 08:09 Dose: 1,250 units/hr, 25 mls/hr Documented by: Insulin Aspart (Insulin Aspart 100 Units/Ml 3 Ml Pen) 0 units SC Q6 RICH Stop: 06/05/21 05:59 Last Admin: 05/06/21 06:25 Dose: Not Given Documented by: Insulin Human NPH (Insulin Human Nph) 0 - 10 units SC Q12H PENDING SALE TO [facility] Stop: 06/04/21 18:59 Last Admin: 05/06/21 06:25 Dose: Not Given Documented by: Losartan Potassium (Losartan Potassium 25 Mg Tab) 25 mg PO QAM PENDING SALE TO [facility] Stop: 06/05/21 08:59 Last Admin: 05/06/21 08:08 Dose: 25 mg Documented by: Miscellaneous (Carbohydrates For Hypoglycemia ) 15 - 30 gm PO UD PRN PRN Reason: Hypoglycemia Protocol Stop: 06/04/21 18:49 Nitroglycerin (Nitroglycerin Sl 0.4 Mg/Tab Tab) 0.4 mg SL UD PRN PRN Reason: Chest Pain Stop: 06/04/21 18:49 Ondansetron HCl (Ondansetron Inj 2 Mg/Ml 2 Ml Vial) 4 mg IV Q6H PRN PRN Reason: Nausea Stop: 06/04/21 18:49 Polyethylene Glycol (Polyethylene (Miralax) 17 Gm Pack) 17 gm PO DAILY PRN PRN Reason: Constipation Stop: 06/04/21 18:49 Tamsulosin HCl (Tamsulosin Hcl 0.4 Mg Cap) 0.4 mg PO QAM PENDING SALE TO [facility] Stop: 06/05/21 08:59 Last Admin: 05/06/21 08:08 Dose: 0.4 mg Documented by:
--- NOTE | 2021-05-06 10:20 | Cardiology Consultation ---
Date of Consultation May 06, 2021 Assessment & Plan (1) Elevated troponin: (2) Left-sided chest pain: (3) HTN (hypertension): (4) Palpitation: (5) Aortic insufficiency: Complex 80 year old admitted with acute onset chest heaviness with associated with tachypalpitations, dyspnea, diaphoresis, near syncope. History suggests probable arrhythmia as inciting factor with workup raising concern for underlying coronary artery disease. EKG's without acute change. Resting echocardiography revealed normal LV systolic function and wall motion, EF 55- 60%. Troponon 0.128 ->1.120 -> 0.558 ng/mL. Telemetry, thus far, without arrhythmia. Options discussed. Recommend pharmacological stress testing. Continue telemetry while hospitalized. Increase carvedilol for additional heart rate and blood pressure control. Outpatient ambulatory electrocardiography if inpatient telemetry benign. Supervising Physician Co-Signing Physician Notes I have seen and examined the patient. I have discussed the case with Mr. Connor and reviewed the medical record. I agree with the plan as outlined above. Currently the patient is stable and in good spirits. History of Present Illness Reason for Consultation: Chest pain Requesting Physician: Daniel Attending Physician: Kary History of Present Illness Mr. Welch is a very pleasant 80 year old male who was admitted to [facility] on 05/05/2021. Mr. Welch notes "I thought I was having a heart attack." He notes watching his son-in-law supervisor carbon paper coating a washer and dryer in the basement. He notes sudden onset chest heaviness associated with tachypalpitations, dyspnea, and diaphoresis. He notes that his whole left side went . He felt near syncopal. Notes sitting on a chair, trying to catch his breath. His checked his blood pressure and heart rate x 3. Initial reading was 101/75 with a heart rate of 162 bpm then 99/79 with a heart rate of 160 and finally 83/62 with a heart rate of 157 bpm. EKG on presentation revealed normal sinus rhythm at 94 bpm with sinus arrhythmia, low voltage QRS. EKG this morning revealed normal sinus rhythm at 69 bpm with low voltage QRS. Resting echocardiography on 05/06/2021 revealed normal LV function and wall motion, EF 55-60%. Normal RV function observed. Mild AI noted along with aortic sclerosis without stenosis. Troponon 0.128 ->1.120 -> 0.558 ng/mL. Telemetry reveals sinus in the 60-70's. Patient denies prior cardiac history. He specifically denies CAD, WA, CHF, arrhythmia, rheumatic fever, or scarlet fever. Family History: Father with an WA in his 80's Social History: Reformed smoker, quitting 40-45 years ago. Reformed drinker of alcohol, quitting 40-45 years ago. No illegal drug use. 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 . Lives in [place]. ROS: Prescribed Casodex for about 3 weeks, stopped at the time of prostate biopsy. Received Lupron (he believes it was about a month ago, his believes it may have been in January). He has not yet started radiation. TIA/CVA x 2. Diabetic. History of hypertension and dyslipidemia. RLS. Complete ROS is otherwise as stated above, negative, or noncontributory. Allergies Allergy/AdvReac Type Severity Reaction Status Date / Time cat dander Allergy Intermediate itchy Verified 05/05/21 14:24 watery eyes dyclonine [From Sucrets] Allergy Intermediate "numb all Verified 05/06/21 06:07 over" hexylresorcinol Allergy Intermediate "numb all Verified 05/06/21 06:07 [From Sucrets] over" horse dander Allergy Intermediate itchy Verified 05/05/21 14:24 watery eyes latex Allergy Intermediate SKIN PEELS Verified 05/05/21 14:24 adhesive Allergy Unknown "TAKES THE Verified 05/05/21 14:24 SKIN OFF" enalaprilat [From Vasotec] Allergy Unknown Verified 05/05/21 14:24 sitagliptin [From Januvia] Allergy Unknown Verified 05/05/21 14:24 diazepam [From Valium] AdvReac Severe can't stay Verified 05/05/21 14:24 awake diphenhydramine AdvReac Intermediate anxiety Verified 05/05/21 14:24 enalapril AdvReac Unknown "MADE ME Verified 05/05/21 14:24 MEAN" ferrous fumarate AdvReac Unknown Unknown Verified 05/06/21 06:20 [From Centrum] ferrous gluconate AdvReac Unknown Unknown Verified 05/06/21 06:20 [From Centrum] folic acid [From Centrum] AdvReac Unknown Unknown Verified 05/06/21 06:20 lutein [From Centrum] AdvReac Unknown Unknown Verified 05/06/21 06:20 lycopene [From Centrum] AdvReac Unknown Unknown Verified 05/06/21 06:20 meclizine AdvReac Unknown Unknown Verified 05/06/21 06:07 multivit with calcium, iron, AdvReac Unknown Unknown Verified 05/06/21 06:20 and other minerals [From Centrum] multivitamin [From Centrum] AdvReac Unknown Unknown Verified 05/06/21 06:20 multivitamin with iron,other AdvReac Unknown Unknown Verified 05/06/21 06:20 minerals [From Centrum] multivitamin with minerals AdvReac Unknown Unknown Verified 05/06/21 06:20 [From Centrum] simvastatin AdvReac Unknown Unknown Verified 05/06/21 06:07 Home Medications Medication Instructions Recorded Confirmed Type acetaminophen 500 mg tablet 500 mg PO Q6H PRN 06/08/19 05/05/21 History (Tylenol Extra Strength) aspirin 81 mg tablet,delayed 81 mg PO QDD 06/08/19 05/05/21 History release atorvastatin 40 mg tablet 40 mg PO QDD 06/08/19 05/05/21 History carvedilol 3.125 mg tablet (Coreg) 3.125 mg PO BID 06/08/19 05/05/21 History clopidogrel 75 mg tablet 75 mg PO QAM 06/08/19 05/05/21 History losartan 25 mg tablet 25 mg PO QAM 06/08/19 05/05/21 History tamsulosin 0.4 mg capsule 0.4 mg PO QAM 06/08/19 05/05/21 History walker #1 ea 03/24/20 04/10/21 Rx blood sugar diagnostic (OneTouch #100 ea 06/15/20 04/10/21 Rx Verio test strips) blood sugar diagnostic (OneTouch #100 ea 06/15/20 04/10/21 Rx Verio test strips) lancets 33 gauge (OneTouch Delica #100 ea 06/15/20 04/10/21 Rx Lancets) pen needle, diabetic 32 gauge x #200 ea 08/06/20 04/10/21 Rx 5/32" (BD Ultra-Fine Shelbie Pen Needle) insulin NPH-regular 70-30 U-100 24 unit SUBCUT QAM ml 04/10/21 05/05/21 History insulin 100 unit/mL subcutaneous pen (Novolin 70-30 FlexPen U-100 Insulin) pantoprazole 20 mg tablet,delayed 20 mg PO DAILY 04/10/21 05/05/21 History release insulin NPH-regular 70-30 U-100 18 unit SUBCUT QDD 05/05/21 05/05/21 History insulin 100 unit/mL subcutaneous pen (Novolin 70-30 FlexPen U-100 Insulin) Patient History Medical History Altered mental status Controlled type 2 diabetes mellitus, with long-term current use of insulin Elevated PSA Gastritis Generalized osteoarthrosis History of CVA (cerebrovascular accident) History of kidney stones HLD (hyperlipidemia) HTN (hypertension) Lumbar degenerative disc disease Metabolic encephalopathy Personal history of urinary calculi (01/27/13) Right arm weakness RLS (restless legs syndrome) Severe sepsis T2DM (type 2 diabetes mellitus) Uncontrolled type 2 diabetes mellitus, with long-term current use of insulin Surgical History H/O prostate biopsy History of colonoscopy with polypectomy History of cystoscopy History of laryngoscopy Hx of bursectomy Family History Father Myocardial infarction Heart disease Mother Breast cancer Sister Lupus Brother Diabetes Myocardial infarction Coronary heart disease Brother Cancer Bladder Social History Smoking Status: Former smoker Number of Years Since Quit: 40; Second Hand Exposure: No; Hx Alcohol Use: No Hx Substance Use: No Preferred Language: Slovak Communication Ability: Effective Visual Impairment: No Limitations Hearing Ability: Normal 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 NAD. HENT: Normocephalic. Atraumatic. Eyes: PER. Conjunctiva pink, sclera clear. Neck: No carotid bruits. No JVD. No HJR. Heart: RRR. Grade II/ systolic ejection murmur. No diastolic murmur. No rub. No gallop. PMI is nondisplaced. Lungs: Diminished. Decreased. Clear to auscultation. Abdomen: +BS. Soft. Nontender. No masses or organomegaly. Extremities: No clubbing, cyanosis, or edema. Limited neurological examination is without focal deficits. Pulses: radial=2/4, posterior tibial=2/4. Results & Data ([facility]) Vital Signs (Past 12 Hours) Vital Signs Temp Pulse Pulse Resp BP Pulse Ox 05/06/21 07:25 36.4 C L 65 17 153/73 H 93 05/06/21 04:20 69 05/06/21 04:12 36.6 C 66 16 122/82 95 05/05/21 22:19 36.6 C 67 17 137/80 95 Laboratory Results Laboratory Results - last 24 hr 05/05/21 05/05/21 05/05/21 13:35 13:35 13:35 WBC 7.49 RBC 4.65 L Hgb 14.6 Hct 41.8 L MCV 89.9 MCH 31.4 MCHC 34.9 RDW Std Deviation 41.8 RDW Coeff of Catherine 12.7 Plt Count 260 MPV 10.0 Immature Gran % (Auto) 0.1 Neut % (Auto) 59.2 Lymph % (Auto) 28.4 Oter[place] % (Auto) 8.1 Eos % (Auto) 3.3 Baso % (Auto) 0.9 Neut # (Auto) 4.42 Lymph # (Auto) 2.13 Otero # (Auto) 0.61 H Eos # (Auto) 0.25 Baso # (Auto) 0.07 Immature Gran # (Auto) 0.01 PT 10.6 INR 1.0 D-Dimer 400 Sodium 135 L Potassium 4.1 Chloride 101 Carbon Dioxide 26 Anion Gap 8.0 BUN 15 Creatinine 1.30 Est Cr Clr Drug Dosing 43.6 Est GFR ( Amer) 59.7 Est GFR (Non-Af Amer) 51.5 BUN/Creatinine Ratio 11.5 Glucose 141 H POC Glucose Estimat Average Glucose Hemoglobin A1c Calcium 9.9 Magnesium 2.2 Total Bilirubin 0.4 Direct Bilirubin < 0.1 AST 19 ALT 22 Alkaline Phosphatase 91 Troponin I 0.128 H* Total Protein 8.1 Albumin 4.1 Triglycerides Cholesterol LDL Cholesterol, Calc VLDL Cholesterol, Calc HDL Cholesterol Cholesterol/HDL Ratio Lipase 136 TSH Urine Color Urine Appearance Urine pH Ur Specific [place] Urine Protein Urine Glucose (UA) Urine Ketones Urine Blood Urine Nitrite Urine Bilirubin Urine Urobilinogen Ur Leukocyte Esterase COVID-19 Eval Order SARS-CoV-2 (PCR) 05/05/21 05/05/21 05/05/21 13:58 13:58 15:12 WBC RBC Hgb Hct MCV MCH MCHC RDW Std Deviation RDW Coeff of Catherine Plt Count MPV Immature Gran % (Auto) Neut % (Auto) Lymph % (Auto) [place] % (Auto) Eos % (Auto) Baso % (Auto) Neut # (Auto) Lymph # (Auto) [place] # (Auto) Eos # (Auto) Baso # (Auto) Immature Gran # (Auto) PT INR D-Dimer Sodium Potassium Chloride Carbon Dioxide Anion Gap BUN Creatinine Est Cr Clr Drug Dosing Est GFR ( Amer) Est GFR (Non-Af Amer) BUN/Creatinine Ratio Glucose POC Glucose Estimat Average Glucose Hemoglobin A1c Calcium Magnesium Total Bilirubin Direct Bilirubin AST ALT Alkaline Phosphatase Troponin I Total Protein Albumin Triglycerides Cholesterol LDL Cholesterol, Calc VLDL Cholesterol, Calc HDL Cholesterol Cholesterol/HDL Ratio Lipase TSH Urine Color Yellow Urine Appearance Clear Urine pH 6.5 Ur Specific [place] 1.009 Urine Protein Negative Urine Glucose (UA) Negative Urine Ketones Negative Urine Blood Negative Urine Nitrite Negative Urine Bilirubin Negative Urine Urobilinogen Negative Ur Leukocyte Esterase Negative COVID-19 Eval Order Covid19 at [facility] SARS-CoV-2 (PCR) NEGATIVE 05/05/21 05/05/21 05/06/21 19:46 21:05 06:00 WBC RBC Hgb Hct MCV MCH MCHC RDW Std Deviation RDW Coeff of Catherine Plt Count MPV Immature Gran % (Auto) Neut % (Auto) Lymph % (Auto) Otero % (Auto) Eos % (Auto) Baso % (Auto) Neut # (Auto) Lymph # (Auto) Otero # (Auto) Eos # (Auto) Baso # (Auto) Immature Gran # (Auto) PT INR D-Dimer Sodium Potassium Chloride Carbon Dioxide Anion Gap BUN Creatinine Est Cr Clr Drug Dosing Est GFR ( Amer) Est GFR (Non-Af Amer) BUN/Creatinine Ratio Glucose POC Glucose 111 H 101 H Estimat Average Glucose Hemoglobin A1c Calcium Magnesium Total Bilirubin Direct Bilirubin AST ALT Alkaline Phosphatase Troponin I 1.120 H* Total Protein Albumin Triglycerides Cholesterol LDL Cholesterol, Calc VLDL Cholesterol, Calc HDL Cholesterol Cholesterol/HDL Ratio Lipase TSH Urine Color Urine Appearance Urine pH Ur Specific [place] Urine Protein Urine Glucose (UA) Urine Ketones Urine Blood Urine Nitrite Urine Bilirubin Urine Urobilinogen Ur Leukocyte Esterase COVID-19 Eval Order SARS-CoV-2 (PCR) 05/06/21 05/06/21 05/06/21 07:04 07:15 07:15 WBC 7.82 RBC 4.16 L Hgb 13.0 L Hct 37.2 L MCV 89.4 MCH 31.3 MCHC 34.9 RDW Std Deviation 42.3 RDW Coeff of Catherine 13.0 Plt Count 219 MPV 9.9 Immature Gran % (Auto) Neut % (Auto) Lymph % (Auto) [place] % (Auto) Eos % (Auto) Baso % (Auto) Neut # (Auto) Lymph # (Auto) Otero # (Auto) Eos # (Auto) Baso # (Auto) Immature Gran # (Auto) PT INR D-Dimer Sodium 137 Potassium 3.9 Chloride 106 Carbon Dioxide 25 Anion Gap 6.0 BUN 18 Creatinine 1.26 Est Cr Clr Drug Dosing 45.6 Est GFR ( Amer) 62.0 Est GFR (Non-Af Amer) 53.5 BUN/Creatinine Ratio 14.0 Glucose 105 H POC Glucose 95 Estimat Average Glucose Hemoglobin A1c Calcium 8.9 Magnesium 2.2 Total Bilirubin Direct Bilirubin AST ALT Alkaline Phosphatase Troponin I 0.558 H* Total Protein Albumin Triglycerides 174 H Cholesterol 136 LDL Cholesterol, Calc 68 VLDL Cholesterol, Calc 35 HDL Cholesterol 33 Cholesterol/HDL Ratio 4 Lipase TSH 1.440 Urine Color Urine Appearance Urine pH Ur Specific [place] Urine Protein Urine Glucose (UA) Urine Ketones Urine Blood Urine Nitrite Urine Bilirubin Urine Urobilinogen Ur Leukocyte Esterase COVID-19 Eval Order SARS-CoV-2 (PCR) 05/06/21 07:15 WBC RBC Hgb Hct MCV MCH MCHC RDW Std Deviation RDW Coeff of Catherine Plt Count MPV Immature Gran % (Auto) Neut % (Auto) Lymph % (Auto) [place]ter[place] % (Auto) Eos % (Auto) Baso % (Auto) Neut # (Auto) Lymph # (Auto) [place]o # (Auto) Eos # (Auto) Baso # (Auto) Immature Gran # (Auto) PT INR D-Dimer Sodium Potassium Chloride Carbon Dioxide Anion Gap BUN Creatinine Est Cr Clr Drug Dosing Est GFR ( Amer) Est GFR (Non-Af Amer) BUN/Creatinine Ratio Glucose POC Glucose Estimat Average Glucose 157 Hemoglobin A1c 7.1 H Calcium Magnesium Total Bilirubin Direct Bilirubin AST ALT Alkaline Phosphatase Troponin I Total Protein Albumin Triglycerides Cholesterol LDL Cholesterol, Calc VLDL Cholesterol, Calc HDL Cholesterol Cholesterol/HDL Ratio Lipase TSH Urine Color Urine Appearance Urine pH Ur Specific [place] Urine Protein Urine Glucose (UA) Urine Ketones Urine Blood Urine Nitrite Urine Bilirubin Urine Urobilinogen Ur Leukocyte Esterase COVID-19 Eval Order SARS-CoV-2 (PCR)
[2021-05-06] MEDS ORDERED: D5W AND 1/2NSS 1,000 ML IV SCH (10:30)
[2021-05-06] MEDS ORDERED: POTASSIUM CHLORIDE CRTAB 20 MEQ TABCR PO STA (10:38)
[2021-05-06] MEDS: ASPIRIN 81 MG ECTAB PO SCH (17:10)
[2021-05-06] MEDS: ATORVASTATIN 40 MG TAB PO SCH (17:10)
[2021-05-06 19:33] LABS: Partial Thromboplastin Ratio 3.7
[2021-05-06 19:41] LABS: Partial Thromboplastin Time 96.8 Seconds (21.0-31.0)
[2021-05-06] MEDS: carvediloL 6.25 MG TAB PO SCH (20:28)
[2021-05-07 02:43] LABS: Hematocrit (blood only) 37.5 % (42-52); Mean Corpuscular Hemoglobin 31.3 pg (25-34); Mean Corpuscular Hgb Conc 34.7 g/dL (32-36); Mean Corpuscular Volume 90.1 fL (80-100); Mean Platelet Volume 10.2 fL (7.4-10.4); Platelet Count 224 K/uL (130-400); RDW Coefficient of Variation 12.7 % (11.5-14.5); RDW Standard Deviation 41.6 fL (36.4-46.3); Red Blood Count 4.16 M/uL (4.7-6.1); White Blood Count 9.09 K/uL (4.8-10.8)
[2021-05-07 03:01] LABS: BUN Creatinine Ratio 16.2 (10-20); Calcium 9.1 mg/dl (8.5-10.1); Creatinine Clr Calc Pharmacy 43.9 ml/min; Est GFR (African American) 59.2 ml/min; Est GFR (Non-African American) 51.1 ml/min; Partial Thromboplastin Ratio 3.3; Potassium 3.9 mmol/L (3.5-5.1)
[2021-05-07 03:08] LABS: Partial Thromboplastin Time 87.6 Seconds (21.0-31.0)
[2021-05-07] MEDS: HEPARIN SODIUM/DEXTROSE 25,000 UNITS/500 ML BAG IV SCH ×2 (03:47→04:34)
--- NOTE | 2021-05-07 04:43 | Electrocardiogram Report ---
Test Reason : Blood Pressure : / mmHG Vent. Rate : 094 BPM Atrial Rate : 094 BPM P-R Int : 190 ms QRS Dur : 078 ms QT Int : 352 ms P-R-T Axes : 063 -21 060 degrees QTc Int : 440 ms Normal sinus rhythm with sinus arrhythmia Low voltage QRS Inferior infarct (cited on or before 12-AUG-2012) Nonspecific ST abnormality Abnormal ECG When compared with ECG of 30-AUG-2020 07:29, No significant change was found Confirmed by Kareem Garcia ([id number]) on 05/07/2021 4:43:23 AM Referred By: REFERRED SELF Confirmed By:Kareem Garcia
--- NOTE | 2021-05-07 05:00 | Electrocardiogram Report ---
Test Reason : Blood Pressure : / mmHG Vent. Rate : 069 BPM Atrial Rate : 069 BPM P-R Int : 186 ms QRS Dur : 086 ms QT Int : 440 ms P-R-T Axes : 065 -17 065 degrees QTc Int : 471 ms Normal sinus rhythm Low voltage QRS Possible Inferior infarct When compared with ECG of 05-MAY-2021 13:33, No significant change was found Confirmed by Kareem Garcia ([id number]) on 05/07/2021 5:00:29 AM Referred By: REFERRED SELF Confirmed By:Kareem Garcia
[2021-05-07] MEDS: INSULIN ASPART 100 UNITS/ML 3 ML PEN SC SCH ×2 (05:58→12:54)
[2021-05-07] MEDS: INSULIN HUMAN NPH SC SCH (05:59)
[2021-05-07] MEDS ORDERED: REGADENOSON 0.4 MG/5 ML SYR IV ONE (08:08)
--- NOTE | 2021-05-07 10:41 | Cardiology Progress Note ---
Date of Service May 07, 2021 Assessment & Plan (1) Elevated troponin: (2) Left-sided chest pain: (3) HTN (hypertension): (4) Palpitation: (5) Aortic insufficiency: Plan: Complex 80 year old admitted with acute onset chest heaviness with associated with tachypalpitations, dyspnea, diaphoresis, near syncope. History suggests probable arrhythmia as inciting factor with workup raising concern for underlying coronary artery disease. EKG's without acute change. Resting echocardiography revealed normal LV systolic function and wall motion, EF 55- 60%. Troponon 0.128 ->1.120 -> 0.558 ng/mL. Telemetry without arrhythmia. Lexiscan nuclear stress testing performed, pending interpretation. If stress testing is acceptable would continue workup as an outpatient, with a 14 day Zio monitor. Carvedilol notably increased for heart rate and blood pressure control. Admission and Anticipated Discharge Date Admission Date: May 05, 2021 Supervising Physician Co-Signing Physician Notes I saw and evaluated the patient today. I reviewed the medical record and discussed the case with Mr. Connor. The patient had a pharmacologic nuclear stress test today which I read and it was negative for ischemia. I agree the patient can be worked up from this point as an outpatient with a ZIO monitor. Subjective Patient seen and examined upon returning from Lexiscan nuclear stress testing lab (results pending). Chart, medications, and telemetry reviewed. Anxious for discharge. Minor twinges of chest pain lasting a split second. No dyspnea. No palpitations. No headaches, dizziness, near syncope, or GI upset. EKG this AM revealed normal sinus rhythm with low voltage QRS, possible old inferior infarct, unchanged compared to prior Telemetry: Sinus in the 70's with an occasional PVC. Review of Systems Review of Systems: Complete Review of Systems is as stated above, negative, or noncontributory. Physical Exam Physical Exam: General: A&Ox3. NAD. HENT: Normocephalic. Atraumatic. Eyes: PER. Conjunctiva pink, sclera clear. Neck: No carotid bruits. No JVD. No HJR. Heart: RRR. Grade II/ systolic ejection murmur. No diastolic murmur. No rub. No gallop. PMI is nondisplaced. Lungs: Diminished. Decreased. Clear to auscultation. Abdomen: +BS. Soft. Nontender. No masses or organomegaly. Extremities: No clubbing, cyanosis, or edema. Limited neurological examination is without focal deficits. Pulses: radial=2/4, posterior tibial=2/4. Results & Data ([facility]) Vital Signs (Past 12 Hours) Vital Signs Temp Pulse Pulse Resp BP BP Pulse Ox 05/07/21 10:00 67 05/07/21 07:56 36.8 C 89 18 101/63 96 05/07/21 04:42 36.7 C 93 H 16 93/55 L 93 05/07/21 04:31 66 05/06/21 23:20 36.5 C 65 16 123/63 93 Pulse Ox 05/07/21 10:00 96 05/07/21 07:56 05/07/21 04:42 05/07/21 04:31 05/06/21 23:20 Laboratory Results Laboratory Results - last 24 hr 05/06/21 05/06/21 05/06/21 11:10 16:26 19:07 WBC RBC Hgb Hct MCV MCH MCHC RDW Std Deviation RDW Coeff of Catherine Plt Count MPV APTT 96.8 H* PTT Ratio 3.7 Sodium Potassium Chloride Carbon Dioxide Anion Gap BUN Creatinine Est Cr Clr Drug Dosing Est GFR ( Amer) Est GFR (Non-Af Amer) BUN/Creatinine Ratio Glucose POC Glucose 127 H 182 H Calcium 05/06/21 05/07/21 05/07/21 20:45 02:28 02:28 WBC 9.09 RBC 4.16 L Hgb 13.0 L Hct 37.5 L MCV 90.1 MCH 31.3 MCHC 34.7 RDW Std Deviation 41.6 RDW Coeff of Catherine 12.7 Plt Count 224 MPV 10.2 APTT 87.6 H* PTT Ratio 3.3 Sodium Potassium Chloride Carbon Dioxide Anion Gap BUN Creatinine Est Cr Clr Drug Dosing Est GFR ( Amer) Est GFR (Non-Af Amer) BUN/Creatinine Ratio Glucose POC Glucose 151 H Calcium 05/07/21 05/07/21 05/07/21 02:28 05:57 07:22 WBC RBC Hgb Hct MCV MCH MCHC RDW Std Deviation RDW Coeff of Catherine Plt Count MPV APTT PTT Ratio Sodium 134 L Potassium 3.9 Chloride 102 Carbon Dioxide 27 Anion Gap 5.0 BUN 21 H Creatinine 1.31 Est Cr Clr Drug Dosing 43.9 Est GFR ( Amer) 59.2 Est GFR (Non-Af Amer) 51.1 BUN/Creatinine Ratio 16.2 Glucose 146 H POC Glucose 118 H 138 H Calcium 9.1
[2021-05-07 11:33] LABS: Partial Thromboplastin Ratio 2.3
[2021-05-07 11:36] LABS: Partial Thromboplastin Time 60.7 Seconds (21.0-31.0)
[2021-05-07] MEDS: carvediloL 6.25 MG TAB PO SCH (14:01)
[2021-05-07] MEDS: CLOPIDOGREL BISULFATE 75 MG TAB PO SCH (14:02)
[2021-05-07] MEDS: TAMSULOSIN HCL 0.4 MG CAP PO SCH (14:03)
[2021-05-07] MEDS: LOSARTAN POTASSIUM 25 MG TAB PO SCH (14:04)
--- NOTE | 2021-05-07 14:08 | Myocardial Perfusion Study ---
Date of Service May 07, 2021 Myocardial Perfusion Study k Myocardial Perfusion Study Report The patient received 10.04 mCi of intravenous tech 99M sestamibi at 7:49 AM on May 07, 2021. Thirty minutes later the patient underwent SPECT imaging of the heart. The patient then received a Lexiscan bolus according to protocol followed by 34.0 mCi of intravenous tech 99M at 9:13 AM. One hour following the injection the patient had repeat SPECT imaging. The patient had no symptoms or EKG changes following the Lexiscan bolus. When comparing the rest to stress sestamibi scans there is homogeneous perfusion on both the rest and stress studies. Gated analysis reveals normal LV function with an estimated left ventricular ejection fraction of above 65%. Overall, this pharmacologic nuclear stress test is negative for ischemia and denotes a low probability for hemodynamically significant coronary artery disease.
--- NOTE | 2021-05-07 14:09 | Hospitalist Progress Note ---
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 Chest pain Lightheadedness Symptoms occurred for approximately 1 hour, he felt left-sided substernal chest pain that radiated to left shoulder with associated left arm and left leg numbness and feeling as if he could, "pass out." at bedside admits to checking blood pressure which was systolically in the 90s and heart rate read in the 160s. He felt as if his heart was racing. Trop 0.128, ecg unchanged. Sx resolved on arrival. 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 CT head unremarkable Continue ASA, Plavix, statin T2DM, insulin-dependent controlled A1c 7.1 NovoLog, NPH per protocol BSG stable HTN Blood pressure mildly elevated this morning, 153/73, 139/79 on Coreg and losartan as outpt cardiology increased coreg to 6.25 bid Monitor HLD Statin Hypertriglyceridemia Triglycerides 174, recommend dietary modifications Consider fish oil at discharge Prostate cancer New diagnosis, to undergo radiation therapy and brachytherapy Has not yet started treatment dvt ppx: placed on IV heparin Dispo: awaiting stress test results, likely d/c today PCP: Sandie DNR/DNI discussed with patient and at bedside Patient was seen and examined in collaboration with Dr. Preston, please see addendum Admission and Anticipated Discharge Date Admission Date: May 05, 2021 Supervising Physician Co-Signing Physician Notes Attending addendum The patient was seen and examined in telemetry unit Denies any more complaints of chest pain, palpitation or shortness of breath since admission He underwent Lexiscan this morning On examination Lying in bed comfortably Hemodynamically stable Chest-clear to auscultate bilaterally Heart-S1-S2, regular Abdomen-benign Extremities-negative for any edema His labs, EKG and imaging studies reviewed Chest pain no evidence of ACS and no ischemia in Lexiscan Agree with assessment and plan as outlined above by SHRERY Alfaro DR Subjective Patient was seen and examined in room 239-2. Follow-up of chest pain and elevated troponin. He offers no acute complaints today. He underwent stress test, but does not know what the results are. He denies any fever, chills, sweats, lightheadedness, dizziness, chest pain, shortness breath, cough, nausea, vomiting, abdominal pain. He is hungry and requesting diet. Review of Systems Review of Systems: All systems reviewed & are unremarkable except as noted in HPI & below Physical Exam Physical Exam: Gen: WD/WN, male, NAD, A&O x3 HEENT: Normocephalic, atraumatic, conjunctivae moist, sclerae anicteric, mucous membranes moist. Lung: Clear to Auscultation bilaterally, no wheezes/rales/rhonchi Heart: Regular rate, regular rhythm, no murmurs, rubs, or gallops Abdomen: Soft, NT, ND +BS x 4 Extremities: No edema Skin: Warm, no rash, negative turgor. Results & Data Results & Data ([facility]) Vital Signs (Past 12 Hours) Vital Signs Temp Pulse Pulse Resp BP BP Pulse Ox 05/07/21 11:01 36.6 C 65 18 150/90 H 96 05/07/21 10:00 67 05/07/21 07:56 36.8 C 89 18 101/63 96 05/07/21 04:42 36.7 C 93 H 16 93/55 L 93 05/07/21 04:31 66 Pulse Ox 05/07/21 11:01 05/07/21 10:00 96 05/07/21 07:56 05/07/21 04:42 05/07/21 04:31 Laboratory Results Short CBC 05/07/21 Range/Units 02:28 WBC 9.09 (4.8-10.8) K/uL Hgb 13.0 L (14.0-18.0) g/dL Hct 37.5 L (42-52) % Plt Count 224 (130-400) K/uL BMP 05/07/21 02:28 Sodium 134 L Potassium 3.9 Chloride 102 Carbon Dioxide 27 BUN 21 H Creatinine 1.31 Glucose 146 H Calcium 9.1 Medications Administered Current Inpatient Medications Acetaminophen (Acetaminophen 325 Mg Tab) 650 mg PO Q4H PRN PRN Reason: Pain or Fever Stop: 06/04/21 18:49 Aspirin (Aspirin 81 Mg Ectab) 81 mg PO QDD [facility] Stop: 06/04/21 18:49 Last Admin: 05/06/21 17:10 Dose: 81 mg Documented by: Atorvastatin Calcium (Atorvastatin 40 Mg Tab) 40 mg PO QDD [facility] Stop: 06/04/21 18:49 Last Admin: 05/06/21 17:10 Dose: 40 mg Documented by: Carvedilol (Carvedilol 6.25 Mg Tab) 6.25 mg PO BID [facility] Stop: 06/05/21 20:59 Last Admin: 05/07/21 14:01 Dose: 6.25 mg Documented by: Clopidogrel Bisulfate (Clopidogrel Bisulfate 75 Mg Tab) 75 mg PO QAM [facility] Stop: 06/05/21 08:59 Last Admin: 05/07/21 14:02 Dose: 75 mg Documented by: Dextrose (Dextrose 50% 50 Ml Syringe) 25 - 50 ml IV UD PRN; Protocol PRN Reason: Hypoglycemia Protocol Stop: 06/04/21 18:49 Glucagon (Glucagon For Inj 1 Mg Vial) 1 mg SQ UD PRN; Protocol PRN Reason: Hypoglycemia Protocol Stop: 06/04/21 18:49 Glucose (Glucose 10 Tabs/Tube) 4 - 8 tabs PO UD PRN; Protocol PRN Reason: Hypoglycemia Protocol Stop: 06/04/21 18:49 Glucose (Glucose 40% Gel 15 Gm Tube) 15 - 30 gm PO UD PRN; Protocol PRN Reason: Hypoglycemia Protocol Stop: 06/04/21 18:49 Heparin Sodium/Dextrose (Heparin Sodium/Dextrose) 25,000 units in 500 mls @ 19 mls/hr IV .Q24H [facility]; Protocol Stop: 06/05/21 07:59 Last Admin: 05/07/21 04:34 Dose: Not Given Documented by: Insulin Aspart (Insulin Aspart 100 Units/Ml 3 Ml Pen) 0 units SC Q6 [facility] Stop: 06/05/21 05:59 Last Admin: 05/07/21 12:54 Dose: Not Given Documented by: Insulin Human NPH (Insulin Human Nph) 0 - 10 units SC Q12H [facility] Stop: 06/04/21 18:59 Last Admin: 05/07/21 05:59 Dose: Not Given Documented by: Losartan Potassium (Losartan Potassium 25 Mg Tab) [facility] Stop: 06/05/21 08:59 Last Admin: 05/07/21 14:04 Dose: 25 mg Documented by: Miscellaneous (Carbohydrates For Hypoglycemia ) 15 - 30 gm PO UD PRN PRN Reason: Hypoglycemia Protocol Stop: 06/04/21 18:49 Nitroglycerin (Nitroglycerin Sl 0.4 Mg/Tab Tab) 0.4 mg SL UD PRN PRN Reason: Chest Pain Stop: 06/04/21 18:49 Ondansetron HCl (Ondansetron Inj 2 Mg/Ml 2 Ml Vial) 4 mg IV Q6H PRN PRN Reason: Nausea Stop: 06/04/21 18:49 Polyethylene Glycol (Polyethylene (Miralax) 17 Gm Pack) 17 gm PO DAILY PRN PRN Reason: Constipation Stop: 06/04/21 18:49 Tamsulosin HCl (Tamsulosin Hcl 0.4 Mg Cap) 0.4 mg [facility] Stop: 06/05/21 08:59 Last Admin: 05/07/21 14:03 Dose: 0.4 mg Documented by:
--- NOTE | 2021-05-07 14:39 | Discharge Summary ---
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 He describes symptoms of substernal chest pain and pressure with associated lightheaded and numbness and heaviness to L arm and L leg. When sx started he was supervising his son as he was moving their washer/dryer to first floor. He felt as if he could, "black out." Pain described as a heaviness and lasted approximately 1 hour. Sx have completely resolved w/o treatment. He has associated SOB but no sweating. at bedside states his pulse was 160 and felt his BP was low, 98/78. He felt his heart was racing. This was chest pain was not radiating to L neck or back. He denies and nausea or vomiting. Has never had anything similar in the past. He denies hx of CAD or TN. Denies recent illness, n/v/d, abdominal pain. He felt hot and cold yesterday but no documented fever. Denies syncope, ANTHONY, cough, URI sx, hemoptysis, weakness to extremities. He does have chronic L sided weakness from prior CVA. Admits to being compliant with medications. In ED patient remained hemodynamically stable. His CBC and CMP was generally unremarkable but he did have elevated troponin at 0.128. His EKG revealed normal sinus rhythm with sinus arrhythmia and a rate of 94 bpm. No significant change was found. Inferior infarct cited on or before 08/12/2012. He received full dose aspirin in ED. He was asymptomatic while in ED. He also received IVF. is at bedside. Admission Exam Per Admitting Provider Constitutional: WD/WN, vitals as above, NAD, sitting up in bed, pleasant, conversing easily Head: Normocephalic, Atraumatic Eyes: PERRL, conjunctivae normal, anicteric sclerae ENMT: external ear and nose normal, oropharynx normal Neck: trachea midline, no thyromegaly normal visual inspection Respiratory: normal respiratory effort, lungs clear to auscultation, no wheeze, rales, rhonchi. Normal insp/exp effort, no accessory muscle use Cardiovascular: RRR, no murmur, no edema Vessels: no JVD or carotid bruit Chest: normal inspection of chest Abdomen: normal bowel sounds, soft, nontender, no hepatosplenomegaly Musculoskeletal: no cyanosis or clubbing, extremities motor strength 4/5 on left, 5/5 on right Skin: no rashes, warm and dry normal turgor Neurologic: PERRL, EOMI, accommodation nl, no face palsy, no dysarthria CN's II-XI intact bilaterally and moves all extremities Psychiatric: A+Ox3, euthymic affect Lymphatic: no cervical or axillary lymphadenopathy : deferred Principal Diagnosis Chest pain Lightheadedness Elevated troponin T2DM Discharge Exam Gen: WD/WN, male, NAD, A&O x3 HEENT: Normocephalic, atraumatic, conjunctivae moist, sclerae anicteric, mucous membranes moist. Lung: Clear to Auscultation bilaterally, no wheezes/rales/rhonchi Heart: Regular rate, regular rhythm, no murmurs, rubs, or gallops Abdomen: Soft, NT, ND +BS x 4 Extremities: No edema Skin: Warm, no rash, negative turgor. Discharge Data Allergies Allergy/AdvReac Type Severity Reaction Status Date / Time cat dander Allergy Intermediate itchy Verified 05/05/21 14:24 watery eyes dyclonine [From Sucrets] Allergy Intermediate "numb all Verified 05/06/21 06:07 over" hexylresorcinol Allergy Intermediate "numb all Verified 05/06/21 06:07 [From Sucrets] over" horse dander Allergy Intermediate itchy Verified 05/05/21 14:24 watery eyes latex Allergy Intermediate SKIN PEELS Verified 05/05/21 14:24 adhesive Allergy Unknown "TAKES THE Verified 05/05/21 14:24 SKIN OFF" enalaprilat [From Vasotec] Allergy Unknown Verified 05/05/21 14:24 sitagliptin [From Januvia] Allergy Unknown Verified 05/05/21 14:24 diazepam [From Valium] AdvReac Severe can't stay Verified 05/05/21 14:24 awake diphenhydramine AdvReac Intermediate anxiety Verified 05/05/21 14:24 enalapril AdvReac Unknown "MADE ME Verified 05/05/21 14:24 MEAN" ferrous fumarate AdvReac Unknown Unknown Verified 05/06/21 06:20 [From Centrum] ferrous gluconate AdvReac Unknown Unknown Verified 05/06/21 06:20 [From Centrum] folic acid [From Centrum] AdvReac Unknown Unknown Verified 05/06/21 06:20 lutein [From Centrum] AdvReac Unknown Unknown Verified 05/06/21 06:20 lycopene [From Centrum] AdvReac Unknown Unknown Verified 05/06/21 06:20 meclizine AdvReac Unknown Unknown Verified 05/06/21 06:07 multivit with calcium, iron, AdvReac Unknown Unknown Verified 05/06/21 06:20 and other minerals [From Centrum] multivitamin [From Centrum] AdvReac Unknown Unknown Verified 05/06/21 06:20 multivitamin with iron,other AdvReac Unknown Unknown Verified 05/06/21 06:20 minerals [From Centrum] multivitamin with minerals AdvReac Unknown Unknown Verified 05/06/21 06:20 [From Centrum] simvastatin AdvReac Unknown Unknown Verified 05/06/21 06:07 Consultations Cardiology Consult: Assessment & Plan (1) Elevated troponin: (2) Left-sided chest pain: (3) HTN (hypertension): (4) Palpitation: (5) Aortic insufficiency: Plan: Complex 80 year old admitted with acute onset chest heaviness with associated with tachypalpitations, dyspnea, diaphoresis, near syncope. History suggests probable arrhythmia as inciting factor with workup raising concern for underlying coronary artery disease. EKG's without acute change. Resting echocardiography revealed normal LV systolic function and wall motion, EF 55- 60%. Troponon 0.128 ->1.120 -> 0.558 ng/mL. Telemetry without arrhythmia. Lexiscan nuclear stress testing performed, pending interpretation. If stress testing is acceptable would continue workup as an outpatient, with a 14 day Zio monitor. Carvedilol notably increased for heart rate and blood pressure control. Ordered Studies Chest X-Ray 05/05/21 13:36 XR chest 1V portable CLINICAL HISTORY: left chest pain TECHNIQUE: Single frontal radiograph of the chest was obtained. Comparison: None available at the time of this dictation. FINDINGS: No lines and tubes are seen. The cardiomediastinal silhouette is normal. The lungs are clear. No evidence of pleural effusion or pneumothorax. IMPRESSION: No acute chest disease. ACT 112: Negative or not required by law. Electronically signed by: Jed Marina M.D. 05/05/2021 2:[address] 05/05/21 15:55 CT head/brain wo con CLINICAL HISTORY: numbness to L arm/leg Technique: Contiguous axial CT images of the head were acquired from the base of the skull to the vertex without intravenous contrast administration. Images were viewed in brain, subdural and bone windows. Automated dose lowering techniques and/or adjustment according to patient size were utilized for this exam. Comparison: Comparison is made to CTA head and neck 03/24/2020 Findings: Areas of decreased attenuation are present in the periventricular and subcortical white matter bilaterally consistent with small vessel ischemic disease. Generalized cerebral atrophy with commensurate enlargement of the ventricles, sulci, and cisterns is also present. There is no acute intracranial hemorrhage or evidence of acute territorial infarction. No shift of the midline structures, mass effect, or extra-axial abnormalities are shown. Atherosclerotic calcifications are present in the intracranial segments of the internal carotid arteries. Hypodensity in the right internal capsule is unchanged from prior exam and may represent old lacunar infarct. Imaged portions of the paranasal sinuses and mastoid air cells are clear. The orbits appear normal. There are no acute fractures of the calvaria or scalp swelling. Impression: No acute intracranial hemorrhage, evidence of acute territorial infarction, or other acute intracranial disease process. ACT 112: Negative or not required by law. Electronically signed by: Jed Marina M.D. 05/05/2021 4:17 PM Myocardial Perfusion Study Report The patient received 10.04 mCi of intravenous tech 99M sestamibi at 7:49 AM on May 07, 2021. Thirty minutes later the patient underwent SPECT imaging of the heart. The patient then received a Lexiscan bolus according to protocol followed by 34.0 mCi of intravenous tech 99M at 9:13 AM. One hour following the injection the patient had repeat SPECT imaging. The patient had no symptoms or EKG changes following the Lexiscan bolus. When comparing the rest to stress sestamibi scans there is homogeneous perfusion on both the rest and stress studies. Gated analysis reveals normal LV function with an estimated left ventricular ejection fraction of above 65%. Overall, this pharmacologic nuclear stress test is negative for ischemia and denotes a low probability for hemodynamically significant coronary artery disease. 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 Symptoms occurred for approximately 1 hour, he felt left-sided substernal chest pain that radiated to left shoulder with associated left arm and left leg numbness and feeling as if he could, "pass out." at bedside admits to checking blood pressure which was systolically in the 90s and heart rate read in the 160s. He felt as if his heart was racing. Trop 0.128, ecg unchanged. Sx resolved on arrival. He was admitted to telemetry and maintain sinus rhythm. He was seen and evaluated by cardiology. Echocardiogram was obtained which revealed EF 55 to 60%, grade 1 diastolic dysfunction, moderate aortic regurg, aortic valve sclerosis, no regional wall motion abnormality. His initial troponin was elevated at 0.128. A recheck troponin 6 hours later was 1.12. He was initiated on IV heparin. Is still troponin down trended 2.558. He underwent nuclear stress test which was negative for inducible ischemia. His A1c was 7.1 and lipid panel revealed Triglyceride 174, total cholesterol 134, LDL 68, HDL 33. It is recommended patient follow-up with cardiology as outpatient to continue work-up which will include a Zio patch. On admission he did have mild hypokalemia which was replaced. During hospitalization he was placed on insulin regimen and his blood sugars remained stable. His blood pressure was mildly elevated and cardiology increased his carvedilol from 3.125 twice daily to 6.25 twice daily. At time of discharge patient was in good spirits, his vital signs are stable and he was without chest pain. Total Time Total Time Spent Total Time Spent (In Minutes): 60 minutes Discharge Plan Discharge Items Patient Disposition: Home - Self-Care Reason For Visit: CHEST PAIN/RAPID HEART RATE Discharge Diagnosis: Chest Pain Condition on Discharge: Good Activity: Resume your previous activity Bathing: No limitations Exercise/Sports: Wait until after follow-up appointment Driving/Machine Use: No limitations Weightbearing: Full weightbearing Non-emergency contact: Primary Care Provider and Retail Business Analyst Call non-emergency contact if: you have any medication questions, your symptoms worsen, your pain is not controlled, your pain is worsening, your pain is unusual for you, your pain is concerning for you, you have a fever and your temperature is above 101 Follow-up/Referrals: Matt Hooper MD [Primary Care Provider] - 05/14/21 2:20 am (Date & Time 05/14/2021 2:20 PM Provider Matt Hooper MD Department [facility] ) Diet: Carb Consistent or DM2 and Heart Healthy Addtl Attending Provider Instructions: MEDICATION CHANGES: Carvedilol increased to 6.25mg twice daily Recommend starting Fish Oil - 1,000mg, two tablets daily. This can be purchased over the counter for elevated triglycerides. Continue all other medications. SUMMARY OF TEST RESULTS/HOSPITALIZATION: You are admitted to hospital secondary to chest pain and lightheadedness. Your heart enzyme, troponin, was elevated on admission. You were started on IV heparin due to concern for possible heart attack. You were seen and evaluated by cardiology. He underwent nuclear stress test which was negative for inducible ischemia. There is concerned that Your symptoms may have been related to an arrhythmia. You were monitored on a heart monitor for 48 hours which did not result in any irregular heartbeats. Cardiology is recommending a 14-day continuous heart monitor as outpatient. This will be arranged by cardiology. Your A1c on admission was 7.1. Your diabetes is under good control. Your cholesterol panel was also obtained. It was unremarkable except for mild elevation in your triglycerides. Your triglycerides were 174 and normal less than 150. Would recommend obtaining dord-qct-ampappp fish oil to take 2 tablets daily. PENDING TEST RESULTS: None RECOMMENDATIONS FOR FOLLOW-UP: Follow up with PCP as scheduled, 05/14/2021 @ 2:20p.m. Continue all medications as prescribed. Follow up with cardiology to undergo ZIO patch, continuous heart monitor for 14 days. Recommend a heart healthy diet. OTHER INSTRUCTIONS: Seek medical attention if you have: * temperature above 101 * chest pain or trouble breathing * abdominal pain, nausea, vomiting * diarrhea, dark stools or bloody stools * any unanswered questions or concerns Call 911 if symptoms are severe. Please take good care of yourself. It has been a pleasure taking care of you. Please take care of yourself. If you have any questions regarding your recent hospitalization please contact [facility] and request Katy De Jesusist @ [phone]. Rosa Saini PA-C Pending Studies at Discharge: No Stand-Alone Forms: My [facility], Smoking Cessation Medications and DC Order Prescriptions: New carvedilol 6.25 mg Tablet 6.25 mg PO BID Qty: 60 RF: 0 Continued pantoprazole 20 mg tablet,delayed release (DR/EC) 20 mg PO DAILY RF: 0 Novolin 70-30 FlexPen U-100 100 unit/mL (70-30) insulin pen 24 unit subcut QAM RF: 0 oxycodone-acetaminophen [Percocet] 5-325 mg tablet 1 tab PO Q8H PRN (Reason: pain) Qty: 2 RF: 0 lorazepam 0.5 mg tablet 0.5 mg buccal ONCE Qty: 2 RF: 0 (DME) OneTouch Verio test strips Strip See Rx Instructions .ROUTE .MEDSUPPLY Qty: 100 RF: 3 (DME) OneTouch Verio test strips Strip See Rx Instructions [id number] .MEDSUPPLY Qty: 100 RF: 3 (DME) lancets [OneTouch Delica Lancets] 33 gauge misc See Rx Instructions .ROUTE .MEDSUPPLY Qty: 100 RF: 3 (DME) pen needle, diabetic [BD Ultra-Fine Shelbie Pen Needle] 32 gauge x 5/32" needle See Rx Instructions .ROUTE .MEDSUPPLY Qty: 200 RF: 3 atorvastatin 40 mg tablet 40 mg PO QDD RF: 0 clopidogrel 75 mg tablet 75 mg PO QAM RF: 0 aspirin 81 mg Tablet,Delayed Release (Dr/Ec) 81 mg PO QDD RF: 0 tamsulosin 0.4 mg capsule 0.4 mg PO QAM RF: 0 losartan 25 mg tablet 25 mg PO QAM RF: 0 acetaminophen [Tylenol Extra Strength] 500 mg Tablet 500 mg PO Q6H PRN (Reason: Pain) RF: 0 (DME) walker Misc See Rx Instructions .ROUTE .MEDSUPPLY Qty: 1 RF: 0 Novolin 70-30 FlexPen U-100 100 unit/mL (70-30) insulin pen 18 unit SUBCUT QDD RF: 0 Discontinued carvedilol [Coreg] 3.125 mg tablet 3.125 mg PO BID RF: 0 Discharge Orders: Discharge Order (Routine); Ordered 05/07/21 Ordered By: Rosa Talley/Other Patient Handouts: A1C, Managing Type 2 Diabetes Admission Data Admit Date/Time: 05/05/21 15:11 Attending Provider: Danni Preston Admit Provider: Artemio Sanchez Primary Care Provider: Matt Hooper Other Providers: Azalia Shaver ; Cali Arce ; Rosa Saini ; Artemio Sanchez Other Interventions: Discharge Summary Assessment (RN) Last Done: 05/07/21 15:03 Supervising Physician Co-Signing Physician Notes Attending addendum The patient was seen and examined by me in the telemetry unit this morning. He has been feeling much better and his stress test came back negative for any ischemic changes. He remained free of any symptoms and was discharged home this afternoon in good medical condition. The discharge summary, medications and instructions reviewed thoroughly and completely agree with the plan as documented by SHERRY Goins Dr
--- NOTE | 2021-05-08 05:04 | Electrocardiogram Report ---
Test Reason : Blood Pressure : / mmHG Vent. Rate : 064 BPM Atrial Rate : 064 BPM P-R Int : 186 ms QRS Dur : 088 ms QT Int : 444 ms P-R-T Axes : 065 -26 063 degrees QTc Int : 458 ms Normal sinus rhythm Low voltage QRS Inferior infarct , age undetermined Abnormal ECG When compared with ECG of 06-MAY-2021 06:10, No significant change was found Confirmed by Kareem Garcia ([id number]) on 05/08/2021 5:04:21 AM Referred By: REFERRED SELF Confirmed By:Kareem Garcia
== END 2021-05-07 15:31 | disposition home or self-care (01) ==
LOC: EDINP 13:17 → ED 13:17 → SUATTDRO 15:11 → 2S 16:55

== ENCOUNTER 2021-06-18 09:55 | Observation (INO) ==
[2021-06-18] MEDS ORDERED: SODIUM CHLORIDE 0.9% 1000ML 1,000 ML IV STA (10:46)
[2021-06-18] MEDS ORDERED: SODIUM CHLORIDE 0.9% 1000ML 500 ML IV ONE (10:46)
--- NOTE | 2021-06-18 10:51 | XRay Report ---
XR chest 1V portable HISTORY: 80 years-old Male weakness acute weakness COMPARISON: Chest radiograph 05/05/2021 TECHNIQUE: Portable AP view of the chest FINDINGS: Cardiac mediastinal and hilar silhouettes are unchanged. Calcified plaque of the thoracic aorta. Pad Assembler jonathan coarsening of the interstitium. No pneumothorax, pleural effusion, airspace consolidation or over t pulmonary edema. Mild linear subsegmental left basilar atelectasis/scarring. Degenerative changes o f the shoulders and spine. IMPRESSION: Chronic interstitial coarsening without acute process. ACT 112: Negative or not required by law. The above report was generated using voice recognition software. It may contain grammatical, syntax o r spelling errors. Electronically signed by: Marquis Horn M.D. 06/18/2021 10:50 AM
[2021-06-18 11:08] LABS: Basophils # (auto) 0.03 K/uL (0-0.2); Basophils % (auto) 0.3 %; Hematocrit (blood only) 37.8 % (42-52); Hemoglobin 13.2 g/dL (14.0-18.0); Immature Granulocytes # (auto) 0.02 K/uL (0.00-0.02); Immature Granulocytes % (auto) 0.2 %; Lymphocytes # (auto) 0.99 K/uL (1.2-3.4); Lymphocytes % (auto) 8.3 %; Mean Corpuscular Hemoglobin 31.7 pg (25-34); Mean Corpuscular Hgb Conc 34.9 g/dL (32-36); Mean Corpuscular Volume 90.9 fL (80-100); Mean Platelet Volume 10.1 fL (7.4-10.4); Monocytes # (auto) 0.43 K/uL (0.11-0.59); Monocytes % (auto) 3.6 %; Neutrophils # (auto) 10.48 K/uL (1.4-6.5); Neutrophils % (auto) 87.6 %; Platelet Count 225 K/uL (130-400); RDW Coefficient of Variation 13.5 % (11.5-14.5); RDW Standard Deviation 44.6 fL (36.4-46.3); Red Blood Count 4.16 M/uL (4.7-6.1); White Blood Count 11.95 K/uL (4.8-10.8)
--- NOTE | 2021-06-18 11:34 | CT Scan Report ---
CT head/brain wo con CLINICAL HISTORY: AMS . Confusion and weakness COMPARISON STUDY: 05/05/2021 CT DOSE: 1003.45 mGycm TECHNIQUE: Standard CT of the Brain was performed without IV contrast. A dose lowering technique was utilized adhering to the principles of ALARA. FINDINGS: Extraaxial space: There is no evidence for subdural hematoma. There are no extra-axial fluid collecti ons. Ventricles and cisterns: The ventricles are again mildly dilated bilaterally. There is no evidence f or midline shift or mass effect. Parenchyma: There is no subarachnoid or intraparenchymal hemorrhage. There is no evidence for an acu te infarct or cerebral edema. Old lacunar infarct is again seen on the right. There is mild cerebral cortical atrophy and decreased attenuation in the periventricular white matter representing remote sm all vessel disease. There are no gross mass lesions. Osseous structures: There is no evidence for an acute fracture. The visualized paranasal sinuses are clear. The mastoid air cells are clear bilaterally. Soft tissues: There is no evidence for focal soft tissue swelling. IMPRESSION: No acute intracerebral pathology. 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 ACT 112: Negative or not required by law. Electronically signed by: Alden Peterson M.D. 06/18/2021 11:33 AM
[2021-06-18 11:37] LABS: Albumin Level 3.8 gm/dl (3.4-5.0); BUN Creatinine Ratio 13.8 (10-20); Calcium 9.4 mg/dl (8.5-10.1); Creatinine Clr Calc Pharmacy 55.5 ml/min; Est GFR (African American) 70.8 ml/min; Est GFR (Non-African American) 61.1 ml/min; Magnesium 1.9 mg/dl (1.8-2.4)
[2021-06-18 12:04] LABS: Bilirubin,Total 0.8 mg/dl (0.2-1); Globulin 3.9 gm/dl (2.5-4.0); Thyroid Stimulating Hormone 0.43 uIu/ml (0.300-4.500); Total Protein 7.7 gm/dl (6.4-8.2); Troponin I 0.123 ng/ml (0-0.045)
[2021-06-18 13:13] LABS: Appearance Urine Clear (Clear); Bilirubin Urine Negative (Negative); Blood Urine Negative (Negative); Color Urine Yellow; Glucose Urine UA 1+ (Negative); Ketones Urine Trace (Negative); Leukocyte Esterase Urine Negative (Negative); Nitrite Urine Negative (Negative); Protein Urine Negative (Negative); Specific Gravity Urine 1.022 (1.000-1.030); Urobilinogen Urine Negative (Negative)
--- NOTE | 2021-06-18 14:41 | History & Physical Report ---
Date of Service June 18, 2021 Assessment & Plan (1) AMS (altered mental status): Plan: This is an 80-year-old male with PMH of type 2 diabetes, hypertension, history of CVA, lumbar DDD, RLS recently diagnosed prostate cancer awaiting treatment and other medical problems listed below who presents with confusion that began overnight. Confusion began last evening, not currently oriented to time or place Recently started prednisone 4 days ago - will hold for now Vital signs stable, mild leukocytosis of 11.95, lytes wnl, procal wnl, UA and UDS unremarkable, Covid negative CT head and CXR without acute abnormalities Blood cultures pending - no indication to start abx at this time No focal neurological changes. Has held aspirin and plavix for past 5 days in preparation for radiology appt today - will resume Will obtain brain MRI w/wo to eval for metastatic cancer (recent dx of prostate ca) vs CVA - h/o claustrophobia, ativan ordered pre-imaging IF needed (2) Prostate cancer: Plan: Following with Dr. Black for new diagnosis. Is on anti-androgen therapy due to start radiation therapy soon (3) Elevated troponin: Plan: Mild trop elevation 0.123. No chest pain or acute EKG changes. Had similar trop elevation on previous admission. Continue to trend, monitor on tele (4) Lumbar degenerative disc disease: Plan: Holding prednisone in setting of confusion. Adding lidocaine patch, tylenol PRN (5) HTN (hypertension): Plan: Continue losartan, metoprolol tartrate (6) Controlled type 2 diabetes mellitus, with long-term current use of insulin: Plan: A1c of 7.1 in 05/02 Basal/bolus insulin while in-patient Glycemic consult placed BSG AC HS (7) History of CVA (cerebrovascular accident): Plan: H/o past CVA without deficits. Resume aspirin and plavix. CT head without abn. Brain MRI pending DVT Ppx: SQ Lovenox Code status: FULL PCP: Sandie Dispo: Observation med tele Patient seen in collaboration with Dr. Maya. Please see addendum. History of Present Illness Chief Complaint: Confusion Primary Care Provider: Matt Hooper MD This is an 80-year-old male with PMH of type 2 diabetes, hypertension, history of CVA, lumbar DDD, RLS recently diagnosed prostate cancer awaiting treatment and other medical problems listed below who presents with confusion that began overnight. Per history from , patient was wandering around to find the bathroom last evening, walking in the wrong directions and trying to get back into bed on the wrong side. Is also not been making sense when answering questions. No gait abnormalities or focal weakness noted. No speech or swallowing issues. Did start prednisone 4 days ago for ongoing back pain. Denies any other new medications. Denies any alcohol use. Was due to start radiation today for prostate cancer but had to cancel appointment due to presenting the ED for further evaluation. Has been holding aspirin and plavix for past 5 days in preparation for rad appointment today. Denies any fever, chills, headache, lightheadedness, chest pain, shortness of breath, abdominal pain, diarrhea or constipation. Allergies Allergy/AdvReac Type Severity Reaction Status Date / Time cat dander Allergy Intermediate itchy Verified 06/18/21 12:14 watery eyes dyclonine [From Sucrets] Allergy Intermediate "numb all Verified 06/18/21 12:14 over" hexylresorcinol Allergy Intermediate "numb all Verified 06/18/21 12:14 [From Sucrets] over" horse dander Allergy Intermediate itchy Verified 06/18/21 12:14 watery eyes latex Allergy Intermediate SKIN PEELS Verified 06/18/21 12:14 adhesive Allergy Unknown "TAKES THE Verified 06/18/21 12:14 SKIN OFF" enalaprilat [From Vasotec] Allergy Unknown Verified 06/18/21 12:14 sitagliptin [From Januvia] Allergy Unknown Verified 06/18/21 12:14 diazepam [From Valium] AdvReac Severe can't stay Verified 06/18/21 12:14 awake diphenhydramine AdvReac Intermediate anxiety Verified 06/18/21 12:14 enalapril AdvReac Unknown "MADE ME Verified 06/18/21 12:14 MEAN" ferrous fumarate AdvReac Unknown Unknown Verified 06/18/21 12:14 [From Centrum] ferrous gluconate AdvReac Unknown Unknown Verified 06/18/21 12:14 [From Centrum] folic acid [From Centrum] AdvReac Unknown Unknown Verified 06/18/21 12:14 lutein [From Centrum] AdvReac Unknown Unknown Verified 06/18/21 12:14 lycopene [From Centrum] AdvReac Unknown Unknown Verified 06/18/21 12:14 meclizine AdvReac Unknown Unknown Verified 06/18/21 12:14 multivit with calcium, iron, AdvReac Unknown Unknown Verified 06/18/21 12:14 and other minerals [From Centrum] multivitamin [From Centrum] AdvReac Unknown Unknown Verified 06/18/21 12:14 multivitamin with iron,other AdvReac Unknown Unknown Verified 06/18/21 12:14 minerals [From Centrum] multivitamin with minerals AdvReac Unknown Unknown Verified 06/18/21 12:14 [From Centrum] simvastatin AdvReac Unknown Unknown Verified 06/18/21 12:14 Home Medications Medication Instructions Recorded Confirmed Type acetaminophen 500 mg tablet 500 mg PO Q4H PRN 06/08/19 06/18/21 History (Tylenol Extra Strength) aspirin 81 mg tablet,delayed 81 mg PO HS 06/08/19 06/18/21 History release atorvastatin 40 mg tablet 40 mg PO DAILY 06/08/19 06/18/21 History clopidogrel 75 mg tablet 75 mg PO DAILY 06/08/19 06/18/21 History losartan 25 mg tablet 25 mg PO QAM 06/08/19 06/18/21 History tamsulosin 0.4 mg capsule 0.4 mg PO DAILY 06/08/19 06/18/21 History walker #1 ea 03/24/20 04/10/21 Rx blood sugar diagnostic (OneTouch #100 ea 06/15/20 04/10/21 Rx Verio test strips) blood sugar diagnostic (OneTouch #100 ea 06/15/20 04/10/21 Rx Verio test strips) lancets 33 gauge (OneTouch Delica #100 ea 06/15/20 04/10/21 Rx Lancets) pen needle, diabetic 32 gauge x #200 ea 08/06/20 04/10/21 Rx 5/32" (BD Ultra-Fine Shelbie Pen Needle) insulin NPH-regular 70-30 U-100 24 unit SUBCUT QAM ml 04/10/21 06/18/21 History insulin 100 unit/mL subcutaneous pen (Novolin 70-30 FlexPen U-100 Insulin) pantoprazole 20 mg tablet,delayed 20 mg PO DAILY 04/10/21 06/18/21 History release insulin NPH-regular 70-30 U-100 18 unit SUBCUT QDD 10/24/21 12/07/21 History insulin 100 unit/mL subcutaneous pen (Novolin 70-30 FlexPen U-100 Insulin) bicalutamide 50 mg tablet 50 mg PO DAILY 06/18/21 06/18/21 History fluticasone propionate 50 2 spray INTRANASAL DAILY 06/18/21 06/18/21 History mcg/actuation nasal spray,suspension metoprolol tartrate 25 mg tablet 25 mg PO BID 06/18/21 06/18/21 History prednisone 10 mg tablet 10 mg PO UD 06/18/21 06/18/21 History Past Med/Surg History Medical History (Updated 06/18/21 @ 17:50 by Veronica Archibald PA-C) Altered mental status Controlled type 2 diabetes mellitus, with long-term current use of insulin Elevated PSA Gastritis Generalized osteoarthrosis History of CVA (cerebrovascular accident) History of kidney stones HLD (hyperlipidemia) HTN (hypertension) Lumbar degenerative disc disease Personal history of urinary calculi (01/27/13) RLS (restless legs syndrome) T2DM (type 2 diabetes mellitus) Surgical History H/O prostate biopsy History of colonoscopy with polypectomy History of cystoscopy History of laryngoscopy Hx of bursectomy Family History Father Myocardial infarction Heart disease Mother Breast cancer Sister Lupus Brother Diabetes Myocardial infarction Coronary heart disease Brother Cancer Bladder Social History Smoking Status: Former smoker Number of Years Since Quit: 40; Second Hand Exposure: No; Hx Alcohol Use: No Hx Substance Use: No Preferred Language: Sammarinese Communication Ability: Effective Visual Impairment: No Limitations Hearing Ability: Normal 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 Physical Exam Physical Exam: General Appearance: WD/WN, vitals as above, NAD, sitting up in bed, pleasantly confused but able to follow commands Head: normocephalic, atraumatic Eyes: normal inspection, PERRL, conjunctivae normal, anicteric sclerae ENT: external ear and nose normal, oropharynx normal Neck: normal visual inspection, trachea midline, no thyromegaly Respiratory: normal respiratory effort, lungs clear to auscultation, no wheeze, rales, rhonchi. No accessory muscle use Cardiovascular: regular rate, rhythm, no murmur, normal peripheral pulses, no BLE edema. Vessels: no JVD Chest: normal inspection of chest Abdomen/GI: normal bowel sounds, soft, nontender, no hepatosplenomegaly Extremities/Musculoskeletal: no cyanosis or clubbing, extremities motor strength 5/5 Neurologic: PERRL, EOMI, accommodation nl, no face palsy, no dysarthria, CN's II-XI intact bilaterally and moves all extremities Psychiatric: A+O x person but not to place or time. Euthymic affect Skin: no rashes, normal color, warm/dry Results & Data Results & Data ([facility]) Vital Signs (Past 12 Hours) Vital Signs Temp Pulse Pulse Resp BP BP Pulse Ox 06/18/21 12:15 74 18 158/86 H 96 06/18/21 10:15 36.8 C 82 20 153/133 H 94 Laboratory Results Short CBC 06/18/21 Range/Units 11:00 WBC 11.95 H (4.8-10.8) K/uL Hgb 13.2 L (14.0-18.0) g/dL Hct 37.8 L (42-52) % Plt Count 225 (130-400) K/uL BMP 06/18/21 11:00 Sodium 135 L Potassium 4.0 Chloride 103 Carbon Dioxide 22 BUN 16 Creatinine 1.13 Glucose 189 H Calcium 9.4 Cardiac Enzymes 06/18/21 Range/Units 11:00 Troponin I 0.123 H* (0-0.045) ng/ml Liver Function 06/18/21 Range/Units 11:00 Total Bilirubin 0.8 (0.2-1) mg/dl AST 17 (15-37) U/L ALT 24 (12-78) Alkaline Phosphatase 90 (45-117) U/L Albumin 3.8 (3.4-5.0) gm/dl Urine 06/18/21 Range/Units 12:52 Urine Color Yellow Urine Appearance Clear (Clear) Urine pH 5.0 (4.5-7.5) Ur Specific [place] 1.022 (1.000-1.030) Urine Protein Negative (Negative) Urine Glucose (UA) 1+ H (Negative) Diagnostic Findings Chest X-Ray 06/18/21 10:16 XR chest 1V portable HISTORY: 80 years-old Male weakness acute weakness COMPARISON: Chest radiograph 05/05/2021 TECHNIQUE: Portable AP view of the chest FINDINGS: Cardiac mediastinal and hilar silhouettes are unchanged. Calcified plaque of the thoracic aorta. Chronic coarsening of the interstitium. No pneumothorax, pleural effusion, airspace consolidation or overt pulmonary edema. Mild linear subsegmental left basilar atelectasis/scarring. Degenerative changes of the shoulders and spine. IMPRESSION: Chronic interstitial coarsening without acute process. ACT 112: Negative or not required by law. The above report was generated using voice recognition software. It may contain grammatical, syntax or spelling errors. Electronically signed by: Marquis Horn M.D. 06/18/2021 10:[address] 06/18/21 10:46 CT head/brain wo con CLINICAL HISTORY: AMS . Confusion and weakness COMPARISON STUDY: 05/05/2021 CT DOSE: 1003.45 mGycm TECHNIQUE: Standard CT of the Brain was performed without IV contrast. A dose lowering technique was utilized adhering to the principles of ALARA. FINDINGS: Extraaxial space: There is no evidence for subdural hematoma. There are no extra-axial fluid collections. Ventricles and cisterns: The ventricles are again mildly dilated bilaterally. There is no evidence for midline shift or mass effect. Parenchyma: There is no subarachnoid or intraparenchymal hemorrhage. There is no evidence for an acute infarct or cerebral edema. Old lacunar infarct is again seen on the right. There is mild cerebral cortical atrophy and decreased attenuation in the periventricular white matter representing remote small vessel disease. There are no gross mass lesions. Osseous structures: There is no evidence for an acute fracture. The visualized paranasal sinuses are clear. The mastoid air cells are clear bilaterally. Soft tissues: There is no evidence for focal soft tissue swelling. IMPRESSION: No acute intracerebral pathology. 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 ACT 112: Negative or not required by law. Electronically signed by: Alden Peterson M.D. 06/18/2021 11:33 AM ECG Additional Comments: SR with PACs, h/o inferior infarct Code Status & VTE Plan VTE Prophylaxis Plan VTE Prophylaxis will be ordered: Yes Supervising Physician Co-Signing Physician Notes Pt is a 80 M with hx of DMII, HLD, HTN, DDD, RLS, CVA , Insomnia, recent dx of Prostate Ca, SVT, chronic back pain admitted for AMS. Exam: NAD Lungs: CTA, no wheezing Cards: Normal S1/S2, no murmur Abd: ND, Soft, NT Psych: normal affect, AAOx1 (unable to recall date and place) A/P: AMS/Encephalopathy: -Pt is afebrile, UA neg for UTI, CXR showed no sign of acute infection -CT head: no acute finding - since wbc elevated will get BCx - due to hx of prostate Ca will get a MRI (per pt is claustrophobic) -will trend CBC - if BCx neg, and MRI Brain is unremarkable will consider neurology referral Elevated troponin: -pt has prior hx of elevated trop -No EKG changes or CP -will trend Trop Agree with A/P by Veronica Archibald PA-C
[2021-06-18 16:06] LABS: Amphetamines+Metham, Urine Neg (Neg); Barbiturates, Urine Neg (Neg); Benzodiazepine, Urine Neg (Neg); Cocaine, Urine Neg (Neg); MDMA (Ecstacy), Urine Neg (Neg); Methadone, Urine Neg (Neg); Opiate, Urine Neg (Neg); Phencyclidine, Urine Neg (Neg)
--- NOTE | 2021-06-18 16:36 | Electrocardiogram Report ---
Test Reason : Blood Pressure : / mmHG Vent. Rate : 081 BPM Atrial Rate : 081 BPM P-R Int : 170 ms QRS Dur : 088 ms QT Int : 378 ms P-R-T Axes : 051 -11 049 degrees QTc Int : 439 ms Sinus rhythm with Premature atrial complexes Inferior infarct (cited on or before 12-AUG-2012) Abnormal ECG When compared with ECG of 07-MAY-2021 05:09, Premature atrial complexes are now Present Confirmed by Manuel Clayton ([id number]) on 06/18/2021 4:35:34 PM Referred By: REFERRED SELF Confirmed By:Manuel Clayton
--- NOTE | 2021-06-18 17:08 | Emergency Department Note ---
Impression & Plan AMS (altered mental status), Elevated troponin, Leukocytosis ED Provider Note INFORMANT: Patient ED PROVIDER(S): Wicho Parikh MD CHIEF COMPLAINT: Confusion PLAN: Disposition: Admitted Condition: Good Outpatient prescription management: none Referral: None MEDICAL DECISION MAKING: Patient presented to emergency department complaining of confusion. states that he was not acting his normal self. I work was initiated. The patient was afebrile. He had no complaints of pain. He had a benign abdomen. He was not hypoxic. Prehospital BSG was not consistent with significant hypo or hyperglycemia. The patient had a negative head CT. His ECG did not reveal any acute findings. Patient had a chest x-ray performed and this showed some old chronic lung disease changes but nothing acute. Patient had a mild leukocytosis on CBC. Chemistry panel was unremarkable. Patient's troponin was mildly elevated. Urinalysis negative. On reassessment the patient was noting myalgias and not feeling well. He denied any other pain such as headache, neck pain, back pain, chest pain, or abdominal pain. He had no nausea, vomiting, or diarrhea. At this point with the confusion and lack of concrete diagnosis further management in the hospital was felt to be appropriate. Consultation was made with the [facility] service. Patient was evaluated in the ER and admitted for further management. Triage Nursing notes reviewed and agree them. Vital Signs: reviewed and remarkable for no significant abnormalities Differential diagnosis: Infection, hypoglycemia, electrolyte abnormalities, overdose, toxicologic, cardiac sources, intracerebral event, neurologic, trauma, as well as other pathologies. Diagnostics interpreted by me: ECG: none Cardiac Monitoring: none Imaging studies: Head CT: A noncontrast CT scan of the head was performed and was negative for tumor, fracture, intracranial hemorrhage, or other acute pathology. Chest x-ray shows some chronic lung disease without acute infiltrative process. I refer you to the EMR for further details. HPI: The patient is a 80 year old male who presents to the Emergency Room with complaints of confusion. This started last night and is persisting per the . The patient also notes the following associated symptoms, difficulty ambulating, loss of bowel control last night, generalized weakness but more so in the left upper extremity patient does have a history of TIA but family is concerned about UTI as well. Patient has taken no new medication for relieving factors. Current pain is rated as 0/10. Patient denies any trauma. states that he was doing well over the last several days. Pt denies LOC, headache, fevers, chills, diaphoresis, visual changes, neck pain, chest pain, breathing difficulties, nausea, vomiting, abdominal pain, back pain, melena, hematochezia, urinary symptoms, numbness, weakness, lymphadenopathy, rash, or other complaints. ROS: See above HPI for pertinent positives & negatives. A total of 10 systems reviewed and were otherwise negative. PAST MEDICAL HISTORY:See Below , TIA PAST SURGICAL HISTORY:See Below, FAMILY HISTORY:See Below SOCIAL HISTORY:See Below, HOME MEDICATIONS:See Below ALLERGIES:See Below VITALS:See Below PHYSICAL EXAMINATION: GENERAL: Awake, tired-appearing, in no distress HENT: Normocephalic, atraumatic. Oropharynx unremarkable. EYES: Normal conjunctiva. Sclera non-icteric. NECK: Inspection normal. Non-tender. Supple. No nuchal rigidity. FROM. No masses. RESPIRATORY: Clear to auscultation. No wheezes. No rales. Normal respiratory effort. CARDIAC: Normal rate. Normal rhythm. No murmurs. No rubs. Extremities warm and well perfused. Pulses equal. No JVD. GI: Soft, non-distended. No tenderness to palpation. No rebound or guarding. No masses. RECTAL: Deferred. MUSCULOSKELETAL: Atraumatic. Chest examination reveals no tenderness. The back is symmetrical on inspection without obvious abnormality. There is no CVA tenderness to palpation. No joint edema. LOWER EXTREMITIES: Calves are equal size bilaterally and non-tender. No edema. No discoloration. NEURO: Mildly confused sensorium. Generally weak but no focal sensory or motor deficits noted. Cranial nerves II through XII intact. No drift in the upper or lower extremities. SKIN: No rash or jaundice noted. No cellulitis. Wicho Parikh MD Past Med/Surg History Medical History Altered mental status Controlled type 2 diabetes mellitus, with long-term current use of insulin Elevated PSA Gastritis Generalized osteoarthrosis History of CVA (cerebrovascular accident) History of kidney stones HLD (hyperlipidemia) HTN (hypertension) Lumbar degenerative disc disease Metabolic encephalopathy Personal history of urinary calculi (01/27/13) Right arm weakness RLS (restless legs syndrome) Severe sepsis T2DM (type 2 diabetes mellitus) Uncontrolled type 2 diabetes mellitus, with long-term current use of insulin Surgical History H/O prostate biopsy History of colonoscopy with polypectomy History of cystoscopy History of laryngoscopy Hx of bursectomy Family History Father Myocardial infarction Heart disease Mother Breast cancer Sister Lupus Brother Diabetes Myocardial infarction Coronary heart disease Brother Cancer Bladder Social History Smoking Status: Never smoker Number of Years Since Quit: 40; Second Hand Exposure: No; Hx Alcohol Use: No Hx Substance Use: No Preferred Language: Italian Communication Ability: Effective Visual Impairment: No Limitations Hearing Ability: Normal Product Management Internship Required: No Beliefs That Will Affect Care: None marital status: Current Living Situation: Spouse current occupational status: retired How many Children do You have: 2 Feels Safe at Home: Yes during the past year weight has: remained stable Physical Activity Frequency: 3-4 Times per Week Assistive Devices: None Allergies Allergies Allergy/AdvReac Type Severity Reaction Status Date / Time cat dander Allergy Intermediate itchy Verified 06/18/21 12:14 watery eyes dyclonine [From Sucrets] Allergy Intermediate "numb all Verified 06/18/21 12:14 over" hexylresorcinol Allergy Intermediate "numb all Verified 06/18/21 12:14 [From Sucrets] over" horse dander Allergy Intermediate itchy Verified 06/18/21 12:14 watery eyes latex Allergy Intermediate SKIN PEELS Verified 06/18/21 12:14 adhesive Allergy Unknown "TAKES THE Verified 06/18/21 12:14 SKIN OFF" enalaprilat [From Vasotec] Allergy Unknown Verified 06/18/21 12:14 sitagliptin [From Januvia] Allergy Unknown Verified 06/18/21 12:14 diazepam [From Valium] AdvReac Severe can't stay Verified 06/18/21 12:14 awake diphenhydramine AdvReac Intermediate anxiety Verified 06/18/21 12:14 enalapril AdvReac Unknown "MADE ME Verified 06/18/21 12:14 MEAN" ferrous fumarate AdvReac Unknown Unknown Verified 06/18/21 12:14 [From Centrum] ferrous gluconate AdvReac Unknown Unknown Verified 06/18/21 12:14 [From Centrum] folic acid [From Centrum] AdvReac Unknown Unknown Verified 06/18/21 12:14 lutein [From Centrum] AdvReac Unknown Unknown Verified 06/18/21 12:14 lycopene [From Centrum] AdvReac Unknown Unknown Verified 06/18/21 12:14 meclizine AdvReac Unknown Unknown Verified 06/18/21 12:14 multivit with calcium, iron, AdvReac Unknown Unknown Verified 06/18/21 12:14 and other minerals [From Centrum] multivitamin [From Centrum] AdvReac Unknown Unknown Verified 06/18/21 12:14 multivitamin with iron,other AdvReac Unknown Unknown Verified 06/18/21 12:14 minerals [From Centrum] multivitamin with minerals AdvReac Unknown Unknown Verified 06/18/21 12:14 [From Centrum] simvastatin AdvReac Unknown Unknown Verified 06/18/21 12:14 Home Meds Home Medications Medication Instructions Recorded Confirmed acetaminophen 500 mg tablet 500 mg PO Q4H PRN 06/08/19 06/18/21 (Tylenol Extra Strength) aspirin 81 mg tablet,delayed 81 mg PO HS 06/08/19 06/18/21 release atorvastatin 40 mg tablet 40 mg PO DAILY 06/08/19 06/18/21 clopidogrel 75 mg tablet 75 mg PO DAILY 06/08/19 06/18/21 losartan 25 mg tablet 25 mg PO QAM 06/08/19 06/18/21 tamsulosin 0.4 mg capsule 0.4 mg PO DAILY 06/08/19 06/18/21 insulin NPH-regular 70-30 U-100 24 unit SUBCUT QAM ml 04/10/21 06/18/21 insulin 100 unit/mL subcutaneous pen (Novolin 70-30 FlexPen U-100 Insulin) pantoprazole 20 mg tablet,delayed 20 mg PO DAILY 04/10/21 06/18/21 release insulin NPH-regular 70-30 U-100 18 unit SUBCUT QDD 05/05/21 06/18/21 insulin 100 unit/mL subcutaneous pen (Novolin 70-30 FlexPen U-100 Insulin) bicalutamide 50 mg tablet 50 mg PO DAILY 06/18/21 06/18/21 fluticasone propionate 50 2 spray INTRANASAL DAILY 06/18/21 06/18/21 mcg/actuation nasal spray,suspension metoprolol tartrate 25 mg tablet 25 mg PO BID 06/18/21 06/18/21 prednisone 10 mg tablet 10 mg PO UD 06/18/21 06/18/21 Previous Rx's Medication Instructions Recorded walker #1 ea 03/24/20 blood sugar diagnostic (OneTouch #100 ea 06/15/20 Verio test strips) blood sugar diagnostic (OneTouch #100 ea 06/15/20 Verio test strips) lancets 33 gauge (OneTouch Delica #100 ea 06/15/20 Lancets) pen needle, diabetic 32 gauge x #200 ea 08/06/20 532" (BD Ultra-Fine Shelbie Pen Needle) Results & Data (ED) Vital Signs Vital Signs - 24 hr 06/18/21 10:15 06/18/21 12:15 06/18/21 14:00 Temperature 36.8 C Temperature Source Oral Pulse Rate 82 Pulse Rate [Apical] 74 89 Pulse Rhythm [Apical] Regular Respiratory Rate 20 18 19 Respiratory Effort / Characteristics Non-Labored Non-Labored Non-Labored Blood Pressure 153/133 H Blood Pressure [Left Arm] 158/86 H 132/68 Blood Pressure Mean 139 Blood Pressure Mean [Left Arm] 110 89 Blood Pressure Position Lying Pulse Oximetry 94 96 97 Oxygen Delivery Method Room Air Room Air Room Air Sepsis Recent Fever Within 48 Hours No Sepsis New/Unexplained Change in Mental Status Yes Sepsis Action Taken by Nursing No Action Required Laboratory Data Result diagrams: 06/18/21 11:00 06/18/21 11:00 Lab Results 06/18/21 06/18/21 06/18/21 Range/Units 11:00 11:00 11:10 WBC 11.95 H (4.8-10.8) K/uL RBC 4.16 L (4.7-6.1) M/uL Hgb 13.2 L (14.0-18.0) g/dL Hct 37.8 L (42-52) % MCV 90.9 (80-100) fL MCH 31.7 (25-34) pg MCHC 34.9 (32-36) g/dL RDW Std Deviation 44.6 (36.4-46.3) fL RDW Coeff of Catherine 13.5 (11.5-14.5) % Plt Count 225 (130-400) K/uL MPV 10.1 (7.4-10.4) fL Immature Gran % (Auto) 0.2 % Neut % (Auto) 87.6 % Lymph % (Auto) 8.3 % [place] % (Auto) 3.6 % Eos % (Auto) 0.0 % Baso % (Auto) 0.3 % Neut # (Auto) 10.48 H (1.4-6.5) K/uL Lymph # (Auto) 0.99 L (1.2-3.4) K/uL [place] # (Auto) 0.43 (0.11-0.59) K/uL Eos # (Auto) 0.00 (0-0.5) K/uL Baso # (Auto) 0.03 (0-0.2) K/uL Immature Gran # (Auto) 0.02 (0.00-0.02) K/uL Sodium 135 L (136-145) mmol/L Potassium 4.0 (3.5-5.1) mmol/L Chloride 103 (98-107) mmol/L Carbon Dioxide 22 (21-32) mmol/L Anion Gap 9.0 (3-11) BUN 16 (7-18) mg/dl Creatinine 1.13 (0.6-1.4) mg/dl Est Cr Clr Drug Dosing 55.5 ml/min Est GFR ( Amer) 70.8 ml/min Est GFR (Non-Af Amer) 61.1 ml/min BUN/Creatinine Ratio 13.8 (10-20) Glucose 189 H (70-99) mg/dl Calcium 9.4 (8.5-10.1) mg/dl Magnesium 1.9 (1.8-2.4) mg/dl Total Bilirubin 0.8 (0.2-1) mg/dl AST 17 (15-37) U/L ALT 24 (12-78) Alkaline Phosphatase 90 (45-117) U/L Troponin I 0.123 H* (0-0.045) ng/ml Total Protein 7.7 (6.4-8.2) gm/dl Albumin 3.8 (3.4-5.0) gm/dl Globulin 3.9 (2.5-4.0) gm/dl Albumin/Globulin Ratio 1.0 (0.9-2) Procalcitonin (0-0.5) ng/ml TSH 0.430 (0.300-4.500) uIu/ml Urine Color Urine Appearance (Clear) Urine pH (4.5-7.5) Ur Specific Dorena (1.000-1.030) Urine Protein (Negative) Urine Glucose (UA) (Negative) Urine Ketones (Negative) Urine Blood (Negative) Urine Nitrite (Negative) Urine Bilirubin (Negative) Urine Urobilinogen (Negative) Ur Leukocyte Esterase (Negative) Urine Opiates Screen (Neg) Ur Methadone, Qual (Neg) Urine Barbiturates (Neg) Ur Phencyclidine (PCP) (Neg) U Amphetamin/Meth Scrn (Neg) MDMA (Ecstasy) Screen (Neg) U Benzodiazepines Scrn (Neg) Ur Cocaine Metabolite (Neg) U Marijuana (THC) Screen (Neg) SARS-CoV-2, RNA, NAAT NEGATIVE (NEGATIVE) 06/18/21 06/18/21 06/18/21 Range/Units 12:52 12:52 14:20 WBC (4.8-10.8) K/uL RBC (4.7-6.1) M/uL Hgb (14.0-18.0) g/dL Hct (42-52) % MCV (80-100) fL MCH (25-34) pg MCHC (32-36) g/dL RDW Std Deviation (36.4-46.3) fL RDW Coeff of Catherine (11.5-14.5) % Plt Count (130-400) K/uL MPV (7.4-10.4) fL Immature Gran % (Auto) % Neut % (Auto) % Lymph % (Auto) % [place] % (Auto) % Eos % (Auto) % Baso % (Auto) % Neut # (Auto) (1.4-6.5) K/uL Lymph # (Auto) (1.2-3.4) K/uL [place] # (Auto) (0.11-0.59) K/uL Eos # (Auto) (0-0.5) K/uL Baso # (Auto) (0-0.2) K/uL Immature Gran # (Auto) (0.00-0.02) K/uL Sodium (136-145) mmol/L Potassium (3.5-5.1) mmol/L Chloride (98-107) mmol/L Carbon Dioxide (21-32) mmol/L Anion Gap (3-11) BUN (7-18) mg/dl Creatinine (0.6-1.4) mg/dl Est Cr Clr Drug Dosing ml/min Est GFR ( Amer) ml/min Est GFR (Non-Af Amer) ml/min BUN/Creatinine Ratio (10-20) Glucose (70-99) mg/dl Calcium (8.5-10.1) mg/dl Magnesium (1.8-2.4) mg/dl Total Bilirubin (0.2-1) mg/dl AST (15-37) U/L ALT (12-78) Alkaline Phosphatase (45-117) U/L Troponin I (0-0.045) ng/ml Total Protein (6.4-8.2) gm/dl Albumin (3.4-5.0) gm/dl Globulin (2.5-4.0) gm/dl Albumin/Globulin Ratio (0.9-2) Procalcitonin < 0.05 (0-0.5) ng/ml TSH (0.300-4.500) uIu/ml Urine Color Yellow Urine Appearance Clear (Clear) Urine pH 5.0 (4.5-7.5) Ur Specific Dorena 1.022 (1.000-1.030) Urine Protein Negative (Negative) Urine Glucose (UA) 1+ H (Negative) Urine Ketones Trace H (Negative) Urine Blood Negative (Negative) Urine Nitrite Negative (Negative) Urine Bilirubin Negative (Negative) Urine Urobilinogen Negative (Negative) Ur Leukocyte Esterase Negative (Negative) Urine Opiates Screen Neg (Neg) Ur Methadone, Qual Neg (Neg) Urine Barbiturates Neg (Neg) Ur Phencyclidine (PCP) Neg (Neg) U Amphetamin/Meth Scrn Neg (Neg) MDMA (Ecstasy) Screen Neg (Neg) U Benzodiazepines Scrn Neg (Neg) Ur Cocaine Metabolite Neg (Neg) U Marijuana (THC) Screen Neg (Neg) SARS-CoV-2, RNA, NAAT (NEGATIVE) Administered Medications Sodium Chloride (Nss 1000ml) 1,000 mls @ 125 mls/hr IV .Q8H STA Stop: 06/18/21 18:45 Last Admin: 06/18/21 12:33 Dose: 125 mls/hr Documented by: [id number] Discontinued Medications Sodium Chloride (Nss 1000ml) 500 mls @ 999 mls/hr IV .Q31M ONE Stop: 06/18/21 11:16 Last Infusion: 06/18/21 12:32 Dose: 0 mls/hr Documented by: [id number] Admin: 06/18/21 11:07 Dose: 999 mls/hr Documented by: [id number] Imaging Data Radiologist's Impression: Chest X-Ray 06/18/21 10:16 XR chest 1V portable HISTORY: 80 years-old Male weakness acute weakness COMPARISON: Chest radiograph 05/05/2021 TECHNIQUE: Portable AP view of the chest FINDINGS: Cardiac mediastinal and hilar silhouettes are unchanged. Calcified plaque of the thoracic aorta. Chronic coarsening of the interstitium. No pneumothorax, pleural effusion, airspace consolidation or overt pulmonary edema. Mild linear subsegmental left basilar atelectasis/scarring. Degenerative changes of the shoulders and spine. IMPRESSION: Chronic interstitial coarsening without acute process. ACT 112: Negative or not required by law. The above report was generated using voice recognition software. It may contain grammatical, syntax or spelling errors. Electronically signed by: Marquis Horn M.D. 06/18/2021 10:[address] 06/18/21 10:46 CT head/brain wo con CLINICAL HISTORY: AMS . Confusion and weakness COMPARISON STUDY: 05/05/2021 CT DOSE: 1003.45 mGycm TECHNIQUE: Standard CT of the Brain was performed without IV contrast. A dose lowering technique was utilized adhering to the principles of ALARA. FINDINGS: Extraaxial space: There is no evidence for subdural hematoma. There are no extra-axial fluid collections. Ventricles and cisterns: The ventricles are again mildly dilated bilaterally. There is no evidence for midline shift or mass effect. Parenchyma: There is no subarachnoid or intraparenchymal hemorrhage. There is no evidence for an acute infarct or cerebral edema. Old lacunar infarct is again seen on the right. There is mild cerebral cortical atrophy and decreased attenuation in the periventricular white matter representing remote small vessel disease. There are no gross mass lesions. Osseous structures: There is no evidence for an acute fracture. The visualized paranasal sinuses are clear. The mastoid air cells are clear bilaterally. Soft tissues: There is no evidence for focal soft tissue swelling. IMPRESSION: No acute intracerebral pathology. 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 ACT 112: Negative or not required by law. Electronically signed by: Alden Peterson M.D. 06/18/2021 11:33 AM Discharge Plan Visit Data Chief Complaint: Illness Stated Complaint: Urinary Symptoms, Weakness ED Provider: Wicho Parikh Discharge Problem: AMS (altered mental status), Elevated troponin, Leukocytosis
[2021-06-18] MEDS ORDERED: ONDANSETRON INJ 2 MG/ML 2 ML VIAL IV PRN (18:46)
[2021-06-18] MEDS ORDERED: POLYETHYLENE (MIRALAX) 17 GM PACK PO PRN (18:46)
[2021-06-18] MEDS ORDERED: LORazepam 0.5 MG/1 ML VIAL IV SCH (18:46)
[2021-06-18] MEDS ORDERED: ACETAMINOPHEN 325 MG TAB PO PRN (18:46)
[2021-06-18] MEDS ORDERED: ENOXAPARIN INJ 40 MG/0.4 ML SYR SQ SCH (18:46)
[2021-06-18] MEDS ORDERED: PHARMACY GLYCEMIC MGMT CONSULT PRN (18:46)
[2021-06-18] MEDS: METOPROLOL TARTRATE 25 MG TAB PO SCH (20:37)
[2021-06-18] MEDS: CLOPIDOGREL BISULFATE 75 MG TAB PO SCH (20:37)
[2021-06-18] MEDS: LIDOCAINE 5% 1 PATCH TD SCH (20:37)
[2021-06-18] MEDS ORDERED: GLUCAGON FOR INJ 1 MG VIAL SQ PRN (20:53)
[2021-06-18] MEDS ORDERED: GLUCOSE 10 TABS/TUBE PO PRN (20:53)
[2021-06-18] MEDS ORDERED: DEXTROSE 50% 50 ML SYRINGE IV PRN (20:53)
[2021-06-18] MEDS ORDERED: CARBOHYDRATES FOR HYPOGLYCEMIA PO PRN (20:53)
[2021-06-18] MEDS ORDERED: GLUCOSE 40% GEL 15 GM TUBE PO PRN (20:53)
[2021-06-18] MEDS ORDERED: INSULIN GLARGINE SOLOSTAR 100 UNITS/ML 3 ML PEN SC SCH (21:00)
[2021-06-18] MEDS ORDERED: ASPIRIN 81 MG ECTAB PO SCH (21:00)
[2021-06-18] MEDS ORDERED: INSULIN HUMAN NPH SC ONE (21:45)
--- NOTE | 2021-06-18 21:59 | Pharmacy Report ---
Pharmacy Glycemic Short Note 2 - Date of Service June 18, 2021 - Glycemic Short BSG Results (Last 24 hours): 06/18/21 06/18/21 11:00 20:45 Glucose 189 H POC Glucose 170 H OUTPATIENT ANTIDIABETIC REGIMEN: * Novolin 70/30 - 24 units qAM, 18 units QDD * HbA1c 7.1% on 05/06/21 ASSESSMENT: * 80 yo M with T2Dm admitted with AMS in context of recent start prednisone 4 days prior to arrival (unclear if received today). No Novolin as an outpatient [employer] * Will give low-dose NPH as basal as patient's BSG is not significantly elevated and will not eat overnight * Will initiate weight-based moderate stress Novolog PLAN FOR INPATIENT GLYCEMIC CONTROL: * Basal insulin * NPH 10 units SQ x1 * Bolus insulin * NovoLog per scale ACHS or Q6hrs while NPO * Goal Range: Low 110 mg/dL - High 140 mg/dL * Correction Factor: 30 mg/dL/unit * Nutritional / Prandial insulin per carb ratio of 1 unit per 9 grams CHO consumed
[2021-06-18] MEDS: INSULIN ASPART 100 UNITS/ML VIAL SC SCH (22:05)
[2021-06-18] MEDS ORDERED: GADOBUTROL 65ML VIAL IV ONE (23:51)
[2021-06-19 05:58] LABS: Hematocrit (blood only) 34.4 % (42-52); Hemoglobin 11.7 g/dL (14.0-18.0); Mean Corpuscular Hemoglobin 31.6 pg (25-34); Mean Platelet Volume 10.1 fL (7.4-10.4); Platelet Count 218 K/uL (130-400); RDW Coefficient of Variation 13.8 % (11.5-14.5); RDW Standard Deviation 47.2 fL (36.4-46.3); White Blood Count 8.29 K/uL (4.8-10.8)
[2021-06-19 06:32] LABS: BUN Creatinine Ratio 13.9 (10-20); Creatinine Clr Calc Pharmacy 61.5 ml/min; Est GFR (African American) 80.1 ml/min; Est GFR (Non-African American) 69.1 ml/min; Potassium 3.6 mmol/L (3.5-5.1)
[2021-06-19 07:28] VITALS: TEMP 98.1
[2021-06-19] MEDS ORDERED: INSULIN HUMAN NPH SC SCH (08:00)
[2021-06-19] MEDS: METOPROLOL TARTRATE 25 MG TAB PO SCH (08:29)
[2021-06-19] MEDS: CLOPIDOGREL BISULFATE 75 MG TAB PO SCH (08:30)
[2021-06-19] MEDS: LIDOCAINE 5% 1 PATCH TD SCH (08:31)
[2021-06-19] MEDS: INSULIN ASPART 100 UNITS/ML VIAL SC SCH ×2 (08:32→13:05)
--- NOTE | 2021-06-19 08:35 | Magnetic Resonance Report ---
MR brain wo/w con CLINICAL HISTORY: recent dx of prostate ca, concern for mets vs cva. COMPARISON STUDY: CT brain from 06/18/2021 and previous MR brain from 06/08/2019 TECHNIQUE: Multiplanar multisequence images of the brain were performed before and after Gadavist, 8 mL of IV contrast. Diffusion weighted imaging and ADC mapping was also performed. FINDINGS: Extra-axial space: There is no evidence for a subdural hematoma, There are no extra-axial fluid amador ections. Ventricles and cisterns: The ventricles are again mildly dilated bilaterally. There is no evidence f or midline shift or mass effect. Parenchyma: On noncontrast images, there is no evidence for an acute hemorrhage or infarct. No acute diffusion abnormalities are noted on diffusion weighted imaging or ADC mapping. There is normal esposito -white differentiation. There is mild cerebral cortical atrophy present. There is bright signal seen on FLAIR weighted sequences within the centrum semiovale and periventricular white matter characteris tic of remote small vessel disease. The sulci and gyri appear normal without effacement. The midline structures are unremarkable. The posterior fossa structures appear normal. On postcontrast images, there is no evidence for enhancing mass lesion. Osseous structures: There is mild mucosal thickening involving the frontal sinuses and ethmoid air c ells. No fluid levels are present. The remaining paranasal sinuses are clear. The mastoid air cells a re well aerated. Soft tissues: No focal soft tissue abnormalities are identified. IMPRESSION: No acute intracranial abnormalities. Mild cerebral cortical atrophy and remote small ves jomar disease are again seen. There is also evidence for mild chronic bilateral frontal and ethmoid sin usitis. ACT 112: Negative or not required by law. Electronically signed by: Alden Peterson M.D. 06/19/2021 8:34 AM
[2021-06-19] MEDS ORDERED: TAMSULOSIN HCL 0.4 MG CAP PO SCH (09:00)
[2021-06-19] MEDS ORDERED: FLUTICASONE PROPIONATE NA SPR 16 GM BTL NAE SCH (09:00)
[2021-06-19] MEDS ORDERED: PANTOprazole 40 MG TAB PO SCH (09:00)
[2021-06-19] MEDS ORDERED: LOSARTAN POTASSIUM 25 MG TAB PO SCH (09:00)
[2021-06-19] MEDS ORDERED: ATORVASTATIN 40 MG TAB PO SCH (09:00)
[2021-06-19] MEDS ORDERED: BICALUTAMIDE 50 MG TAB PO SCH (09:00)
[2021-06-19 11:02] VITALS: BP 143/81; O2SAT 96
--- NOTE | 2021-06-19 12:36 | Discharge Summary ---
Date of Service June 19, 2021 Admission HPI Per Admitting Provider This is an 80-year-old male with PMH of type 2 diabetes, hypertension, history of CVA, lumbar DDD, RLS recently diagnosed prostate cancer awaiting treatment and other medical problems listed below who presents with confusion that began overnight. Per history from , patient was wandering around to find the bathroom last evening, walking in the wrong directions and trying to get back into bed on the wrong side. Is also not been making sense when answering questions. No gait abnormalities or focal weakness noted. No speech or swallowing issues. Did start prednisone 4 days ago for ongoing back pain. Denies any other new medications. Denies any alcohol use. Was due to start radiation today for prostate cancer but had to cancel appointment due to presenting the ED for further evaluation. Has been holding aspirin and plavix for past 5 days in preparation for rad appointment today. Denies any fever, chills, headache, lightheadedness, chest pain, shortness of breath, abdominal pain, diarrhea or constipation. Admission Exam Per Admitting Provider General Appearance:WD/WN, vitals as above, NAD, sitting up in bed, pleasantly confused but able to follow commands Head: normocephalic, atraumatic Eyes:normal inspection, PERRL, conjunctivae normal, anicteric sclerae ENT: external ear and nose normal, oropharynx normal Neck: normal visual inspection, trachea midline, no thyromegaly Respiratory:normal respiratory effort, lungs clear to auscultation, no wheeze, rales, rhonchi. No accessory muscle use Cardiovascular: regular rate, rhythm, no murmur, normal peripheral pulses, no BLE edema. Vessels: no JVD Chest: normal inspection of chest Abdomen/GI: normal bowel sounds, soft, nontender, no hepatosplenomegaly Extremities/Musculoskeletal: no cyanosis or clubbing, extremities motor strength 5/5 Neurologic: PERRL, EOMI, accommodation nl, no face palsy, no dysarthria, CN's II-XI intact bilaterally and moves all extremities Psychiatric:A+O x person but not to place or time. Euthymic affect Skin: no rashes, normal color, warm/dry Principal Diagnosis Transient altered mental status likely secondary to steroid Discharge Exam GENERAL: Alert and oriented x3. NAD, on RA. HEENT: No pallor, no icterus. Pupils equal, round and reactive to light. Oral mucosa moist. NECK: No JVD, no neck masses. HEART: S1 and S2 heard. Regular rate and rhythm. No murmur, no gallop. RESPIRATORY SYSTEM: Normal AP diameter. No accessory muscle use. No wheezing, no crackles. ABDOMEN: Soft, bowel sounds present, nontender, no distention. CENTRAL NERVOUS SYSTEM: No facial droop. Speech is clear. Obeys simple commands. Moves extremities. EXTREMITIES: No edema, no erythema seen. Discharge Data Allergies Allergy/AdvReac Type Severity Reaction Status Date / Time cat dander Allergy Intermediate itchy Verified 06/18/21 12:14 watery eyes dyclonine [From Sucrets] Allergy Intermediate "numb all Verified 06/18/21 12:14 over" hexylresorcinol Allergy Intermediate "numb all Verified 06/18/21 12:14 [From Sucrets] over" horse dander Allergy Intermediate itchy Verified 06/18/21 12:14 watery eyes latex Allergy Intermediate SKIN PEELS Verified 06/18/21 12:14 adhesive Allergy Unknown "TAKES THE Verified 06/18/21 12:14 SKIN OFF" enalaprilat [From Vasotec] Allergy Unknown Verified 06/18/21 12:14 sitagliptin [From Januvia] Allergy Unknown Verified 06/18/21 12:14 diazepam [From Valium] AdvReac Severe can't stay Verified 06/18/21 12:14 awake diphenhydramine AdvReac Intermediate anxiety Verified 06/18/21 12:14 enalapril AdvReac Unknown "MADE ME Verified 06/18/21 12:14 MEAN" ferrous fumarate AdvReac Unknown Unknown Verified 06/18/21 12:14 [From Centrum] ferrous gluconate AdvReac Unknown Unknown Verified 06/18/21 12:14 [From Centrum] folic acid [From Centrum] AdvReac Unknown Unknown Verified 06/18/21 12:14 lutein [From Centrum] AdvReac Unknown Unknown Verified 06/18/21 12:14 lycopene [From Centrum] AdvReac Unknown Unknown Verified 06/18/21 12:14 meclizine AdvReac Unknown Unknown Verified 06/18/21 12:14 multivit with calcium, iron, AdvReac Unknown Unknown Verified 06/18/21 12:14 and other minerals [From Centrum] multivitamin [From Centrum] AdvReac Unknown Unknown Verified 06/18/21 12:14 multivitamin with iron,other AdvReac Unknown Unknown Verified 06/18/21 12:14 minerals [From Centrum] multivitamin with minerals AdvReac Unknown Unknown Verified 06/18/21 12:14 [From Centrum] simvastatin AdvReac Unknown Unknown Verified 06/18/21 12:14 Consultations 06/18/21 14:09 ED Decision to Admit Stat Ordered Studies 06/18/21 10:46 CT head/brain wo con Stat 06/18/21 18:05 MR brain wo/w con Routine Hospital Course (1) AMS (altered mental status): 80-year-old male with PMH of type 2 diabetes, hypertension, history of CVA, lumbar DDD, RLS recently diagnosed prostate cancer awaiting treatment presented 06/18 with confusion that began overnight. Per history from , patient was wandering around to find the bathroom last evening, walking in the wrong directions and trying to get back into bed on the wrong side. Is also not been making sense when answering questions. No gait abnormalities or focal weakness noted. No speech or swallowing issues. Patient was started on prednisone 4 days [employer] for ongoing back pain. Likely his confusion is secondary to back pain. Admitting CXR, CT head and brain MRI were negative for acute findings. Patient is AO x3 and answering questions appropriately. Patient seems to be at his baseline. Per RN, patient is doing better. We will stop the steroid upon discharge. He needs to follow-up with his primary care doctor, Dr. Blcak, and radiation for ongoing treatment of his prostate cancer. Patient's was given a phone call to update about discharge today, [facility] communicated with RN for giving a phone call to them to make them aware that he is being discharged today. If they have any questions, I will be happy to answer them. Following instructions were communicated at the point of discharge: Follow-up with your primary care physician within a week time. Take medications as prescribed. Total Time Total Time Spent Total Time Spent (In Minutes): 40 Discharge Plan Discharge Items Patient Disposition: Home - Self-Care Reason For Visit: AMS Discharge Diagnosis: Transient altered mental status likely secondary to steroid Activity: Resume your previous activity Non-emergency contact: Primary Care Provider Call non-emergency contact if: you have any medication questions, your symptoms worsen, your pain is not controlled and your temperature is above 101 Follow-up/Referrals: Matt Hooper MD [Primary Care Provider] - Diet: Carb Consistent or DM2 Addtl Attending Provider Instructions: Follow-up with your primary care physician within a week time. Take medications as prescribed. Pending Studies at Discharge: Yes (Admitting blood culture final results.) Stand-Alone Forms: [facility] eyefactive, Smoking Cessation Medications and DC Order Prescriptions: New lidocaine 5 % Adhesive Patch,Medicated 1 patch transdermal QAM 15 Days Qty: 15 RF: 0 Continued pantoprazole 20 mg tablet,delayed release (DR/EC) 20 mg PO DAILY RF: 0 Novolin 70-30 FlexPen U-100 100 unit/mL (70-30) insulin pen 24 unit subcut QAM RF: 0 (DME) OneTouch Verio test strips Strip See Rx Instructions .ROUTE .MEDSUPPLY Qty: 100 RF: 3 (DME) OneTouch Verio test strips Strip See Rx Instructions [id number] .MEDSUPPLY Qty: 100 RF: 3 (DME) lancets [OneTouch Delica Lancets] 33 gauge misc See Rx Instructions .ROUTE .MEDSUPPLY Qty: 100 RF: 3 (DME) pen needle, diabetic [BD Ultra-Fine Shelbie Pen Needle] 32 gauge x 5/32" needle See Rx Instructions .ROUTE .MEDSUPPLY Qty: 200 RF: 3 atorvastatin 40 mg tablet 40 mg PO DAILY RF: 0 clopidogrel 75 mg tablet 75 mg PO DAILY RF: 0 aspirin 81 mg Tablet,Delayed Release (Dr/Ec) 81 mg PO HS RF: 0 tamsulosin 0.4 mg capsule 0.4 mg PO DAILY RF: 0 losartan 25 mg tablet 25 mg PO QAM RF: 0 acetaminophen [Tylenol Extra Strength] 500 mg Tablet 500 mg PO Q4H PRN (Reason: Pain) RF: 0 (DME) walker Misc See Rx Instructions .ROUTE .MEDSUPPLY Qty: 1 RF: 0 Novolin 70-30 FlexPen U-100 100 unit/mL (70-30) insulin pen 18 unit SUBCUT QDD RF: 0 bicalutamide 50 mg tablet 50 mg PO DAILY RF: 0 fluticasone propionate 50 mcg/actuation spray,suspension 2 spray INTRANASAL DAILY RF: 0 metoprolol tartrate 25 mg tablet 25 mg PO BID RF: 0 Discontinued prednisone 10 mg tablet 10 mg PO UD RF: 0 Discharge Orders: Discharge Order (Routine); Ordered 06/19/21 Ordered By: Prashanth Jameson Admission Data Admit Date/Time: 06/18/21 14:40 Attending Provider: Prashanth Jameson Admit Provider: Junior Maya Primary Care Provider: Matt Hooper Other Providers: Junior Maya
[2021-06-19 13:57] VITALS: PULSE 57
== END 2021-06-19 15:15 | disposition home or self-care (01) ==
LOC: EDINP 09:55 → ED 09:55 → SUATTDRO 14:40 → 2N 18:30

== ENCOUNTER 2022-02-03 13:04 | Inpatient (IN) ==
[2022-02-03] MEDS ORDERED: ADENOSINE IV SOLN 3 MG/ML 2 ML VIAL IV ONE (13:21)
[2022-02-03] MEDS ORDERED: METOPROLOL TARTRATE 1 MG/ML VIAL IV ONE (13:28)
[2022-02-03] MEDS ORDERED: SODIUM CHLORIDE 0.9% 500 ML IV SCH (13:30)
[2022-02-03] MEDS ORDERED: SODIUM CHLORIDE 0.9% 1000ML 500 ML IV ONE (13:30)
--- NOTE | 2022-02-03 13:36 | Emergency Department Note ---
Impression & Plan Hypotension, Palpitations, Weakness, SVT (supraventricular tachycardia) ED Provider Note NAME: MIAN CHOWDHURY AGE: 81 SEX: M : 1940 ARRIVES VIA: Walk-In INFORMANT: [Patient] ED PROVIDER(S): [Dakota Ewing MD] CHIEF COMPLAINT: Hypotension HISTORY OF PRESENT ILLNESS: The patient is an 81-year-old male who states that for 2 hours and 15 minutes he has felt palpitations, some shortness of breath and dizziness. He has had these episodes on and off now for some time, he thinks that the spells are related to his prostate cancer treatment. The patient has no history of SVT or dysrhythmia. He has had a stroke but is holding his Plavix for an upcoming colonoscopy this week. The patient denies fever. He has not had any increased cough. No abdominal pain. He denies chest pain. Of note, I was called emergently to the patient's room as he was hypotensive and tachycardic. REVIEW OF SYSTEMS: See HPI for pertinent positives and negatives. A total of ten systems were reviewed and were otherwise negative. PMHx/PSHx: See Below SOCIAL HISTORY: See Below. PHYSICAL EXAM: GENERAL: Patient is in mild distress, pale HEENT: No acute trauma, normocephalic atraumatic, mucous membranes moist, no nasal congestion, no scleral icterus. NECK: No stridor, no adenopathy, no meningismus, trachea is midline. LUNGS: Clear to auscultation bilaterally, no wheeze, no rhonchi, breath sounds equal. HEART: Tachycardic, regular rhythm, no murmur. ABDOMEN: Soft, nontender, bowel sounds positive, no peritonitis. EXTREMITIES: No cyanosis or edema, full range of motion of all the joints without pain or difficulty, no signs for acute trauma. NEUROLOGIC: Oriented x 3, no acute motor or sensory deficits, no focal weakness. SKIN: No rash, no jaundice, no diaphoresis. Pale. DIFFERENTIAL DIAGNOSIS: Electrolyte imbalance, thyroid disorder, dehydration, medication reaction, MO, dysrhythmia, SVT, atrial fibrillation, atrial flutter, among others. EMERGENCY DEPARTMENT COURSE/PROCEDURES: ECG: Indication was shortness of breath and palpitations. The ECG shows what appears to be SVT with a rate of 147. There is a potential old inferior infarct. There is some nonspecific ST changes diffusely. No ST elevation. No PVCs. QTC is 472. Repeat ECG: Indication was palpitations. The ECG shows a normal sinus rhythm with a rate of 80. There is an old inferior infarct. There is no ST elevation, no PVCs. QTC is 433. Compared to the earlier ECG from today, the SVT has resolved. Continuous Cardiac Monitoring: An order was placed for continuous cardiac monitoring. The monitor shows a rate of 91 with normal sinus rhythm. Critical Care Note: I have personally spent 41 minutes of critical care time in the direct management of this patient. This includes bedside care, interpretation of diagnostic studies, and testing, discussion with consultants, patient, and family members, and other required patient management activities. This 41 minutes is in excess of all separately billable procedures. MEDICAL DECISION MAKING: There is no leukocytosis. A very mild anemia was noted. There was a normal platelet count. No renal failure or significant electrolyte abnormality in need of emergent correction. No concerning liver enzyme elevation. The patient appeared to be in a euthyroid state. ECG showed SVT. Cardiac enzyme testing x1 does not show any elevation that would indicate cardiac ischemia. COVID test returned negative. Chest x-ray did not show pneumonia or CHF. On exam, the patient was hypotensive, tachycardic and appeared pale. The patient was aggressively managed. I was called emergently to his room because of the hypotension. Patient was given a 500 cc saline bolus. He was placed in Trendelenburg. I did attempt vagal maneuvers using the straw technique. This was unsuccessful. Patient was given 6 mg of IV adenosine followed by a rapid saline push, this medication did cause conversion to a sinus rhythm. Patient was then given 5 mg of IV metoprolol. The patient is now feeling markedly better. He is resting comfortably. His vital signs are stable. I spoke with Dr. Arce of cardiology. The patient has a history of tachybradycardia syndrome. With his escalating symptoms, with his presentation today, a hospital stay and evaluation for pacemaker was recommended. I spoke with the patient and social work case manager. The on-call hospitalist was consulted. Past Med/Surg History Medical History Altered mental status Controlled type 2 diabetes mellitus, with long-term current use of insulin Elevated PSA Gastritis Generalized osteoarthrosis History of CVA (cerebrovascular accident) History of kidney stones HLD (hyperlipidemia) HTN (hypertension) Lumbar degenerative disc disease Personal history of urinary calculi (01/27/13) RLS (restless legs syndrome) T2DM (type 2 diabetes mellitus) Surgical History H/O prostate biopsy History of colonoscopy with polypectomy History of cystoscopy History of laryngoscopy Hx of bursectomy Family History Father Myocardial infarction Heart disease Mother Breast cancer Sister Lupus Brother Diabetes Myocardial infarction Coronary heart disease Brother Cancer Bladder Social History Smoking Status: Never smoker Number of Years Since Quit: 40; Second Hand Exposure: No; Hx Alcohol Use: No Hx Substance Use: No Preferred Language: Angolan Communication Ability: Effective Visual Impairment: No Limitations Hearing Ability: Normal Assistant Hall Director Required: No Beliefs That Will Affect Care: None marital status: Current Living Situation: Spouse current occupational status: retired How many Children do You have: 2 Feels Safe at Home: Yes during the past year weight has: remained stable Physical Activity Frequency: 3-4 Times per Week Assistive Devices: Cane and Walker Allergies Allergies Allergy/AdvReac Type Severity Reaction Status Date / Time cat dander Allergy Intermediate itchy Verified 02/03/22 15:33 watery eyes dyclonine [From Sucrets] Allergy Intermediate "numb all Verified 02/03/22 15:33 over" hexylresorcinol Allergy Intermediate "numb all Verified 02/03/22 15:33 [From Sucrets] over" horse dander Allergy Intermediate itchy Verified 02/03/22 15:33 watery eyes latex Allergy Intermediate SKIN PEELS Verified 02/03/22 15:33 mirtazapine Allergy Intermediate Weakness Verified 02/03/22 15:33 adhesive Allergy Unknown "TAKES THE Verified 02/03/22 15:33 SKIN OFF" enalaprilat [From Vasotec] Allergy Unknown Verified 02/03/22 15:33 sitagliptin [From Januvia] Allergy Unknown Verified 02/03/22 15:33 diazepam [From Valium] AdvReac Severe can't stay Verified 02/03/22 15:33 awake diphenhydramine AdvReac Intermediate anxiety Verified 02/03/22 15:33 enalapril AdvReac Unknown "MADE ME Verified 02/03/22 15:33 MEAN" ferrous fumarate AdvReac Unknown Unknown Verified 02/03/22 15:33 [From Centrum] ferrous gluconate AdvReac Unknown Unknown Verified 02/03/22 15:33 [From Centrum] folic acid [From Centrum] AdvReac Unknown Unknown Verified 02/03/22 15:33 lutein [From Centrum] AdvReac Unknown Unknown Verified 02/03/22 15:33 lycopene [From Centrum] AdvReac Unknown Unknown Verified 02/03/22 15:33 meclizine AdvReac Unknown Unknown Verified 02/03/22 15:33 multivit with calcium, iron, AdvReac Unknown Unknown Verified 02/03/22 15:33 and other minerals [From Centrum] multivitamin [From Centrum] AdvReac Unknown Unknown Verified 02/03/22 15:33 multivitamin with iron,other AdvReac Unknown Unknown Verified 02/03/22 15:33 minerals [From Centrum] multivitamin with minerals AdvReac Unknown Unknown Verified 02/03/22 15:33 [From Centrum] simvastatin AdvReac Unknown Unknown Verified 02/03/22 15:33 Home Meds Home Medications Medication Instructions Recorded Confirmed acetaminophen 500 mg tablet 500 mg PO Q4H PRN Pain 06/08/19 02/03/22 (Tylenol Extra Strength) aspirin 81 mg tablet,delayed 81 mg PO HS 06/08/19 02/03/22 release atorvastatin 40 mg tablet 40 mg PO DAILY 06/08/19 02/03/22 clopidogrel 75 mg tablet 75 mg PO DAILY 06/08/19 02/03/22 losartan 25 mg tablet 25 mg PO QAM 06/08/19 02/03/22 tamsulosin 0.4 mg capsule 0.4 mg PO DAILY 06/08/19 02/03/22 pantoprazole 20 mg tablet,delayed 20 mg PO DAILY 04/10/21 02/03/22 release fluticasone propionate 50 2 spray intranasal DAILY 06/18/21 02/03/22 mcg/actuation nasal spray,suspension metoprolol tartrate 25 mg tablet 25 mg PO BID 06/18/21 02/03/22 famotidine 20 mg tablet 20 mg PO HS 12/12/21 02/03/22 insulin NPH-regular 70-30 U-100 16 unit subcut QDD 12/12/21 02/03/22 insulin 100 unit/mL subcutaneous pen (Novolin 70-30 FlexPen U-100 Insulin) insulin NPH-regular 70-30 U-100 21 unit subcut QAM 12/12/21 02/03/22 insulin 100 unit/mL subcutaneous pen (Novolin 70-30 FlexPen U-100 Insulin) albuterol sulfate 90 mcg/actuation 2 puff inhalation Q4H PRN 02/03/22 02/03/22 aerosol inhaler Shortness Of Breath Or Wheezing Previous Rx's Medication Instructions Recorded walker #1 ea 03/24/20 blood sugar diagnostic (OneTouch #100 ea 06/15/20 Verio test strips) blood sugar diagnostic (OneTouch #100 ea 06/15/20 Verio test strips) lancets 33 gauge (OneTouch Delica #100 ea 07/11/21 Lancets) pen needle, diabetic 32 gauge x #200 ea 01/15/22 5/32" (BD Ultra-Fine Shelbie Pen Needle) Results & Data (ED) Vital Signs Vital Signs - 24 hr 02/03/22 13:08 02/03/22 13:29 02/03/22 13:32 Temperature 36.2 C L Temperature Source Temporal Artery Scan Pulse Rate 154 H 78 Pulse Rate [Right Finger] Respiratory Rate 20 Respiratory Effort / Characteristics Respiratory Depth Blood Pressure 80/55 L 143/83 H Blood Pressure [Left Arm] Blood Pressure Mean 63 Blood Pressure Mean [Left Arm] Pulse Oximetry 97 Oxygen Delivery Method Room Air Nasal Cannula Oxygen Flow Rate 2 Sepsis Recent Fever Within 48 Hours No Sepsis New/Unexplained Change in Mental Status No Sepsis Action Taken by Nursing No Action Required 02/03/22 13:32 02/03/22 13:30 02/03/22 13:32 Temperature Temperature Source Pulse Rate Pulse Rate [Right Finger] 76 76 Respiratory Rate 20 20 Respiratory Effort / Characteristics Non-Labored Non-Labored Respiratory Depth Normal Normal Blood Pressure Blood Pressure [Left Arm] 136/74 123/86 Blood Pressure Mean Blood Pressure Mean [Left Arm] 94 98 Pulse Oximetry 89 L 97 92 Oxygen Delivery Method Nasal Cannula Nasal Cannula Nasal Cannula Oxygen Flow Rate 2 2 2 Sepsis Recent Fever Within 48 Hours Sepsis New/Unexplained Change in Mental Status Sepsis Action Taken by Nursing 02/03/22 13:35 02/03/22 13:40 02/03/22 13:50 Temperature Temperature Source Pulse Rate Pulse Rate [Right Finger] 75 74 76 Respiratory Rate 20 20 20 Respiratory Effort / Characteristics Non-Labored Non-Labored Non-Labored Respiratory Depth Normal Normal Normal Blood Pressure Blood Pressure [Left Arm] 131/73 126/73 135/75 Blood Pressure Mean Blood Pressure Mean [Left Arm] 92 90 95 Pulse Oximetry 96 99 100 Oxygen Delivery Method Nasal Cannula Nasal Cannula Nasal Cannula Oxygen Flow Rate 2 2 2 Sepsis Recent Fever Within 48 Hours Sepsis New/Unexplained Change in Mental Status Sepsis Action Taken by Nursing 02/03/22 13:32 02/03/22 14:05 02/03/22 14:30 Temperature Temperature Source Pulse Rate Pulse Rate [Right Finger] 72 70 Respiratory Rate 20 20 Respiratory Effort / Characteristics Non-Labored Non-Labored Respiratory Depth Normal Normal Blood Pressure Blood Pressure [Left Arm] 132/75 116/73 Blood Pressure Mean Blood Pressure Mean [Left Arm] 94 87 Pulse Oximetry 99 95 Oxygen Delivery Method Nasal Cannula Nasal Cannula Nasal Cannula Oxygen Flow Rate 6 2 2 Sepsis Recent Fever Within 48 Hours Sepsis New/Unexplained Change in Mental Status Sepsis Action Taken by [facility] Medications Current Medication List: was personally reviewed by me Laboratory Data Attestation: I reviewed the patient's lab results. Result diagrams: 02/03/22 13:21 02/03/22 13:21 Lab Results 02/03/22 02/03/22 02/03/22 Range/Units 13:21 13:21 13:21 WBC 7.92 (4.8-10.8) K/ul RBC 4.12 L (4.63-6.08) M/uL Hgb 13.4 L (14.0-18.0) g/dl Hct 38.6 L (40.1-51.0) % MCV 93.7 (80.0-100.0) fL MCH 32.5 (25.0-34.0) pg MCHC 34.7 (32.0-36.0) g/dL RDW Std Deviation 42.8 (36.4-46.3) fL RDW Coeff of Catherine 12.4 (11.5-14.5) % Plt Count 289 (130-400) K/uL MPV 9.7 (9.4-12.4) fL Immature Gran % (Auto) 0.4 % Neut % (Auto) 64.0 % Lymph % (Auto) 22.7 % [place] % (Auto) 6.8 % Eos % (Auto) 5.3 % Baso % (Auto) 0.8 % Neut # (Auto) 5.07 (1.4-6.5) K/uL Lymph # (Auto) 1.80 (1.2-3.4) K/uL [place] # (Auto) 0.54 (0.24-0.82) K/uL Eos # (Auto) 0.42 (0-0.50) K/uL Baso # (Auto) 0.06 (0-0.2) K/uL Immature Gran # (Auto) 0.03 H (0.00-0.02) K/uL Sodium 134 L (136-145) mmol/L Potassium 3.8 (3.5-5.1) mmol/L Chloride 101 (98-107) mmol/L Carbon Dioxide 27 (21-32) mmol/L Anion Gap 6 (3-11) BUN 17 (6-23) mg/dl Creatinine 1.24 (0.6-1.4) mg/dl Est Cr Clr Drug Dosing 36.9 ml/min Est GFR ( Amer) 62.8 ml/min Est GFR (Non-Af Amer) 54.2 ml/min BUN/Creatinine Ratio 13.7 (10-20) Glucose 130 H (70-99(Fasting)) mg/dl Calcium 9.4 (8.5-10.1) mg/dl Magnesium 1.9 (1.7-2.4) mg/dl Total Bilirubin 0.5 (0.2-1.0) mg/dl AST 17 (13-39) U/L ALT 13 (7-52) U/L Alkaline Phosphatase 84 (34-104) U/L Troponin I High Sens 12.6 (0-20) pg/ml Total Protein 7.4 (6.0-8.3) gm/dl Albumin 4.2 (3.4-5.0) gm/dl Globulin 3.2 (2.5-4.0) gm/dl Albumin/Globulin Ratio 1.3 (0.9-2) TSH 1.285 (0.300-4.500) uIu/ml SARS-CoV-2, RNA, NAAT (NEGATIVE) 02/03/22 Range/Units 13:35 WBC (4.8-10.8) K/ul RBC (4.63-6.08) M/uL Hgb (14.0-18.0) g/dl Hct (40.1-51.0) % MCV (80.0-100.0) fL MCH (25.0-34.0) pg MCHC (32.0-36.0) g/dL RDW Std Deviation (36.4-46.3) fL RDW Coeff of Catherine (11.5-14.5) % Plt Count (130-400) K/uL MPV (9.4-12.4) fL Immature Gran % (Auto) % Neut % (Auto) % Lymph % (Auto) % [place] % (Auto) % Eos % (Auto) % Baso % (Auto) % Neut # (Auto) (1.4-6.5) K/uL Lymph # (Auto) (1.2-3.4) K/uL [place] # (Auto) (0.24-0.82) K/uL Eos # (Auto) (0-0.50) K/uL Baso # (Auto) (0-0.2) K/uL Immature Gran # (Auto) (0.00-0.02) K/uL Sodium (136-145) mmol/L Potassium (3.5-5.1) mmol/L Chloride (98-107) mmol/L Carbon Dioxide (21-32) mmol/L Anion Gap (3-11) BUN (6-23) mg/dl Creatinine (0.6-1.4) mg/dl Est Cr Clr Drug Dosing ml/min Est GFR ( Amer) ml/min Est GFR (Non-Af Amer) ml/min BUN/Creatinine Ratio (10-20) Glucose (70-99(Fasting)) mg/dl Calcium (8.5-10.1) mg/dl Magnesium (1.7-2.4) mg/dl Total Bilirubin (0.2-1.0) mg/dl AST (13-39) U/L ALT (7-52) U/L Alkaline Phosphatase (34-104) U/L Troponin I High Sens (0-20) pg/ml Total Protein (6.0-8.3) gm/dl Albumin (3.4-5.0) gm/dl Globulin (2.5-4.0) gm/dl Albumin/Globulin Ratio (0.9-2) TSH (0.300-4.500) uIu/ml SARS-CoV-2, RNA, NAAT NEGATIVE (NEGATIVE) Administered Medications Discontinued Medications Adenosine (Adenosine Iv Soln 3 Mg/Ml 2 Ml Vial) Confirm Administered Dose 24 mg IV .STK-MED ONE Stop: 02/03/22 13:22 Last Admin: 02/03/22 13:25 Dose: 6 mg Documented By: TONA Sodium Chloride (Nss 1000ml) 500 mls @ 999 mls/hr IV .Q31M ONE Stop: 02/03/22 14:00 Last Infusion: 02/03/22 14:08 Dose: 0 mls/hr Documented By: Admin: 02/03/22 13:30 Dose: 999 mls/hr Documented By: CHRISTIE Metoprolol Tartrate (Metoprolol Tartrate 1 Mg/Ml Vial) Confirm Administered Dose 5 mg IV .STK-MED ONE Stop: 02/03/22 13:29 Last Admin: 02/03/22 13:29 Dose: 5 mg Documented By: TONA Imaging Data Radiologist's Impression: Chest X-Ray 02/03/22 13:30 XR chest 1V portable CLINICAL HISTORY: weakness. Evaluate cardiopulmonary status COMPARISON STUDY: 07/19/2021 TECHNIQUE: 1 view of the chest FINDINGS: Single frontal view of the chest demonstrates the cardiomediastinal silhouette to be within normal limits. The lungs are clear of alveolar opacities. There is no evidence for pleural effusion. There is no evidence for vascular congestion. There is no acute osseous pathology. IMPRESSION: 1. No acute cardiopulmonary disease. ACT 112: Negative or not required by law. Electronically signed by: Alden Peterson M.D. 02/03/2022 1:52 PM Discharge Plan Visit Data Chief Complaint: Hypotension Stated Complaint: SOB, LOW BP, HIGH HEART RATE ED Provider: Dakota Ewing Discharge Problem: Hypotension, Palpitations, Weakness, SVT (supraventricular tachycardia) Patient Disposition: Admitted As Inpatient Condition: Good Forms Stand Alone Forms: My [facility] Prescriptions Prescriptions: No Action pantoprazole 20 mg tablet,delayed release (DR/EC) 20 mg PO DAILY Novolin 70-30 FlexPen U-100 100 unit/mL (70-30) insulin pen 21 unit subcut QAM Label Comments: 21 units am 16 units before evening meal Rx Instructions: Inject 21 units before breakfast and 16 units before supper famotidine 20 mg tablet 20 mg PO HS (DME) OneTouch Verio test strips Strip See Rx Instructions .ROUTE .MEDSUPPLY Qty: 100 3RF Rx Instructions: Test blood sugar once a day (DME) OneTouch Verio test strips Strip See Rx Instructions [id number] .MEDSUPPLY Qty: 100 3RF Rx Instructions: Test blood sugar once daily (DME) lancets [OneTouch Delica Lancets] 33 gauge misc See Rx Instructions .ROUTE .MEDSUPPLY Qty: 100 0RF Rx Instructions: Test blood sugar once a day ([facility] [place]) pen needle, diabetic [BD Ultra-Fine Shelbie Pen Needle] 32 gauge x 5/32" needle See Rx Instructions .ROUTE .MEDSUPPLY Qty: 200 1RF Rx Instructions: Inject twice daily atorvastatin 40 mg tablet 40 mg PO DAILY clopidogrel 75 mg tablet 75 mg PO DAILY aspirin 81 mg Tablet,Delayed Release (Dr/Ec) 81 mg PO HS tamsulosin 0.4 mg capsule 0.4 mg PO DAILY losartan 25 mg tablet 25 mg PO QAM acetaminophen [Tylenol Extra Strength] 500 mg Tablet 500 mg PO Q4H PRN (Reason: Pain) Label Comments: states patient took yesterday in the late afternoon. (06-08-19) ([facility] [place]) [facility] [place] See Rx Instructions .ROUTE .MEDSUPPLY Qty: 1 0RF Rx Instructions: As directed albuterol sulfate 90 mcg/actuation HFA aerosol inhaler 2 puff INHALATION Q4H PRN (Reason: Shortness Of Breath Or Wheezing) Novolin 70-30 FlexPen U-100 100 unit/mL (70-30) insulin pen 16 unit SUBCUT QDD Rx Instructions: Inject 21 units before breakfast and 16 units before supper fluticasone propionate 50 mcg/actuation spray,suspension 2 spray INTRANASAL DAILY metoprolol tartrate 25 mg tablet 25 mg PO BID Referrals Referrals: Matt Hooper MD [Primary Care Provider] -
[2022-02-03 13:46] LABS: Basophils # (auto) 0.06 K/uL (0-0.2); Basophils % (auto) 0.8 %; Eosinophils # (auto) 0.42 K/uL (0-0.50); Eosinophils % (auto) 5.3 %; Hematocrit (blood only) 38.6 % (40.1-51.0); Hemoglobin 13.4 g/dl (14.0-18.0); Immature Granulocytes # (auto) 0.03 K/uL (0.00-0.02); Immature Granulocytes % (auto) 0.4 %; Lymphocytes % (auto) 22.7 %; Mean Corpuscular Hemoglobin 32.5 pg (25.0-34.0); Mean Corpuscular Hgb Conc 34.7 g/dL (32.0-36.0); Mean Corpuscular Volume 93.7 fL (80.0-100.0); Mean Platelet Volume 9.7 fL (9.4-12.4); Monocytes # (auto) 0.54 K/uL (0.24-0.82); Monocytes % (auto) 6.8 %; Neutrophils # (auto) 5.07 K/uL (1.4-6.5); Platelet Count 289 K/uL (130-400); RDW Coefficient of Variation 12.4 % (11.5-14.5); RDW Standard Deviation 42.8 fL (36.4-46.3); Red Blood Count 4.12 M/uL (4.63-6.08); White Blood Count 7.92 K/ul (4.8-10.8)
--- NOTE | 2022-02-03 13:54 | XRay Report ---
XR chest 1V portable CLINICAL HISTORY: weakness. Evaluate cardiopulmonary status COMPARISON STUDY: 07/19/2021 TECHNIQUE: 1 view of the chest FINDINGS: Single frontal view of the chest demonstrates the cardiomediastinal silhouette to be within normal li mits. The lungs are clear of alveolar opacities. There is no evidence for pleural effusion. There is no evidence for vascular congestion. There is no acute osseous pathology. IMPRESSION: 1. No acute cardiopulmonary disease. ACT 112: Negative or not required by law. Electronically signed by: Alden Peterson M.D. 02/03/2022 1:52 PM
[2022-02-03 14:09] LABS: Albumin Globulin Ratio 1.3 (0.9-2); Albumin Level 4.2 gm/dl (3.4-5.0); BUN Creatinine Ratio 13.7 (10-20); Bilirubin,Total 0.5 mg/dl (0.2-1.0); Calcium 9.4 mg/dl (8.5-10.1); Creatinine Clr Calc Pharmacy 36.9 ml/min; Est GFR (African American) 62.8 ml/min; Est GFR (Non-African American) 54.2 ml/min; Globulin 3.2 gm/dl (2.5-4.0); Magnesium 1.9 mg/dl (1.7-2.4); Potassium 3.8 mmol/L (3.5-5.1); Total Protein 7.4 gm/dl (6.0-8.3)
[2022-02-03 14:15] LABS: Troponin I High Sensitivity 12.6 pg/ml (0-20)
--- NOTE | 2022-02-03 15:12 | Cardiology Consultation ---
Date of Consultation February 03, 2022 History of Present Illness History of Present Illness Past medical history: 1. Tachy palpitations, secondary to paroxysmal supraventricular tachycardia 2. Type 2 diabetes 3. Prostate carcinoma, diagnosed 09/2020, on anti androgen therapy 4. 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 5. Dyslipidemia 6. Hypertension 7. 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, pacemaker not placed Allergies Allergy/AdvReac Type Severity Reaction Status Date / Time cat dander Allergy Intermediate itchy Verified 08/26/21 11:02 watery eyes dyclonine [From Sucrets] Allergy Intermediate "numb all Verified 08/26/21 11:02 over" hexylresorcinol Allergy Intermediate "numb all Verified 08/26/21 11:02 [From Sucrets] over" horse dander Allergy Intermediate itchy Verified 08/26/21 11:02 watery eyes latex Allergy Intermediate SKIN PEELS Verified 08/26/21 11:02 mirtazapine Allergy Intermediate Weakness Verified 12/12/21 14:24 adhesive Allergy Unknown "TAKES THE Verified 08/26/21 11:02 SKIN OFF" enalaprilat [From Vasotec] Allergy Unknown Verified 08/26/21 11:02 sitagliptin [From Januvia] Allergy Unknown Verified 08/26/21 11:02 diazepam [From Valium] AdvReac Severe can't stay Verified 08/26/21 11:02 awake diphenhydramine AdvReac Intermediate anxiety Verified 08/26/21 11:02 enalapril AdvReac Unknown "MADE ME Verified 08/26/21 11:02 MEAN" ferrous fumarate AdvReac Unknown Unknown Verified 08/26/21 11:02 [From Centrum] ferrous gluconate AdvReac Unknown Unknown Verified 08/26/21 11:02 [From Centrum] folic acid [From Centrum] AdvReac Unknown Unknown Verified 08/26/21 11:02 lutein [From Centrum] AdvReac Unknown Unknown Verified 08/26/21 11:02 lycopene [From Centrum] AdvReac Unknown Unknown Verified 08/26/21 11:02 meclizine AdvReac Unknown Unknown Verified 08/26/21 11:02 multivit with calcium, iron, AdvReac Unknown Unknown Verified 08/26/21 11:02 and other minerals [From Centrum] multivitamin [From Centrum] AdvReac Unknown Unknown Verified 08/26/21 11:02 multivitamin with iron,other AdvReac Unknown Unknown Verified 08/26/21 11:02 minerals [From Centrum] multivitamin with minerals AdvReac Unknown Unknown Verified 08/26/21 11:02 [From Centrum] simvastatin AdvReac Unknown Unknown Verified 08/26/21 11:02 Home Medications Medication Instructions Recorded Confirmed Type acetaminophen 500 mg tablet 500 mg PO Q4H PRN Pain 06/08/19 12/12/21 History (Tylenol Extra Strength) aspirin 81 mg tablet,delayed 81 mg PO HS 06/08/19 12/12/21 History release atorvastatin 40 mg tablet 40 mg PO DAILY 06/08/19 12/12/21 History clopidogrel 75 mg tablet 75 mg PO DAILY 06/08/19 12/12/21 History losartan 25 mg tablet 25 mg PO QAM 06/08/19 12/12/21 History tamsulosin 0.4 mg capsule 0.4 mg PO DAILY 06/08/19 12/12/21 History walker #1 ea 03/24/20 12/12/21 Rx blood sugar diagnostic (OneTouch #100 ea 06/15/20 12/12/21 Rx Verio test strips) blood sugar diagnostic (OneTouch #100 ea 06/15/20 12/12/21 Rx Verio test strips) pantoprazole 20 mg tablet,delayed 20 mg PO DAILY 04/10/21 12/12/21 History release fluticasone propionate 50 2 spray intranasal DAILY 06/18/21 12/12/21 History mcg/actuation nasal spray,suspension metoprolol tartrate 25 mg tablet 25 mg PO BID 06/18/21 12/12/21 History lancets 33 gauge (OneTouch Delica #100 ea 07/11/21 12/12/21 Rx Lancets) albuterol 90 mcg/actuation aerosol mcg inhalation .every 4 hours PRN 12/12/21 12/12/21 History inhaler famotidine 20 mg tablet 20 mg PO HS 12/12/21 12/12/21 History insulin NPH-regular 70-30 U-100 16 unit subcut QDD 12/12/21 12/12/21 History insulin 100 unit/mL subcutaneous pen (Novolin 70-30 FlexPen U-100 Insulin) insulin NPH-regular 70-30 U-100 21 unit subcut QAM 12/12/21 12/12/21 History insulin 100 unit/mL subcutaneous pen (Novolin 70-30 FlexPen U-100 Insulin) pen needle, diabetic 32 gauge x #200 ea 01/15/22 Rx " (BD Ultra-Fine Shelbie Pen Needle) Patient History Medical History (Updated 12/13/21 @ 07:31 by Laurie Ott PA-C) Altered mental status Controlled type 2 diabetes mellitus, with long-term current use of insulin Elevated PSA Gastritis Generalized osteoarthrosis History of CVA (cerebrovascular accident) History of kidney stones HLD (hyperlipidemia) HTN (hypertension) Lumbar degenerative disc disease Personal history of urinary calculi (01/27/13) RLS (restless legs syndrome) T2DM (type 2 diabetes mellitus) Surgical History H/O prostate biopsy History of colonoscopy with polypectomy History of cystoscopy History of laryngoscopy Hx of bursectomy Family History Father Myocardial infarction Heart disease Mother Breast cancer Sister Lupus Brother Diabetes Myocardial infarction Coronary heart disease Brother Cancer Bladder Social History Smoking Status: Never smoker Number of Years Since Quit: 40; Second Hand Exposure: No; Hx Alcohol Use: No Hx Substance Use: No Preferred Language: Serbian Communication Ability: Effective Visual Impairment: No Limitations Hearing Ability: Normal Flavor Maker Required: No Beliefs That Will Affect Care: None marital status: Current Living Situation: Spouse current occupational status: retired How many Children do You have: 2 Feels Safe at Home: Yes during the past year weight has: remained stable Physical Activity Frequency: 3-4 Times per Week Assistive Devices: Cane and Walker Results & Data ([facility]) Vital Signs (Past 12 Hours) Vital Signs Temp Pulse Pulse Resp BP BP Pulse Ox 02/03/22 14:30 70 20 116/73 95 02/03/22 14:05 72 20 132/75 99 02/03/22 13:32 02/03/22 13:50 76 20 135/75 100 02/03/22 13:40 74 20 126/73 99 02/03/22 13:35 75 20 131/73 96 02/03/22 13:32 76 20 123/86 92 02/03/22 13:30 76 20 136/74 97 02/03/22 13:32 89 L 02/03/22 13:32 02/03/22 13:29 78 143/83 H 02/03/22 13:08 36.2 C L 154 H 20 80/55 L 97 O2 Del Method O2 Flow Rate 02/03/22 14:30 Nasal Cannula 2 02/03/22 14:05 Nasal Cannula 2 02/03/22 13:32 Nasal Cannula 6 02/03/22 13:50 Nasal Cannula 2 02/03/22 13:40 Nasal Cannula 2 02/03/22 13:35 Nasal Cannula 2 02/03/22 13:32 Nasal Cannula 2 02/03/22 13:30 Nasal Cannula 2 02/03/22 13:32 Nasal Cannula 2 02/03/22 13:32 Nasal Cannula 2 02/03/22 13:29 02/03/22 13:08 Room Air
--- NOTE | 2022-02-03 15:35 | History & Physical Report ---
Date of Service February 03, 2022 Assessment & Plan (1) Tachy-alicia syndrome: Plan: -Admit to PCU -Tachybrady syndrome noted on ZIO monitoring in April 2021. It was diagnosed as paroxysmal A. tach about 6 minutes on a ZIO, symptomatic PACs. He had been maintained on metoprolol tartrate 25 mg twice daily. Asymptomatic without any evidence of symptomatic bradycardia prior to today's ER visit. He has been following with [facility] cardiology as outpatient. -Patient is status post 1 L NSS, vagal maneuver, Trendelenburg position in the ER and received adenosine 6 mg IV and metoprolol tartrate 5 mg IV which converted him into normal sinus rhythm -Continue metoprolol tartrate 25 mg BID, losartan 25 mg daily, and atorvastatin 20 mg daily unless otherwise directed per cardiology -Last echo reviewed from 04/2021 with EF of 55 to 60%, no WMA, mild aortic regurg, grade 1 diastolic dysfunction-we will repeat echo here -Consult cardiology - Will hold plavix in the anticipation of pacemaker placement tomorrow morning, continue aspirin (2) HTN (hypertension): (3) HLD (hyperlipidemia): (4) Controlled type 2 diabetes mellitus, with long-term current use of insulin: Plan: - Will reduce NPH 70/30 mix to 8 U this evening since is allowed a diet but making NPO at midnight. Typically uses 16 U HS. HOLD morning NPH for now, continue with ISS and accuchecks achs or Q6H while NPO. - last A1C = 7.1, recheck with am labs (5) History of CVA (cerebrovascular accident): Plan: - no residual deficits notable - holding plavix for procedure tomorrow am, continue aspirin (6) Prostate cancer: Plan: - Hx of such, follows with cancer care here at [facility], Dr. Penny, was discharged recently in December 2021. Still following with urology. Repeat PSA q6mo describes hot flashes this morning and is noted that he can use Vitamin E 400 mg U daily for the hot flashes DVT ppx: -teds, scds, holding plavix in anticipation of pacemaker insertion tomorrow CODE: Full code Dispo: From home, lives with , likely to remain in the hospital x 2 nights. History of Present Illness Chief Complaint: Dizziness, hypotension Primary Care Provider: Matt Hooper MD This is an 81-year-old male with PMHx of tachybradycardia syndrome, paroxysmal supraventricular tachycardia, history of TIA/CVA x2 on Plavix, HTN, HLD, DM type II, prostate cancer diagnosed in September 2020 on antiandrogen therapy, lumbar DDD, who presents to the ER with acute onset of dizziness which began this morning, feeling tired and very will with hot flash like symptoms. He denies ever feeling shortness of breath, or having chest pain, but was found to be in SVT on presentation to the ER with heart rate in the 140s and blood pressure of 80/50. He reports taking his usual home medications this morning but cannot recall what the names or doses are as his normally manages these things for him. Patient was treated with vagal maneuvers, Trendelenburg position, 1 L NSS and adenosine 6 mg IV and metoprolol tartrate IV 5 mg and which resulted in return to NSR. Cardiology was consulted by the ER and has recommended that the patient stay overnight for possible pacemaker placement tomorrow. Allergies Allergy/AdvReac Type Severity Reaction Status Date / Time cat dander Allergy Intermediate itchy Verified 02/03/22 15:33 watery eyes dyclonine [From Sucrets] Allergy Intermediate "numb all Verified 02/03/22 15:33 over" hexylresorcinol Allergy Intermediate "numb all Verified 02/03/22 15:33 [From Sucrets] over" horse dander Allergy Intermediate itchy Verified 02/03/22 15:33 watery eyes latex Allergy Intermediate SKIN PEELS Verified 02/03/22 15:33 mirtazapine Allergy Intermediate Weakness Verified 02/03/22 15:33 adhesive Allergy Unknown "TAKES THE Verified 02/03/22 15:33 SKIN OFF" enalaprilat [From Vasotec] Allergy Unknown Verified 02/03/22 15:33 sitagliptin [From Januvia] Allergy Unknown Verified 02/03/22 15:33 diazepam [From Valium] AdvReac Severe can't stay Verified 02/03/22 15:33 awake diphenhydramine AdvReac Intermediate anxiety Verified 02/03/22 15:33 enalapril AdvReac Unknown "MADE ME Verified 02/03/22 15:33 MEAN" ferrous fumarate AdvReac Unknown Unknown Verified 02/03/22 15:33 [From Centrum] ferrous gluconate AdvReac Unknown Unknown Verified 02/03/22 15:33 [From Centrum] folic acid [From Centrum] AdvReac Unknown Unknown Verified 02/03/22 15:33 lutein [From Centrum] AdvReac Unknown Unknown Verified 02/03/22 15:33 lycopene [From Centrum] AdvReac Unknown Unknown Verified 02/03/22 15:33 meclizine AdvReac Unknown Unknown Verified 02/03/22 15:33 multivit with calcium, iron, AdvReac Unknown Unknown Verified 02/03/22 15:33 and other minerals [From Centrum] multivitamin [From Centrum] AdvReac Unknown Unknown Verified 02/03/22 15:33 multivitamin with iron,other AdvReac Unknown Unknown Verified 02/03/22 15:33 minerals [From Centrum] multivitamin with minerals AdvReac Unknown Unknown Verified 02/03/22 15:33 [From Centrum] simvastatin AdvReac Unknown Unknown Verified 02/03/22 15:33 Home Medications Medication Instructions Recorded Confirmed Type acetaminophen 500 mg tablet 500 mg PO Q4H PRN Pain 06/08/19 02/03/22 History (Tylenol Extra Strength) aspirin 81 mg tablet,delayed 81 mg PO HS 06/08/19 02/03/22 History release atorvastatin 40 mg tablet 40 mg PO DAILY 06/08/19 02/03/22 History clopidogrel 75 mg tablet 75 mg PO DAILY 06/08/19 02/03/22 History losartan 25 mg tablet 25 mg PO QAM 06/08/19 02/03/22 History tamsulosin 0.4 mg capsule 0.4 mg PO DAILY 06/08/19 02/03/22 History walker #1 ea 03/24/20 12/12/21 Rx blood sugar diagnostic (OneTouch #100 ea 06/15/20 12/12/21 Rx Verio test strips) blood sugar diagnostic (OneTouch #100 ea 06/15/20 12/12/21 Rx Verio test strips) pantoprazole 20 mg tablet,delayed 20 mg PO DAILY 04/10/21 02/03/22 History release fluticasone propionate 50 2 spray intranasal DAILY 06/18/21 02/03/22 History mcg/actuation nasal spray,suspension metoprolol tartrate 25 mg tablet 25 mg PO BID 06/18/21 02/03/22 History lancets 33 gauge (OneTouch Delica #100 ea 07/11/21 12/12/21 Rx Lancets) famotidine 20 mg tablet 20 mg PO HS 12/12/21 02/03/22 History insulin NPH-regular 70-30 U-100 16 unit subcut QDD 12/12/21 02/03/22 History insulin 100 unit/mL subcutaneous pen (Novolin 70-30 FlexPen U-100 Insulin) insulin NPH-regular 70-30 U-100 21 unit subcut QAM 12/12/21 02/03/22 History insulin 100 unit/mL subcutaneous pen (Novolin 70-30 FlexPen U-100 Insulin) pen needle, diabetic 32 gauge x #200 ea 01/15/22 Rx 32" (BD Ultra-Fine Shelbie Pen Needle) albuterol sulfate 90 mcg/actuation 2 puff inhalation Q4H PRN 02/03/22 02/03/22 History aerosol inhaler Shortness Of Breath Or Wheezing Past Med/Surg History Medical History Altered mental status Controlled type 2 diabetes mellitus, with long-term current use of insulin Elevated PSA Gastritis Generalized osteoarthrosis History of CVA (cerebrovascular accident) History of kidney stones HLD (hyperlipidemia) HTN (hypertension) Lumbar degenerative disc disease Personal history of urinary calculi (01/27/13) RLS (restless legs syndrome) T2DM (type 2 diabetes mellitus) Surgical History H/O prostate biopsy History of colonoscopy with polypectomy History of cystoscopy History of laryngoscopy Hx of bursectomy Family History Father Myocardial infarction Heart disease Mother Breast cancer Sister Lupus Brother Diabetes Myocardial infarction Coronary heart disease Brother Cancer Bladder Social History Smoking Status: Never smoker Number of Years Since Quit: 40; Second Hand Exposure: No; Hx Alcohol Use: No Hx Substance Use: No Preferred Language: Trinidadian Communication Ability: Effective Visual Impairment: No Limitations Hearing Ability: Normal Chief Clinical Dietitian Required: No Beliefs That Will Affect Care: None marital status: Current Living Situation: Spouse current occupational status: retired How many Children do You have: 2 Feels Safe at Home: Yes during the past year weight has: remained stable Physical Activity Frequency: 3-4 Times per Week Assistive Devices: Cane and Walker Review of Systems Review of Systems: Constitutional: No fever, sweats or chills Eyes: No diplopia, no worsening or blurred vision ENT: normal hearing, no trouble swallowing Respiratory: No cough, sputum, dyspnea at rest or on exertion Cardiovascular: No chest pain, tightness or palpitations Abdomen: No pain, nausea, vomiting, diarrhea or constipation Musculoskeletal: No joint pain, calf pain, swelling Neurologic: No weakness, numbness/tingling, or balance problems Psychiatric: No anxiety or depression Skin: No rash or itch Physical Exam Physical Exam: General: awake, alert, no apparent distress Head: Normocephalic, atraumatic ENT: PERRL, EOMI, no pharyngeal exudate, mucous membranes moist Chest: Clear to auscultation, on room air, no adventitious breath sounds Cardiac: Regular rate and rhythm, no murmur, no JVD, normal peripheral pulses, good capillary refill Abdominal: NABS x 4 quadrants, soft, nondistended, nontender to palpation, no rebound or guarding Extremities: Normal inspection, no peripheral edema or erythema, calfs nontender to palpation Psych: Normal mood and affect Neuro: AAO x 3, strength intact bilaterally and rated 5/5, no motor deficits, speech is clear, no peripheral sensory deficits Results & Data Results & Data ([facility]) Vital Signs (Past 12 Hours) Vital Signs Temp Pulse Pulse Resp BP BP Pulse Ox 02/03/22 14:30 70 20 116/73 95 02/03/22 14:05 72 20 132/75 99 02/03/22 13:32 02/03/22 13:50 76 20 135/75 100 02/03/22 13:40 74 20 126/73 99 02/03/22 13:35 75 20 131/73 96 02/03/22 13:32 76 20 123/86 92 02/03/22 13:30 76 20 136/74 97 02/03/22 13:32 89 L 02/03/22 13:32 02/03/22 13:29 78 143/83 H 02/03/22 13:08 36.2 C L 154 H 20 80/55 L 97 O2 Del Method O2 Flow Rate 02/03/22 14:30 Nasal Cannula 2 02/03/22 14:05 Nasal Cannula 2 02/03/22 13:32 Nasal Cannula 6 02/03/22 13:50 Nasal Cannula 2 02/03/22 13:40 Nasal Cannula 2 02/03/22 13:35 Nasal Cannula 2 02/03/22 13:32 Nasal Cannula 2 02/03/22 13:30 Nasal Cannula 2 02/03/22 13:32 Nasal Cannula 2 02/03/22 13:32 Nasal Cannula 2 02/03/22 13:29 02/03/22 13:08 Room Air Laboratory Results 02/03/22 02/03/22 02/03/22 13:35 13:21 13:21 WBC RBC Hgb Hct MCV MCH MCHC RDW Std Deviation RDW Coeff of Catherine Plt Count MPV Immature Gran % (Auto) Neut % (Auto) Lymph % (Auto) [place] % (Auto) Eos % (Auto) Baso % (Auto) Neut # (Auto) Lymph # (Auto) [place] # (Auto) Eos # (Auto) Baso # (Auto) Immature Gran # (Auto) Sodium 134 L Potassium 3.8 Chloride 101 Carbon Dioxide 27 Anion Gap 6 BUN 17 Creatinine 1.24 Est Cr Clr Drug Dosing 36.9 Est GFR ( Amer) 62.8 Est GFR (Non-Af Amer) 54.2 BUN/Creatinine Ratio 13.7 Glucose 130 H Calcium 9.4 Magnesium 1.9 Total Bilirubin 0.5 AST 17 ALT 13 Alkaline Phosphatase 84 Troponin I High Sens 12.6 Total Protein 7.4 Albumin 4.2 Globulin 3.2 Albumin/Globulin Ratio 1.3 TSH 1.285 SARS-CoV-2, RNA, NAAT NEGATIVE 02/03/22 13:21 WBC 7.92 RBC 4.12 L Hgb 13.4 L Hct 38.6 L MCV 93.7 MCH 32.5 MCHC 34.7 RDW Std Deviation 42.8 RDW Coeff of Catherine 12.4 Plt Count 289 MPV 9.7 Immature Gran % (Auto) 0.4 Neut % (Auto) 64.0 Lymph % (Auto) 22.7 [place] % (Auto) 6.8 Eos % (Auto) 5.3 Baso % (Auto) 0.8 Neut # (Auto) 5.07 Lymph # (Auto) 1.80 [place] # (Auto) 0.54 Eos # (Auto) 0.42 Baso # (Auto) 0.06 Immature Gran # (Auto) 0.03 H Sodium Potassium Chloride Carbon Dioxide Anion Gap BUN Creatinine Est Cr Clr Drug Dosing Est GFR ( Amer) Est GFR (Non-Af Amer) BUN/Creatinine Ratio Glucose Calcium Magnesium Total Bilirubin AST ALT Alkaline Phosphatase Troponin I High Sens Total Protein Albumin Globulin Albumin/Globulin Ratio TSH SARS-CoV-2, RNA, NAAT Diagnostic Findings Chest X-Ray 02/03/22 13:30 XR chest 1V portable CLINICAL HISTORY: weakness. Evaluate cardiopulmonary status COMPARISON STUDY: 07/19/2021 TECHNIQUE: 1 view of the chest FINDINGS: Single frontal view of the chest demonstrates the cardiomediastinal silhouette to be within normal limits. The lungs are clear of alveolar opacities. There is no evidence for pleural effusion. There is no evidence for vascular congestion. There is no acute osseous pathology. IMPRESSION: 1. No acute cardiopulmonary disease. ACT 112: Negative or not required by law. Electronically signed by: Alden Peterson M.D. 02/03/2022 1:52 PM ECG Additional Comments: Reviewed both EKGs as per [facility] - most recent showing Blood Pressure : / mmHG Vent. Rate : 061 BPM Atrial Rate : 061 BPM P-R Int : 178 ms QRS Dur : 088 ms QT Int : 442 ms P-R-T Axes : 047 000 040 degrees QTc Int : 444 ms Normal sinus rhythm Normal ECG When compared with ECG of 18-JUN-2021 10:11, Premature atrial complexes are no longer Present Criteria for Inferior infarct are no longer Present Code Status & VTE Plan Code Status Full code- discussed with the patient at bedside Supervising Physician Co-Signing Physician Notes Attending addendum The patient was seen and examined in the emergency room He is an 81-year-old male with history of tachybradycardia syndrome under surveillance for possible PPM requirement Has been complaining of dizziness, tiredness and hot flashes leg symptoms with p alpitation He required IV beta-cholo to control heart rate in the emergency room and he will be monitored in the telemetry unit On examination No apparent distress at rest Hemodynamically stable Chest-clear to auscultate bilaterally Heart-S1, S2, 2/6 ESM over precordium Abdomen-benign Extremities-negative for any edema His admission labs, EKG and imaging studies reviewed Known tachybradycardia syndrome with ongoing dizziness and palpitation Will likely need pacemaker placement We will continue current medications including beta-cholo and admit the patient to telemetry unit Agree with assessment and plan as outlined above by Kay Preston
[2022-02-03] MEDS ORDERED: GLUCOSE 40% GEL 15 GM TUBE PO PRN (19:26)
[2022-02-03] MEDS ORDERED: DEXTROSE 50% 50 ML SYRINGE IV PRN (19:26)
[2022-02-03] MEDS ORDERED: CARBOHYDRATES FOR HYPOGLYCEMIA PO PRN (19:26)
[2022-02-03] MEDS ORDERED: GLUCOSE 10 TAB/TUBE PO PRN (19:26)
[2022-02-03] MEDS ORDERED: GLUCAGON FOR INJ 1 MG VIAL SQ PRN (19:26)
[2022-02-03] MEDS: METOPROLOL TARTRATE 25 MG TAB PO SCH (21:25)
[2022-02-03] MEDS: FAMOTIDINE 20 MG TAB PO SCH (21:26)
[2022-02-03] MEDS: ASPIRIN 81 MG ECTAB PO SCH (21:26)
[2022-02-03] MEDS: INSULIN ASPART PER UNIT SC SCH (21:33)
[2022-02-04] MEDS: ACETAMINOPHEN 325 MG TAB PO PRN (03:30)
[2022-02-04 06:42] LABS: Mean Corpuscular Hemoglobin 32.2 pg (25.0-34.0); Mean Corpuscular Hgb Conc 34.2 g/dL (32.0-36.0); Mean Corpuscular Volume 94.1 fL (80.0-100.0); Mean Platelet Volume 9.6 fL (9.4-12.4); Platelet Count 250 K/uL (130-400); RDW Coefficient of Variation 12.2 % (11.5-14.5); RDW Standard Deviation 42.7 fL (36.4-46.3); Red Blood Count 4.04 M/uL (4.63-6.08); White Blood Count 7.38 K/ul (4.8-10.8)
[2022-02-04 07:04] LABS: Albumin Globulin Ratio 1.4 (0.9-2); Albumin Level 4.3 gm/dl (3.4-5.0); BUN Creatinine Ratio 15.5 (10-20); Bilirubin,Total 0.6 mg/dl (0.2-1.0); Calcium 9.5 mg/dl (8.5-10.1); Chol HDL Ratio 4.4 (0-5); Creatinine Clr Calc Pharmacy 53.4 ml/min; Est GFR (African American) 72.6 ml/min; Est GFR (Non-African American) 62.6 ml/min; Globulin 3.1 gm/dl (2.5-4.0); Magnesium 1.8 mg/dl (1.7-2.4); Potassium 3.8 mmol/L (3.5-5.1); Total Protein 7.4 gm/dl (6.0-8.3)
[2022-02-04 07:20] LABS: Estimated Average Glucose 148 mg/dl; Hemoglobin A1C 6.8 % (4.5-5.6)
[2022-02-04] MEDS: PANTOprazole 40 MG TAB PO SCH (08:50)
[2022-02-04] MEDS: METOPROLOL TARTRATE 25 MG TAB PO SCH ×2 (08:50→20:51)
[2022-02-04] MEDS: INSULIN ASPART PER UNIT SC SCH ×4 (08:50→20:29)
[2022-02-04] MEDS: FLUTICASONE PROPIONATE NA SPR 16 GM BTL NAE SCH (08:51)
[2022-02-04] MEDS: LOSARTAN POTASSIUM 25 MG TAB PO SCH (08:51)
[2022-02-04] MEDS: TAMSULOSIN HCL 0.4 MG CAP PO SCH (08:51)
[2022-02-04] MEDS: ATORVASTATIN 40 MG TAB PO SCH (08:51)
--- NOTE | 2022-02-04 10:46 | Cardiology Consultation ---
Date of Consultation February 04, 2022 Assessment & Plan (1) Tachy-alicia syndrome: (2) SVT (supraventricular tachycardia): (3) Palpitations: (4) Elevated troponin: (5) Aortic insufficiency: (6) Controlled type 2 diabetes mellitus, with long-term current use of insulin: (7) History of CVA (cerebrovascular accident): (8) Prostate cancer: Plan Patient presented to [facility] with symptomatic supraventricular tachycardia that was broken with adenosine. Patient has been following with electrophysiology for her history of tachybradycardia syndrome and likely need for dual-chamber permanent pacemaker placement Given recurrent SVT and inability to uptitrate his medications given his bradycardia we will proceed with pacemaker placement on 02/05/[address] Broderick N.p.o. after midnight Continue current outpatient cardiac medications History of Present Illness Reason for Consultation: SVT/tachy alicia syndrome Requesting Physician: Dr. Zamora Attending Physician: Jason Bailey MD History of Present Illness Past medical history: 1. Tachy palpitations, secondary to paroxysmal supraventricular tachycardia 2. Type 2 diabetes 3. Prostate carcinoma, diagnosed 09/2020, on anti androgen therapy 4. 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 5. Dyslipidemia 6. Hypertension 7. Tachy-alicia syndrome following with EP Allergies Allergy/AdvReac Type Severity Reaction Status Date / Time cat dander Allergy Intermediate itchy Verified 02/03/22 15:33 watery eyes dyclonine [From Sucrets] Allergy Intermediate "numb all Verified 02/03/22 15:33 over" hexylresorcinol Allergy Intermediate "numb all Verified 02/03/22 15:33 [From Sucrets] over" horse dander Allergy Intermediate itchy Verified 02/03/22 15:33 watery eyes latex Allergy Intermediate SKIN PEELS Verified 02/03/22 15:33 mirtazapine Allergy Intermediate Weakness Verified 02/03/22 15:33 adhesive Allergy Unknown "TAKES THE Verified 02/03/22 15:33 SKIN OFF" enalaprilat [From Vasotec] Allergy Unknown Verified 02/03/22 15:33 sitagliptin [From Januvia] Allergy Unknown Verified 02/03/22 15:33 diazepam [From Valium] AdvReac Severe can't stay Verified 02/03/22 15:33 awake diphenhydramine AdvReac Intermediate anxiety Verified 02/03/22 15:33 enalapril AdvReac Unknown "MADE ME Verified 02/03/22 15:33 MEAN" ferrous fumarate AdvReac Unknown Unknown Verified 02/03/22 15:33 [From Centrum] ferrous gluconate AdvReac Unknown Unknown Verified 02/03/22 15:33 [From Centrum] folic acid [From Centrum] AdvReac Unknown Unknown Verified 02/03/22 15:33 lutein [From Centrum] AdvReac Unknown Unknown Verified 02/03/22 15:33 lycopene [From Centrum] AdvReac Unknown Unknown Verified 02/03/22 15:33 meclizine AdvReac Unknown Unknown Verified 02/03/22 15:33 multivit with calcium, iron, AdvReac Unknown Unknown Verified 02/03/22 15:33 and other minerals [From Centrum] multivitamin [From Centrum] AdvReac Unknown Unknown Verified 02/03/22 15:33 multivitamin with iron,other AdvReac Unknown Unknown Verified 02/03/22 15:33 minerals [From Centrum] multivitamin with minerals AdvReac Unknown Unknown Verified 02/03/22 15:33 [From Centrum] simvastatin AdvReac Unknown Unknown Verified 02/03/22 15:33 Home Medications Medication Instructions Recorded Confirmed Type acetaminophen 500 mg tablet 500 mg PO Q4H PRN Pain 06/08/19 02/03/22 History (Tylenol Extra Strength) aspirin 81 mg tablet,delayed 81 mg PO HS 06/08/19 02/03/22 History release atorvastatin 40 mg tablet 40 mg PO DAILY 06/08/19 02/03/22 History clopidogrel 75 mg tablet 75 mg PO DAILY 06/08/19 02/03/22 History losartan 25 mg tablet 25 mg PO QAM 06/08/19 02/03/22 History tamsulosin 0.4 mg capsule 0.4 mg PO DAILY 06/08/19 02/03/22 History walker #1 ea 03/24/20 12/12/21 Rx blood sugar diagnostic (OneTouch #100 ea 06/15/20 12/12/21 Rx Verio test strips) blood sugar diagnostic (OneTouch #100 ea 06/15/20 12/12/21 Rx Verio test strips) pantoprazole 20 mg tablet,delayed 20 mg PO DAILY 04/10/21 02/03/22 History release fluticasone propionate 50 2 spray intranasal DAILY 06/18/21 02/03/22 History mcg/actuation nasal spray,suspension metoprolol tartrate 25 mg tablet 25 mg PO BID 06/18/21 02/03/22 History lancets 33 gauge (OneTouch Delica #100 ea 07/11/21 12/12/21 Rx Lancets) famotidine 20 mg tablet 20 mg PO HS 12/12/21 02/03/22 History insulin NPH-regular 70-30 U-100 16 unit subcut QDD 12/12/21 02/03/22 History insulin 100 unit/mL subcutaneous pen (Novolin 70-30 FlexPen U-100 Insulin) insulin NPH-regular 70-30 U-100 21 unit subcut QAM 12/12/21 02/03/22 History insulin 100 unit/mL subcutaneous pen (Novolin 70-30 FlexPen U-100 Insulin) pen needle, diabetic 32 gauge x #200 ea 01/15/22 Rx /32" (BD Ultra-Fine Shelbie Pen Needle) albuterol sulfate 90 mcg/actuation 2 puff inhalation Q4H PRN 02/03/22 02/03/22 History aerosol inhaler Shortness Of Breath Or Wheezing Patient History Medical History Altered mental status Controlled type 2 diabetes mellitus, with long-term current use of insulin Elevated PSA Gastritis Generalized osteoarthrosis History of CVA (cerebrovascular accident) History of kidney stones HLD (hyperlipidemia) HTN (hypertension) Lumbar degenerative disc disease Personal history of urinary calculi (01/27/13) RLS (restless legs syndrome) T2DM (type 2 diabetes mellitus) Surgical History H/O prostate biopsy History of colonoscopy with polypectomy History of cystoscopy History of laryngoscopy Hx of bursectomy Family History Father Myocardial infarction Heart disease Mother Breast cancer Sister Lupus Brother Diabetes Myocardial infarction Coronary heart disease Brother Cancer Bladder Social History Smoking Status: Former smoker Number of Years Since Quit: 40; Second Hand Exposure: No; Do You Dip or Chew Tobacco: No; Tobacco Cessation Education Requested by Patient: No Hx Alcohol Use: No Hx Substance Use: No Preferred Language: Senegalese Communication Ability: Effective Visual Impairment: No Limitations Hearing Ability: Normal Shift Foreman Required: No Beliefs That Will Affect Care: None marital status: Current Living Situation: Spouse current occupational status: retired How many Children do You have: 3 Other Information That Helps Us Care for You: No Feels Safe at Home: Yes Safety Concerns: Feels Safe At This Time during the past year weight has: remained stable Physical Activity Frequency: 3-4 Times per Week Assistive Devices: Cane, Glasses and Scooter/Electric Scooter Results & Data ([facility]) Vital Signs (Past 12 Hours) Vital Signs Temp Pulse Pulse Resp BP Pulse Ox O2 Del Method 02/04/22 08:00 36.7 C 91 H 18 182/91 H 98 Room Air 02/04/22 07:36 62 02/04/22 03:53 166/95 H 02/04/22 03:38 36.4 C L 65 18 178/85 H 96 Room Air 02/03/22 23:38 36.7 C 60 18 135/76 96 Room Air
--- NOTE | 2022-02-04 14:30 | Electrocardiogram Report ---
Test Reason : Blood Pressure : / mmHG Vent. Rate : 147 BPM Atrial Rate : 166 BPM P-R Int : 000 ms QRS Dur : 102 ms QT Int : 302 ms P-R-T Axes : 000 -16 066 degrees QTc Int : 472 ms Supraventricular tachycardia (possibly A-V sharda re-entrant mechanism) Low voltage QRS Abnormal ECG When compared with ECG of 19-JUL-2021 12:36, Vent. rate has increased BY 86 BPM Supraventricular tachycardia now present Confirmed by Chaitanya Glover ([id number]) on 02/04/2022 2:29:41 PM Referred By: REFERRED SELF Confirmed By:Chaitanya Glover
--- NOTE | 2022-02-04 14:30 | Electrocardiogram Report ---
Test Reason : Blood Pressure : / mmHG Vent. Rate : 080 BPM Atrial Rate : 080 BPM P-R Int : 194 ms QRS Dur : 086 ms QT Int : 376 ms P-R-T Axes : 054 -19 047 degrees QTc Int : 433 ms Normal sinus rhythm Low voltage QRS Abnormal ECG When compared with ECG of 03-FEB-2022 13:17, Vent. rate has decreased BY 67 BPM Supraventricular tachycardia no longer present Confirmed by Chaitanya Glover ([id number]) on 02/04/2022 2:30:06 PM Referred By: REFERRED SELF Confirmed By:Chaitanya Glover
--- NOTE | 2022-02-04 18:17 | Hospitalist Progress Note ---
Date of Service February 04, 2022 Assessment & Plan (1) Tachy-alicia syndrome: Plan: Per admitting service notes with addendum -Admit to PCU -Tachybrady syndrome noted on ZIO monitoring in April 2021. It was diagnosed as paroxysmal A. tach about 6 minutes on a ZIO, symptomatic PACs. He had been maintained on metoprolol tartrate 25 mg twice daily. Asymptomatic without any evidence of symptomatic bradycardia prior to today's ER visit. He has been following with [facility] cardiology as outpatient. -Patient is status post 1 L NSS, vagal maneuver, Trendelenburg position in the ER and received adenosine 6 mg IV and metoprolol tartrate 5 mg IV which converted him into normal sinus rhythm -Continue metoprolol tartrate 25 mg BID, losartan 25 mg daily, and atorvastatin 20 mg daily unless otherwise directed per cardiology -Last echo reviewed from 04/2021 with EF of 55 to 60%, no WMA, mild aortic regurg, grade 1 diastolic dysfunction-we will repeat echo here -Consult cardiology - Will hold plavix in the anticipation of pacemaker placement tomorrow morning, continue aspirin 02/03 No recurrence of SVT since admission Continue usual metoprolol tartrate 25 mg twice daily For pacemaker placement tomorrow (2) HTN (hypertension): Plan: Continue losartan (3) HLD (hyperlipidemia): Plan: Continue atorvastatin (4) Controlled type 2 diabetes mellitus, with long-term current use of insulin: Plan: A1c 6.8 On insulin sliding scale (5) History of CVA (cerebrovascular accident): Plan: - no residual deficits notable - holding plavix for procedure tomorrow am, continue aspirin (6) Prostate cancer: Plan: - Hx of such, follows with cancer care here at [facility], Dr. Penny, was discharged recently in December 2021. Still following with urology. Repeat PSA q6mo describes hot flashes this morning and is noted that he can use Vitamin E 400 mg U daily for the hot flashes DVT ppx: -teds, scds, holding plavix in anticipation of pacemaker insertion tomorrow CODE: Full code Dispo: Anticipate discharge to home when medically stable PT and OT evaluation plan of care discussed with patient and his family at bedside in detail and at length all questions answered they are understanding, agreeable, comfortable with the plan of care Admission and Anticipated Discharge Date Admission Date: February 03, 2022 Subjective Follow-up for SVT, possible tachybradycardia syndrome, etc. Seen sitting up in bed, awake alert, oriented, in good spirits Family at the bedside visiting No recurrence of SVT since admission States he feels fine overall no chest pain, dyspnea, palpitations, dizziness No fevers or chills abdominal pain, nausea vomiting No other symptoms Review of Systems Review of Systems: all noted and negative except for above Physical Exam Physical Exam: General- oriented x 3, not in distress, speaks in sentences with no effort or accessory muscle use Eyes- anicteric Neck- no JVD Lungs- clear breath sounds bilaterally, no rales/wheezes Heart- normal rate, regular rhythm; no murmurs Abdomen- normal bowel sounds, nondistended, soft, nontender Extremities- no pretibial edema, no calf tenderness Neuro- alert, oriented x 3; no gross focal neurologic deficits Skin- warm & dry Results & Data Results & Data ([facility]) Vital Signs (Past 12 Hours) Vital Signs Temp Pulse Pulse Resp BP Pulse Ox O2 Del Method 02/04/22 15:47 36.5 C 77 18 151/64 H 95 Room Air 02/04/22 15:40 62 02/04/22 11:14 36.8 C 56 L 18 176/90 H 96 Room Air 02/04/22 08:00 36.7 C 91 H 18 182/91 H 98 Room Air 02/04/22 07:36 62 all noted and reviewed including below
[2022-02-04] MEDS: ASPIRIN 81 MG ECTAB PO SCH (20:50)
[2022-02-04] MEDS: FAMOTIDINE 20 MG TAB PO SCH (20:51)
[2022-02-05 07:28] LABS: Hemoglobin 12.2 g/dl (14.0-18.0); Mean Corpuscular Hemoglobin 32.4 pg (25.0-34.0); Mean Corpuscular Hgb Conc 34.9 g/dL (32.0-36.0); Mean Corpuscular Volume 92.8 fL (80.0-100.0); Mean Platelet Volume 9.9 fL (9.4-12.4); Platelet Count 254 K/uL (130-400); RDW Coefficient of Variation 12.2 % (11.5-14.5); RDW Standard Deviation 42.1 fL (36.4-46.3); Red Blood Count 3.77 M/uL (4.63-6.08); White Blood Count 6.35 K/ul (4.8-10.8)
[2022-02-05 08:09] LABS: Albumin Globulin Ratio 1.5 (0.9-2); Albumin Level 4.1 gm/dl (3.4-5.0); BUN Creatinine Ratio 19.3 (10-20); Bilirubin,Total 0.7 mg/dl (0.2-1.0); Calcium 9.3 mg/dl (8.5-10.1); Creatinine Clr Calc Pharmacy 49.5 ml/min; Est GFR (Non-African American) 56.9 ml/min; Globulin 2.8 gm/dl (2.5-4.0); Total Protein 6.9 gm/dl (6.0-8.3)
[2022-02-05] MEDS: INSULIN ASPART PER UNIT SC SCH ×4 (08:34→20:40)
[2022-02-05] MEDS: FLUTICASONE PROPIONATE NA SPR 16 GM BTL NAE SCH (11:31)
--- NOTE | 2022-02-05 12:19 | History & Physical Bridge Note ---
Date of Service February 05, 2022 History & Physical Bridge Note I have examined the patient, reviewed the History & Physical and in the interval since the performance of the History & Physical I have noted the following changes of clinical significance: pt with TBS for a dual chamber pacemaker; discussed the procedure and potential risks with the pt and consents signed
--- NOTE | 2022-02-05 12:20 | Pre Anesthesia Assessment ---
Date of Service February 05, 2022 Pre Sedation Assessment Vital Signs Temp Pulse Pulse Resp BP BP Pulse Ox 02/05/22 11:21 36.8 C 67 19 142/74 H 94 02/05/22 07:30 64 02/05/22 08:05 36.9 C 59 L 16 164/82 H 95 02/05/22 03:43 36.7 C 64 16 148/81 H 94 02/04/22 23:39 64 02/04/22 23:27 36.5 C 64 16 144/76 H 97 02/04/22 19:03 36.3 C L 68 18 153/81 H 95 02/04/22 15:47 36.5 C 77 18 151/64 H 95 02/04/22 15:40 62 O2 Del Method 02/05/22 11:21 Room Air 02/05/22 07:30 02/05/22 08:05 Room Air 02/05/22 03:43 02/04/22 23:39 02/04/22 23:27 02/04/22 19:03 Room Air 02/04/22 15:47 Room Air 02/04/22 15:40 Cardiovascular RRR, no murmur, no edema Respiratory normal respiratory effort, lungs clear to auscultation Pre-Sedation Airway Assessment Smoking Status: Former smoker Hx Sleep Apnea: No Hx Difficult Intubation: No Short, Thick Neck: No Thyromental Distance: < 3.5 Finger Breadths Oral Cavity: + Dental Abnormalities Mallampati Class: II ASA: ASA3 NPO Status Date of Last Intake of Fluids: 02/04/22 Date of Last Intake of Solid Food: 02/04/22 Procedure Planning Contraindications for Sedation: none Current Medications Reviewed: Yes Notes The planned sedation has been discussed with the patient. Informed Consent was obtained. I have identified the patient, determined the appropriateness of sedation and have assessed the patient immediately prior to the procedure. All medicine(s) and interventions are by my order.
[2022-02-05] MEDS ORDERED: MIDAZOLAM HCL 5 MG/ML 1 ML VIAL ONE (12:21)
[2022-02-05] MEDS ORDERED: LIDOCAINE 1% LOCAL 20 ML VIAL ONE (12:21)
[2022-02-05] MEDS ORDERED: fentaNYL citrate 100 MCG/2 ML VIAL ONE (12:21)
[2022-02-05] MEDS ORDERED: VANCOMYCIN HCL 1000MG/20ML VIAL ONE (12:22)
[2022-02-05] MEDS ORDERED: BUPIVACAINE 0.25% 30 ML VIAL ONE (12:22)
[2022-02-05] MEDS ORDERED: WATER, STERILE FOR INJ 10 ML VIAL ONE (12:22)
[2022-02-05] MEDS ORDERED: ceFAZolin 330 MG/ML 1 GM VIAL ONE (12:23)
--- NOTE | 2022-02-05 14:15 | Post Anesthesia Assessment ---
Date of Service February 05, 2022 Post Sedation Assessment Vital Signs Temp Pulse Pulse Resp BP BP Pulse Ox 02/05/22 11:21 36.8 C 67 19 142/74 H 94 02/05/22 07:30 64 02/05/22 08:05 36.9 C 59 L 16 164/82 H 95 02/05/22 03:43 36.7 C 64 16 148/81 H 94 02/04/22 23:39 64 02/04/22 23:27 36.5 C 64 16 144/76 H 97 02/04/22 19:03 36.3 C L 68 18 153/81 H 95 02/04/22 15:47 36.5 C 77 18 151/64 H 95 02/04/22 15:40 62 O2 Del Method 02/05/22 11:21 Room Air 02/05/22 07:30 02/05/22 08:05 Room Air 02/05/22 03:43 02/04/22 23:39 02/04/22 23:27 02/04/22 19:03 Room Air 02/04/22 15:47 Room Air 02/04/22 15:40 Recovery Score Activity: Moves 4 extremities Respiration: Deep Breath/Cough Circulation: +/-20% PreAnes Value Consciousness: Fully Awake Oxygen Saturation: > 92% On Room Air Discharge Sedation Level of Care: Fast Track Phase II Post Sedation Plan On clinical assessment, the patient appears to have tolerated the sedation without complications. Patient is recovering as anticipated. Patient will continue to be monitored by nursing and may be discharged when sedation discharge criteria are met per below protocol. Upon Completions of procedure up to 15 minutes continue every 5 minute vital signs and the P.A.R. score; then discharge to a Phase I or Fast Track to Phase II per the following guidelines: * Discharge Patient to appropriate Phase II area if PAR is 8 or greater or return to pre- procedure baseline. The post - procedure orders will be as directed. * If PAR score is less than 8 or not return to pre-procedure baseline then patient will follow Phase I monitoring till PAR is reached for Phase II. The Phase I may be done in procedure room or may call to secure a Phase I area. * If naloxone or flumazenil are used for reversal, hold in Phase I for continued monitoring from when last reversal dose was given for a minimum of 60 minutes or longer pending the nurse and/or physician discretion of patient condition before discharge to Phase II. Please call the Sedation Physician to re-evaluate and complete post-note for discharge to Phase II area. Do NOT discharge from procedure sedation or Phase 1 until post- sedation evaluation note is complete by procedure /sedation MD Sedation Discharge Instructions to be given to the patient at discharge to home.
--- NOTE | 2022-02-05 14:16 | Operative Report ---
Post Operative Report Pre & Post Diagnosis TBS Operation Date: 02/05/22 15:30 <No data on this case meets the specified criteria> I identified the patient and participated in the time-out.: Yes Procedure Operation Date: 02/05/22 15:30 Actual Procedures p Pacer with A/V Leads (Dual) - Xiao Broderick DO s Venogram, Unilateral - DO filemon Johnson Bundle of his Recording - Xiao Broderick DO Surgeon Xiao Broderick, Laundry Manager none Estimated Blood Loss 50 Findings Consistent with Post-Op Diagnosis Specimens none Description of Procedure see official report I attest to the content of the Intraoperative Record and any orders documented therein. Any exceptions are noted below.
[2022-02-05] MEDS: PANTOprazole 40 MG TAB PO SCH (14:51)
[2022-02-05] MEDS: TAMSULOSIN HCL 0.4 MG CAP PO SCH (14:51)
[2022-02-05] MEDS: METOPROLOL TARTRATE 25 MG TAB PO SCH ×2 (14:52→19:53)
[2022-02-05] MEDS: LOSARTAN POTASSIUM 25 MG TAB PO SCH (14:52)
[2022-02-05] MEDS: ATORVASTATIN 40 MG TAB PO SCH (14:52)
[2022-02-05] MEDS: ONDANSETRON INJ 2 MG/ML 2 ML VIAL IV PRN (14:55)
[2022-02-05] MEDS: ACETAMINOPHEN 325 MG TAB PO PRN ×2 (15:01→18:47)
--- NOTE | 2022-02-05 16:07 | Electrocardiogram Report ---
Test Reason : Blood Pressure : / mmHG Vent. Rate : 078 BPM Atrial Rate : 078 BPM P-R Int : 178 ms QRS Dur : 092 ms QT Int : 420 ms P-R-T Axes : 050 -19 049 degrees QTc Int : 478 ms Normal sinus rhythm with sinus arrhythmia Low voltage QRS Inferior infarct (cited on or before 05-FEB-2022) Abnormal ECG When compared with ECG of 03-FEB-2022 13:30, T wave amplitude has decreased in Anterior leads Confirmed by Maxime Whitfield ([id number]) on 02/05/2022 4:06:44 PM Referred By: REFERRED SELF Confirmed By:Maxime Whitfield
--- NOTE | 2022-02-05 16:13 | XRay Report ---
XR chest 1V portable CLINICAL HISTORY: Status post pacer placement. Evaluate for pneumothorax. COMPARISON STUDY: 02/03/2022 TECHNIQUE: 1 view of the chest FINDINGS: Single frontal view of the chest demonstrates the cardiomediastinal silhouette to be within normal li mits. There has been interval placement of a dual lead permanent cardiac pacer. There is no evidence for pneumothorax. The lungs are clear of alveolar opacities. There is no evidence for pleural effusio n. There is no evidence for vascular congestion. There is no acute osseous pathology. IMPRESSION: 1. No acute cardiopulmonary disease. 2. Status post pacer placement. ACT 112: Negative or not required by law. Electronically signed by: Alden Peterson M.D. 02/05/2022 4:12 PM
--- NOTE | 2022-02-05 16:26 | Cardiology Progress Note ---
Date of Service February 05, 2022 Assessment & Plan (1) Tachy-alicia syndrome: (2) SVT (supraventricular tachycardia): (3) Palpitations: (4) Elevated troponin: (5) Aortic insufficiency: (6) Controlled type 2 diabetes mellitus, with long-term current use of insulin: (7) History of CVA (cerebrovascular accident): (8) Prostate cancer: (9) Atrial flutter with rapid ventricular response: Plan Patient presented to [facility] with symptomatic supraventricular tachycardia that was broken with adenosine. s/p dual chamber pacer placement atrial flutter documented during procedure, Eliquis started likely d/c to home in AM if bp remains elevated, can increase losartan dose or add amlodipine Admission and Anticipated Discharge Date Admission Date: February 03, 2022 Results & Data ([facility]) Vital Signs (Past 12 Hours) Vital Signs Temp Pulse Pulse Resp BP Pulse Ox O2 Del Method 02/05/22 16:09 36.5 C 71 18 183/83 H 95 Room Air 02/05/22 15:16 36.4 C L 70 16 167/103 H 94 Room Air 02/05/22 14:47 36.5 C 66 14 185/86 H 95 Room Air 02/05/22 14:15 65 18 122/78 99 Room Air 02/05/22 11:21 36.8 C 67 19 142/74 H 94 Room Air 02/05/22 07:30 64 02/05/22 08:05 36.9 C 59 L 16 164/82 H 95 Room Air
--- NOTE | 2022-02-05 17:35 | Hospitalist Progress Note ---
Date of Service February 05, 2022 Assessment & Plan (1) Tachy-alicia syndrome: Plan 81-year-old gentleman with PMH of tachybradycardia syndrome, paroxysmal SVT, TIA/CVA x2 on Plavix, HTN, HLD, DM type II, prostate cancer diagnosed in September 2020, lumbar DDD presented 02/03 to our ED with acute onset of dizziness which began in the morning of the day of arrival associated with feeling of tiredness and hot flashes. Has is being managed for the following: #. Tachy-alicia syndrome: -Continue with telemetry monitoring. -Tachybrady syndrome noted on ZIO monitoring in April 2021. It was diagnosed as paroxysmal A. tach about 6 minutes on a ZIO, symptomatic PACs. He had been maintained on metoprolol tartrate 25 mg twice daily. Asymptomatic without any evidence of symptomatic bradycardia prior to 02/03's ER visit. He has been following with [facility] cardiology as outpatient. - Last echo reviewed from 04/2021 with EF of 55 to 60%, no WMA, mild aortic regurg, grade 1 diastolic dysfunction - Patient underwent vagal maneuver, and nursing dose, IV metoprolol push before converting to normal sinus rhythm from symptomatic SVT. - 02/04 ECHO: EF 60-65%, Gr 1 diastolic dysfunction. - Cardiology on board, status post dual-chamber pacer placement 02/05. Atrial flutter documented during procedure hence Eliquis is started. -Patient on Eliquis, aspirin discontinued, Plavix was held prior to pacer placement. #. Other chronic medical conditions: HTN, HLD, T2DM, history of CVA, prostate cancer Continue with/resume home meds as and when appropriate. Titrate blood pressure medication. For cancer care, patient follows Dr. Penny, follows urology w/ PSA monitoring. #. DVT prophylaxis: Patient on Eliquis Full code Disposition: Likely DC tomorrow with cardiac meds optimization and further card recs. Admission and Anticipated Discharge Date Admission Date: February 03, 2022 Subjective Patient seen and examined at bedside as a follow-up of tachybradycardia syndrome. Patient was lying in bed, on room air, NAD, no new acute events overnight. Patient was n.p.o. in the morning for pacer placement during the day, reports moving bowels okay. Patient denies any headache/dizziness/chest pain/palpitations/belly pain/other review of symptoms. Physical Exam Physical Exam: GENERAL: Alert and oriented x3. NAD, on RA. HEENT: No pallor, no icterus. Pupils equal, round and reactive to light. Oral mucosa moist. NECK: No JVD, no neck masses. HEART: S1 and S2 heard. Regular rate and rhythm. No murmur, no gallop. RESPIRATORY SYSTEM: Normal AP diameter. No accessory muscle use. No wheezing, no crackles. ABDOMEN: Soft, bowel sounds present, nontender, no distention. CENTRAL NERVOUS SYSTEM: No facial droop. Speech is clear. Obeys simple commands. Moves extremities. EXTREMITIES: No edema, no erythema seen. Results & Data Results & Data ([facility]) Vital Signs (Past 12 Hours) Vital Signs Temp Pulse Pulse Resp BP Pulse Ox O2 Del Method 02/05/22 16:09 36.5 C 71 18 183/83 H 95 Room Air 02/05/22 15:16 36.4 C L 70 16 167/103 H 94 Room Air 02/05/22 14:47 36.5 C 66 14 185/86 H 95 Room Air 02/05/22 14:15 65 18 122/78 99 Room Air 02/05/22 11:21 36.8 C 67 19 142/74 H 94 Room Air 02/05/22 07:30 64 02/05/22 08:05 36.9 C 59 L 16 164/82 H 95 Room Air
[2022-02-05] MEDS: oxyCODONE HCL IR 5 MG TAB (IMMEDIATE RELEASE) PO PRN (19:50)
[2022-02-05] MEDS: FAMOTIDINE 20 MG TAB PO SCH (19:53)
[2022-02-06] MEDS: oxyCODONE HCL IR 5 MG TAB (IMMEDIATE RELEASE) PO PRN ×2 (03:24→07:37)
[2022-02-06] MEDS: FLUTICASONE PROPIONATE NA SPR 16 GM BTL NAE SCH (07:42)
[2022-02-06 08:04] LABS: Hematocrit (blood only) 35.5 % (40.1-51.0); Hemoglobin 12.5 g/dl (14.0-18.0); Mean Corpuscular Hemoglobin 32.9 pg (25.0-34.0); Mean Corpuscular Hgb Conc 35.2 g/dL (32.0-36.0); Mean Corpuscular Volume 93.4 fL (80.0-100.0); Platelet Count 229 K/uL (130-400); RDW Coefficient of Variation 12.5 % (11.5-14.5); RDW Standard Deviation 43.3 fL (36.4-46.3); White Blood Count 8.26 K/ul (4.8-10.8)
[2022-02-06 08:29] LABS: BUN Creatinine Ratio 22.1 (10-20); Calcium 9.2 mg/dl (8.5-10.1); Est GFR (African American) 86.7 ml/min; Est GFR (Non-African American) 74.8 ml/min; Potassium 3.9 mmol/L (3.5-5.1)
[2022-02-06] MEDS: TAMSULOSIN HCL 0.4 MG CAP PO SCH (08:30)
[2022-02-06] MEDS: METOPROLOL TARTRATE 25 MG TAB PO SCH (08:30)
[2022-02-06] MEDS: LOSARTAN POTASSIUM 25 MG TAB PO SCH (08:30)
[2022-02-06] MEDS: INSULIN ASPART PER UNIT SC SCH ×2 (08:31→12:21)
[2022-02-06] MEDS: ONDANSETRON INJ 2 MG/ML 2 ML VIAL IV PRN (08:31)
[2022-02-06] MEDS ORDERED: APIXABAN 5 MG TABLET PO SCH (09:00)
[2022-02-06] MEDS ORDERED: PANTOprazole 40 MG TAB PO SCH (09:00)
[2022-02-06 09:06] LABS: Albumin Globulin Ratio 1.5 (0.9-2); Albumin Level 4.1 gm/dl (3.4-5.0); Bilirubin,Total 0.7 mg/dl (0.2-1.0); Globulin 2.7 gm/dl (2.5-4.0); Total Protein 6.8 gm/dl (6.0-8.3)
[2022-02-06 09:21] LABS: Magnesium 1.9 mg/dl (1.7-2.4)
[2022-02-06] MEDS: ATORVASTATIN 40 MG TAB PO SCH (10:28)
--- NOTE | 2022-02-06 10:33 | Cardiology Progress Note ---
Date of Service February 06, 2022 Assessment & Plan (1) Tachy-alicia syndrome: (2) SVT (supraventricular tachycardia): (3) Palpitations: (4) Elevated troponin: (5) Aortic insufficiency: (6) Controlled type 2 diabetes mellitus, with long-term current use of insulin: (7) History of CVA (cerebrovascular accident): (8) Prostate cancer: (9) Atrial flutter with rapid ventricular response: Plan Patient presented to [facility] with symptomatic supraventricular tachycardia that was broken with adenosine. s/p dual chamber pacer placement atrial flutter documented during procedure, Eliquis started metoprolol increased to 37.5mg bid ok to d/c to home my office will call to arrange device follow up Admission and Anticipated Discharge Date Admission Date: February 03, 2022 Subjective Pt seen and examined, chart reviewed. Feeling well with slight discomfort at pocket site. Otherwise, no complaints. tele reviewed: v paced rhythm Review of Systems Review of Systems: All systems reviewed & are unremarkable except as noted in HPI & below Physical Exam Physical Exam: General: Awake, alert and oriented x 3. No acute distress. HEENT: Normocephalic, atraumatic. Pupils equal, round and reactive to light and accommodation. Extraocular muscles are intact. Anicteric sclera. Moist mucous membranes. Neck: No JVD. No bruit. Cardiovascular: Regular. Positive S-4. Normal S-1 and S-2. No S-3. No murmurs or rubs. Pulmonary: Clear to auscultation B/L. No rales, rhonchi or wheezing Abdomen: Bowel sounds x 4, soft. No rebound, guarding or tenderness. No organomegaly. Extremities: No clubbing, cyanosis or edema. +2 pedal pulses bilaterally. Skin: Warm and dry. Results & Data ([facility]) Vital Signs (Past 12 Hours) Vital Signs Temp Pulse Pulse Resp BP BP Pulse Ox 02/06/22 08:59 60 02/06/22 08:54 02/06/22 07:52 37.2 C 69 16 134/80 94 02/06/22 03:49 36.6 C 65 18 125/77 94 02/05/22 23:40 36.4 C L 60 20 103/65 92 O2 Del Method 02/06/22 08:59 02/06/22 08:54 Room Air 02/06/22 07:52 Room Air 02/06/22 03:49 Room Air 02/05/22 23:40 Room Air
[2022-02-06 11:44] VITALS: PULSE 66; TEMP 98.2; O2SAT 93
--- NOTE | 2022-02-06 13:41 | Discharge Summary ---
Date of Service February 06, 2022 Admission HPI Per Admitting Provider This is an 81-year-old male with PMHx of tachybradycardia syndrome, paroxysmal supraventricular tachycardia, history of TIA/CVA x2 on Plavix, HTN, HLD, DM type II, prostate cancer diagnosed in September 2020 on antiandrogen therapy, lumbar DDD, who presents to the ER with acute onset of dizziness which began this morning, feeling tired and very will with hot flash like symptoms. He denies ever feeling shortness of breath, or having chest pain, but was found to be in SVT on presentation to the ER with heart rate in the 140s and blood pressure of 80/50. He reports taking his usual home medications this morning but cannot recall what the names or doses are as his normally manages these things for him. Patient was treated with vagal maneuvers, Trendelenburg position, 1 L NSS and adenosine 6 mg IV and metoprolol tartrate IV 5 mg and which resulted in return to NSR. Cardiology was consulted by the ER and has recommended that the patient stay overnight for possible pacemaker placement tomorrow. Admission Exam Per Admitting Provider General: awake, alert, no apparent distress Head: Normocephalic, atraumatic ENT: PERRL, EOMI, no pharyngeal exudate, mucous membranes moist Chest: Clear to auscultation, on room air, no adventitious breath sounds Cardiac: Regular rate and rhythm, no murmur, no JVD, normal peripheral pulses, good capillary refill Abdominal: NABS x 4 quadrants, soft, nondistended, nontender to palpation, no rebound or guarding Extremities: Normal inspection, no peripheral edema or erythema, calfs nontender to palpation Psych: Normal mood and affect Neuro: AAO x 3, strength intact bilaterally and rated 5/5, no motor deficits, speech is clear, no peripheral sensory deficits Principal Diagnosis Tachybradycardia syndrome Discharge Exam GENERAL: Alert and oriented x3. NAD, on RA. HEENT: No pallor, no icterus. Pupils equal, round and reactive to light. Oral mucosa moist. NECK: No JVD, no neck masses. Lt chest w/ clean dressing w/o soakage at pacer placement site. HEART: S1 and S2 heard. Regular rate and rhythm. No murmur, no gallop. RESPIRATORY SYSTEM: Normal AP diameter. No accessory muscle use. No wheezing, no crackles. ABDOMEN: Soft, bowel sounds present, nontender, no distention. CENTRAL NERVOUS SYSTEM: No facial droop. Speech is clear. Obeys simple commands. Moves extremities. EXTREMITIES: No edema, no erythema seen. Discharge Data Allergies Allergy/AdvReac Type Severity Reaction Status Date / Time cat dander Allergy Intermediate itchy Verified 02/03/22 15:33 watery eyes dyclonine [From Sucrets] Allergy Intermediate "numb all Verified 02/03/22 15:33 over" hexylresorcinol Allergy Intermediate "numb all Verified 02/03/22 15:33 [From Sucrets] over" horse dander Allergy Intermediate itchy Verified 02/03/22 15:33 watery eyes latex Allergy Intermediate SKIN PEELS Verified 02/03/22 15:33 mirtazapine Allergy Intermediate Weakness Verified 02/03/22 15:33 adhesive Allergy Unknown "TAKES THE Verified 02/03/22 15:33 SKIN OFF" enalaprilat [From Vasotec] Allergy Unknown Verified 02/03/22 15:33 sitagliptin [From Januvia] Allergy Unknown Verified 02/03/22 15:33 diazepam [From Valium] AdvReac Severe can't stay Verified 02/03/22 15:33 awake diphenhydramine AdvReac Intermediate anxiety Verified 02/03/22 15:33 enalapril AdvReac Unknown "MADE ME Verified 02/03/22 15:33 MEAN" ferrous fumarate AdvReac Unknown Unknown Verified 02/03/22 15:33 [From Centrum] ferrous gluconate AdvReac Unknown Unknown Verified 02/03/22 15:33 [From Centrum] folic acid [From Centrum] AdvReac Unknown Unknown Verified 02/03/22 15:33 lutein [From Centrum] AdvReac Unknown Unknown Verified 02/03/22 15:33 lycopene [From Centrum] AdvReac Unknown Unknown Verified 02/03/22 15:33 meclizine AdvReac Unknown Unknown Verified 02/03/22 15:33 multivit with calcium, iron, AdvReac Unknown Unknown Verified 02/03/22 15:33 and other minerals [From Centrum] multivitamin [From Centrum] AdvReac Unknown Unknown Verified 02/03/22 15:33 multivitamin with iron,other AdvReac Unknown Unknown Verified 02/03/22 15:33 minerals [From Centrum] multivitamin with minerals AdvReac Unknown Unknown Verified 02/03/22 15:33 [From Centr] simvastatin AdvReac Unknown Unknown Verified 02/03/22 15:33 Consultations 02/03/22 15:24 ED Decision to Admit Stat 02/03/22 19:26 Consult Cardiology Routine Procedures Performed Operation Date: 02/05/22 15:30 Actual Procedures p Pacer with A/V Leads (Dual) - DO filemon Johnson Venogram, Unilateral - Xiao Broderick DO s Bundle of his Recording - Xiao Broderick DO Ordered Studies 02/05/22 12:45 EP Lab Images for PACS ONCE Hospital Course (1) Tachy-alicia syndrome: Plan 81-year-old gentleman with PMH of tachybradycardia syndrome, paroxysmal SVT, TIA/CVA x2 on Plavix, HTN, HLD, DM type II, prostate cancer diagnosed in September 2020, lumbar DDD presented 02/03 to our ED with acute onset of dizziness which began in the morning of the day of arrival associated with feeling of tiredness and hot flashes. Has was managed for the following: #. Tachy-alicia syndrome: -Continue with telemetry monitoring. -Tachybrady syndrome noted on ZIO monitoring in April 2021. It was diagnosed as paroxysmal A. tach about 6 minutes on a ZIO, symptomatic PACs. He had been maintained on metoprolol tartrate 25 mg twice daily. Asymptomatic without any evidence of symptomatic bradycardia prior to 02/03's ER visit. He has been following with [facility] cardiology as outpatient. - Last echo reviewed from 04/2021 with EF of 55 to 60%, no WMA, mild aortic regurg, grade 1 diastolic dysfunction - Patient underwent vagal maneuver, and nursing dose, IV metoprolol push before converting to normal sinus rhythm from symptomatic SVT. - 02/04 ECHO: EF 60-65%, Gr 1 diastolic dysfunction. - Cardiology evaluated, status post dual-chamber pacer placement 02/05. Atrial flutter documented during procedure hence Eliquis is started. Plavix and aspirin discontinued. Metoprolol dose increased. Pt aware of changes. #. Other chronic medical conditions: HTN, HLD, T2DM, history of CVA, prostate cancer Continue with/resume home meds as and when appropriate. Titrate blood pressure medication. For cancer care, patient follows Dr. Penny, follows urology w/ PSA monitoring. #. DVT prophylaxis: Patient on Eliquis Full code Following instruction communicated at the point of discharge: Device and wound check at [facility]iology next week. Follow-up with your primary care physician within a week time. Follow-up with your cardiology as an outpatient. Cardiology evaluated you while inpatient, you have been started on Eliquis, your aspirin and Plavix has been discontinued. Your metoprolol dose has been increased. For your operative site pain, you can use OTC Tylenol for your pain management. You are being prescribed few days worth of oxycodone as needed for very severe pain. If your pain continues to worsen or is not being controlled, you will need to get in touch with your primary care office for further evaluation/management. Take your medication as prescribed. Total Time Total Time Spent Total Time Spent (In Minutes): 35 Discharge Plan Discharge Items Patient Disposition: Home - Home Health Services Reason For Visit: TACHYBRADY SYNDROME Discharge Diagnosis: Tachycardia-bradycardia syndrome status post dual-chamber pacer 02/05/2022 Condition on Discharge: Good Activity: As commented below Activity Comment: do not raise the left elbow over the left shoulder for 1 month Lifting: No more than 10 pounds Lifting Comment: do not lift more than 10 pounds with the left arm for 2 weeks Bathing: Keep incision dry Bathing Comment: keep dressing on & dry until wound check next week Sexual Activity: After two weeks Driving/Machine Use: Resume 1 day after discharge Non-emergency contact: [employer] Operator Call non-emergency contact if: you have any medication questions Follow-up/Referrals: Matt Hooper MD [Primary Care Provider] - (Date & Time 02/10/2022 5:40 PM Provider Matt Hooper MD Department Family Medicine [facility] ) Diet: Carb Consistent or DM2 and Heart Healthy Addtl Attending Provider Instructions: Device and wound check at [facility] Cardiology next week. Follow-up with your primary care physician within a week time. Follow-up with your cardiology as an outpatient. Cardiology evaluated you while inpatient, you have been started on Eliquis, your aspirin and Plavix has been discontinued. Your metoprolol dose has been increased. For your operative site pain, you can use OTC Tylenol for your pain management. You are being prescribed few days worth of oxycodone as needed for very severe pain. If your pain continues to worsen or is not being controlled, you will need to get in touch with your primary care office for further evaluation/management. Take your medication as prescribed. Pending Studies at Discharge: No Stand-Alone Forms: My [facility], Smoking Cessation Medications and DC Order Prescriptions: New Eliquis 5 mg tablet 5 mg PO BID Qty: 60 0RF Rx Instructions: take 5 mg twice a day. oxycodone 5 mg Tablet 5 mg PO Q8H PRN (Reason: severe pain (scale score 7-10)) 3 Days Qty: 9 0RF ondansetron 4 mg tablet,disintegrating 4 mg PO DAILY PRN (Reason: nausea and vomiting) Qty: 30 0RF Continued pantoprazole 20 mg tablet,delayed release (DR/EC) 20 mg PO DAILY Novolin 70-30 FlexPen U-100 100 unit/mL (70-30) insulin pen 21 unit subcut QAM Label Comments: 21 units am 16 units before evening meal Rx Instructions: Inject 21 units before breakfast and 16 units before supper famotidine 20 mg tablet 20 mg PO HS (DME) OneTouch Verio test strips Strip See Rx Instructions .ROUTE .MEDSUPPLY Qty: 100 3RF Rx Instructions: Test blood sugar once a day (DME) OneTouch Verio test strips Strip See Rx Instructions [id number] .MEDSUPPLY Qty: 100 3RF Rx Instructions: Test blood sugar once daily (DME) lancets [OneTouch Delica Lancets] 33 gauge misc See Rx Instructions .ROUTE .MEDSUPPLY Qty: 100 0RF Rx Instructions: Test blood sugar once a day (DME) pen needle, diabetic [BD Ultra-Fine Shelbie Pen Needle] 32 gauge x 5/32" needle See Rx Instructions .ROUTE .MEDSUPPLY Qty: 200 1RF Rx Instructions: Inject twice daily atorvastatin 40 mg tablet 40 mg PO DAILY tamsulosin 0.4 mg capsule 0.4 mg PO DAILY losartan 25 mg tablet 25 mg PO QAM acetaminophen [Tylenol Extra Strength] 500 mg Tablet 500 mg PO Q4H PRN (Reason: Pain) Label Comments: states patient took yesterday in the late afternoon. (06-08-19) (DME) [facility] [place], [place] See Rx Instructions .ROUTE .MEDSUPPLY Qty: 1 0RF Rx Instructions: As directed albuterol sulfate 90 mcg/actuation HFA aerosol inhaler 2 puff INHALATION Q4H PRN (Reason: Shortness Of Breath Or Wheezing) Novolin 70-30 FlexPen U-100 100 unit/mL (70-30) insulin pen 16 unit SUBCUT QDD Rx Instructions: Inject 21 units before breakfast and 16 units before supper fluticasone propionate 50 mcg/actuation spray,suspension 2 spray INTRANASAL DAILY Changed metoprolol tartrate 25 mg tablet 37.5 mg PO BID Qty: 45 0RF Discontinued clopidogrel 75 mg tablet 75 mg PO DAILY aspirin 81 mg Tablet,Delayed Release (Dr/Ec) 81 mg PO HS Discharge Orders: Discharge Order (Routine); Ordered 02/06/22 Ordered By: Prashanth Talley/Other Patient Handouts: Managing Type 2 Diabetes Admission Data Admit Date/Time: 02/03/22 15:40 Attending Provider: Prashanth Jameson Admit Provider: Danni Preston Primary Care Provider: Matt Hooper Other Providers: Danni Preston ; Cali Arce ; Jacob Cox [facility]
[2022-02-06 13:58] VITALS: BP 103/65
[2022-02-06] MEDS ORDERED: METOPROLOL TARTRATE 25 MG TAB PO SCH (21:00)
--- NOTE | 2022-02-10 16:09 | Operative Report (OR) ---
DATE OF PROCEDURE: 02/05/2022. PREOPERATIVE DIAGNOSIS: Tachybrady syndrome. POSTOPERATIVE DIAGNOSIS: Tachybrady syndrome. PROCEDURE: Dual-chamber rate responsive permanent pacemaker under fluoroscopic guidance along with a peripheral venogram and intracardiac electrogram His bundle recordings. SURGEON: Xiao Broderick DO. MANAGER OF PHOTOGRAPHY: None. ANESTHESIA: Monitored conscious sedation administered under my supervision by Liza Faulkner. Start time 12:47 and end time 1405. A total of 4 mg of Versed and 100 mcg of fentanyl. INTRAVENOUS FLUIDS: 70 mL. ANTIBIOTICS: 2 grams of Ancef. BLOOD LOSS: 50 mL CONTRAST: 13 mL. URINE OUTPUT: Not applicable. SPECIMENS: None. FINDINGS: See below. DRAINS: None. INDICATIONS: This is an 81-year-old gentleman with a past medical history for paroxysmal atrial tach ycardia, aortic insufficiency, CVA x2 in 01/2013, on Plavix, diabetes, prostate cancer. He was admit ann-marie to [facility] with tachycardia and diagnosed with tachybrady syndrome and he wa s recommended a pacemaker prior to discharge. CONSENT: Consent was obtained prior to the patient going into the electrophysiology lab. The patien t was explained risks, benefits, and alternatives to the procedure. Risks include, but not limited t o, sudden cardiac , cardiac arrhythmias, cerebrovascular accident, myocardial infarction, injury to blood vessels, chamber of the heart, lungs, bleeding and infection. The patient understood these risks and agreed to the procedure as planned. Informed consent was obtained. DESCRIPTION OF PROCEDURE: The patient was brought into the electrophysiology lab in a fasting state. He was connected to continuous cardiac monitoring. A time-out was performed to ensure the patient' s identity and procedure correctly. He was prepped and draped over the left infraclavicular space in normal surgical standard fashion. Monitored conscious sedation was given throughout the procedure f or patient's comfort level. [place] precautions were maintained throughout the procedure. He rece ived prophylactic antibiotics prior to incision. 10 mL of 1% lidocaine-bupivacaine mixture were given in the left deltopectoral groove. An incision w as made in the left deltopectoral groove. Blunt dissection was performed down to the pectoralis musc le. Then the pacemaker pocket was created using blunt dissection over the pectoralis muscle within t he pectoralis fascia. A peripheral venogram was performed to identify the axillary vein. Venous axi llary access was obtained through a needlestick without any problems. A 7-Slovak sheath was inserted over the guidewire without any resistance. Dilator was removed and a second guidewire was inserted through the sheath to allow for retained venous access. Sheath was rem buck, flushed, reinserted over the dilator, then reinserted over the guidewire, the guidewire and dil ator were removed and the His C315 sheath was advanced over a Glidewire into the right ventricle. Th e Glidewire and dilator removed, then the left bundle lead was advanced through the sheath and intrac ardiac electrogram His bundle recordings was performed with the camera in SCOTT 10. Once I found where the His bundle was, I then marked this on my fluoroscopy screens when the camera was in SCOTT 30. I c zayda down about 2 cm from this in a line that would extend out to the apex and started positioning my left bundle lead. I came on pacing and had a nice W form pace pattern in V1, I then moved the camera to AMHARIC 30, started giving a series of clockwise turns to screw the lead into the septum, pausing onc e in a while to see if my pacing complex changed. Ultimately developed a decent R prime. I gave con trast through the sheath to see how I was well into the septum. I then slit the His C315 sheath unde r fluoroscopic guidance, leaving the 7-Slovak sheath in while I positioned the right atrial lead. A second 7-Slovak sheath was inserted over the retained guidewire, the guidewire and dilator removed. The right atrial lead was then advanced into right atrium, ultimately positioned into atrial append age. Of note, the patient went into atrial flutter when I was putting the lead in. There was adequat e pacing and sensing thresholds and no diaphragmatic stimulation with high output pacing. The 7-Fren ch sheath was peeled away and the lead was fixated to pectoralis muscle using 0 silk suture. Then, t he 7-Slovak sheath around the left bundle lead was peeled away and the lead was fixated to pectoralis muscle using 0 silk suture. A pursestring using a 2-[address] needle was placed around the v enous puncture site to prevent any further backbleeding. The pocket was then flushed with copious am ounts of vancomycin and saline wash and inspected for hemostasis. Pulse generator was then placed at tached to the leads making sure the pins were in appropriate position, passed set screws, and set scr ews were all tightened. Pulse generator was then placed in the antibiotic pouch followed then by dexter ng placed in the pocket, making sure the leads were lying flat beneath the device. The incision was closed in a 3-layer fashion, 2-0 Vicryl interrupted suture, followed by 3-0 Vicryl interrupted suture , followed by 4-0 Monocryl running stitch and Dermabond was applied followed by Telfa and Tegaderm dr cornejo. EQUIPMENT: 1. Pulse generator is a Medtronic Chayito XT DR RONEL Morton [id number], serial number [id number]. 2. TYRX pouch, reference SUXH0621, lot number [id number]. 3. Right atrial lead, Medtronic 5076-52 cm, serial number [id number]. 4. Left bundle lead, Medtronic 3830-69 cm, serial number [id number]. INTRAPROCEDURAL FINDINGS: Intracardiac electrogram His bundle recordings. 1. AH 68 milliseconds, HV 61 milliseconds. 2. Right atrial lead, P waves 3.6 millivolts, impedance 940 ohms, threshold 1.1 volt at 0.4 millisec onds. 3. Left bundle lead, R waves 9.9 millivolts, impedance 1115 ohms, threshold 1.3 volts at 0.5 millise conds. FINAL MEASUREMENTS THROUGH THE DEVICE. 1. Right atrial lead, P waves 3 millivolts, impedance 817 ohms, threshold 0.5 volts at 0.4 milliseco nds. 2. Left bundle lead, R waves 13.4 millivolts, impedance 950 ohms, threshold 0.5 volts at 0.4 millise conds. FINAL PARAMETERS: MVP-R 60/130, right atrial amplitude 3.5 volts, pulse width 0.4 milliseconds, sens itivity 0.3 millivolts. Left bundle lead amplitude 3.5 volts, pulse width 0.4 milliseconds, sensitiv ity 0.9 millivolts. IMPRESSION: Successful dual chamber rate responsive permanent pacemaker under fluoroscopic guidance along with peripheral venogram and intracardiac electrogram His bundle recording secondary to tachybr andrés syndrome. PLAN: Monitor the patient post-procedure then return back to inpatient unit. Chest x-ray and EKG. He is not to lift the left elbow or left shoulder for 1 month. He cannot lift more than 10 pounds wi th left arm for 2 weeks. He is to keep the dressing on and dry until his wound check next week. Sin ce I confirmed in the lab that he has atrial flutter pretty easily, I have a feeling that some of his SVT is probably atrial flutter and with his CVA stroke history, he should be started on Eliquis and then continue AV sharda blockers and we could consider antiarrhythmic assistance in the future. Job ID: [id number]
== END 2022-02-06 14:40 | disposition home health service (06) | DRG 243 ==
LOC: ED 13:04 → SUATTDRO 15:40 → 2S 15:40
DX: I35.0 Nonrheumatic aortic (valve) stenosis; Z88.2 Allergy status to sulfonamides; I95.9 Hypotension, unspecified; Z88.3 Allergy status to other anti-infective agents; I10 Essential (primary) hypertension; Z88.8 Allergy status to other drugs, medicaments and biological substances; Z79.02 Long term (current) use of antithrombotics/antiplatelets; Z87.442 Personal history of urinary calculi; I47.1 Supraventricular tachycardia; Z79.4 Long term (current) use of insulin; E11.9 Type 2 diabetes mellitus without complications; C61 Malignant neoplasm of prostate; G25.81 Restless legs syndrome; Z91.018 Allergy to other foods; E78.5 Hyperlipidemia, unspecified; Z79.82 Long term (current) use of aspirin; M15.0 Primary generalized (osteo)arthritis; Z91.048 Other nonmedicinal substance allergy status; I48.92 Unspecified atrial flutter; J30.81 Allergic rhinitis due to animal (cat) (dog) hair and dander; Z91.040 Latex allergy status; I49.5 Sick sinus syndrome; Z86.73 Personal history of transient ischemic attack (TIA), and cerebral infarction without residual deficits

== ENCOUNTER 2022-03-15 17:13 | Observation (INO) ==
--- NOTE | 2022-03-15 17:24 | Emergency Department Note ---
Impression & Plan TIA (transient ischemic attack), Weakness ED Provider Note NAME: MIAN CHOWDHURY AGE: 81 SEX: M : 1940 ARRIVES VIA: Ambulance INFORMANT: Patient, patient's significant other, EMS personnel ED PROVIDER(S): Manuel Ndiaye DO CHIEF COMPLAINT: Weakness HPI: The patient is an 81-year-old male who presented to the emergency [facility] by ambulance for an evaluation of generalized weakness. The patient states that he went to get off of the couch when he fell to the ground. He did not hurt himself but states his legs just gave way. He states has been noticing numbness which was perioral in nature. It was not unilateral. He denies having any unilateral weakness. His significant other states that 2 nights ago he was having difficulty speaking. He was trying to form words but could not. He does have a history of stroke and states that he had similar episodes in the past with stroke. He does take oral anticoagulation. He has a history of atrial flutter. He denies having any nausea or vomiting at this time. The patient denies having any other symptoms at this time including weakness or dysarthria. The patient states that been compliant with his outpatient medication. He has had no recent trauma. He denies have any lower extremity swelling or pain. ROS: See above HPI for pertinent positives & negatives. A total of 10 systems reviewed and were otherwise negative. PAST MEDICAL HISTORY: See Below PAST SURGICAL HISTORY: See Below FAMILY HISTORY: See Below SOCIAL HISTORY: See Below HOME MEDICATIONS: See Below ALLERGIES: See Below VITALS: See Below PHYSICAL EXAMINATION: GENERAL: Patient is awake alert in no acute distress patient is resting comfortably and showing no signs of anxiety EYES: The conjunctivae are clear. The pupils are round and reactive. EARS, NOSE, MOUTH AND THROAT: The nose is without any evidence of any deformity. Mucous membranes are moist. Tongue is midline. NECK: The neck is nontender and supple. RESPIRATORY: Normal respiratory effort is noted there is no evidence of wheezing rhonchi or rales CARDIOVASCULAR: Regular rate and rhythm noted there no murmurs rubs or gallops normal S1 normal S2. GASTROINTESTINAL: The abdomen is soft. Abdomen is nontender. MUSCULOSKELETAL/EXTREMITIES: There is no evidence of gross deformity full range of motion is noted in the hips and shoulders. SKIN: There is no obvious evidence of any rash. There are no petechiae, pallor or cyanosis noted. NEUROLOGIC: Patient is awake alert and oriented x3. The patient is able to hold each leg off of the bed for greater than 5 seconds. Speech was clear. The re is no facial droop. MEDICAL DECISION MAKING: The patient is an 81-year-old male who presented to the emergency department for an evaluation of generalized weakness. The patient had no focal neurologic deficits. His significant other did state that he had a problem speaking a few evenings ago where he had word finding difficulty. He has a history of a stroke. He does take oral anticoagulants. I discussed the patient's laboratory and radiographic studies with him. Because of the findings the other evening with TIA-like symptoms I discussed his case with the on-call [facility] hospitalist. They have agreed to evaluate the patient in the emergency department for further management and disposition. Triage Nursing notes reviewed. Prior medical records reviewed Vital Signs: reviewed and remarkable for elevated blood pressure. Differential diagnosis: Infection, dehydration, metabolic abnormality, hypo/hyperglycemia, electrolyte disturbance, anemia, hypoxia, cardiac sources, intracerebral event, toxicologic, neurologic, as well as other pathologies. ER treatment provided: See below Diagnostics interpreted by me: ECG: EKG was obtained in the emergency department. My interpretation is normal sinus rhythm at 62 bpm. There is no ectopy. Nonspecific lateral ST depressions were noted. This was compared to a tracing from March 15, 2022. No changes were noted. Cardiac Monitoring: An order was placed for continuous cardiac monitoring. The monitor shows a rate of 66 bpm with sinus rhythm. Laboratory studies: As stated above and show below. Imaging studies: See below Consultation(s): Discussed this case with Dr. Velasco [facility] Past Med/Surg History Medical History Altered mental status Controlled type 2 diabetes mellitus, with long-term current use of insulin Elevated PSA Gastritis Generalized osteoarthrosis History of CVA (cerebrovascular accident) History of kidney stones HLD (hyperlipidemia) HTN (hypertension) Lumbar degenerative disc disease Personal history of urinary calculi (01/27/13) RLS (restless legs syndrome) T2DM (type 2 diabetes mellitus) Surgical History H/O prostate biopsy History of colonoscopy with polypectomy History of cystoscopy History of laryngoscopy Hx of bursectomy Family History Father Myocardial infarction Heart disease Mother Breast cancer Sister Lupus Brother Diabetes Myocardial infarction Coronary heart disease Brother Cancer Bladder Social History Smoking Status: Former smoker Tobacco Type: Cigarettes and Cigars Number of Years Since Quit: 40; Second Hand Exposure: No; Hx Alcohol Use: No Hx Substance Use: No Preferred Language: Macedonian Communication Ability: Effective Visual Impairment: No Limitations Hearing Ability: Normal Yield Analyst Required: No Beliefs That Will Affect Care: None marital status: Current Living Situation: Spouse current occupational status: retired How many Children do You have: 3 Feels Safe at Home: Yes during the past year weight has: remained stable Physical Activity Frequency: 3-4 Times per Week Assistive Devices: Cane, Glasses and Scooter/Electric Scooter Allergies Allergies Allergy/AdvReac Type Severity Reaction Status Date / Time cat dander Allergy Intermediate itchy Verified 03/15/22 20:21 watery eyes dyclonine [From Sucrets] Allergy Intermediate "numb all Verified 03/15/22 20:21 over" hexylresorcinol Allergy Intermediate "numb all Verified 03/15/22 20:21 [From Sucrets] over" horse dander Allergy Intermediate itchy Verified 03/15/22 20:21 watery eyes latex Allergy Intermediate SKIN PEELS Verified 03/15/22 20:21 mirtazapine Allergy Intermediate Weakness Verified 03/15/22 20:21 adhesive Allergy Unknown "TAKES THE Verified 03/15/22 20:21 SKIN OFF" enalaprilat [From Vasotec] Allergy Unknown Verified 03/15/22 20:21 sitagliptin [From Januvia] Allergy Unknown Verified 03/15/22 20:21 diazepam [From Valium] AdvReac Severe can't stay Verified 03/15/22 20:21 awake diphenhydramine AdvReac Intermediate anxiety Verified 03/15/22 20:21 enalapril AdvReac Unknown "MADE ME Verified 02/03/22 15:33 MEAN" ferrous fumarate AdvReac Unknown Unknown Verified 02/03/22 15:33 [From Centrum] ferrous gluconate AdvReac Unknown Unknown Verified 02/03/22 15:33 [From Centrum] folic acid [From Centrum] AdvReac Unknown Unknown Verified 02/03/22 15:33 lutein [From Centrum] AdvReac Unknown Unknown Verified 03/15/22 20:22 lycopene [From Centrum] AdvReac Unknown Unknown Verified 02/03/22 15:33 meclizine AdvReac Unknown Unknown Verified 03/15/22 20:23 multivit with calcium, iron, AdvReac Unknown Unknown Verified 02/03/22 15:33 and other minerals [From Centrum] multivitamin [From Centrum] AdvReac Unknown Unknown Verified 02/03/22 15:33 multivitamin with iron,other AdvReac Unknown Unknown Verified 02/03/22 15:33 minerals [From Centrum] multivitamin with minerals AdvReac Unknown Unknown Verified 02/03/22 15:33 [From Centrum] simvastatin AdvReac Unknown Unknown Verified 03/15/22 20:26 Home Meds Home Medications Medication Instructions Recorded Confirmed acetaminophen 500 mg tablet 1,000 mg PO Q6H PRN Pain 06/08/19 03/15/22 (Tylenol Extra Strength) atorvastatin 40 mg tablet 40 mg PO QAM 06/08/19 03/15/22 losartan 25 mg tablet 25 mg PO QAM 06/08/19 03/15/22 tamsulosin 0.4 mg capsule 0.4 mg PO DAILY 06/08/19 03/15/22 pantoprazole 20 mg tablet,delayed 20 mg PO DAILY 04/10/21 03/15/22 release fluticasone propionate 50 2 spray intranasal DAILY 06/18/21 03/15/22 mcg/actuation nasal spray,suspension famotidine 20 mg tablet 20 mg PO HS 12/12/21 03/15/22 insulin NPH-regular 70-30 U-100 16 unit subcut QDD 12/12/21 03/15/22 insulin 100 unit/mL subcutaneous pen (Novolin 70-30 FlexPen U-100 Insulin) insulin NPH-regular 70-30 U-100 21 unit subcut QAM 12/12/21 03/15/22 insulin 100 unit/mL subcutaneous pen (Novolin 70-30 FlexPen U-100 Insulin) albuterol sulfate 90 mcg/actuation 2 puff inhalation Q4H PRN 02/03/22 03/15/22 aerosol inhaler Shortness Of Breath Or Wheezing metoprolol tartrate 50 mg tablet 50 mg PO BID 03/15/22 03/15/22 oxycodone 5 mg tablet 5 mg PO Q8H PRN Pain 03/15/22 03/15/22 Previous Rx's Medication Instructions Recorded walker #1 ea 03/24/20 blood sugar diagnostic (OneTouch #100 ea 06/15/20 Verio test strips) blood sugar diagnostic (OneTouch #100 ea 06/15/20 Verio test strips) lancets 33 gauge (OneTouch Delica #100 ea 07/11/21 Lancets) pen needle, diabetic 32 gauge x #200 ea 02/04/22 532" (BD Ultra-Fine Shelbie Pen Needle) apixaban 5 mg tablet (Eliquis) 5 mg PO BID #60 tabs 02/06/22 ondansetron 4 mg disintegrating 4 mg PO DAILY PRN nausea and 02/06/22 tablet vomiting #30 tabs Results & Data (ED) Vital Signs Vital Signs - 24 hr 03/15/22 17:15 03/15/22 17:28 03/15/22 17:24 Temperature 37.2 C Temperature Source Oral Pulse Rate 72 72 Pulse Rate [Right Finger] Pulse Rhythm [Right Finger] Respiratory Rate 20 20 Respiratory Effort / Characteristics Non-Labored Respiratory Depth Normal Blood Pressure 150/92 H Blood Pressure [Right Arm] Blood Pressure Mean 111 Blood Pressure Mean [Right Arm] Pulse Oximetry 96 96 Oxygen Delivery Method Room Air Room Air Room Air Sepsis Recent Fever Within 48 Hours No Sepsis New/Unexplained Change in Mental Status N/A Sepsis Action Taken by Nursing No Action Required 03/15/22 19:02 03/15/22 21:49 03/15/22 22:29 Temperature Temperature Source Pulse Rate Pulse Rate [Right Finger] 60 64 66 Pulse Rhythm [Right Finger] Regular Respiratory Rate 18 20 18 Respiratory Effort / Characteristics Non-Labored Respiratory Depth Normal Normal Normal Blood Pressure Blood Pressure [Right Arm] 140/76 108/67 146/76 H Blood Pressure Mean Blood Pressure Mean [Right Arm] 97 80 99 Pulse Oximetry 97 97 97 Oxygen Delivery Method Room Air Room Air Room Air Sepsis Recent Fever Within 48 Hours Sepsis New/Unexplained Change in Mental Status Sepsis Action Taken by Nursing 03/15/22 21:00 03/15/22 20:00 Temperature Temperature Source Pulse Rate Pulse Rate [Right Finger] 71 71 Pulse Rhythm [Right Finger] Regular Regular Respiratory Rate 20 17 Respiratory Effort / Characteristics Non-Labored Non-Labored Respiratory Depth Normal Normal Blood Pressure Blood Pressure [Right Arm] 134/73 144/80 H Blood Pressure Mean Blood Pressure Mean [Right Arm] 93 101 Pulse Oximetry 98 97 Oxygen Delivery Method Room Air Room Air Sepsis Recent Fever Within 48 Hours Sepsis New/Unexplained Change in Mental Status Sepsis Action Taken by Half-Way Medications Current Medication List: was personally reviewed by me Laboratory Data Attestation: I reviewed the patient's lab results. Result diagrams: 03/15/22 17:21 03/15/22 17:21 Lab Results 03/15/22 03/15/22 03/15/22 Range/Units 17:21 17:21 17:21 WBC 6.64 (4.8-10.8) K/ul RBC 3.60 L (4.63-6.08) M/uL Hgb 11.7 L (14.0-18.0) g/dl POC Hgb (14.0-18.0) g/dl Hct 33.8 L (40.1-51.0) % POC Hct (42-52) % MCV 93.9 (80.0-100.0) fL MCH 32.5 (25.0-34.0) pg MCHC 34.6 (32.0-36.0) g/dL RDW Std Deviation 43.8 (36.4-46.3) fL RDW Coeff of Catherine 12.7 (11.5-14.5) % Plt Count 197 (130-400) K/uL MPV 9.6 (9.4-12.4) fL Immature Gran % (Auto) 0.3 % Neut % (Auto) 58.0 % Lymph % (Auto) 27.9 % Atkinson % (Auto) 9.2 % Eos % (Auto) 3.5 % Baso % (Auto) 1.1 % Neut # (Auto) 3.86 (1.4-6.5) K/uL Lymph # (Auto) 1.85 (1.2-3.4) K/uL Atkinson # (Auto) 0.61 (0.24-0.82) K/uL Eos # (Auto) 0.23 (0-0.50) K/uL Baso # (Auto) 0.07 (0-0.2) K/uL Immature Gran # (Auto) 0.02 (0.00-0.02) K/uL PT 11.7 (9.0-12.0) Seconds INR 1.1 (0.9-1.1) APTT 23.4 (21.0-31.0) Seconds PTT Ratio 0.9 POC Sodium (135-144) mmol/L Sodium 135 L (136-145) mmol/L POC Potassium (3.3-5.0) mmol/L Potassium 3.7 (3.5-5.1) mmol/L POC Chloride (101-112) mmol/L Chloride 102 (98-107) mmol/L Carbon Dioxide 26 (21-32) mmol/L POC Total CO2 (24-31) mmol/L Anion Gap 7 (3-11) POC Anion Gap (16-25) mmol/L POC BUN (7-18) mg/dl BUN 16 (6-23) mg/dl Creatinine 1.07 (0.6-1.4) mg/dl POC Creatinine (0.6-1.3) mg/dl Est Cr Clr Drug Dosing 55.0 ml/min Est GFR ( Amer) 75.1 ml/min Est GFR (Non-Af Amer) 64.8 ml/min BUN/Creatinine Ratio 15.0 (10-20) Glucose 116 H (70-99(Fasting)) mg/dl POC Glucose (other) (70-99) mg/dl Calcium 9.6 (8.5-10.1) mg/dl POC Ioniz Calcium Auer (1.12-1.32) mmol/l Magnesium 1.8 (1.7-2.4) mg/dl Total Bilirubin 0.5 (0.2-1.0) mg/dl AST 15 (13-39) U/L ALT 12 (7-52) U/L Alkaline Phosphatase 68 (34-104) U/L Troponin I High Sens 5.5 D (0-20) pg/ml Total Protein 6.9 (6.0-8.3) gm/dl Albumin 4.2 (3.4-5.0) gm/dl Globulin 2.7 (2.5-4.0) gm/dl Albumin/Globulin Ratio 1.6 (0.9-2) TSH (0.300-4.500) uIu/ml Urine Color Urine Appearance (Clear) Urine pH (4.5-7.5) Ur Specific [place] (1.000-1.030) Urine Protein (Negative) Urine Glucose (UA) (Negative) Urine Ketones (Negative) Urine Blood (Negative) Urine Nitrite (Negative) Urine Bilirubin (Negative) Urine Urobilinogen (Negative) Ur Leukocyte Esterase (Negative) SARS-CoV-2, RNA, NAAT (NEGATIVE) 03/15/22 03/15/22 03/15/22 Range/Units 17:21 17:29 19:15 WBC (4.8-10.8) K/ul RBC (4.63-6.08) M/uL Hgb (14.0-18.0) g/dl POC Hgb 11.6 L (14.0-18.0) g/dl Hct (40.1-51.0) % POC Hct 34 L (42-52) % MCV (80.0-100.0) fL MCH (25.0-34.0) pg MCHC (32.0-36.0) g/dL RDW Std Deviation (36.4-46.3) fL RDW Coeff of Catherine (11.5-14.5) % Plt Count (130-400) K/uL MPV (9.4-12.4) fL Immature Gran % (Auto) % Neut % (Auto) % Lymph % (Auto) % Atkinson % (Auto) % Eos % (Auto) % Baso % (Auto) % Neut # (Auto) (1.4-6.5) K/uL Lymph # (Auto) (1.2-3.4) K/uL Atkinson # (Auto) (0.24-0.82) K/uL Eos # (Auto) (0-0.50) K/uL Baso # (Auto) (0-0.2) K/uL Immature Gran # (Auto) (0.00-0.02) K/uL PT (9.0-12.0) Seconds INR (0.9-1.1) APTT (21.0-31.0) Seconds PTT Ratio POC Sodium 137 (135-144) mmol/L Sodium (136-145) mmol/L POC Potassium 3.7 (3.3-5.0) mmol/L Potassium (3.5-5.1) mmol/L POC Chloride 102 (101-112) mmol/L Chloride (98-107) mmol/L Carbon Dioxide (21-32) mmol/L POC Total CO2 23 L (24-31) mmol/L Anion Gap (3-11) POC Anion Gap 17.0 (16-25) mmol/L POC BUN 15 (7-18) mg/dl BUN (6-23) mg/dl Creatinine (0.6-1.4) mg/dl POC Creatinine 1.0 (0.6-1.3) mg/dl Est Cr Clr Drug Dosing ml/min Est GFR ( Amer) ml/min Est GFR (Non-Af Amer) ml/min BUN/Creatinine Ratio (10-20) Glucose (70-99(Fasting)) mg/dl POC Glucose (other) 124 H (70-99) mg/dl Calcium (8.5-10.1) mg/dl POC Ioniz Calcium Aure 1.22 (1.12-1.32) mmol/l Magnesium (1.7-2.4) mg/dl Total Bilirubin (0.2-1.0) mg/dl AST (13-39) U/L ALT (7-52) U/L Alkaline Phosphatase (34-104) U/L Troponin I High Sens (0-20) pg/ml Total Protein (6.0-8.3) gm/dl Albumin (3.4-5.0) gm/dl Globulin (2.5-4.0) gm/dl Albumin/Globulin Ratio (0.9-2) TSH 1.218 (0.300-4.500) uIu/ml Urine Color Urine Appearance (Clear) Urine pH (4.5-7.5) Ur Specific [place] (1.000-1.030) Urine Protein (Negative) Urine Glucose (UA) (Negative) Urine Ketones (Negative) Urine Blood (Negative) Urine Nitrite (Negative) Urine Bilirubin (Negative) Urine Urobilinogen (Negative) Ur Leukocyte Esterase (Negative) SARS-CoV-2, RNA, NAAT NEGATIVE (NEGATIVE) 03/15/22 Range/Units 21:47 WBC (4.8-10.8) K/ul RBC (4.63-6.08) M/uL Hgb (14.0-18.0) g/dl POC Hgb (14.0-18.0) g/dl Hct (40.1-51.0) % POC Hct (42-52) % MCV (80.0-100.0) fL MCH (25.0-34.0) pg MCHC (32.0-36.0) g/dL RDW Std Deviation (36.4-46.3) fL RDW Coeff of Catherine (11.5-14.5) % Plt Count (130-400) K/uL MPV (9.4-12.4) fL Immature Gran % (Auto) % Neut % (Auto) % Lymph % (Auto) % Atkinson % (Auto) % Eos % (Auto) % Baso % (Auto) % Neut # (Auto) (1.4-6.5) K/uL Lymph # (Auto) (1.2-3.4) K/uL Atkinson # (Auto) (0.24-0.82) K/uL Eos # (Auto) (0-0.50) K/uL Baso # (Auto) (0-0.2) K/uL Immature Gran # (Auto) (0.00-0.02) K/uL PT (9.0-12.0) Seconds INR (0.9-1.1) APTT (21.0-31.0) Seconds PTT Ratio POC Sodium (135-144) mmol/L Sodium (136-145) mmol/L POC Potassium (3.3-5.0) mmol/L Potassium (3.5-5.1) mmol/L POC Chloride (101-112) mmol/L Chloride (98-107) mmol/L Carbon Dioxide (21-32) mmol/L POC Total CO2 (24-31) mmol/L Anion Gap (3-11) POC Anion Gap (16-25) mmol/L POC BUN (7-18) mg/dl BUN (6-23) mg/dl Creatinine (0.6-1.4) mg/dl POC Creatinine (0.6-1.3) mg/dl Est Cr Clr Drug Dosing ml/min Est GFR ( Amer) ml/min Est GFR (Non-Af Amer) ml/min BUN/Creatinine Ratio (10-20) Glucose (70-99(Fasting)) mg/dl POC Glucose (other) (70-99) mg/dl Calcium (8.5-10.1) mg/dl POC Ioniz Calcium Aure (1.12-1.32) mmol/l Magnesium (1.7-2.4) mg/dl Total Bilirubin (0.2-1.0) mg/dl AST (13-39) U/L ALT (7-52) U/L Alkaline Phosphatase (34-104) U/L Troponin I High Sens (0-20) pg/ml Total Protein (6.0-8.3) gm/dl Albumin (3.4-5.0) gm/dl Globulin (2.5-4.0) gm/dl Albumin/Globulin Ratio (0.9-2) TSH (0.300-4.500) uIu/ml Urine Color Yellow Urine Appearance Clear (Clear) Urine pH 5.0 (4.5-7.5) Ur Specific [place] 1.026 (1.000-1.030) Urine Protein Negative (Negative) Urine Glucose (UA) Trace H (Negative) Urine Ketones Trace H (Negative) Urine Blood Negative (Negative) Urine Nitrite Negative (Negative) Urine Bilirubin Negative (Negative) Urine Urobilinogen Negative (Negative) Ur Leukocyte Esterase Negative (Negative) SARS-CoV-2, RNA, NAAT (NEGATIVE) Administered Medications Discontinued Medications Sodium Chloride (Nss) 500 mls @ 999 mls/hr IV .Q31M [facility] Stop: 03/15/22 18:00 Last Infusion: 03/15/22 21:50 Dose: 0 mls/hr Documented By: Admin: 03/15/22 18:15 Dose: 999 mls/hr Documented By: BENI Ondansetron HCl (Ondansetron Inj 2 Mg/Ml 2 Ml Vial) Confirm Administered Dose 4 mg .ROUTE .STK-MED ONE Stop: 03/15/22 18:18 Last Admin: 03/15/22 18:23 Dose: 4 mg Documented By: VAP Imaging Data Radiologist's Impression: Chest X-Ray 03/15/22 17:22 XR chest 1V portable HISTORY: weakness COMPARISON: Chest 02/13/2022. FINDINGS: No pneumothorax. No pleural effusions. There is a left-sided dual- chamber pacemaker. The cardiac silhouette is normal in size. The lungs are clear. No evidence for pulmonary edema. IMPRESSION: No acute process. ACT 112: Negative or not required by law. Electronically signed by: Asa Perez M.D. 03/15/2022 6:[address] 03/15/22 17:[address] DOSE: 1257.71 mGy.cm HISTORY: difficulty speaking TECHNIQUE: Multiaxial CT images of the head were performed without the use of intravenous contrast. Automated exposure control was utilized for this study. A dose lowering technique was utilized adhering to the principles of ALARA. Comparison: Head CT 07/19/2021. 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 Otherwise, the paranasal sinuses and mastoid air cells are clear. The calvarium and skull base are intact. There is no mass, hematoma, midline shift, acute infarct. White matter hypodensity is nonspecific but suggestive of microvascular ischemic change. The ventricles and sulci demonstrate mild age- related involutional changes. This remains unchanged. Small right per iventricular infarct the moran radiata. Mild motion artifact. Impression: Mild motion artifact. No definite acute intracranial abnormality. ACT 112: Negative or not required by law. Electronically signed by: Asa Perez M.D. 03/15/2022 6:29 PM Discharge Plan Visit Data Chief Complaint: Weakness Stated Complaint: WEAKNESS ED Provider: Manuel Ndiaye Discharge Problem: TIA (transient ischemic attack), Weakness Patient Disposition: Being Evaluated by Hospitalist Forms Stand Alone Forms: [facility] Prescriptions Prescriptions: No Action pantoprazole 20 mg tablet,delayed release (DR/EC) 20 mg PO DAILY Novolin 70-30 FlexPen U-100 100 unit/mL (70-30) insulin pen 21 unit subcut QAM famotidine 20 mg tablet 20 mg PO HS (DME) OneTouch Verio test strips Strip See Rx Instructions .ROUTE .MEDSUPPLY Qty: 100 3RF Rx Instructions: Test blood sugar once a day (DME) OneTouch Verio test strips Strip See Rx Instructions [id number] .MEDSUPPLY Qty: 100 3RF Rx Instructions: Test blood sugar once daily (DME) lancets [OneTouch Delica Lancets] 33 gauge misc See Rx Instructions .ROUTE .MEDSUPPLY Qty: 100 0RF Rx Instructions: Test blood sugar once a day (DME) pen needle, diabetic [BD Ultra-Fine Shelbie Pen Needle] 32 gauge x 5/32" needle See Rx Instructions .ROUTE .MEDSUPPLY Qty: 200 1RF Rx Instructions: Inject twice daily atorvastatin 40 mg tablet 40 mg PO QAM tamsulosin 0.4 mg capsule 0.4 mg PO DAILY losartan 25 mg tablet 25 mg PO QAM acetaminophen [Tylenol Extra Strength] 500 mg Tablet 1,000 mg PO Q6H PRN (Reason: Pain) (DME) walker Misc See Rx Instructions .ROUTE .MEDSUPPLY Qty: 1 0RF Rx Instructions: As directed albuterol sulfate 90 mcg/actuation HFA aerosol inhaler 2 puff INHALATION Q4H PRN (Reason: Shortness Of Breath Or Wheezing) Eliquis 5 mg tablet 5 mg PO BID Qty: 60 0RF ondansetron 4 mg tablet,disintegrating 4 mg PO DAILY PRN (Reason: nausea and vomiting) Qty: 30 0RF Novolin 70-30 FlexPen U-100 100 unit/mL (70-30) insulin pen 16 unit SUBCUT QDD fluticasone propionate 50 mcg/actuation spray,suspension 2 spray INTRANASAL DAILY metoprolol tartrate 50 mg tablet 50 mg PO BID oxycodone 5 mg tablet 5 mg PO Q8H PRN (Reason: Pain) Referrals Referrals: Matt Hooper MD [Primary Care Provider] -
[2022-03-15] MEDS ORDERED: SODIUM CHLORIDE 0.9% 500 ML IV SCH (17:30)
[2022-03-15 17:40] LABS: Basophils # (auto) 0.07 K/uL (0-0.2); Basophils % (auto) 1.1 %; Eosinophils # (auto) 0.23 K/uL (0-0.50); Eosinophils % (auto) 3.5 %; Hematocrit (blood only) 33.8 % (40.1-51.0); Hemoglobin 11.7 g/dl (14.0-18.0); Immature Granulocytes # (auto) 0.02 K/uL (0.00-0.02); Immature Granulocytes % (auto) 0.3 %; Lymphocytes # (auto) 1.85 K/uL (1.2-3.4); Lymphocytes % (auto) 27.9 %; Mean Corpuscular Hemoglobin 32.5 pg (25.0-34.0); Mean Corpuscular Hgb Conc 34.6 g/dL (32.0-36.0); Mean Corpuscular Volume 93.9 fL (80.0-100.0); Mean Platelet Volume 9.6 fL (9.4-12.4); Monocytes # (auto) 0.61 K/uL (0.24-0.82); Monocytes % (auto) 9.2 %; Neutrophils # (auto) 3.86 K/uL (1.4-6.5); Platelet Count 197 K/uL (130-400); RDW Coefficient of Variation 12.7 % (11.5-14.5); RDW Standard Deviation 43.8 fL (36.4-46.3); White Blood Count 6.64 K/ul (4.8-10.8)
[2022-03-15 17:41] LABS: iSTAT Hemoglobin 11.6 g/dl (14.0-18.0); iSTAT Ionized Calcium 1.22 mmol/l (1.12-1.32); iSTAT Potassium 3.7 mmol/L (3.3-5.0)
[2022-03-15 17:53] LABS: INR 1.1 (0.9-1.1); Partial Thromboplastin Ratio 0.9; Partial Thromboplastin Time 23.4 Seconds (21.0-31.0); Prothrombin Time 11.7 Seconds (9.0-12.0)
[2022-03-15] MEDS ORDERED: ONDANSETRON INJ 2 MG/ML 2 ML VIAL ONE (18:17)
[2022-03-15 18:23] LABS: Troponin I High Sensitivity 5.5 pg/ml (0-20)
[2022-03-15 18:26] LABS: Albumin Globulin Ratio 1.6 (0.9-2); Albumin Level 4.2 gm/dl (3.4-5.0); Bilirubin,Total 0.5 mg/dl (0.2-1.0); Calcium 9.6 mg/dl (8.5-10.1); Est GFR (African American) 75.1 ml/min; Est GFR (Non-African American) 64.8 ml/min; Globulin 2.7 gm/dl (2.5-4.0); Magnesium 1.8 mg/dl (1.7-2.4); Potassium 3.7 mmol/L (3.5-5.1); Total Protein 6.9 gm/dl (6.0-8.3)
--- NOTE | 2022-03-15 18:31 | CT Scan Report ---
HEAD CT NONCONTRAST CT DOSE: 1257.71 mGy.cm HISTORY: difficulty speaking TECHNIQUE: Multiaxial CT images of the head were performed without the use of intravenous contrast. A utomated exposure control was utilized for this study. A dose lowering technique was utilized adheri ng to the principles of ALARA. Comparison: Head CT 07/19/2021. 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 Otherwise, the paranasal sinuses and mastoid air cells are clear. The calvarium and skull base are intact. There is no mass, hematoma, midline shift, acute infarct. White matter hypodensity is nonspecific but suggesti ve of microvascular ischemic change. The ventricles and sulci demonstrate mild age-related involution al changes. This remains unchanged. Small right periventricular infarct the moran radiata. Mild [place] on artifact. Impression: Mild motion artifact. No definite acute intracranial abnormality. ACT 112: Negative or not required by law. Electronically signed by: Asa Perez M.D. 03/15/2022 6:29 PM
--- NOTE | 2022-03-15 18:34 | XRay Report ---
XR chest 1V portable HISTORY: weakness COMPARISON: Chest 02/13/2022. FINDINGS: No pneumothorax. No pleural effusions. There is a left-sided dual-chamber pacemaker. The ca rdiac silhouette is normal in size. The lungs are clear. No evidence for pulmonary edema. IMPRESSION: No acute process. ACT 112: Negative or not required by law. Electronically signed by: Asa Perez M.D. 03/15/2022 6:33 PM
[2022-03-15 22:05] LABS: Appearance Urine Clear (Clear); Bilirubin Urine Negative (Negative); Blood Urine Negative (Negative); Color Urine Yellow; Glucose Urine UA Trace (Negative); Ketones Urine Trace (Negative); Leukocyte Esterase Urine Negative (Negative); Nitrite Urine Negative (Negative); Protein Urine Negative (Negative); Specific Gravity Urine 1.026 (1.000-1.030); Urobilinogen Urine Negative (Negative)
[2022-03-15] MEDS ORDERED: ACETAMINOPHEN 325 MG TAB PO PRN (23:38)
[2022-03-15] MEDS ORDERED: POLYETHYLENE (MIRALAX) 17 GM PACK PO PRN (23:38)
[2022-03-15] MEDS ORDERED: APIXABAN 5 MG TABLET PO ONE (23:43)
[2022-03-15] MEDS ORDERED: LACTATED RINGER'S 1,000 ML IV SCH (23:45)
[2022-03-16] MEDS ORDERED: PHARMACY GLYCEMIC MGMT CONSULT PRN (00:05)
[2022-03-16] MEDS ORDERED: GLUCOSE 40% GEL 15 GM TUBE PO PRN (00:05)
[2022-03-16] MEDS ORDERED: GLUCAGON FOR INJ 1 MG VIAL SQ PRN (00:05)
[2022-03-16] MEDS ORDERED: GLUCOSE 10 TAB/TUBE PO PRN (00:05)
[2022-03-16] MEDS ORDERED: CARBOHYDRATES FOR HYPOGLYCEMIA PO PRN (00:05)
[2022-03-16] MEDS ORDERED: DEXTROSE 50% 50 ML SYRINGE IV PRN (00:05)
[2022-03-16] MEDS ORDERED: LANTUS PER UNIT CHARGE SQ ONE (00:45)
--- NOTE | 2022-03-16 00:58 | History & Physical Report ---
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 - lantus 8 units and SSI for now given good control - FSG AC+HS - diabetic diet - adjust insulin as needed (6) Paroxysmal atrial flutter: Plan: - in NSR on admission - on apixaban - s/p PPM for tachy-alicia syndrome as above (7) Anemia: Plan: - stable at baseline, no signs of bleeding - iron studies, b12, folate ordered - monitor Plan DVT ppx: Apixaban Code Status: Full code Dispo: telemetry Miller Velasco MD [facility] Medicine Admission and Anticipated Discharge Date Admission Date: 03/15/2022 History of Present Illness Chief Complaint: weakness Primary Care Provider: Matt Hooper MD The patient is an 81 year old man with pmh SSS s/p PPM 01/2022, h/o CVA x2 (on Apixaban), HTN, HLD, DM2, prostate cancer on antiandrogen since 09/2020 who presented with 1 day of weakness, diarrhea, and one episode of vomiting. The patient reports he was feeling in his normal state of health when he walked inside from his porch, started feeling light headed and weak and went to sit on the couch. After sitting on the couch, he became extremely weak when trying to stand and fell to his hands and knees without LOC and had one episode of vomiting. He was unable to get up from the floor and his found him 30 minutes late. He denied chest pain, palpitations, shortness of breath, cough, fever or chills, abdominal pain, nausea, sore throat, dysuria prior to this event. He does report having diarrhea for the past couple days leading up to this and poor po intake. He denies any focal weakness or symptoms, denies LOC or hitting his head. In the ED, vitals were were unremarkable. Labs were unremarkable besides dehydration noted on his UA. CXR and CTH were unremarkable. He was given IVF and admitted to medicine. Allergies Allergy/AdvReac Type Severity Reaction Status Date / Time cat dander Allergy Intermediate itchy Verified 03/15/22 20:21 watery eyes dyclonine [From Sucrets] Allergy Intermediate "numb all Verified 03/15/22 20:21 over" hexylresorcinol Allergy Intermediate "numb all Verified 03/15/22 20:21 [From Sucrets] over" horse dander Allergy Intermediate itchy Verified 03/15/22 20:21 watery eyes latex Allergy Intermediate SKIN PEELS Verified 03/15/22 20:21 mirtazapine Allergy Intermediate Weakness Verified 03/15/22 20:21 adhesive Allergy Unknown "TAKES THE Verified 03/15/22 20:21 SKIN OFF" enalaprilat [From Vasotec] Allergy Unknown Verified 03/15/22 20:21 sitagliptin [From Januvia] Allergy Unknown Verified 03/15/22 20:21 diazepam [From Valium] AdvReac Severe can't stay Verified 03/15/22 20:21 awake diphenhydramine AdvReac Intermediate anxiety Verified 03/15/22 20:21 enalapril AdvReac Unknown "MADE ME Verified 02/03/22 15:33 MEAN" ferrous fumarate AdvReac Unknown Unknown Verified 02/03/22 15:33 [From Centrum] ferrous gluconate AdvReac Unknown Unknown Verified 02/03/22 15:33 [From Centrum] folic acid [From Centrum] AdvReac Unknown Unknown Verified 02/03/22 15:33 lutein [From Centrum] AdvReac Unknown Unknown Verified 03/15/22 20:22 lycopene [From Centrum] AdvReac Unknown Unknown Verified 02/03/22 15:33 meclizine AdvReac Unknown Unknown Verified 03/15/22 20:23 multivit with calcium, iron, AdvReac Unknown Unknown Verified 02/03/22 15:33 and other minerals [From Centrum] multivitamin [From Centr] AdvReac Unknown Unknown Verified 02/03/22 15:33 multivitamin with iron,other AdvReac Unknown Unknown Verified 02/03/22 15:33 minerals [From Centrum] multivitamin with minerals AdvReac Unknown Unknown Verified 02/03/22 15:33 [From Centr] simvastatin AdvReac Unknown Unknown Verified 03/15/22 20:26 Home Medications Medication Instructions Recorded Confirmed Type acetaminophen 500 mg tablet 1,000 mg PO Q6H PRN Pain 06/08/19 03/15/22 History (Tylenol Extra Strength) atorvastatin 40 mg tablet 40 mg PO QAM 06/08/19 03/15/22 History losartan 25 mg tablet 25 mg PO QAM 06/08/19 03/15/22 History tamsulosin 0.4 mg capsule 0.4 mg PO DAILY 06/08/19 03/15/22 History walker #1 ea 03/24/20 12/12/21 Rx blood sugar diagnostic (KekantoTouch #100 ea 06/15/20 12/12/21 Rx Verio test strips) blood sugar diagnostic (OneTouch #100 ea 06/15/20 12/12/21 Rx Verio test strips) pantoprazole 20 mg tablet,delayed 20 mg PO DAILY 04/10/21 03/15/22 History release fluticasone propionate 50 2 spray intranasal DAILY 06/18/21 03/15/22 History mcg/actuation nasal spray,suspension lancets 33 gauge (OneTouch Martha #100 ea 07/11/21 12/12/21 Rx Lancets) famotidine 20 mg tablet 20 mg PO HS 12/12/21 03/15/22 History insulin NPH-regular 70-30 U-100 16 unit subcut QDD 12/12/21 03/15/22 History insulin 100 unit/mL subcutaneous pen (Novolin 70-30 FlexPen U-100 Insulin) insulin NPH-regular 70-30 U-100 21 unit subcut QAM 12/12/21 03/15/22 History insulin 100 unit/mL subcutaneous pen (Novolin 70-30 FlexPen U-100 Insulin) albuterol sulfate 90 mcg/actuation 2 puff inhalation Q4H PRN 02/03/22 03/15/22 History aerosol inhaler Shortness Of Breath Or Wheezing pen needle, diabetic 32 gauge x #200 ea 02/04/22 Rx 32" (BD Ultra-Fine Shelbie Pen Needle) apixaban 5 mg tablet (Eliquis) 5 mg PO BID #60 tabs 02/06/22 03/15/22 Rx ondansetron 4 mg disintegrating 4 mg PO DAILY PRN nausea and 02/06/22 03/15/22 Rx tablet vomiting #30 tabs metoprolol tartrate 50 mg tablet 50 mg PO BID 03/15/22 03/15/22 History oxycodone 5 mg tablet 5 mg PO Q8H PRN Pain 03/15/22 03/15/22 History Past Med/Surg History Medical History Altered mental status Controlled type 2 diabetes mellitus, with long-term current use of insulin Elevated PSA Gastritis Generalized osteoarthrosis History of CVA (cerebrovascular accident) History of kidney stones HLD (hyperlipidemia) HTN (hypertension) Lumbar degenerative disc disease Personal history of urinary calculi (01/27/13) RLS (restless legs syndrome) T2DM (type 2 diabetes mellitus) Surgical History H/O prostate biopsy History of colonoscopy with polypectomy History of cystoscopy History of laryngoscopy Hx of bursectomy Family History Father Myocardial infarction Heart disease Mother Breast cancer Sister Lupus Brother Diabetes Myocardial infarction Coronary heart disease Brother Cancer Bladder Social History Smoking Status: Former smoker Tobacco Type: Cigarettes and Cigars Number of Years Since Quit: 40; Second Hand Exposure: No; Hx Alcohol Use: No Hx Substance Use: No Preferred Language: [place] Communication Ability: Effective Visual Impairment: No Limitations Hearing Ability: Normal Construction Consultant Required: No Beliefs That Will Affect Care: None marital status: Current Living Situation: Spouse current occupational status: retired How many Children do You have: 3 Feels Safe at Home: Yes during the past year weight has: remained stable Physical Activity Frequency: 3-4 Times per Week Assistive Devices: Cane, Glasses and Scooter/Electric Scooter Review of Systems Review of Systems: All systems reviewed & are unremarkable except as noted in Subjective Physical Exam Constitutional: WD/WN, vitals as above well developed; no acute distress, not ill appearing and no altered mental status Eyes: PERRL, conjunctivae normal, anicteric sclerae ENMT: external ear and nose normal, oropharynx normal Neck: trachea midline, no thyromegaly Respiratory: normal respiratory effort, lungs clear to auscultation Cardiovascular: RRR, no murmur, no edema Gastrointestinal (Abdomen): normal bowel sounds, soft, nontender, no hepatosplenomegaly Musculoskeletal: no cyanosis or clubbing, extremities motor strength 5/5 Skin: no rashes, warm and dry Neurologic: patellar DTR's 2+ bilat, sensation intact and PERRL, EOMI, accommodation nl, no face palsy, no dysarthria Psychiatric: A+Ox3, euthymic affect Results & Data Results & Data ([facility]) Vital Signs (Past 12 Hours) Vital Signs Temp Pulse Pulse Resp BP BP Pulse Ox 03/15/22 20:00 71 17 144/80 H 97 03/15/22 21:00 71 20 134/73 98 03/15/22 22:29 66 18 146/76 H 97 03/15/22 21:49 64 20 108/67 97 03/15/22 19:02 60 18 140/76 97 03/15/22 17:24 03/15/22 17:28 72 20 96 03/15/22 17:15 37.2 C 72 20 150/92 H 96 O2 Del Method 03/15/22 20:00 Room Air 03/15/22 21:00 Room Air 03/15/22 22:29 Room Air 03/15/22 21:49 Room Air 03/15/22 19:02 Room Air 03/15/22 17:24 Room Air 03/15/22 17:28 Room Air 03/15/22 17:15 Room Air Laboratory Results Short CBC 03/15/22 Range/Units 17:21 WBC 6.64 (4.8-10.8) K/ul Hgb 11.7 L (14.0-18.0) g/dl Hct 33.8 L (40.1-51.0) % Plt Count 197 (130-400) K/uL BMP 03/15/22 17:21 Sodium 135 L Potassium 3.7 Chloride 102 Carbon Dioxide 26 BUN 16 Creatinine 1.07 Glucose 116 H Calcium 9.6 Liver Function 03/15/22 Range/Units 17:21 Total Bilirubin 0.5 (0.2-1.0) mg/dl AST 15 (13-39) U/L ALT 12 (7-52) U/L Alkaline Phosphatase 68 (34-104) U/L Albumin 4.2 (3.4-5.0) gm/dl Urine 03/15/22 Range/Units 21:47 Urine Color Yellow Urine Appearance Clear (Clear) Urine pH 5.0 (4.5-7.5) Ur Specific [place] 1.026 (1.000-1.030) Urine Protein Negative (Negative) Urine Glucose (UA) Trace H (Negative) Diagnostic Findings Chest X-Ray 03/15/22 17:22 XR chest 1V portable HISTORY: weakness COMPARISON: Chest 02/13/2022. FINDINGS: No pneumothorax. No pleural effusions. There is a left-sided dual- chamber pacemaker. The cardiac silhouette is normal in size. The lungs are clear. No evidence for pulmonary edema. IMPRESSION: No acute process. ACT 112: Negative or not required by law. Electronically signed by: Asa Perez M.D. 03/15/2022 6:[address] 03/15/22 17:[address] DOSE: 1257.71 mGy.cm HISTORY: difficulty speaking TECHNIQUE: Multiaxial CT images of the head were performed without the use of intravenous contrast. Automated exposure control was utilized for this study. A dose lowering technique was utilized adhering to the principles of ALARA. Comparison: Head CT 07/19/2021. 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 Otherwise, the paranasal sinuses and mastoid air cells are clear. The calvarium and skull base are intact. There is no mass, hematoma, midline shift, acute infarct. White matter hypodensity is nonspecific but suggestive of microvascular ischemic change. The ventricles and sulci demonstrate mild age- related involutional changes. This remains unchanged. Small right p eriventricular infarct the moran radiata. Mild motion artifact. Impression: Mild motion artifact. No definite acute intracranial abnormality. ACT 112: Negative or not required by law. Electronically signed by: Asa Perez M.D. 03/15/2022 6:29 PM Medications Administered Current Inpatient Medications Acetaminophen (Acetaminophen 325 Mg Tab) 650 mg PO Q4H PRN PRN Reason: Pain or Fever Stop: 04/14/22 23:37 Dextrose (Dextrose 50% 50 Ml Syringe) 25 - 50 ml IV UD PRN; Protocol PRN Reason: Hypoglycemia Protocol Stop: 04/15/22 00:04 Glucagon (Glucagon For Inj 1 Mg Vial) 1 mg SQ UD PRN; Protocol PRN Reason: Hypoglycemia Protocol Stop: 04/15/22 00:04 Glucose (Glucose 40% Gel 15 Gm Tube) 15 - 30 gm PO UD PRN; Protocol PRN Reason: Hypoglycemia Protocol Stop: 04/15/22 00:04 Glucose (Glucose 10 Tab/Tube) 4 - 8 tab PO UD PRN; Protocol PRN Reason: Hypoglycemia Treatment Stop: 04/15/22 00:04 Lactated Ringer's (Lr) 1,000 mls @ 80 mls/hr IV .[id number] RICH Stop: 03/16/22 12:14 Insulin Aspart (Insulin Aspart Per Unit) 0 units SC ACHS RICH Stop: 04/15/22 00:44 Miscellaneous (Carbohydrates For Hypoglycemia ) 15 - 30 gm PO UD PRN PRN Reason: Hypoglycemia Protocol Stop: 04/15/22 00:04 Miscellaneous Information (Pharmacy Glycemic Mgmt Consult) 1 each N/A UD PRN PRN Reason: Consult Stop: 04/15/22 00:04 Polyethylene Glycol (Polyethylene (Miralax) 17 Gm Pack) 17 gm PO DAILY PRN PRN Reason: Constipation Stop: 04/14/22 23:37 Code Status & VTE Plan Code Status Full code VTE Prophylaxis Plan VTE Prophylaxis will be ordered: No
[2022-03-16] MEDS ORDERED: ALBUTEROL HFA 8 GM INHALER INH PRN (02:10)
[2022-03-16] MEDS: INSULIN ASPART PER UNIT SC SCH ×5 (02:13→21:59)
[2022-03-16 07:05] LABS: Basophils # (auto) 0.06 K/uL (0-0.2); Basophils % (auto) 0.8 %; Eosinophils # (auto) 0.14 K/uL (0-0.50); Eosinophils % (auto) 1.9 %; Hematocrit (blood only) 32.1 % (40.1-51.0); Immature Granulocytes # (auto) 0.03 K/uL (0.00-0.02); Immature Granulocytes % (auto) 0.4 %; Lymphocytes # (auto) 1.52 K/uL (1.2-3.4); Lymphocytes % (auto) 20.4 %; Mean Corpuscular Hgb Conc 34.3 g/dL (32.0-36.0); Mean Corpuscular Volume 93.3 fL (80.0-100.0); Mean Platelet Volume 9.9 fL (9.4-12.4); Monocytes % (auto) 8.1 %; Neutrophils # (auto) 5.09 K/uL (1.4-6.5); Neutrophils % (auto) 68.4 %; Platelet Count 202 K/uL (130-400); RDW Standard Deviation 44.8 fL (36.4-46.3); Red Blood Count 3.44 M/uL (4.63-6.08); White Blood Count 7.44 K/ul (4.8-10.8)
--- NOTE | 2022-03-16 07:23 | Electrocardiogram Report ---
Test Reason : Blood Pressure : / mmHG Vent. Rate : 062 BPM Atrial Rate : 062 BPM P-R Int : 170 ms QRS Dur : 088 ms QT Int : 436 ms P-R-T Axes : 055 -15 046 degrees QTc Int : 442 ms Normal sinus rhythm Low voltage QRS Borderline ECG When compared with ECG of 13-FEB-2022 17:04, No significant change was found Confirmed by Yash Burns ([id number]) on 03/16/2022 7:22:52 AM Referred By: REFERRED SELF Confirmed By:Serafin Burns
[2022-03-16 07:31] LABS: Albumin Globulin Ratio 1.7 (0.9-2); BUN Creatinine Ratio 15.4 (10-20); Bilirubin,Total 0.7 mg/dl (0.2-1.0); Calcium 9.4 mg/dl (8.5-10.1); Est GFR (African American) 77.7 ml/min; Globulin 2.4 gm/dl (2.5-4.0); Magnesium 1.6 mg/dl (1.7-2.4); Phosphorus 3.8 mg/dl (2.5-4.9); Potassium 3.6 mmol/L (3.5-5.1); Total Protein 6.4 gm/dl (6.0-8.3)
[2022-03-16 07:46] LABS: Ferritin 126.6 ng/ml (8-388)
[2022-03-16 07:50] LABS: Folate (Folic Acid) 13.35 ng/ml (>5.38)
[2022-03-16] MEDS ORDERED: MAGNESIUM SULFATE / D5W 1 GM/100 ML BAG IV ONE (07:54)
--- NOTE | 2022-03-16 08:24 | Pharmacy Report ---
Pharmacy Glycemic Short Note 2 - Date of Service March 16, 2022 - Glycemic Short BSG Results (Last 24 hours): 03/15/22 03/15/22 03/16/22 17:21 17:29 02:03 Glucose 116 H POC Glucose 116 H POC Glucose (other) 124 H 03/16/22 03/16/22 06:27 07:43 Glucose 119 H POC Glucose 134 H POC Glucose (other) OUTPATIENT ANTIDIABETIC REGIMEN: * Novolin 70/30 21 units QAM, 16 units QPM ASSESSMENT: * 81 year old male with PMH SSS s/p PPM 01/2022, h/o CVA x2 (on Apixaban), HTN, HLD, DM2, prostate CA on antiandrogen since 09/2020 who presented with 1 day of weakness, diarrhea, and one episode of vomiting. * Type 2 diabetic on mixed insulin as above * Pre-mixed insulin is difficult to titrate since it is already in a fixed distribution of basal:prandial insulin. Continuing pre-mixed insulin for admission typically lead to hypoglycemia d/t changing PO status but rapid acting insulin is unable to be held. * Home regimen will be held for admission per pharmacy consult. Will utilize rec ommended regimen of SQ basal bolus insulin regimen with Lantus + NovoLog (CF+CR), will consider changing to NPH for basal for easier transition back to home insulin closer to discharge. * Currently ordered type 2 diabetic diet. PLAN FOR INPATIENT GLYCEMIC CONTROL: * Hold outpatient insulin * Basal insulin * Lantus 15 units SQ AM * Bolus insulin * NovoLog per scale ACHS or Q6hrs while NPO * Goal Range: Low 110 mg/dL - High 140 mg/dL * Correction Factor: 35 mg/dL/unit * Nutritional / Prandial insulin per carb ratio of 1 unit per 15 grams CHO consumed
[2022-03-16] MEDS: APIXABAN 5 MG TABLET PO SCH ×2 (08:39→21:56)
[2022-03-16] MEDS: LOSARTAN POTASSIUM 25 MG TAB PO SCH (08:39)
[2022-03-16] MEDS: ATORVASTATIN 40 MG TAB PO SCH (08:39)
[2022-03-16] MEDS: FLUTICASONE PROPIONATE NA SPR 16 GM BTL SCH (08:39)
[2022-03-16] MEDS: PANTOprazole 40 MG TAB PO SCH (08:40)
[2022-03-16] MEDS: METOPROLOL TARTRATE 50 MG TAB PO SCH ×2 (08:40→21:56)
[2022-03-16] MEDS: TAMSULOSIN HCL 0.4 MG CAP PO SCH (08:40)
--- NOTE | 2022-03-16 10:00 | Hospitalist Progress Note ---
Date of Service March 16, 2022 Assessment & Plan (1) Weakness: Plan: Likely in the setting of decreased po intake and diarrhea last couple days Denied any cardiac symptoms prior Had fallen at home PPM was reportedly interrogated in ED, no issues found CTH unremarkable Will get PT/OT eval (2) HLD (hyperlipidemia): Plan: Continue statin (3) Tachy-alicia syndrome: Plan: S/p PPM 01/2022 (4) HTN (hypertension): Plan: Continue home meds - losartan (5) Controlled type 2 diabetes mellitus, with long-term current use of insulin: Plan: Reportedly takes 70/30 21 units AM, 16 units PM Continue insulin protocol, diabetic diet (6) Paroxysmal atrial flutter: Plan: In sinus rhythm On apixaban S/p PPM for tachy-alicia syndrome as above (7) Anemia: Plan: Stable at baseline Plan DVT ppx: Apixaban Code Status: Full code Dispo: telemetry Admission and Anticipated Discharge Date Admission Date: March 15, 2022 Subjective Patient seen and examined Reports feeling better Reported generalized weakness mostly resolved Denied any dizziness, headache Reports nausea is resolved. No vomiting today Reports diarrhea is improving Denied abd pain, dysuria, freq, urgency Denied cough, chest pain, SOB Physical Exam Constitutional: + well hydrated; no acute distress Eyes: PERRL, conjunctivae normal, anicteric sclerae ENMT: external ear and nose normal, oropharynx normal Respiratory: normal respiratory effort, lungs clear to auscultation Cardiovascular: Rate/Rhythm: regular rate and regular rhythm S1 S2 Gastrointestinal (Abdomen): normal bowel sounds, soft, nontender, no hepatosplenomegaly Musculoskeletal: No pedal edema Neurologic: PERRL, EOMI, accommodation nl, no face palsy, no dysarthria Psychiatric: A+Ox3, euthymic affect Results & Data Results & Data ([facility]) Vital Signs (Past 12 Hours) Vital Signs Temp Pulse Pulse Resp BP BP Pulse Ox 03/16/22 06:56 36.8 C 67 18 147/93 H 96 03/16/22 02:36 60 03/16/22 02:41 36.4 C L 67 18 159/83 H 96 03/16/22 01:42 72 18 113/76 99 03/16/22 00:00 70 16 112/60 96 03/15/22 22:29 66 18 146/76 H 97 O2 Del Method 03/16/22 06:56 Room Air 03/16/22 02:36 03/16/22 02:41 Room Air 03/16/22 01:42 Room Air 03/16/22 00:00 Room Air 03/15/22 22:29 Room Air Laboratory Results Abnormal lab results 03/15/22 03/15/22 03/15/22 Range/Units 17:21 17:21 17:29 RBC 3.60 L (4.63-6.08) M/uL Hgb 11.7 L (14.0-18.0) g/dl POC Hgb 11.6 L (14.0-18.0) g/dl Hct 33.8 L (40.1-51.0) % POC Hct 34 L (42-52) % Immature Gran # (Auto) (0.00-0.02) K/uL Sodium 135 L (136-145) mmol/L POC Total CO2 23 L (24-31) mmol/L Glucose 116 H (70-99(Fasting)) mg/dl POC Glucose (70-99) mg/dl POC Glucose (other) 124 H (70-99) mg/dl Magnesium (1.7-2.4) mg/dl Globulin (2.5-4.0) gm/dl Vitamin B12 (180-914) pg/ml Urine Glucose (UA) (Negative) Urine Ketones (Negative) 03/15/22 03/16/22 03/16/22 Range/Units 21:47 02:03 06:27 RBC 3.44 L (4.63-6.08) M/uL Hgb 11.0 L (14.0-18.0) g/dl POC Hgb (14.0-18.0) g/dl Hct 32.1 L (40.1-51.0) % POC Hct (42-52) % Immature Gran # (Auto) 0.03 H (0.00-0.02) K/uL Sodium (136-145) mmol/L POC Total CO2 (24-31) mmol/L Glucose (70-99(Fasting)) mg/dl POC Glucose 116 H (70-99) mg/dl POC Glucose (other) (70-99) mg/dl Magnesium (1.7-2.4) mg/dl Globulin (2.5-4.0) gm/dl Vitamin B12 (180-914) pg/ml Urine Glucose (UA) Trace H (Negative) Urine Ketones Trace H (Negative) 03/16/22 03/16/22 03/16/22 Range/Units 06:27 06:27 07:43 RBC (4.63-6.08) M/uL Hgb (14.0-18.0) g/dl POC Hgb (14.0-18.0) g/dl Hct (40.1-51.0) % POC Hct (42-52) % Immature Gran # (Auto) (0.00-0.02) K/uL Sodium 135 L (136-145) mmol/L POC Total CO2 (24-31) mmol/L Glucose 119 H (70-99(Fasting)) mg/dl POC Glucose 134 H (70-99) mg/dl POC Glucose (other) (70-99) mg/dl Magnesium 1.6 L (1.7-2.4) mg/dl Globulin 2.4 L (2.5-4.0) gm/dl Vitamin B12 126 L (180-914) pg/ml Urine Glucose (UA) (Negative) Urine Ketones (Negative) 03/16/22 Range/Units 11:33 RBC (4.63-6.08) M/uL Hgb (14.0-18.0) g/dl POC Hgb (14.0-18.0) g/dl Hct (40.1-51.0) % POC Hct (42-52) % Immature Gran # (Auto) (0.00-0.02) K/uL Sodium (136-145) mmol/L POC Total CO2 (24-31) mmol/L Glucose (70-99(Fasting)) mg/dl POC Glucose 127 H (70-99) mg/dl POC Glucose (other) (70-99) mg/dl Magnesium (1.7-2.4) mg/dl Globulin (2.5-4.0) gm/dl Vitamin B12 (180-914) pg/ml Urine Glucose (UA) (Negative) Urine Ketones (Negative)
[2022-03-16] MEDS ORDERED: LANTUS PER UNIT CHARGE SQ SCH (21:00)
[2022-03-16] MEDS ORDERED: FAMOTIDINE 20 MG TAB PO SCH (21:00)
[2022-03-17 03:45] VITALS: PULSE 73; TEMP 98.2; O2SAT 97
[2022-03-17 06:34] LABS: Hematocrit (blood only) 35.2 % (40.1-51.0); Hemoglobin 12.2 g/dl (14.0-18.0); Mean Corpuscular Hemoglobin 31.9 pg (25.0-34.0); Mean Corpuscular Hgb Conc 34.7 g/dL (32.0-36.0); Mean Corpuscular Volume 92.1 fL (80.0-100.0); Mean Platelet Volume 9.7 fL (9.4-12.4); Platelet Count 239 K/uL (130-400); RDW Coefficient of Variation 12.7 % (11.5-14.5); RDW Standard Deviation 43.1 fL (36.4-46.3); Red Blood Count 3.82 M/uL (4.63-6.08); White Blood Count 8.41 K/ul (4.8-10.8)
[2022-03-17 06:59] LABS: BUN Creatinine Ratio 16.7 (10-20); Calcium 9.8 mg/dl (8.5-10.1); Creatinine Clr Calc Pharmacy 53.1 ml/min; Est GFR (African American) 74.2 ml/min; Magnesium 1.8 mg/dl (1.7-2.4); Phosphorus 3.9 mg/dl (2.5-4.9); Potassium 4.2 mmol/L (3.5-5.1)
[2022-03-17 07:57] LABS: Estimated Average Glucose 146 mg/dl; Hemoglobin A1C 6.7 % (4.5-5.6)
[2022-03-17] MEDS: INSULIN ASPART PER UNIT SC SCH (08:10)
[2022-03-17] MEDS: LOSARTAN POTASSIUM 25 MG TAB PO SCH (08:55)
[2022-03-17] MEDS: APIXABAN 5 MG TABLET PO SCH (08:55)
[2022-03-17] MEDS: PANTOprazole 40 MG TAB PO SCH (08:55)
[2022-03-17] MEDS: ATORVASTATIN 40 MG TAB PO SCH (08:55)
[2022-03-17] MEDS: TAMSULOSIN HCL 0.4 MG CAP PO SCH (08:55)
[2022-03-17] MEDS: METOPROLOL TARTRATE 50 MG TAB PO SCH (08:55)
[2022-03-17] MEDS: FLUTICASONE PROPIONATE NA SPR 16 GM BTL SCH (08:56)
--- NOTE | 2022-03-17 10:47 | Discharge Summary ---
Date of Service March 17, 2022 Admission HPI Per Admitting Provider The patient is an 81 year old man with pmh SSS s/p PPM 01/2022, h/o CVA x2 (on Apixaban), HTN, HLD, DM2, prostate cancer on antiandrogen since 09/2020 who presented with 1 day of weakness, diarrhea, and one episode of vomiting. The patient reports he was feeling in his normal state of health when he walked inside from his porch, started feeling light headed and weak and went to sit on the couch. After sitting on the couch, he became extremely weak when trying to stand and fell to his hands and knees without LOC and had one episode of vomiting. He was unable to get up from the floor and his found him 30 min utes late. He denied chest pain, palpitations, shortness of breath, cough, fever or chills, abdominal pain, nausea, sore throat, dysuria prior to this event. He does report having diarrhea for the past couple days leading up to this and poor po intake. He denies any focal weakness or symptoms, denies LOC or hitting his head. In the ED, vitals were were unremarkable. Labs were unremarkable besides dehydration noted on his UA. CXR and CTH were unremarkable. He was given IVF and admitted to medicine. Admission Exam Per Admitting Provider Constitutional: WD/WN, vitals as above well developed; no acute distress, not ill appearing and no altered mental status Eyes: PERRL, conjunctivae normal, anicteric sclerae ENMT: external ear and nose normal, oropharynx normal Neck: trachea midline, no thyromegaly Respiratory: normal respiratory effort, lungs clear to auscultation Cardiovascular: RRR, no murmur, no edema Gastrointestinal (Abdomen): normal bowel sounds, soft, nontender, no hepatosplenomegaly Musculoskeletal: no cyanosis or clubbing, extremities motor strength 5/5 Skin: no rashes, warm and dry Neurologic: patellar DTR's 2+ bilat, sensation intact and PERRL, EOMI, accommodation nl, no face palsy, no dysarthria Psychiatric: A+Ox3, euthymic affect Principal Diagnosis Generalized weakness Discharge Exam Constitutional + well hydrated; no acute distress Eyes PERRL, conjunctivae normal, anicteric sclerae ENMT external ear and nose normal, oropharynx normal Respiratory normal respiratory effort, lungs clear to auscultation Cardiovascular Rate/Rhythm: regular rate and regular rhythm S1 S2 Gastrointestinal (Abdomen) normal bowel sounds, soft, nontender, no hepatosplenomegaly Neurologic PERRL, EOMI, accommodation nl, no face palsy, no dysarthria Psychiatric Orientation: alert and oriented x 3 Discharge Data Allergies Allergy/AdvReac Type Severity Reaction Status Date / Time cat dander Allergy Intermediate itchy Verified 03/15/22 20:21 watery eyes dyclonine [From Sucrets] Allergy Intermediate "numb all Verified 03/15/22 20:21 over" hexylresorcinol Allergy Intermediate "numb all Verified 03/15/22 20:21 [From Sucrets] over" horse dander Allergy Intermediate itchy Verified 03/15/22 20:21 watery eyes latex Allergy Intermediate SKIN PEELS Verified 03/15/22 20:21 mirtazapine Allergy Intermediate Weakness Verified 03/15/22 20:21 adhesive Allergy Unknown "TAKES THE Verified 03/15/22 20:21 SKIN OFF" enalaprilat [From Vasotec] Allergy Unknown Verified 03/15/22 20:21 sitagliptin [From Januvia] Allergy Unknown Verified 03/15/22 20:21 diazepam [From Valium] AdvReac Severe can't stay Verified 03/15/22 20:21 awake diphenhydramine AdvReac Intermediate anxiety Verified 03/15/22 20:21 enalapril AdvReac Unknown "MADE ME Verified 02/03/22 15:33 MEAN" ferrous fumarate AdvReac Unknown Unknown Verified 02/03/22 15:33 [From Centrum] ferrous gluconate AdvReac Unknown Unknown Verified 02/03/22 15:33 [From Centrum] folic acid [From Centrum] AdvReac Unknown Unknown Verified 02/03/22 15:33 lutein [From Centrum] AdvReac Unknown Unknown Verified 03/15/22 20:22 lycopene [From Centrum] AdvReac Unknown Unknown Verified 02/03/22 15:33 meclizine AdvReac Unknown Unknown Verified 03/15/22 20:23 multivit with calcium, iron, AdvReac Unknown Unknown Verified 02/03/22 15:33 and other minerals [From Centrum] multivitamin [From Centrum] AdvReac Unknown Unknown Verified 02/03/22 15:33 multivitamin with iron,other AdvReac Unknown Unknown Verified 02/03/22 15:33 minerals [From Centrum] multivitamin with minerals AdvReac Unknown Unknown Verified 02/03/22 15:33 [From Centrum] simvastatin AdvReac Unknown Unknown Verified 03/15/22 20:26 Consultations 03/15/22 22:44 ED Decision to Admit Stat Ordered Studies 03/15/22 17:22 CT head/brain wo con Stat 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 Otherwise, the paranasal sinuses and mastoid air cells are clear. The calvarium and skull base are intact. There is no mass, hematoma, midline shift, acute infarct. White matter hypodensity is nonspecific but suggestive of microvascular ischemic change. The ventricles and sulci demonstrate mild age-related involutional changes. This remains unchanged. Small right periventricular infarct the moran radiata. Mild motion artifact. Impression: Mild motion artifact. No definite acute intracranial abnormality. Hospital Course (1) Weakness: Likely in the setting of decreased po intake and diarrhea last couple days Denied any cardiac symptoms prior Had fallen at home PPM was reportedly interrogated in ED, no issues found CTH unremarkable Diarrhea improved Per daughter, patient does have short term memory deficits and has episodes of confusion Patient had delirium (confusion) overnight and this morning. Patient evaluated by PT/OT Patient to use rolling walker. Patient already has walker at home. 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 (4) HTN (hypertension): Continue home meds - losartan (5) Controlled type 2 diabetes mellitus, with long-term current use of insulin: Reportedly takes 70/30 21 units AM, 16 units PM Continue home insulin (6) Paroxysmal atrial flutter: In sinus rhythm On apixaban S/p PPM for tachy-alicia syndrome as above (7) Anemia: Stable at baseline Total Time Total Time Spent Total Time Spent (In Minutes): 40 Total Time Includes: Examination of the Patient, Discharge Planning, Medication Reconciliation and Other Discharge Plan Discharge Items Patient Disposition: Home - Home Health Services Reason For Visit: WEAKNESS Discharge Diagnosis: Generalized weakness Activity: Resume your previous activity Activity Comment: Use your walker as instructed Non-emergency contact: Primary Care Provider Call non-emergency contact if: you have any medication questions and your symptoms worsen Follow-up/Referrals: Matt Hooper MD [Primary Care Provider] - Diet: Carb Consistent or DM2 and Heart Healthy Addtl Attending Provider Instructions: Mr Welch. You were brought to the hospital for weakness and fall. You were extensively evaluated. You had some electrolyte abnormalities which were managed. You are being discharged home. Please continue your home health services and therapies. Please use your walker as instructed. Please ensure follow up with your Primary Doctor. It was a pleasure taking care of you. Pending Studies at Discharge: No Stand-Alone Forms: My [facility] AMX, Smoking Cessation Medications and DC Order Prescriptions: Continued pantoprazole 20 mg tablet,delayed release (DR/EC) 20 mg PO DAILY Novolin 70-30 FlexPen U-100 100 unit/mL (70-30) insulin pen 21 unit subcut QAM famotidine 20 mg tablet 20 mg PO HS (DME) OneTouch Verio test strips Strip See Rx Instructions .ROUTE .MEDSUPPLY Qty: 100 3RF Rx Instructions: Test blood sugar once a day (DME) OneTouch Verio test strips Strip See Rx Instructions [id number] .MEDSUPPLY Qty: 100 3RF Rx Instructions: Test blood sugar once daily (DME) lancets [OneTouch Delica Lancets] 33 gauge misc See Rx Instructions .ROUTE .MEDSUPPLY Qty: 100 0RF Rx Instructions: Test blood sugar once a day (DME) pen needle, diabetic [BD Ultra-Fine Shelbie Pen Needle] 32 gauge x 5/32" needle See Rx Instructions .ROUTE .MEDSUPPLY Qty: 200 1RF Rx Instructions: Inject twice daily atorvastatin 40 mg tablet 40 mg PO QAM tamsulosin 0.4 mg capsule 0.4 mg PO DAILY losartan 25 mg tablet 25 mg PO QAM acetaminophen [Tylenol Extra Strength] 500 mg Tablet 1,000 mg PO Q6H PRN (Reason: Pain) (DME) libby Misc See Rx Instructions .ROUTE .MEDSUPPLY Qty: 1 0RF Rx Instructions: As directed albuterol sulfate 90 mcg/actuation HFA aerosol inhaler 2 puff INHALATION Q4H PRN (Reason: Shortness Of Breath Or Wheezing) Eliquis 5 mg tablet 5 mg PO BID Qty: 60 0RF ondansetron 4 mg tablet,disintegrating 4 mg PO DAILY PRN (Reason: nausea and vomiting) Qty: 30 0RF Novolin 70-30 FlexPen U-100 100 unit/mL (70-30) insulin pen 16 unit SUBCUT QDD fluticasone propionate 50 mcg/actuation spray,suspension 2 spray INTRANASAL DAILY metoprolol tartrate 50 mg tablet 50 mg PO BID Discontinued oxycodone 5 mg tablet 5 mg PO Q8H PRN (Reason: Pain) Discharge Orders: Discharge Order (Routine); Ordered 03/17/22 Ordered By: Whitney Campbell Admission Data Admit Date/Time: 03/15/22 23:38 Attending Provider: Whitney Campbell I. Admit Provider: Miller Velasco Primary Care Provider: Matt Hooper Other Providers: Miller Velasco ; Jacob Cox [facility] Other Interventions: Discharge Summary Assessment (RN) Last Done: 03/17/22 10:52
[2022-03-17 11:00] VITALS: BP 146/65
== END 2022-03-17 11:24 | disposition home health service (06) ==
LOC: ED 17:13 → 2N 17:13

== ENCOUNTER 2022-03-18 15:10 | Inpatient (IN) ==
--- NOTE | 2022-03-18 15:54 | Emergency Department Note ---
History of Present Illness General Chief complaint: Weakness Stated complaint: STROKE SX Time Seen by Provider: 03/18/22 15:36 History of Present Illness 81-year-old male presents to the ED with a chief complaint of stroke symptoms. The symptoms started about 1345 today. The symptoms lasted for less than an ho ur. His main symptoms were left-sided weakness. His states that his left arm was nearly flaccid. His left leg was very weak. He was feeling fine this morning and had no neurological symptoms. He took a nap this afternoon and when he awoke from his nap he was walking out of the room and could not walk. He was hanging on a handrail in the frias and a brought a portable potty for him to sit on. EMS arrived and found him with mostly resolved symptoms. He does have a history of stroke in the past with a minimal left sided residual weakness that is mostly gone. Denies any headaches. He is chronically on Eliquis after having a recent pacemaker. Did not suffer any trauma. Symptoms have now completely resolved. Home Medications Medication Instructions Recorded Confirmed Type acetaminophen 500 mg tablet 1,000 mg PO Q6H PRN Pain 06/08/19 03/15/22 History (Tylenol Extra Strength) atorvastatin 40 mg tablet 40 mg PO QAM 06/08/19 03/15/22 History losartan 25 mg tablet 25 mg PO QAM 06/08/19 03/15/22 History tamsulosin 0.4 mg capsule 0.4 mg PO DAILY 06/08/19 03/15/22 History walker #1 ea 03/24/20 12/12/21 Rx blood sugar diagnostic ([facility] ea 06/15/20 12/12/21 Rx Verio test strips) blood sugar diagnostic ([facility] ea 06/15/20 12/12/21 Rx Verio test strips) pantoprazole 20 mg tablet,delayed 20 mg PO DAILY 04/10/21 03/15/22 History release fluticasone propionate 50 2 spray intranasal DAILY 06/18/21 03/15/22 History mcg/actuation nasal spray,suspension lancets 33 gauge ([facility] #100 ea 07/11/21 12/12/21 Rx Lancets) famotidine 20 mg tablet 20 mg PO HS 12/12/21 03/15/22 History insulin NPH-regular 70-30 U-100 16 unit subcut QDD 12/12/21 03/15/22 History insulin 100 unit/mL subcutaneous pen (Novolin 70-30 FlexPen U-100 Insulin) insulin NPH-regular 70-30 U-100 21 unit subcut QAM 12/12/21 03/15/22 History insulin 100 unit/mL subcutaneous pen (Novolin 70-30 FlexPen U-100 Insulin) albuterol sulfate 90 mcg/actuation 2 puff inhalation Q4H PRN 02/03/22 03/15/22 History aerosol inhaler Shortness Of Breath Or Wheezing pen needle, diabetic 32 gauge x #200 ea 02/04/22 Rx /32" (BD Ultra-Fine Shelbie Pen Needle) apixaban 5 mg tablet (Eliquis) 5 mg PO BID #60 tabs 02/06/22 03/15/22 Rx ondansetron 4 mg disintegrating 4 mg PO DAILY PRN nausea and 02/06/22 03/15/22 Rx tablet vomiting #30 tabs metoprolol tartrate 50 mg tablet 50 mg PO BID 03/15/22 03/15/22 History Allergies Allergy/AdvReac Type Severity Reaction Status Date / Time cat dander Allergy Intermediate itchy Verified 03/15/22 20:21 watery eyes dyclonine [From Sucrets] Allergy Intermediate "numb all Verified 03/15/22 20:21 over" hexylresorcinol Allergy Intermediate "numb all Verified 03/15/22 20:21 [From Sucrets] over" horse dander Allergy Intermediate itchy Verified 03/15/22 20:21 watery eyes latex Allergy Intermediate SKIN PEELS Verified 03/15/22 20:21 mirtazapine Allergy Intermediate Weakness Verified 03/15/22 20:21 adhesive Allergy Unknown "TAKES THE Verified 03/15/22 20:21 SKIN OFF" enalaprilat [From Vasotec] Allergy Unknown Verified 03/15/22 20:21 sitagliptin [From Januvia] Allergy Unknown Verified 03/15/22 20:21 diazepam [From Valium] AdvReac Severe can't stay Verified 03/15/22 20:21 awake diphenhydramine AdvReac Intermediate anxiety Verified 03/15/22 20:21 enalapril AdvReac Unknown "MADE ME Verified 02/03/22 15:33 MEAN" ferrous fumarate AdvReac Unknown Unknown Verified 02/03/22 15:33 [From Centrum] ferrous gluconate AdvReac Unknown Unknown Verified 02/03/22 15:33 [From Centrum] folic acid [From Centrum] AdvReac Unknown Unknown Verified 02/03/22 15:33 lutein [From Centrum] AdvReac Unknown Unknown Verified 03/15/22 20:22 lycopene [From Centrum] AdvReac Unknown Unknown Verified 02/03/22 15:33 meclizine AdvReac Unknown Unknown Verified 03/15/22 20:23 multivit with calcium, iron, AdvReac Unknown Unknown Verified 02/03/22 15:33 and other minerals [From Centrum] multivitamin [From Centrum] AdvReac Unknown Unknown Verified 02/03/22 15:33 multivitamin with iron,other AdvReac Unknown Unknown Verified 02/03/22 15:33 minerals [From Centrum] multivitamin with minerals AdvReac Unknown Unknown Verified 02/03/22 15:33 [From Centrum] simvastatin AdvReac Unknown Unknown Verified 03/15/22 20:26 Past Med/Surg History Medical History Altered mental status Controlled type 2 diabetes mellitus, with long-term current use of insulin Elevated PSA Gastritis Generalized osteoarthrosis History of CVA (cerebrovascular accident) History of kidney stones HLD (hyperlipidemia) HTN (hypertension) Lumbar degenerative disc disease Personal history of urinary calculi (01/27/13) RLS (restless legs syndrome) T2DM (type 2 diabetes mellitus) Surgical History H/O prostate biopsy History of colonoscopy with polypectomy History of cystoscopy History of laryngoscopy Hx of bursectomy Family History Father Myocardial infarction Heart disease Mother Breast cancer Sister Lupus Brother Diabetes Myocardial infarction Coronary heart disease Brother Cancer Bladder Social History Smoking Status: Former smoker Tobacco Type: Cigarettes Number of Years Since Quit: 40; Second Hand Exposure: No; Hx Alcohol Use: No Hx Substance Use: No Preferred Language: Czech Communication Ability: Impaired Visual Impairment: No Limitations Hearing Ability: Normal [employer] Officer Required: No Beliefs That Will Affect Care: None marital status: Current Living Situation: Spouse current occupational status: retired How many Children do You have: 3 Feels Safe at Home: Yes during the past year weight has: remained stable Physical Activity Frequency: 3-4 Times per Week Assistive Devices: Cane and Scooter/Electric Scooter Review of Systems A total of 10 systems reviewed and were otherwise negative Physical Exam Vital Signs Vital Signs - 24 hr 03/18/22 15:15 03/18/22 18:06 03/18/22 18:10 Temperature 37.1 C Temperature Source Oral Pulse Rate 63 75 69 Pulse Rate from SpO2 Sensor 69 Respiratory Rate 18 17 26 H Respiratory Effort / Characteristics Non-Labored Respiratory Depth Normal Respiratory Pattern Regular Blood Pressure 145/72 H 148/75 H Blood Pressure Mean 96 99 Blood Pressure Position Semi-fowlers Pulse Oximetry 94 96 Oxygen Delivery Method Room Air Sepsis Recent Fever Within 48 Hours No Sepsis New/Unexplained Change in Mental Status N/A Sepsis Action Taken by Nursing No Action Required 03/18/22 18:20 Temperature Temperature Source Pulse Rate 69 Pulse Rate from SpO2 Sensor 69 Respiratory Rate 16 Respiratory Effort / Characteristics Respiratory Depth Respiratory Pattern Blood Pressure Blood Pressure Mean Blood Pressure Position Pulse Oximetry 95 Oxygen Delivery Method Sepsis Recent Fever Within 48 Hours Sepsis New/Unexplained Change in Mental Status Sepsis Action Taken by Nursing CONSTITUTIONAL/VITAL SIGNS: Reviewed / noted above. GENERAL: Non-toxic in appearance. INTEGUMENTARY: Warm, dry, and [place]. HEAD: Normocephalic. EYES: without scleral icterus or trauma. ENT/OROPHARYNX: clear and moist. LYMPHADENOPATHY/NECK: Is supple without lymphadenopathy or meningismus. RESPIRATORY: Clear to auscultation bilaterally. No increased work of breathing. CARDIOVASCULAR: Regular rate and rhythm. GI/ABDOMEN: Soft and nontender. No organomegaly or pulsatile mass. EXTREMITIES: Warm and well perfused. BACK: No CVA tenderness. NEUROLOGICAL: Intact without focal deficits. No facial weakness. Mild chronic appearing left-sided facial droop. No pronator drift. Normal cerebellar testing. Normal strength in all 4 extremities. Vision is normal. PSYCHIATRIC: normal affect. MUSCULOSKELETAL: Normally developed with good muscle tone. TRIAGE NURSING DOCUMENTATION REVIEWED. Course Administered Medications Discontinued Medications Ioversol (Optiray 300 500ml) 115 ml IV ONCE ONE Stop: 03/18/22 16:45 Last Admin: 03/18/22 16:51 Dose: 115 ml Documented By: BALBIR Medical Decision Making Differential Diagnosis Differential includes acute coronary syndrome, myocardial infarction, CVA, TIA, anemia, infection, pneumonia, UTI, pyelonephritis, poor nutrition, dehydration, electrolyte disturbance,hypoglycemia. Medical Records Attestation: I reviewed the patient's medical records. Home Medications Current Medication List: was personally reviewed by me Laboratory Data Attestation: I reviewed the patient's lab results. Result diagrams: 03/18/22 15:30 03/18/22 15:30 Lab Results 03/18/22 03/18/22 03/18/22 Range/Units 15:30 15:30 15:30 WBC 7.28 (4.8-10.8) K/ul RBC 3.72 L (4.63-6.08) M/uL Hgb 11.9 L (14.0-18.0) g/dl Hct 34.8 L (40.1-51.0) % MCV 93.5 (80.0-100.0) fL MCH 32.0 (25.0-34.0) pg MCHC 34.2 (32.0-36.0) g/dL RDW Std Deviation 44.3 (36.4-46.3) fL RDW Coeff of Catherine 12.8 (11.5-14.5) % Plt Count 211 (130-400) K/uL MPV 10.2 (9.4-12.4) fL Immature Gran % (Auto) 0.3 % Neut % (Auto) 65.8 % Lymph % (Auto) 21.7 % [place] % (Auto) 7.6 % Eos % (Auto) 3.4 % Baso % (Auto) 1.2 % Neut # (Auto) 4.79 (1.4-6.5) K/uL Lymph # (Auto) 1.58 (1.2-3.4) K/uL [place] # (Auto) 0.55 (0.24-0.82) K/uL Eos # (Auto) 0.25 (0-0.50) K/uL Baso # (Auto) 0.09 (0-0.2) K/uL Immature Gran # (Auto) 0.02 (0.00-0.02) K/uL PT 11.5 (9.0-12.0) Seconds INR 1.1 (0.9-1.1) APTT 25.1 (21.0-31.0) Seconds PTT Ratio 0.9 Sodium 134 L (136-145) mmol/L Potassium 4.1 (3.5-5.1) mmol/L Chloride 101 (98-107) mmol/L Carbon Dioxide 26 (21-32) mmol/L Anion Gap 7 (3-11) BUN 21 (6-23) mg/dl Creatinine 1.09 (0.6-1.4) mg/dl Est Cr Clr Drug Dosing 54.1 ml/min Est GFR ( Amer) 73.4 ml/min Est GFR (Non-Af Amer) 63.3 ml/min BUN/Creatinine Ratio 19.3 (10-20) Glucose 134 H (70-99(Fasting)) mg/dl Calcium 9.4 (8.5-10.1) mg/dl Magnesium 1.9 (1.7-2.4) mg/dl Total Bilirubin 0.5 (0.2-1.0) mg/dl AST 20 (13-39) U/L ALT 12 (7-52) U/L Alkaline Phosphatase 68 (34-104) U/L Troponin I High Sens 5.8 (0-20) pg/ml Total Protein 7.1 (6.0-8.3) gm/dl Albumin 4.2 (3.4-5.0) gm/dl Globulin 2.9 (2.5-4.0) gm/dl Albumin/Globulin Ratio 1.4 (0.9-2) SARS-CoV-2, RNA, NAAT (NEGATIVE) 03/18/22 Range/Units 15:30 WBC (4.8-10.8) K/ul RBC (4.63-6.08) M/uL Hgb (14.0-18.0) g/dl Hct (40.1-51.0) % MCV (80.0-100.0) fL MCH (25.0-34.0) pg MCHC (32.0-36.0) g/dL RDW Std Deviation (36.4-46.3) fL RDW Coeff of Catherine (11.5-14.5) % Plt Count (130-400) K/uL MPV (9.4-12.4) fL Immature Gran % (Auto) % Neut % (Auto) % Lymph % (Auto) % [place] % (Auto) % Eos % (Auto) % Baso % (Auto) % Neut # (Auto) (1.4-6.5) K/uL Lymph # (Auto) (1.2-3.4) K/uL [place] # (Auto) (0.24-0.82) K/uL Eos # (Auto) (0-0.50) K/uL Baso # (Auto) (0-0.2) K/uL Immature Gran # (Auto) (0.00-0.02) K/uL PT (9.0-12.0) Seconds INR (0.9-1.1) APTT (21.0-31.0) Seconds PTT Ratio Sodium (136-145) mmol/L Potassium (3.5-5.1) mmol/L Chloride (98-107) mmol/L Carbon Dioxide (21-32) mmol/L Anion Gap (3-11) BUN (6-23) mg/dl Creatinine (0.6-1.4) mg/dl Est Cr Clr Drug Dosing ml/min Est GFR ( Amer) ml/min Est GFR (Non-Af Amer) ml/min BUN/Creatinine Ratio (10-20) Glucose (70-99(Fasting)) mg/dl Calcium (8.5-10.1) mg/dl Magnesium (1.7-2.4) mg/dl Total Bilirubin (0.2-1.0) mg/dl AST (13-39) U/L ALT (7-52) U/L Alkaline Phosphatase (34-104) U/L Troponin I High Sens (0-20) pg/ml Total Protein (6.0-8.3) gm/dl Albumin (3.4-5.0) gm/dl Globulin (2.5-4.0) gm/dl Albumin/Globulin Ratio (0.9-2) SARS-CoV-2, RNA, NAAT NEGATIVE (NEGATIVE) Imaging Data Radiologist's Impression: Chest X-Ray 03/18/22 15:47 XR chest 1V portable CLINICAL HISTORY: Stroke Like Symptoms TECHNIQUE: Single frontal radiograph of the chest was obtained. Comparison: Comparison is made to chest radiograph 03/15/2022 FINDINGS: Dual lead pacemaker is seen. The cardiomediastinal silhouette is normal. The lungs are clear. No evidence of pleural effusion or pneumothorax. IMPRESSION: No acute chest disease. ACT 112: Negative or not required by law. Electronically signed by: Jed Marina M.D. 03/18/2022 4:[address] 03/18/22 15:47 CT angio neck with con, CT angio head w con, CT head/brain wo con CLINICAL HISTORY: Stroke Like Symptoms TECHNIQUE: Contiguous axial CT images of the head were acquired from the base of the skull to the vertex without intravenous contrast administration. CT angiography of the head and neck was performed following intravenous administration of iodinated contrast. Coronal and sagittal MIPS were obtained from the axial data set and were submitted for review. Automated dose lowering techniques and/or adjustment according to patient size were utilized for this examination. All measurements were calculated based on NASCET criteria. CT DOSE: 1081.91 mGy.cm Comparison: Comparison is made to CTA neck 03/24/[address] head 03/15/2022 FINDINGS: CT head: Areas of decreased attenuation are present in the periventricular and subcortical white matter bilaterally consistent with small vessel ischemic disease. Generalized cerebral atrophy with commensurate enlargement of the v entricles, sulci, and cisterns is also present. There is no acute intracranial hemorrhage or evidence of acute territorial infarction. No shift of the midline structures, mass effect, or extra-axial abnormalities are shown. Atherosclerotic calcifications are present in the intracranial segments of the internal carotid arteries. Lungs and soft tissues are unremarkable. 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 CTA Neck: A 3 vessel aortic arch is shown. Atherosclerotic plaque is present in the aortic arch and at the origin of the great vessels. The common carotid, external carotid, cervical segments of the internal carotid arteries, and the cervical segments of the vertebral arteries are patent without hemodynamically significant stenosis. Nonhemodynamically significant stenosis of the proximal left vertebral artery is seen. The left vertebral artery is dominant. CTA Head: The anterior and posterior cerebral circulations are patent. No hemodynamically significant stenosis, aneurysm, dissection, or arteriovenous malformation is shown. Atherosclerotic disease is noted. The right anterior communicating artery is diminutive compared to the left. There is narrowing of the distal right vertebral artery which is not hemodynamically significant. IMPRESSION: 1. No acute intracranial hemorrhage, evidence of acute territorial infarction, or other acute intracranial disease process. 2. No occlusion, hemodynamically significant stenosis, or dissection in the major cervical arteries. 3. No occlusion, hemodynamically significant stenosis, aneurysm, dissection, or arteriovenous malformation in the major intracranial arteries. Assessment of stenosis of the internal carotid arteries is based on NASCET criteria. ACT 112: Negative or not required by law. Electronically signed by: Jed Marina M.D. 03/18/2022 5:12 PM Head CTA 03/18/22 15:47 CT angio neck with con, CT angio head w con, CT head/brain wo con CLINICAL HISTORY: Stroke Like Symptoms TECHNIQUE: Contiguous axial CT images of the head were acquired from the base of the skull to the vertex without intravenous contrast administration. CT angiography of the head and neck was performed following intravenous administration of iodinated contrast. Coronal and sagittal MIPS were obtained from the axial data set and were submitted for review. Automated dose lowering techniques and/or adjustment according to patient size were utilized for this examination. All measurements were calculated based on NASCET criteria. CT DOSE: 1081.91 mGy.cm Comparison: Comparison is made to CTA neck 03/24/[address] head 03/15/2022 FINDINGS: CT head: Areas of decreased attenuation are present in the periventricular and subcortical white matter bilaterally consistent with small vessel ischemic disease. Generalized cerebral atrophy with commensurate enlargement of the ventricles, sulci, and cisterns is also present. There is no acute intracranial hemorrhage or evidence of acute territorial infarction. No shift of the midline structures, mass effect, or extra-axial abnormalities are shown. Atherosclerotic calcifications are present in the intracranial segments of the internal carotid arteries. Lungs and soft tissues are unremarkable. 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 CTA Neck: A 3 vessel aortic arch is shown. Atherosclerotic plaque is present in the aortic arch and at the origin of the great vessels. The common carotid, external carotid, cervical segments of the internal carotid arteries, and the cervical segments of the vertebral arteries are patent without hemodynamically significant stenosis. Nonhemodynamically significant stenosis of the proximal left vertebral artery is seen. The left vertebral artery is dominant. CTA Head: The anterior and posterior cerebral circulations are patent. No hemodynamically significant stenosis, aneurysm, dissection, or arteriovenous malformation is shown. Atherosclerotic disease is noted. The right anterior communicating artery is diminutive compared to the left. There is narrowing of the distal right vertebral artery which is not hemodynamically significant. IMPRESSION: 1. No acute intracranial hemorrhage, evidence of acute territorial infarction, or other acute intracranial disease process. 2. No occlusion, hemodynamically significant stenosis, or dissection in the major cervical arteries. 3. No occlusion, hemodynamically significant stenosis, aneurysm, dissection, or arteriovenous malformation in the major intracranial arteries. Assessment of stenosis of the internal carotid arteries is based on NASCET criteria. ACT 112: Negative or not required by law. Electronically signed by: Jed Marina M.D. 03/18/2022 5:12 PM Neck CTA 03/18/22 15:47 CT angio neck with con, CT angio head w con, CT head/brain wo con CLINICAL HISTORY: Stroke Like Symptoms TECHNIQUE: Contiguous axial CT images of the head were acquired from the base of the skull to the vertex without intravenous contrast administration. CT angiography of the head and neck was performed following intravenous administration of iodinated contrast. Coronal and sagittal MIPS were obtained from the axial data set and were submitted for review. Automated dose lowering techniques and/or adjustment according to patient size were utilized for this examination. All measurements were calculated based on NASCET criteria. CT DOSE: 1081.91 mGy.cm Comparison: Comparison is made to CTA neck 03/24/[address] head 03/15/2022 FINDINGS: CT head: Areas of decreased attenuation are present in the periventricular and subcortical white matter bilaterally consistent with small vessel ischemic disease. Generalized cerebral atrophy with commensurate enlargement of the ventricles, sulci, and cisterns is also present. There is no acute intracranial hemorrhage or evidence of acute territorial infarction. No shift of the midline structures, mass effect, or extra-axial abnormalities are shown. Atheros clerotic calcifications are present in the intracranial segments of the internal carotid arteries. Lungs and soft tissues are unremarkable. 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 CTA Neck: A 3 vessel aortic arch is shown. Atherosclerotic plaque is present in the aortic arch and at the origin of the great vessels. The common carotid, external carotid, cervical segments of the internal carotid arteries, and the cervical segments of the vertebral arteries are patent without hemodynamically significant stenosis. Nonhemodynamically significant stenosis of the proximal left vertebral artery is seen. The left vertebral artery is dominant. CTA Head: The anterior and posterior cerebral circulations are patent. No hemodynamically significant stenosis, aneurysm, dissection, or arteriovenous malformation is shown. Atherosclerotic disease is noted. The right anterior communicating artery is diminutive compared to the left. There is narrowing of the distal right vertebral artery which is not hemodynamically significant. IMPRESSION: 1. No acute intracranial hemorrhage, evidence of acute territorial infarction, or other acute intracranial disease process. 2. No occlusion, hemodynamically significant stenosis, or dissection in the major cervical arteries. 3. No occlusion, hemodynamically significant stenosis, aneurysm, dissection, or arteriovenous malformation in the major intracranial arteries. Assessment of stenosis of the internal carotid arteries is based on NASCET criteria. ACT 112: Negative or not required by law. Electronically signed by: Jed Marina M.D. 03/18/2022 5:12 PM ECG Data Attestation: I personally reviewed and interpreted this ECG as follows: Additional Comments: Twelve-lead EKG: Per my interpretation shows normal sinus rhythm at a rate of 64. No ST elevation. No PVCs. Normal QTC. MDM Narrative 81-year-old male presents with left-sided weakness that started around 1345 today and resolved within about an hour. He presents asymptomatic at this time. Exam did not reveal any focal deficits. Chronically on Eliquis. History of paroxysmal atrial flutter and previous CVA without significant residual deficits. A twelve-lead EKG shows a sinus rhythm. CT scan of the brain with angiograms of the head and neck as well as chest x-ray did not show any acute abnormalities. The patient CBC and chemistry panel was unremarkable. Troponin was negative. The patient did have complete resolution of his symptoms by the time that I had seen him. He also had an episode during the ED stay that he seemed to be a little confused. The daughter states that he did have some confusion while he was admitted to the hospital for the past 3 days but this seemed to clear once he got home. The patient will be seen by the hospitalist for further evaluation and care. Impression & Plan TIA (transient ischemic attack) Discharge Plan Visit Data Chief Complaint: Weakness Stated Complaint: STROKE SX ED Provider: Geo Berg Discharge Problem: TIA (transient ischemic attack) Patient Disposition: Being Evaluated by Hospitalist Forms Stand Alone Forms: My [facility] [employer] Prescriptions Prescriptions: No Action pantoprazole 20 mg tablet,delayed release (DR/EC) 20 mg PO DAILY Novolin 70-30 FlexPen U-100 100 unit/mL (70-30) insulin pen 21 unit subcut QAM famotidine 20 mg tablet 20 mg PO HS (DME) OneTouch Verio test strips Strip See Rx Instructions .ROUTE .MEDSUPPLY Qty: 100 3RF Rx Instructions: Test blood sugar once a day (DME) OneTouch Verio test strips Strip See Rx Instructions [id number] .MEDSUPPLY Qty: 100 3RF Rx Instructions: Test blood sugar once daily (DME) lancets [OneTouch Delica Lancets] 33 gauge misc See Rx Instructions .ROUTE .MEDSUPPLY Qty: 100 0RF Rx Instructions: Test blood sugar once a day (DME) pen needle, diabetic [BD Ultra-Fine Shelbie Pen Needle] 32 gauge x 5/32" needle See Rx Instructions .ROUTE .MEDSUPPLY Qty: 200 1RF Rx Instructions: Inject twice daily atorvastatin 40 mg tablet 40 mg PO QAM tamsulosin 0.4 mg capsule 0.4 mg PO DAILY losartan 25 mg tablet 25 mg PO QAM acetaminophen [Tylenol Extra Strength] 500 mg Tablet 1,000 mg PO Q6H PRN (Reason: Pain) (DME) walker [facility] By [facility] See Rx Instructions .ROUTE .MEDSUPPLY Qty: 1 0RF Rx Instructions: As directed albuterol sulfate 90 mcg/actuation HFA aerosol inhaler 2 puff INHALATION Q4H PRN (Reason: Shortness Of Breath Or Wheezing) Eliquis 5 mg tablet 5 mg PO BID Qty: 60 0RF ondansetron 4 mg tablet,disintegrating 4 mg PO DAILY PRN (Reason: nausea and vomiting) Qty: 30 0RF Novolin 70-30 FlexPen U-100 100 unit/mL (70-30) insulin pen 16 unit SUBCUT QDD fluticasone propionate 50 mcg/actuation spray,suspension 2 spray INTRANASAL DAILY metoprolol tartrate 50 mg tablet 50 mg PO BID Referrals Referrals: Matt Hooper MD [Primary Care Provider] -
[2022-03-18 16:10] LABS: Basophils # (auto) 0.09 K/uL (0-0.2); Basophils % (auto) 1.2 %; Eosinophils # (auto) 0.25 K/uL (0-0.50); Eosinophils % (auto) 3.4 %; Hematocrit (blood only) 34.8 % (40.1-51.0); Hemoglobin 11.9 g/dl (14.0-18.0); Immature Granulocytes # (auto) 0.02 K/uL (0.00-0.02); Immature Granulocytes % (auto) 0.3 %; Lymphocytes # (auto) 1.58 K/uL (1.2-3.4); Lymphocytes % (auto) 21.7 %; Mean Corpuscular Hgb Conc 34.2 g/dL (32.0-36.0); Mean Corpuscular Volume 93.5 fL (80.0-100.0); Mean Platelet Volume 10.2 fL (9.4-12.4); Monocytes # (auto) 0.55 K/uL (0.24-0.82); Monocytes % (auto) 7.6 %; Neutrophils # (auto) 4.79 K/uL (1.4-6.5); Neutrophils % (auto) 65.8 %; Platelet Count 211 K/uL (130-400); RDW Coefficient of Variation 12.8 % (11.5-14.5); RDW Standard Deviation 44.3 fL (36.4-46.3); Red Blood Count 3.72 M/uL (4.63-6.08); White Blood Count 7.28 K/ul (4.8-10.8)
[2022-03-18 16:20] LABS: INR 1.1 (0.9-1.1); Partial Thromboplastin Ratio 0.9; Partial Thromboplastin Time 25.1 Seconds (21.0-31.0); Prothrombin Time 11.5 Seconds (9.0-12.0)
[2022-03-18 16:36] LABS: Albumin Globulin Ratio 1.4 (0.9-2); Albumin Level 4.2 gm/dl (3.4-5.0); BUN Creatinine Ratio 19.3 (10-20); Bilirubin,Total 0.5 mg/dl (0.2-1.0); Calcium 9.4 mg/dl (8.5-10.1); Creatinine Clr Calc Pharmacy 54.1 ml/min; Est GFR (African American) 73.4 ml/min; Est GFR (Non-African American) 63.3 ml/min; Globulin 2.9 gm/dl (2.5-4.0); Magnesium 1.9 mg/dl (1.7-2.4); Potassium 4.1 mmol/L (3.5-5.1); Total Protein 7.1 gm/dl (6.0-8.3)
[2022-03-18 16:37] LABS: Troponin I High Sensitivity 5.8 pg/ml (0-20)
--- NOTE | 2022-03-18 16:38 | XRay Report ---
XR chest 1V portable CLINICAL HISTORY: Stroke Like Symptoms TECHNIQUE: Single frontal radiograph of the chest was obtained. Comparison: Comparison is made to chest radiograph 03/15/2022 FINDINGS: Dual lead pacemaker is seen. The cardiomediastinal silhouette is normal. The lungs are clear. No evid ence of pleural effusion or pneumothorax. IMPRESSION: No acute chest disease. ACT 112: Negative or not required by law. Electronically signed by: Jed Marina M.D. 03/18/2022 4:37 PM
[2022-03-18] MEDS ORDERED: OPTIRAY 300 500mL IV ONE (16:44)
--- NOTE | 2022-03-18 17:14 | CT Scan Report ---
CT angio neck with con, CT angio head w con, CT head/brain wo con CLINICAL HISTORY: Stroke Like Symptoms TECHNIQUE: Contiguous axial CT images of the head were acquired from the base of the skull to the adriana ken without intravenous contrast administration. CT angiography of the head and neck was performed f ollowing intravenous administration of iodinated contrast. Coronal and sagittal MIPS were obtained fr om the axial data set and were submitted for review. Automated dose lowering techniques and/or adjus tment according to patient size were utilized for this examination. All measurements were calculated based on NASCET criteria. CT DOSE: 1081.91 mGy.cm Comparison: Comparison is made to CTA neck 03/24/[address] head 03/15/2022 FINDINGS: CT head: Areas of decreased attenuation are present in the periventricular and subcortical white jalen er bilaterally consistent with small vessel ischemic disease. Generalized cerebral atrophy with comme nsurate enlargement of the ventricles, sulci, and cisterns is also present. There is no acute intracr anial hemorrhage or evidence of acute territorial infarction. No shift of the midline structures, mas s effect, or extra-axial abnormalities are shown. Atherosclerotic calcifications are present in the intracranial segments of the internal carotid arteries. Lungs and soft tissues are unremarkable. 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 CTA Neck: A 3 vessel aortic arch is shown. Atherosclerotic plaque is present in the aortic arch and at the origin of the great vessels. The common carotid, external carotid, cervical segments of the i nternal carotid arteries, and the cervical segments of the vertebral arteries are patent without hemo dynamically significant stenosis. Nonhemodynamically significant stenosis of the proximal left verteb ral artery is seen. The left vertebral artery is dominant. CTA Head: The anterior and posterior cerebral circulations are patent. No hemodynamically significan t stenosis, aneurysm, dissection, or arteriovenous malformation is shown. Atherosclerotic disease is noted. The right anterior communicating artery is diminutive compared to the left. There is narrowi ng of the distal right vertebral artery which is not hemodynamically significant. IMPRESSION: 1. No acute intracranial hemorrhage, evidence of acute territorial infarction, or other acute intrac ranial disease process. 2. No occlusion, hemodynamically significant stenosis, or dissection in the major cervical arteries. 3. No occlusion, hemodynamically significant stenosis, aneurysm, dissection, or arteriovenous malfor mation in the major intracranial arteries. Assessment of stenosis of the internal carotid arteries is based on NASCET criteria. ACT 112: Negative or not required by law. Electronically signed by: eJd Marina M.D. 03/18/2022 5:12 PM
[2022-03-18 19:46] LABS: Appearance Urine Clear (Clear); Bilirubin Urine Negative (Negative); Blood Urine Negative (Negative); Color Urine Yellow; Glucose Urine UA Negative (Negative); Ketones Urine Negative (Negative); Leukocyte Esterase Urine Negative (Negative); Nitrite Urine Negative (Negative); Protein Urine Negative (Negative); Specific Gravity Urine > 1.045 (1.000-1.030); Urobilinogen Urine Negative (Negative)
[2022-03-18] MEDS ORDERED: ALBUTEROL HFA 8 GM INHALER INH PRN (19:48)
[2022-03-18] MEDS ORDERED: ACETAMINOPHEN 500 MG TAB PO PRN (19:48)
[2022-03-18] MEDS ORDERED: PHARMACY GLYCEMIC MGMT CONSULT PRN (19:50)
--- NOTE | 2022-03-18 20:01 | History & Physical Report ---
Date of Service March 18, 2022 Assessment & Plan (1) Weakness: (2) TIA (transient ischemic attack): (3) History of CVA (cerebrovascular accident): (4) SVT (supraventricular tachycardia): (5) Paroxysmal atrial flutter: (6) Anemia: (7) Tachy-alicia syndrome: (8) Controlled type 2 diabetes mellitus, with long-term current use of insulin: (9) HLD (hyperlipidemia): Plan This is an 81yo M with a PMH of SSS s/p PPM 01/2022, h/o CVA x2 (on Apixaban), HTN, HLD, DM2, prostate cancer on antiandrogen since 09/2020 who presents with left sided weakness at home that has since resolved. TIA History of CVA L sided weakness that has since resolved H/o 2 CVAs in the past with underlying arrhythmia. Anticoagulated on Eliquis, already on statin CT head, CTA head/neck: 1. No acute intracranial hemorrhage, evidence of acute territorial infarction, or other acute intracranial disease process. 2. No occlusion, hemodynamically significant stenosis, or dissection in the major cervical arteries. 3. No occlusion, hemodynamically significant stenosis, aneurysm, dissection, or arteriovenous malformation in the major intracranial arteries. Neuro checks, advance diet as tolerated, echo with bubble study, PT/OT to evaluate Neuro consulted for recommendations regarding pursuing MRI brain at this time (does have new PM device) and possibility of adding an antiplatelet med in addition to Eliquis Patient currently living at home but too difficult for to care for alone with recurrent falls. Patient resistent to short term rehab per . Appreciate therapy and CM weigh-in Delirium Per daughter, patient does have short term memory deficits and has episodes of confusion Alert but not oriented on admission Continue with gentle redirection UA negative HLD (hyperlipidemia) Continue statin Tachy-alicia syndrome S/p PPM 01/2022 HTN (hypertension) Continue losartan, Lopressor Controlled type 2 diabetes mellitus, with long-term current use of insulin Reportedly takes 70/30 21 units AM, 16 units PM Glycemic consult placed given current NPO state, plan to advance diet BSG AC HS Paroxysmal atrial flutter Continue Toprol, anticoagulated with Eliquis Anemia Stable at baseline DVT Ppx: Eliquis Code status: DNR per discussion with at bedside PCP: Sandie Dispo: Admitted to PCU Patient seen in collaboration with Dr. Velasco. Please see addendum. History of Present Illness Chief Complaint: L sided weakness Primary Care Provider: Matt Hooper MD This is an 81yo M with a PMH of SSS s/p PPM 01/2022, h/o CVA x2 (on Apixaban), HTN, HLD, DM2, prostate cancer on antiandrogen since 09/2020 who presents with left sided weakness at home that has since resolved. Patient was admitted a few days ago for weakness with fall and work-up was unremarkable. Weakness was attributed to diarrhea that resolved during admission. Other work up earlier this week included CT head without changes,and normal PM interrogation. Evaluated by PT who recommended walker and patient was discharged home yesterday with home health, PT and OT in place. History primarily obtained from daughter and at bedside due to patient's delirious state. Patient was in normal state of health today and was taking a nap and got up around 1300. When ambulating out of his room, patient reportedly became weak on left arm and left leg, having to hold onto the wall to avoid falling. called EMS and patient was brought to ED for further evaluation. By the time patient arrived, weakness had resolved and patient was back to baseline strength, without any focal deficits. Since arrival, patient has become more confused, which and daughter state is typical of his . He currently does not know his name or where he is. Family is concerned about him returning home with recurrent falls in setting of blood thinners but when patient is more oriented he reportedly refuses to leave home. Patient denies any pain at this time. Remainder of ROS unobtainable due to cognitive state. Allergies Allergy/AdvReac Type Severity Reaction Status Date / Time cat dander Allergy Intermediate itchy, Verified 03/18/22 19:46 watery eyes horse dander Allergy Intermediate itchy, Verified 03/18/22 19:46 watery eyes latex Allergy Intermediate skin peels Verified 03/18/22 19:46 diazepam [From Valium] Allergy Confusion Verified 03/18/22 19:49 dyclonine [From Sucrets] AdvReac Intermediate Feels numb Verified 03/18/22 19:46 all over hexylresorcinol AdvReac Intermediate Feels numb Verified 03/18/22 19:46 [From Sucrets] all over meclizine AdvReac Unknown SLEPT FOR Verified 03/18/22 19:47 24 HR adhesive tape AdvReac takes off Verified 03/18/22 19:46 skin diphenhydramine AdvReac Anxiety Verified 03/18/22 19:46 [From Benadryl] enalapril AdvReac FELT VERY Verified 03/18/22 19:46 MEAN enalaprilat [From Vasotec] AdvReac MAKES FEEL Verified 03/18/22 19:46 VERY MEAN ferrous fumarate AdvReac Unknown Verified 03/18/22 19:46 [From Centrum] ferrous gluconate AdvReac Unknown Verified 03/18/22 19:46 [From Centrum] folic acid [From Centrum] AdvReac Unknown Verified 03/18/22 19:46 lutein [From Centrum] AdvReac Unknown Verified 03/18/22 19:46 lycopene [From Centrum] AdvReac Unknown Verified 03/18/22 19:46 multivit with calcium, iron, AdvReac Unknown Verified 03/18/22 19:46 and other minerals [From Centrum] multivitamin [From Centrum] AdvReac Unknown Verified 03/18/22 19:46 multivitamin with iron,other AdvReac Unknown Verified 03/18/22 19:46 minerals [From Centrum] multivitamin with minerals AdvReac Unknown Verified 03/18/22 19:46 [From Centrum] simvastatin AdvReac Unknown Verified 03/18/22 19:46 sitagliptin [From Januvia] AdvReac MAKES FEEL Verified 03/18/22 19:46 VERY DIZZY Home Medications Medication Instructions Recorded Confirmed Type acetaminophen 500 mg tablet 1,000 mg PO Q6H PRN Pain 06/08/19 03/18/22 History (Tylenol Extra Strength) atorvastatin 40 mg tablet 40 mg PO QAM 06/08/19 03/18/22 History losartan 25 mg tablet 25 mg PO QAM 06/08/19 03/18/22 History tamsulosin 0.4 mg capsule 0.4 mg PO DAILY 06/08/19 03/18/22 History pantoprazole 20 mg tablet,delayed 20 mg PO DAILY 04/10/21 03/18/22 History release fluticasone propionate 50 2 spray intranasal DAILY 06/18/21 03/18/22 History mcg/actuation nasal spray,suspension famotidine 20 mg tablet 20 mg PO HS 12/12/21 03/18/22 History insulin NPH-regular 70-30 U-100 16 unit subcut QDD 12/12/21 03/18/22 History insulin 100 unit/mL subcutaneous pen (Novolin 70-30 FlexPen U-100 Insulin) insulin NPH-regular 70-30 U-100 21 unit subcut QAM 12/12/21 03/18/22 History insulin 100 unit/mL subcutaneous pen (Novolin 70-30 FlexPen U-100 Insulin) albuterol sulfate 90 mcg/actuation 2 puff inhalation Q4H PRN 02/03/22 03/18/22 History aerosol inhaler Shortness Of Breath Or Wheezing ondansetron 4 mg disintegrating 4 mg PO DAILY PRN nausea and 02/06/22 03/18/22 Rx tablet vomiting #30 tabs metoprolol tartrate 50 mg tablet 50 mg PO BID 03/15/22 03/18/22 History apixaban 5 mg tablet (Eliquis) 5 mg PO AMHS 03/18/22 03/18/22 History food supplemt, lactose-reduced 1 ea PO DAILY 03/18/22 03/18/22 History (Ensure oral liquid) Past Med/Surg History Medical History Altered mental status Controlled type 2 diabetes mellitus, with long-term current use of insulin Elevated PSA Gastritis Generalized osteoarthrosis History of CVA (cerebrovascular accident) History of kidney stones HLD (hyperlipidemia) HTN (hypertension) Lumbar degenerative disc disease Personal history of urinary calculi (01/27/13) RLS (restless legs syndrome) T2DM (type 2 diabetes mellitus) Surgical History H/O prostate biopsy History of colonoscopy with polypectomy History of cystoscopy History of laryngoscopy Hx of bursectomy Family History Father Myocardial infarction Heart disease Mother Breast cancer Sister Lupus Brother Diabetes Myocardial infarction Coronary heart disease Brother Cancer Bladder Social History Smoking Status: Former smoker Tobacco Type: Cigarettes Number of Years Since Quit: 40; Second Hand Exposure: No; Hx Alcohol Use: No Hx Substance Use: No Preferred Language: Turkmen Communication Ability: Impaired Visual Impairment: No Limitations Hearing Ability: Normal Loss Prevention Leader Required: No Beliefs That Will Affect Care: None marital status: Current Living Situation: Spouse current occupational status: retired How many Children do You have: 3 Feels Safe at Home: Yes during the past year weight has: remained stable Physical Activity Frequency: 3-4 Times per Week Assistive Devices: Cane and Scooter/Electric Scooter Review of Systems Review of Systems: Unobtainable due to cognitive status Physical Exam Physical Exam: General Appearance: WD/WN, vitals as above, NAD, sitting up in bed, pleasantly confused, able to follow commands with direction Head: normocephalic, atraumatic Eyes: normal inspection, PERRL, conjunctivae normal, anicteric sclerae ENT: external ear and nose normal, oropharynx normal Neck: normal visual inspection, trachea midline, no thyromegaly Respiratory: normal respiratory effort, lungs clear to auscultation, no wheeze, rales, rhonchi. No accessory muscle use Cardiovascular: regular rate, rhythm, no murmur, normal peripheral pulses, no BLE edema. Vessels: no JVD Chest: + well healed pacemaker incision L chest Abdomen/GI: normal bowel sounds, soft, nontender, no hepatosplenomegaly Extremities/Musculoskeletal: no cyanosis or clubbing, extremities motor strength 5/5 Neurologic: PERRL, EOMI, accommodation nl, no face palsy, no dysarthria, CN's I I-XI intact bilaterally and moves all extremities Psychiatric: Alert but not oriented to person, place or time. Euthymic affect Skin: no rashes, normal color, warm/dry Results & Data Results & Data ([facility]) Vital Signs (Past 12 Hours) Vital Signs Temp Pulse Resp BP Pulse Ox O2 Del Method 03/18/22 18:20 69 16 95 03/18/22 18:10 69 26 H 96 03/18/22 18:06 75 17 148/75 H 03/18/22 15:15 37.1 C 63 18 145/72 H 94 Room Air Laboratory Results Short CBC 03/18/22 Range/Units 15:30 WBC 7.28 (4.8-10.8) K/ul Hgb 11.9 L (14.0-18.0) g/dl Hct 34.8 L (40.1-51.0) % Plt Count 211 (130-400) K/uL BMP 03/18/22 15:30 Sodium 134 L Potassium 4.1 Chloride 101 Carbon Dioxide 26 BUN 21 Creatinine 1.09 Glucose 134 H Calcium 9.4 Liver Function 03/18/22 Range/Units 15:30 Total Bilirubin 0.5 (0.2-1.0) mg/dl AST 20 (13-39) U/L ALT 12 (7-52) U/L Alkaline Phosphatase 68 (34-104) U/L Albumin 4.2 (3.4-5.0) gm/dl Urine 03/18/22 Range/Units 17:55 Urine Color Yellow Urine Appearance Clear (Clear) Urine pH 6.0 (4.5-7.5) Ur Specific [place] > 1.045 H (1.000-1.030) Urine Protein Negative (Negative) Urine Glucose (UA) Negative (Negative) Diagnostic Findings Chest X-Ray 03/18/22 15:47 XR chest 1V portable CLINICAL HISTORY: Stroke Like Symptoms TECHNIQUE: Single frontal radiograph of the chest was obtained. Comparison: Comparison is made to chest radiograph 03/15/2022 FINDINGS: Dual lead pacemaker is seen. The cardiomediastinal silhouette is normal. The lungs are clear. No evidence of pleural effusion or pneumothorax. IMPRESSION: No acute chest disease. ACT 112: Negative or not required by law. Electronically signed by: Jed Marina M.D. 03/18/2022 4:[address] 03/18/22 15:47 CT angio neck with con, CT angio head w con, CT head/brain wo con CLINICAL HISTORY: Stroke Like Symptoms TECHNIQUE: Contiguous axial CT images of the head were acquired from the base of the skull to the vertex without intravenous contrast administration. CT angiography of the head and neck was performed following intravenous administration of iodinated contrast. Coronal and sagittal MIPS were obtained from the axial data set and were submitted for review. Automated dose lowering techniques and/or adjustment according to patient size were utilized for this examination. All measurements were calculated based on NASCET criteria. CT DOSE: 1081.91 mGy.cm Comparison: Comparison is made to CTA neck 03/24/[address] head 03/15/2022 FINDINGS: CT head: Areas of decreased attenuation are present in the periventricular and subcortical white matter bilaterally consistent with small vessel ischemic disease. Generalized cerebral atrophy with commensurate enlargement of the ventricles, sulci, and cisterns is also present. There is no acute intracranial hemorrhage or evidence of acute territorial infarction. No shift of the midline structures, mass effect, or extra-axial abnormalities are shown. Atherosclerotic calcifications are present in the intracranial segments of the internal carotid arteries. Lungs and soft tissues are unremarkable. 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 CTA Neck: A 3 vessel aortic arch is shown. Atherosclerotic plaque is present in the aortic arch and at the origin of the great vessels. The common carotid, external carotid, cervical segments of the internal carotid arteries, and the cervical segments of the vertebral arteries are patent without hemodynamically significant stenosis. Nonhemodynamically significant stenosis of the proximal left vertebral artery is seen. The left vertebral artery is dominant. CTA Head: The anterior and posterior cerebral circulations are patent. No hemodynamically significant stenosis, aneurysm, dissection, or arteriovenous malformation is shown. Atherosclerotic disease is noted. The right anterior communicating artery is diminutive compared to the left. There is narrowing of the distal right vertebral artery which is not hemodynamically significant. IMPRESSION: 1. No acute intracranial hemorrhage, evidence of acute territorial infarction, or other acute intracranial disease process. 2. No occlusion, hemodynamically significant stenosis, or dissection in the major cervical arteries. 3. No occlusion, hemodynamically significant stenosis, aneurysm, dissection, or arteriovenous malformation in the major intracranial arteries. Assessment of stenosis of the internal carotid arteries is based on NASCET criteria. ACT 112: Negative or not required by law. Electronically signed by: Jed Marina M.D. 03/18/2022 5:12 PM Head CTA 03/18/22 15:47 CT angio neck with con, CT angio head w con, CT head/brain wo con CLINICAL HISTORY: Stroke Like Symptoms TECHNIQUE: Contiguous axial CT images of the head were acquired from the base of the skull to the vertex without intravenous contrast administration. CT angiography of the head and neck was performed following intravenous administration of iodinated contrast. Coronal and sagittal MIPS were obtained from the axial data set and were submitted for review. Automated dose lowering techniques and/or adjustment according to patient size were utilized for this examination. All measurements were calculated based on NASCET criteria. CT DOSE: 1081.91 mGy.cm Comparison: Comparison is made to CTA neck 03/24/[address] head 03/15/2022 FINDINGS: CT head: Areas of decreased attenuation are present in the periventricular and subcortical white matter bilaterally consistent with small vessel ischemic disease. Generalized cerebral atrophy with commensurate enlargement of the ventricles, sulci, and cisterns is also present. There is no acute intracranial hemorrhage or evidence of acute territorial infarction. No shift of the midline structures, mass effect, or extra-axial abnormalities are shown. Atherosclerotic calcifications are present in the intracranial segments of the internal carotid arteries. Lungs and soft tissues are unremarkable. 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 CTA Neck: A 3 vessel aortic arch is shown. Atherosclerotic plaque is present in the aortic arch and at the origin of the great vessels. The common carotid, ex ternal carotid, cervical segments of the internal carotid arteries, and the cervical segments of the vertebral arteries are patent without hemodynamically significant stenosis. Nonhemodynamically significant stenosis of the proximal left vertebral artery is seen. The left vertebral artery is dominant. CTA Head: The anterior and posterior cerebral circulations are patent. No hemodynamically significant stenosis, aneurysm, dissection, or arteriovenous malformation is shown. Atherosclerotic disease is noted. The right anterior communicating artery is diminutive compared to the left. There is narrowing of the distal right vertebral artery which is not hemodynamically significant. IMPRESSION: 1. No acute intracranial hemorrhage, evidence of acute territorial infarction, or other acute intracranial disease process. 2. No occlusion, hemodynamically significant stenosis, or dissection in the major cervical arteries. 3. No occlusion, hemodynamically significant stenosis, aneurysm, dissection, or arteriovenous malformation in the major intracranial arteries. Assessment of stenosis of the internal carotid arteries is based on NASCET criteria. ACT 112: Negative or not required by law. Electronically signed by: Jed Marina M.D. 03/18/2022 5:12 PM Neck CTA 03/18/22 15:47 CT angio neck with con, CT angio head w con, CT head/brain wo con CLINICAL HISTORY: Stroke Like Symptoms TECHNIQUE: Contiguous axial CT images of the head were acquired from the base of the skull to the vertex without intravenous contrast administration. CT angiog elke of the head and neck was performed following intravenous administration of iodinated contrast. Coronal and sagittal MIPS were obtained from the axial data set and were submitted for review. Automated dose lowering techniques and/or adjustment according to patient size were utilized for this examination. All measurements were calculated based on NASCET criteria. CT DOSE: 1081.91 mGy.cm Comparison: Comparison is made to CTA neck 03/24/[address] head 03/15/2022 FINDINGS: CT head: Areas of decreased attenuation are present in the periventricular and subcortical white matter bilaterally consistent with small vessel ischemic disease. Generalized cerebral atrophy with commensurate enlargement of the ventricles, sulci, and cisterns is also present. There is no acute intracranial hemorrhage or evidence of acute territorial infarction. No shift of the midline structures, mass effect, or extra-axial abnormalities are shown. Atherosclerotic calcifications are present in the intracranial segments of the internal carotid arteries. Lungs and soft tissues are unremarkable. 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 CTA Neck: A 3 vessel aortic arch is shown. Atherosclerotic plaque is present in the aortic arch and at the origin of the great vessels. The common carotid, external carotid, cervical segments of the internal carotid arteries, and the cervical segments of the vertebral arteries are patent without hemodynamically significant stenosis. Nonhemodynamically significant stenosis of the proximal left vertebral artery is seen. The left vertebral artery is dominant. CTA Head: The anterior and posterior cerebral circulations are patent. No hemodynamically significant stenosis, aneurysm, dissection, or arteriovenous malformation is shown. Atherosclerotic disease is noted. The right anterior communicating artery is diminutive compared to the left. There is narrowing of the distal right vertebral artery which is not hemodynamically significant. IMPRESSION: 1. No acute intracranial hemorrhage, evidence of acute territorial infarction, or other acute intracranial disease process. 2. No occlusion, hemodynamically significant stenosis, or dissection in the major cervical arteries. 3. No occlusion, hemodynamically significant stenosis, aneurysm, dissection, or arteriovenous malformation in the major intracranial arteries. Assessment of stenosis of the internal carotid arteries is based on NASCET criteria. ACT 112: Negative or not required by law. Electronically signed by: Jed Marina M.D. 03/18/2022 5:12 PM Code Status & VTE Plan VTE Prophylaxis Plan VTE Prophylaxis will be ordered: Yes Supervising Physician Co-Signing Physician Notes I have discussed the case and plan with the PA and agree with the management above. TIA symptoms, now resolved. History of CVA on AC with Eliquis. Neurochecks, neuro consult regarding MRI and antiplatelet for recurrent symptoms. Agree with PT and CM input. Rest of plan as outlined above. Miller Velasco MD [facility]
[2022-03-18] MEDS ORDERED: GLUCOSE 10 TAB/TUBE PO PRN (20:30)
[2022-03-18] MEDS ORDERED: CARBOHYDRATES FOR HYPOGLYCEMIA PO PRN (20:30)
[2022-03-18] MEDS ORDERED: GLUCAGON FOR INJ 1 MG VIAL IM PRN (20:30)
[2022-03-18] MEDS ORDERED: DEXTROSE 50% 50 ML SYRINGE IV PRN (20:30)
[2022-03-18] MEDS ORDERED: GLUCOSE 40% GEL 15 GM TUBE PO PRN (20:30)
[2022-03-18] MEDS ORDERED: INSULIN ASPART PER UNIT SC SCH ×2 (21:00)
[2022-03-18] MEDS: APIXABAN 5 MG TABLET PO SCH (21:41)
[2022-03-18] MEDS: FAMOTIDINE 20 MG TAB PO SCH (21:41)
[2022-03-18] MEDS: METOPROLOL TARTRATE 50 MG TAB PO SCH (21:41)
[2022-03-18] MEDS ORDERED: ACETAMINOPHEN 325 MG TAB PO PRN (22:32)
[2022-03-18] MEDS ORDERED: PHARMACIST DISCHARGE MED REC CONSULT PRN (22:32)
[2022-03-18] MEDS ORDERED: POLYETHYLENE (MIRALAX) 17 GM PACK PO PRN (22:32)
[2022-03-18] MEDS ORDERED: ONDANSETRON INJ 2 MG/ML 2 ML VIAL IV PRN (22:32)
[2022-03-19 06:49] LABS: Hematocrit (blood only) 34.4 % (40.1-51.0); Hemoglobin 11.7 g/dl (14.0-18.0); Mean Corpuscular Hemoglobin 31.7 pg (25.0-34.0); Mean Corpuscular Volume 93.2 fL (80.0-100.0); Mean Platelet Volume 9.8 fL (9.4-12.4); Platelet Count 221 K/uL (130-400); RDW Coefficient of Variation 12.7 % (11.5-14.5); RDW Standard Deviation 43.6 fL (36.4-46.3); Red Blood Count 3.69 M/uL (4.63-6.08)
[2022-03-19 07:20] LABS: BUN Creatinine Ratio 14.3 (10-20); Calcium 9.5 mg/dl (8.5-10.1); Chol HDL Ratio 3.6 (0-5); Creatinine Clr Calc Pharmacy 48.4 ml/min; Est GFR (Non-African American) 61.3 ml/min; Potassium 3.9 mmol/L (3.5-5.1)
--- NOTE | 2022-03-19 07:55 | Pharmacy Report ---
Pharmacy Glycemic Short Note 2 - Date of Service March 19, 2022 - Glycemic Short BSG Results (Last 24 hours): 03/18/22 03/18/22 03/19/22 15:30 21:39 06:14 Glucose 134 H 127 H POC Glucose 138 H 03/19/22 07:37 Glucose POC Glucose 139 H OUTPATIENT ANTIDIABETIC REGIMEN: * Novolin 70/30 - 21 units Qam, 16 units Qpm * A1c 6.7% ASSESSMENT: * Patient type 2 diabetic, admitted for possible TIA, weakness. Patient recently admitted 03/15 - at that time pharmacy also consulted for glycemic management. Patient only requiring minimal insulin during admission. Plan to utilize similar parameters. Will wait to add on basal until patient eating. PLAN FOR INPATIENT GLYCEMIC CONTROL: * Hold outpatient oral diabetes medications * Basal insulin * Lantus 8 units daily * Bolus insulin * NovoLog per scale ACHS or Q6hrs while NPO * Goal Range: Low 110 mg/dL - High 140 mg/dL * Correction Factor: 35 mg/dL/unit * Nutritional / Prandial insulin per carb ratio of 1 unit per 15 grams CHO consumed
[2022-03-19] MEDS: FAMOTIDINE 20 MG TAB PO SCH (07:56)
[2022-03-19] MEDS: METOPROLOL TARTRATE 50 MG TAB PO SCH (07:56)
[2022-03-19 08:05] LABS: Estimated Average Glucose 146 mg/dl; Hemoglobin A1C 6.7 % (4.5-5.6)
[2022-03-19] MEDS: APIXABAN 5 MG TABLET PO SCH (08:36)
[2022-03-19] MEDS: INSULIN ASPART PER UNIT SC SCH ×2 (08:48→12:34)
[2022-03-19] MEDS ORDERED: FLUTICASONE PROPIONATE NA SPR 16 GM BTL NAE SCH (09:00)
[2022-03-19] MEDS ORDERED: PANTOprazole 40 MG TAB PO SCH (09:00)
[2022-03-19] MEDS ORDERED: LOSARTAN POTASSIUM 25 MG TAB PO SCH (09:00)
[2022-03-19] MEDS ORDERED: TAMSULOSIN HCL 0.4 MG CAP PO SCH (09:00)
[2022-03-19] MEDS ORDERED: ATORVASTATIN 40 MG TAB PO SCH (09:00)
[2022-03-19] MEDS ORDERED: GADOBUTROL 65ML VIAL IV ONE (11:54)
--- NOTE | 2022-03-19 12:38 | Hospitalist Progress Note ---
Date of Service March 19, 2022 Assessment & Plan (1) Weakness: (2) TIA (transient ischemic attack): (3) History of CVA (cerebrovascular accident): (4) SVT (supraventricular tachycardia): (5) Paroxysmal atrial flutter: (6) Anemia: (7) Tachy-alicia syndrome: (8) Controlled type 2 diabetes mellitus, with long-term current use of insulin: (9) HLD (hyperlipidemia): Plan Patient is an 81 yr male with H/O SSS s/p PPM 01/2022, h/o CVA x2 (on Apixaban), HTN, HLD, DM2, prostate cancer on antiandrogen since 09/2020 who presents with left sided weakness at home that has since resolved. TIA H/O CVA On chronic anticoagulation with Eliquis for atrial flutter H/O multiple Falls --CT head, CTA head/neck:No acute intracranial hemorrhage, evidence of acute territorial infarction, or other acute intracranial disease process. No occlusion, hemodynamically significant stenosis, or dissection in the major cervical arteries. No occlusion, hemodynamically significant stenosis, aneurysm, dissection, or arteriovenous malformation in the major intracranial arteries. --MRI Brain pending --Recent ECHO in January 2022:No ASD, PFO not assessed Speech eval requested Fall precautions PT/OT Continue home eliquis, statin Neurology consulted Case Management to help with discharge planning Delirium Family reported that patient does have short term memory deficits and has episodes of confusion Reorient frequently HLD Continue statin Tachy-alicia syndrome S/p PPM 01/2022 HTN Continue losartan, Lopressor DM II HbA1C: 6.7 Monitor BGs Continue Insulin Paroxysmal atrial flutter Continue Metoprolol, Eliquis Anemia Hb Stable DVT Px: Eliquis Code status: DNR/DNI Admission and Anticipated Discharge Date Admission Date: March 18, 2022 Subjective Patient is seen and examined at bedside Left-sided weakness resolved No new complaints Denies any chest pain, shortness of breath, dizziness, change in vision, numbness or tingling Prefers to be discharged home today Review of Systems Review of Systems: All systems reviewed & are unremarkable except as noted in Subjective Physical Exam Physical Exam: Physical Exam: Vitals signs as noted above General Appearance:Moderately built and nourished, no apparent distress, Elderly Head: normocephalic, Atraumatic Eyes: normal inspection, EOMI Neck: supple, Trachea midline Respiratory/Chest: Normal breath sounds, CTA, L pacemaker Cardiovascular: S1, S2, No murmur Abdomen/GI:Soft, Non tender, Bowel sounds present Extremities/Musculoskeletal:normal inspection, no edema Neurologic/Psych:AAOX3, grossly no focal neurological deficits Skin: normal color, warm Results & Data Results & Data ([facility]) Vital Signs (Past 12 Hours) Vital Signs Temp Pulse Pulse Resp BP Pulse Ox O2 Del Method 03/19/22 11:42 Room Air 03/19/22 08:00 62 03/19/22 08:04 36.7 C 60 18 120/72 94 Room Air 03/19/22 03:58 36.7 C 82 18 138/79 94 Room Air Laboratory Results Short CBC 03/18/22 03/19/22 Range/Units 15:30 06:14 WBC 7.28 7.10 (4.8-10.8) K/ul Hgb 11.9 L 11.7 L (14.0-18.0) g/dl Hct 34.8 L 34.4 L (40.1-51.0) % Plt Count 211 221 (130-400) K/uL BMP 03/18/22 03/19/22 15:30 06:14 Sodium 134 L 133 L Potassium 4.1 3.9 Chloride 101 99 Carbon Dioxide 26 28 BUN 21 16 Creatinine 1.09 1.12 Glucose 134 H 127 H Calcium 9.4 9.5 Liver Function 03/18/22 Range/Units 15:30 Total Bilirubin 0.5 (0.2-1.0) mg/dl AST 20 (13-39) U/L ALT 12 (7-52) U/L Alkaline Phosphatase 68 (34-104) U/L Albumin 4.2 (3.4-5.0) gm/dl Urine 03/18/22 Range/Units 17:55 Urine Color Yellow Urine Appearance Clear (Clear) Urine pH 6.0 (4.5-7.5) Ur Specific [place] > 1.045 H (1.000-1.030) Urine Protein Negative (Negative) Urine Glucose (UA) Negative (Negative)
--- NOTE | 2022-03-19 13:10 | Magnetic Resonance Report ---
MR brain wo/w con HISTORY: 81 years-old Male TIA acute strokelike symptoms COMPARISON: Head CT 03/18/2022, brain MRI 06/18/2021 TECHNIQUE: Multiplanar multisequence MRI of the brain was obtained both with and without the use of 7 .5 cc Gadavist FINDINGS: Assembler Equipment localizer images demonstrate no gross extracranial abnormality. There is no restricted diffusio n to suggest acute or subacute infarct. Unremarkable midline structures. Degenerative changes of the imaged cervical spine. Study is motion degraded. Senescent mineralization of the lentiform nuclei. No acute intracranial hemorrhage, midline shift, abnormal extra-axial collection, hydrocephalus or intr acranial mass identified. Age-related involutional changes. Moderate T2/FLAIR hyperintense foci throughout the white matter are again noted. No abnormal enhancement. Cerebral venous sinuses and major arterial flow voids appear p atent. The skull, orbits and soft tissues are unremarkable. The mastoid air cells are clear. Mild to moderate mucosal thickening of the paranasal sinuses. Skull, orbits and soft tissues are unremarkable . IMPRESSION: 1. Motion degraded exam without acute intracranial abnormality. No acute or subacute infarct. 2. No abnormal enhancement. 3. Involutional changes with moderate chronic microvascular ischemic disease. ACT 112: Negative or not required by law. The above report was generated using voice recognition software. It may contain grammatical, syntax o r spelling errors. Electronically signed by: Marquis Horn M.D. 03/19/2022 1:08 PM
--- NOTE | 2022-03-19 13:22 | Neurology Consultation ---
Date of Consultation March 19, 2022 Assessment & Plan (1) TIA (transient ischemic attack): Plan 81-year-old male presenting with transient left-sided weakness, especially the arm which was flaccid, occurring yesterday afternoon and resolving within 1 hour. Presentation would be consistent with a TIA localizing to the right cerebral hemisphere. No evidence of acute or subacute stroke on recent brain MRI. No significant vascular lesion identified on CT angiography of the head and neck. Stroke risk factors for this patient include hyperlipidemia, hypertension, type 2 diabetes mellitus, and potentially atrial flutter, tachybrady syndrome, follows with cardiology, has pacemaker, also on Eliquis. Patient should continue with Eliquis, atorvastatin, and his antihypertensive regimen. His diabetes appears to be fairly well controlled with a recent hemoglobin A1c of 6.7. Patient's lipid panel appears to be acceptable as well with a total cholesterol of 131 and a calculated LDL of only 72. There would probably be not much additional benefit in increasing his atorvastatin dosage. One could potentially make a case to add daily low-dose aspirin to his medication regimen. It does look like he had previously been on Plavix and aspirin, prior to starting Eliquis during an admission to the [facility] this past January for tachybrady syndrome and placement of a dual-chamber pacer. However, potential bleeding risk may outweigh additional stroke risk reduction benefit in this elderly patient. The patient were to present with another TIA or strokelike episode going forward, would consider adding daily low-dose aspirin in that context. No further immediate neurologic recommendations. History of Present Illness Reason for Consultation: TIA Requesting Physician: Veronica Archibald PA-C Attending Physician: Artemio Sanchez MD History of Present Illness The patient is an 81-year-old male who presented to the emergency department yesterday with a chief complaint of left-sided weakness, left arm flaccid, duration less than an hour, onset was acute at around 1:45 in the afternoon. Was able to stand during the episode. Did recall having a mild headache, no vision change or other associated neurologic symptoms. Remote history of stroke with minimal residual left-sided weakness noted. Patient on Eliquis, has a cardiac pacer. Also takes atorvastatin as an outpatient. History also notable for insulin-dependent diabetes mellitus and hypertension. Patient denies experiencing any symptomatic recurrence during this hospitalization, no specific complaint at this time. CT of the head including CT angiography of the head and neck were negative for any significant abnormality, no hemorrhage or acute process, no significant vascular lesion. I did independently review these images. There is an element of generalized cerebral atrophy with associated ventriculomegaly/hydrocephalus ex vacuo. Patient did have a follow-up brain MRI completed. Official report not available at this time. Per my review, there are no areas of pathologic restricted diffusion, there is fairly extensive chronic microvascular ischemic disease on T2/FLAIR sequences with evidence of a chronic right periventricular ischemic infarct. Again noted is generalized atrophy and associated ventricular enlargement/hydrocephalus ex vacuo. Do not appreciate any obvious abnormal postcontrast enhancement. No obvious MRI findings suggestive of hemorrhage. Allergies Allergy/AdvReac Type Severity Reaction Status Date / Time cat dander Allergy Intermediate itchy, Verified 03/18/22 19:46 watery eyes horse dander Allergy Intermediate itchy, Verified 03/18/22 19:46 watery eyes latex Allergy Intermediate skin peels Verified 03/18/22 19:46 diazepam [From Valium] Allergy Confusion Verified 03/18/22 19:49 dyclonine [From Sucrets] AdvReac Intermediate Feels numb Verified 03/18/22 19:46 all over hexylresorcinol AdvReac Intermediate Feels numb Verified 03/18/22 19:46 [From Sucrets] all over meclizine AdvReac Unknown SLEPT FOR Verified 03/18/22 19:47 24 HR adhesive tape AdvReac takes off Verified 03/18/22 19:46 skin diphenhydramine AdvReac Anxiety Verified 03/18/22 19:46 [From Benadryl] enalapril AdvReac FELT VERY Verified 03/18/22 19:46 MEAN enalaprilat [From Vasotec] AdvReac MAKES FEEL Verified 03/18/22 19:46 VERY MEAN ferrous fumarate AdvReac Unknown Verified 03/18/22 19:46 [From Centrum] ferrous gluconate AdvReac Unknown Verified 03/18/22 19:46 [From Centrum] folic acid [From Centrum] AdvReac Unknown Verified 03/18/22 19:46 lutein [From Centrum] AdvReac Unknown Verified 03/18/22 19:46 lycopene [From Centrum] AdvReac Unknown Verified 03/18/22 19:46 multivit with calcium, iron, AdvReac Unknown Verified 03/18/22 19:46 and other minerals [From Centrum] multivitamin [From Centr] AdvReac Unknown Verified 03/18/22 19:46 multivitamin with iron,other AdvReac Unknown Verified 03/18/22 19:46 minerals [From Centrum] multivitamin with minerals AdvReac Unknown Verified 03/18/22 19:46 [From Centr] simvastatin AdvReac Unknown Verified 03/18/22 19:46 sitagliptin [From [facility]] AdvReac MAKES FEEL Verified 03/18/22 19:46 VERY DIZZY Home Medications Medication Instructions Recorded Confirmed Type acetaminophen 500 mg tablet 1,000 mg PO Q6H PRN Pain 06/08/19 03/18/22 History (Tylenol Extra Strength) atorvastatin 40 mg tablet 40 mg PO QAM 06/08/19 03/18/22 History losartan 25 mg tablet 25 mg PO QAM 06/08/19 03/18/22 History tamsulosin 0.4 mg capsule 0.4 mg PO DAILY 06/08/19 03/18/22 History pantoprazole 20 mg tablet,delayed 20 mg PO DAILY 04/10/21 03/18/22 History release fluticasone propionate 50 2 spray intranasal DAILY 06/18/21 03/18/22 History mcg/actuation nasal spray,suspension famotidine 20 mg tablet 20 mg PO HS 12/12/21 03/18/22 History insulin NPH-regular 70-30 U-100 16 unit subcut QDD 12/12/21 03/18/22 History insulin 100 unit/mL subcutaneous pen (Novolin 70-30 FlexPen U-100 Insulin) insulin NPH-regular 70-30 U-100 21 unit subcut QAM 12/12/21 03/18/22 History insulin 100 unit/mL subcutaneous pen (Novolin 70-30 FlexPen U-100 Insulin) albuterol sulfate 90 mcg/actuation 2 puff inhalation Q4H PRN 02/03/22 03/18/22 History aerosol inhaler Shortness Of Breath Or Wheezing ondansetron 4 mg disintegrating 4 mg PO DAILY PRN nausea and 02/06/22 03/18/22 Rx tablet vomiting #30 tabs metoprolol tartrate 50 mg tablet 50 mg PO BID 03/15/22 03/18/22 History apixaban 5 mg tablet (Eliquis) 5 mg PO AMHS 03/18/22 03/18/22 History food supplemt, lactose-reduced 1 ea PO DAILY 03/18/22 03/18/22 History (Ensure oral liquid) Patient History Medical History Altered mental status Controlled type 2 diabetes mellitus, with long-term current use of insulin Elevated PSA Gastritis Generalized osteoarthrosis History of CVA (cerebrovascular accident) History of kidney stones HLD (hyperlipidemia) HTN (hypertension) Lumbar degenerative disc disease Personal history of urinary calculi (01/27/13) RLS (restless legs syndrome) T2DM (type 2 diabetes mellitus) Surgical History H/O prostate biopsy History of colonoscopy with polypectomy History of cystoscopy History of laryngoscopy Hx of bursectomy Family History Father Myocardial infarction Heart disease Mother Breast cancer Sister Lupus Brother Diabetes Myocardial infarction Coronary heart disease Brother Cancer Bladder Social History Smoking Status: Former smoker Tobacco Type: Cigarettes Number of Years Since Quit: 40; Second Hand Exposure: No; Hx Alcohol Use: No Hx Substance Use: No Preferred Language: Moroccan Communication Ability: Effective Visual Impairment: No Limitations Hearing Ability: Normal Survey Research Analyst Required: No Beliefs That Will Affect Care: None marital status: Current Living Situation: Spouse current occupational status: retired How many Children do You have: 3 Other Information That Helps Us Care for You: No Feels Safe at Home: Yes Safety Concerns: Feels Safe At This Time during the past year weight has: remained stable Physical Activity Frequency: 3-4 Times per Week Assistive Devices: Cane, Denture - Upper, Denture - Lower, Glasses and Walker Review of Systems Constitutional: no fever and no chills Eyes: no blind spots and no diplopia Ear, Nose, Mouth, Throat: no hearing loss Respiratory: no cough and no dyspnea Cardiovascular: no chest pain and no palpitations Gastrointestinal: no nausea and no vomiting Genitourinary: no dysuria or no urinary incontinence Musculoskeletal: no back pain, no neck pain and no myalgia Integumentary: no rash and no lesions Neurologic: as per Subjective / HPI Psychiatric: no depression and no anxiety Hematologic / Lymphatic: no easy bleeding and no easy bruising Exam (Neuro) Constitutional: well developed and well nourished; no acute distress Eyes: normal visual beltran by confrontation, PERRL, normal accommodation and EOM intact bilaterally; no fundoscopic abnormality, no nystagmus and no papilledema Cardiovascular: Vessels: normal carotid upstroke; no carotid bruit Neurologic: Oriented to:: Person, Place and Time Memory: Short Term Intact and Remote Intact Attention: Span Intact and Concentration Intact Language: Naming Objects and Repeating Phrases Speech Fluency: negative Dysarthria Speech Aphasia: negative Aphasia Fund of Knowledge: Current Events, Past History and Vocabulary Cranial Nerves: Normal II (Visual beltran full to confrontation, visual acuity normal), III, IV, (Pupils equal round reactive to light and accommodation, eye movements normal), V (Facial sensation intact), VIII (Hearing intact), IX, X (Palate elevates to midline), XI (Shoulder shrug intact) and XII (Tongue protrudes to midline); Abnorm VII (There is mild flattening of the left nasolabial fold.) Motor Strength: Normal Lower Extremities and Normal Upper Extremities; negative Pronator Drift Motor Tone: Normal Lower Extremities and Normal Upper Extremities Muscle Bulk/Involuntary Movements: No Involuntary Movements; negative Muscle Atrophy Sensation: Light Touch Intact, Pain/Temperature Intact, Vibration Intact and Proprioception Intact Coordination: Normal; negative Limited Balance, Dysdiadochokinesia, Finger-Nose Abnormal or Heel-Esparza Abnormal Deep Tendon Reflexes: Rt Triceps: 2+, Lt Triceps: 2+, Rt Biceps: 2+, Lt Biceps: 2+, Rt Brachioradialis: 2+, Lt Brachioradialis: 2+, Rt Patellar: 2+, Lt Patellar: 2+, Rt Ankle: 1+ and Lt Ankle: 1+ Special Tests: negative Babinski Present Gait: Normal Station and Gait Results & Data ([facility]) Vital Signs (Past 12 Hours) Vital Signs Temp Pulse Pulse Resp BP Pulse Ox O2 Del Method 03/19/22 12:55 36.5 C 66 18 117/68 96 Room Air 03/19/22 11:42 Room Air 03/19/22 08:00 62 03/19/22 08:04 36.7 C 60 18 120/72 94 Room Air 03/19/22 03:58 36.7 C 82 18 138/79 94 Room Air Laboratory Results WBC 7.10, hemoglobin 11.7, hematocrit 34.4, MCV 93.2, platelet count 221, sodium 133, potassium 3.9, BUN 16, creatinine 1.12, glucose 127, hemoglobin A1c 6.7, calcium 9.5, magnesium 1.9, AST 20, ALT 12, triglycerides 116, cholesterol 131, LDL 72, VLDL 23, HDL [address] of the head, CT angiography of the head and neck, and brain MRI are as described above. I did perform an independent review of the above brain MRI as the official radiology report was not available at the time of my review of this case. Electrocardiogram reveals a normal sinus rhythm, 64 bpm. Echocardiogram completed February 04, 2022 revealed normal left ventricular chamber size, moderate concentric LVH, EF 60 to 65%, no segmental left ventricular wall motion abnormalities noted, left atrial size normal, no ASD, PFO not assessed. Coding Level of Care Code 82247 Initial Inpt Care Lvl 3 Diagnoses TIA (transient ischemic attack) G45.9
[2022-03-19] MEDS ORDERED: STROKE PATIENT DISCHARGE STA (14:51)
[2022-03-19 14:54] VITALS: BP 117/68; PULSE 66; TEMP 97.7; O2SAT 96
--- NOTE | 2022-03-19 14:56 | Discharge Summary ---
Date of Service March 19, 2022 Admission HPI Per Admitting Provider This is an 81yo M with a PMH of SSS s/p PPM 01/2022, h/o CVA x2 (on Apixaban), HTN, HLD, DM2, prostate cancer on antiandrogen since 09/2020 who presents with left sided weakness at home that has since resolved. Patient was admitted a few days ago for weakness with fall and work-up was unremarkable. Weakness was attributed to diarrhea that resolved during admission. Other work up earlier this week included CT head without changes,and normal PM interrogation. Evaluated by PT who recommended walker and patient was discharged home yesterday with home health, PT and OT in place. History primarily obtained from daughter and at bedside due to patient's delirious state. Patient was in normal state of health today and was taking a nap and got up around 1300. When ambulating out of his room, patient reportedly became weak on left arm and left leg, having to hold onto the wall to avoid falling. called EMS and patient was brought to ED for further evaluation. By the time patient arrived, weakness had resolved and patient was back to baseline strength, without any focal deficits. Since arrival, patient has become more confused, which and daughter state is typical of his . He currently does not know his name or where he is. Family is concerned about him returning home with recurrent falls in setting of blood thinners but when patient is more oriented he reportedly refuses to leave home. Patient denies any pain at this time. Remainder of ROS unobtainable due to cognitive state. Admission Exam Per Admitting Provider Physical Exam Physical Exam: General Appearance:WD/WN, vitals as above, NAD, sitting up in bed, pleasantly confused, able to follow commands with direction Head: normocephalic, atraumatic Eyes:normal inspection, PERRL, conjunctivae normal, anicteric sclerae ENT: external ear and nose normal, oropharynx normal Neck: normal visual inspection, trachea midline, no thyromegaly Respiratory:normal respiratory effort, lungs clear to auscultation, no wheeze, rales, rhonchi. No accessory muscle use Cardiovascular: regular rate, rhythm, no murmur, normal peripheral pulses, no BLE edema. Vessels: no JVD Chest: + well healed pacemaker incision L chest Abdomen/GI: normal bowel sounds, soft, nontender, no hepatosplenomegaly Extremities/Musculoskeletal: no cyanosis or clubbing, extremities motor strength 5/5 Neurologic: PERRL, EOMI, accommodation nl, no face palsy, no dysarthria, CN's II-XI intact bilaterally and moves all extremities Psychiatric:Alert but not oriented to person, place or time. Euthymic affect Skin: no rashes, normal color, warm/dry Principal Diagnosis Transient ischemic attack Discharge Data Allergies Allergy/AdvReac Type Severity Reaction Status Date / Time cat dander Allergy Intermediate itchy, Verified 03/18/22 19:46 watery eyes horse dander Allergy Intermediate itchy, Verified 03/18/22 19:46 watery eyes latex Allergy Intermediate skin peels Verified 03/18/22 19:46 diazepam [From Valium] Allergy Confusion Verified 03/18/22 19:49 dyclonine [From Sucrets] AdvReac Intermediate Feels numb Verified 03/18/22 19:46 all over hexylresorcinol AdvReac Intermediate Feels numb Verified 03/18/22 19:46 [From Sucrets] all over meclizine AdvReac Unknown SLEPT FOR Verified 03/18/22 19:47 24 HR adhesive tape AdvReac takes off Verified 03/18/22 19:46 skin diphenhydramine AdvReac Anxiety Verified 03/18/22 19:46 [From Benadryl] enalapril AdvReac FELT VERY Verified 03/18/22 19:46 MEAN enalaprilat [From Vasotec] AdvReac MAKES FEEL Verified 03/18/22 19:46 VERY MEAN ferrous fumarate AdvReac Unknown Verified 03/18/22 19:46 [From Centrum] ferrous gluconate AdvReac Unknown Verified 03/18/22 19:46 [From Centrum] folic acid [From Centrum] AdvReac Unknown Verified 03/18/22 19:46 lutein [From Centrum] AdvReac Unknown Verified 03/18/22 19:46 lycopene [From Centrum] AdvReac Unknown Verified 03/18/22 19:46 multivit with calcium, iron, AdvReac Unknown Verified 03/18/22 19:46 and other minerals [From Centrum] multivitamin [From Centrum] AdvReac Unknown Verified 03/18/22 19:46 multivitamin with iron,other AdvReac Unknown Verified 03/18/22 19:46 minerals [From Centrum] multivitamin with minerals AdvReac Unknown Verified 03/18/22 19:46 [From Centrum] simvastatin AdvReac Unknown Verified 03/18/22 19:46 sitagliptin [From Januvia] AdvReac MAKES FEEL Verified 03/18/22 19:46 VERY DIZZY Consultations 03/18/22 18:54 ED Decision to Admit Stat 03/19/22 07:00 Consult Neurology Routine Procedures Performed MRI Brain: FINDINGS: Photographer'S Model localizer images demonstrate no gross extracranial abnormality. There is no restricted diffusion to suggest acute or subacute infarct. Unremarkable midline structures. Degenerative changes of the imaged cervical spine. Study is motion degraded. Senescent mineralization of the lentiform nuclei. No acute intracranial hemorrhage, midline shift, abnormal extra-axial collection, hydrocephalus or intracranial mass identified. Age-related involutional changes. Moderate T2/FLAIR hyperintense foci throughout the white matter are again noted. No abnormal enhancement. Cerebral venous sinuses and major arterial flow voids appear patent. The skull, orbits and soft tissues are unremarkable. The mastoid air cells are clear. Mild to moderate mucosal thickening of the paranasal sinuses. Skull, orbits and soft tissues are unremarkable. IMPRESSION: 1. Motion degraded exam without acute intracranial abnormality. No acute or subacute infarct. 2. No abnormal enhancement. 3. Involutional changes with moderate chronic microvascular ischemic disease. Head/Neck CTA: FINDINGS: CT head: Areas of decreased attenuation are present in the periventricular and subcortical white matter bilaterally consistent with small vessel ischemic disease. Generalized cerebral atrophy with commensurate enlargement of the ventricles, sulci, and cisterns is also present. There is no acute intracranial hemorrhage or evidence of acute territorial infarction. No shift of the midline structures, mass effect, or extra-axial abnormalities are shown. Atherosclerotic calcifications are present in the intracranial segments of the internal carotid arteries. Lungs and soft tissues are unremarkable. 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 CTA Neck: A 3 vessel aortic arch is shown. Atherosclerotic plaque is present in the aortic arch and at the origin of the great vessels. The common carotid, external carotid, cervical segments of the internal carotid arteries, and the cervical segments of the vertebral arteries are patent without hemodynamically significant stenosis. Nonhemodynamically significant stenosis of the proximal left vertebral artery is seen. The left vertebral artery is dominant. CTA Head: The anterior and posterior cerebral circulations are patent. No hemodynamically significant stenosis, aneurysm, dissection, or arteriovenous malformation is shown. Atherosclerotic disease is noted. The right anterior communicating artery is diminutive compared to the left. There is narrowing of the distal right vertebral artery which is not hemodynamically significant. IMPRESSION: 1. No acute intracranial hemorrhage, evidence of acute territorial infarction, or other acute intracranial disease process. 2. No occlusion, hemodynamically significant stenosis, or dissection in the major cervical arteries. 3. No occlusion, hemodynamically significant stenosis, aneurysm, dissection, or arteriovenous malformation in the major intracranial arteries. CXR: Dual lead pacemaker is seen. The cardiomediastinal silhouette is normal. The lungs are clear. No evidence of pleural effusion or pneumothorax. Ordered Studies 03/18/22 15:47 CT angio head w con Stat CT angio neck with con Stat CT head/brain wo con Stat 03/19/22 08:56 MRI Brain [MR brain wo/w con] Urgent Hospital Course (1) Weakness: (2) TIA (transient ischemic attack): (3) History of CVA (cerebrovascular accident): (4) SVT (supraventricular tachycardia): (5) Paroxysmal atrial flutter: (6) Anemia: (7) Tachy-alicia syndrome: (8) Controlled type 2 diabetes mellitus, with long-term current use of insulin: (9) HLD (hyperlipidemia): Plan Patient is an 81 yr male with H/O SSS s/p PPM 01/2022, h/o CVA x2 (on Apixaban), HTN, HLD, DM2, prostate cancer on antiandrogen since 09/2020 who presents with left sided weakness at home that has since resolved. TIA H/O CVA On chronic anticoagulation with Eliquis for atrial flutter H/O multiple Falls --CT head, CTA head/neck:No acute intracranial hemorrhage, evidence of acute territorial infarction, or other acute intracranial disease process. No occlusion, hemodynamically significant stenosis, or dissection in the major cervical arteries. No occlusion, hemodynamically significant stenosis, aneurysm, dissection, or arteriovenous malformation in the major intracranial arteries. --MRI Brain pending --Recent ECHO in January 2022:No ASD, PFO not assessed Speech eval requested Fall precautions PT/OT Continue home eliquis, statin Appreciate Neurology Input Given potential bleeding risk, weighing risks versus benefits in elderly patient, neurology recommended no additional anticoagulation for now. Would consider starting on aspirin 81 mg daily if patient presents with another TIA or strokelike episode in the future. Advised to follow-up with neurology in 3 to 4 weeks upon discharge Delirium Family reported that patient does have short term memory deficits and has episodes of confusion Reorient frequently HLD Continue statin Tachy-alicia syndrome S/p PPM 01/2022 HTN Continue losartan, Lopressor DM II HbA1C: 6.7 Monitor BGs Continue Insulin Paroxysmal atrial flutter Continue Metoprolol, Eliquis Anemia Hb Stable DVT Px: Eliquis Code status: DNR/DNI Total Time Total Time Spent Total Time Spent (In Minutes): 56 minutes Discharge Plan Discharge Items Patient Disposition: Home - Home Health Services Reason For Visit: TIA Discharge Diagnosis: Transient ischemic attack Activity: Per Instructions section Exercise/Sports: Gradually increase as tolerated Non-emergency contact: Primary Care Provider and Neurologist Call non-emergency contact if: you have any medication questions, your symptoms worsen, your pain is concerning for you and you have a fever Follow-up/Referrals: Matt Hooper MD [Primary Care Provider] - (Date & Time 03/25/2022 2:20 PM Provider Matt Hooper MD Department Family Medicine [facility] ) Diet: Carb Consistent or DM2 and Heart Healthy Addtl Attending Provider Instructions: Follow-up with your primary care physician on 03/25/2022 2:20 PM Follow-up with your neurologist Anaya in 3-4 weeks Seek immediate medical attention if your symptoms reoccur or worsen Please take all medications as instructed on discharge list below. Please call if you have any questions or problems. You can reach a [facility] hospitalist on duty at [facility] 24 hours a day by calling [phone] Risk Factors for Stroke: You can reduce your chances of stroke by working with your medical provider to adopt a healthy lifestyle. Some specific ways to lower your chance of stroke are: * If you are a smoker, now is the time to stop smoking cigarettes * If you are diabetic, improve the control of your blood sugars * Avoid excessive amounts of alcohol * Control high blood pressure * Lose weight if you are overweight * Be sure to lead an active lifestyle * Eat a healthy diet low in salt, cholesterol and fat You should know about other risk factors for stroke that you are unable to control. These include: * Age 55 years or older * Male gender * Certain racial groups: , or / * Family History of Stroke, Mini stroke or Heart Attack * Sickle Cell Disease Follow Up: It is important for you to keep your follow up appointments with your medical provider. Who to Call and When: Medical Emergencies: Call 911 immediately if you experience any of the following warning signs and symptoms of Stroke: * Sudden numbness or weakness of the face, arm or leg, especially on one side of the body * Sudden confusion, trouble speaking or understanding * Sudden trouble seeing in one or both eyes * Sudden trouble walking, dizziness, loss of balance or coordination * Sudden severe headache with no cause Do not delay calling 911 if you experience any warning signs or symptoms of a stroke. Delay in seeking medical attention may affect what treatments can be given to you. . Pending Studies at Discharge: No Stand-Alone Forms: [facility], Smoking Cessation Medications and DC Order Prescriptions: Continued pantoprazole 20 mg tablet,delayed release (DR/EC) 20 mg PO DAILY Novolin 70-30 FlexPen U-100 100 unit/mL (70-30) insulin pen 21 unit subcut QAM famotidine 20 mg tablet 20 mg PO HS atorvastatin 40 mg tablet 40 mg PO QAM tamsulosin 0.4 mg capsule 0.4 mg PO DAILY losartan 25 mg tablet 25 mg PO QAM acetaminophen [Tylenol Extra Strength] 500 mg Tablet 1,000 mg PO Q6H PRN (Reason: Pain) albuterol sulfate 90 mcg/actuation HFA aerosol inhaler 2 puff INHALATION Q4H PRN (Reason: Shortness Of Breath Or Wheezing) ondansetron 4 mg tablet,disintegrating 4 mg PO DAILY PRN (Reason: nausea and vomiting) Qty: 30 0RF Eliquis 5 mg tablet 5 mg PO AMHS Ensure Liquid 1 ea PO DAILY Novolin 70-30 FlexPen U-100 100 unit/mL (70-30) insulin pen 16 unit SUBCUT QDD fluticasone propionate 50 mcg/actuation spray,suspension 2 spray INTRANASAL DAILY metoprolol tartrate 50 mg tablet 50 mg PO BID Discharge Orders: Discharge Order (Routine); Ordered 03/19/22 Ordered By: Artemio Talley/Other Patient Handouts: Managing Type 2 Diabetes Admission Data Admit Date/Time: 03/18/22 19:45 Attending Provider: Artemio Sanchez Admit Provider: Miller Velasco Primary Care Provider: Matt Hooper Other Providers: Miller Velasco ; Bebeto Barnes ; [facility]
--- NOTE | 2022-03-19 17:40 | Electrocardiogram Report ---
Test Reason : Blood Pressure : / mmHG Vent. Rate : 064 BPM Atrial Rate : 064 BPM P-R Int : 182 ms QRS Dur : 080 ms QT Int : 418 ms P-R-T Axes : 039 -25 033 degrees QTc Int : 431 ms Normal sinus rhythm Nonspecific ST abnormality Abnormal ECG When compared with ECG of 15-MAR-2022 22:20, No significant change was found Confirmed by Yash Burns ([id number]) on 03/19/2022 5:39:36 PM Referred By: REFERRED SELF Confirmed By:Serafin Burns
[2022-03-19] MEDS ORDERED: LANTUS PER UNIT CHARGE SQ SCH (21:00)
== END 2022-03-19 15:40 | disposition home health service (06) | DRG 69 ==
LOC: ED 15:10 → 2S 19:45 → SUATTDRO 19:45 → 2S 22:12